=== PATIENT | male | born 1965 | race Caucasian/White ===

== ENCOUNTER 2020-05-01 08:21 | Inpatient (IN) | payer OTHER, SELFPAY ==
[2020-05-01] VITALS (11 sets, daily range): BP systolic 104–157; BP diastolic 81–99; PULSE 86–119; RESP 16–20; TEMP 36–37.2; O2SAT 94–97; BMI 25.0
--- NOTE | ~2020-05-01 | CT_ITS ---
EXAMINATION: CT ABDOMEN AND PELVIS WITH CONTRAST CLINICAL INFORMATION: Upper abdominal pain and history of pancreatitis COMPARISON: CT of the abdomen and pelvis 08/08/2019 TECHNIQUE: Multidetector volumetric images were obtained from the superior aspect of the liver through the pubic symphysis following administration 82 mL of Omnipaque 350 intravenous contrast. Sagittal and coronal reformatted images were obtained on the technologist's workstation. Oral contrast: No This CT examination was performed using dose optimization techniques as appropriate, variously including the following: *Automated exposure control *Adjustment of mA and/or kV according to patient size (this includes techniques or standardized protocols for targeted exams where dose is matched to indication/reason for exam; i.e. extremities or head) *Use of iterative reconstruction technique DLP: 493 mGy-cm FINDINGS: LUNG BASES: Dependent atelectasis at the bilateral lung bases LIVER, GALLBLADDER, AND BILIARY TREE: The liver is normal in size, shape, and attenuation. No focal hepatic lesion. Common bile duct measures up to 0.9 cm in diameter. No calcified stone is visualized. The gallbladder is surgically absent. PANCREAS: Again demonstrated is a dilated pancreatic duct, measuring up to 0.6 cm in diameter. There is a small amount of fluid along the pancreatic tail and edema in the mesentery. There is chronic atrophy of the pancreatic parenchyma. There are scattered calcifications, likely reflective of chronic pancreatitis. SPLEEN: Unremarkable. ADRENAL GLANDS: Unremarkable. KIDNEYS AND URETERS: The kidneys are normal in size, shape, and attenuation. No hydronephrosis, hydroureter, or calculi seen. No perinephric stranding. 1.8 cm simple cyst in the inferior pole of the right kidney. BLADDER: Unremarkable. GASTROINTESTINAL TRACT: The stomach and small bowel are not dilated. No evidence of obstruction. There are postsurgical changes of the rectosigmoid junction. There is diverticulosis of the descending and sigmoid colon without evidence of diverticulitis. Normal appendix. ABDOMINAL WALL: No significant hernia is appreciated. LYMPH NODES: Normal. VASCULAR: Normal caliber of the abdominal aorta. Scattered atheromatous calcifications. PELVIC VISCERA: The prostate and seminal vesicles are unremarkable. OSSEOUS STRUCTURES: No acute or suspicious osseous abnormality. Multilevel degenerative changes of the spine and postsurgical changes from discectomy at L5-S1. CT/CT abdomen pelvis w con IMPRESSION: Small amount of free fluid and mesenteric stranding around the tail of the pancreas, likely reflecting pancreatitis. No loculated fluid collection. Chronic atrophy of the pancreas with unchanged dilatation of the pancreatic duct measuring up to 0.6 cm in diameter. Scattered pancreatic calcifications, likely reflective of chronic pancreatitis. Diverticulosis of the colon without evidence of diverticulitis. Postsurgical changes of the rectosigmoid junction. Simple cyst of the right kidney measuring 1.8 cm.
--- NOTE | ~2020-05-01 | XR_ITS ---
EXAMINATION: XR CHEST CLINICAL INFORMATION: Cough and sore throat. COMPARISON: Chest 06/14/2019 TECHNIQUE: 2 views of the chest were obtained. FINDINGS: No significant abnormality is noted involving the heart, lungs, mediastinum, bony thorax or soft tissues. XR/XR chest 2V IMPRESSION: Unremarkable chest examination.
[2020-05-01] MEDS: 0.9 % Sodium Chloride 1,000 ML 999 ML IVCONT ×2 (10:32→13:16)
[2020-05-01] MEDS: Morphine Sulfate 2 MG/ML CARTRIDGE IVPUSH (10:32)
[2020-05-01] MEDS: ondansetron HCL 4 MG/2 ML VIAL IVPUSH (10:32)
[2020-05-01] MEDS: LORazepam 2 MG/ML VIAL IVPUSH ×2 (10:34→13:15)
--- NOTE | 2020-05-01 10:40 | ED_ITS ---
HPI - Abdominal Pain General Chief Complaint: Abdominal Pain Stated Complaint: abd pain Time Seen by Provider: 05/01/20 09:14 Source: patient Mode of arrival: ambulatory Limitations: no limitations History of Present Illness HPI narrative: 54-year-old male with a past medical history of ETOH dependent, recurrent alcoholic pancreatitis, chronic pancreatitis, pseudocyst, splenic and portal vein thrombosis, diverticulosis, diverticulitis hypertension, anxiety, depression and COPD presenting to the ED with complaints of upper abdominal pain with associated nausea and diarrhea that started yesterday worse today. Reports that he currently drinks about 15 nips of vodka daily. Patient reports his last drink was yesterday. Reports he has went into alcohol withdrawal in the past although has never had a seizure. Reports his last admission was approximately 6-9 months ago at [facility]. Reports that he is not interested in detox. Patient also reports a separate complaint of sore throat and a produ ctive cough for the past few days. MD elicited complaint: abdominal pain Pertinent past history: diverticulitis and other (Pancreatitis) Onset (ago): day(s) (Since yesterday worse today) Pain Consistency: constant Location: epigastric, LUQ and RUQ Severity: severe Quality: aching Radiation: none Migration to: no migration Exacerbating factors: eating Relieving factors: nothing Associated symptoms: nausea, diarrhea and other (Sore throat and productive cough) Related Data Allergies Allergy/AdvReac Type Severity Reaction Status Date / Time No Known Allergies Allergy Verified 05/01/20 09:01 [No Known Allergies*] Review of Systems Review of Systems Constitutional : + diaphoresis, No Weight loss, No Fever, No Chills, No Night Sweats, No Fatigue, No Malaise, no recent travel, no sick contacts ENT/Mouth: + Sore throat, No ear pain, No Difficulty swallowing Cardiovascular : No Chest Pain, No SOB, No Dyspnea on Exertion, No Orthopnea, NoEdema, No Palpitations Respiratory : + Cough, + Sputum, No Wheezing, No Dyspnea Gastrointestinal : + Nausea, + Diarrhea, + abdominal Pain, No Vomiting, No Hematochezia, No Melena Genitourinary : No irregular bleeding, No Dysuria, No Urinary Frequency, No Hematuria,No Urinary Incontinence, No Urgency, No Flank Pain Musculoskeletal : No joint pain, No Myalgias, No Joint Swelling Skin : No Skin Lesions, No rash Neuro : No Weakness, No Numbness, No Paresthesias, No Loss of Consciousness, NoDizziness, No Headache Psych : No Social Issues, Heme/Lymph: No Bruising, No Bleeding,No Lymphadenopathy Endocrine : No Polyuria, No Polydipsia, No Temperature Intolerance Yes all other systems are reviewed and are negative Physical Exam Vital Signs: Vital Signs: Last Vital Signs Temp 98.9 F 05/01/20 08:58 Pulse 119 H 05/01/20 13:56 Resp 16 05/01/20 13:56 BP 140/90 H 05/01/20 13:56 Pulse Ox 96 05/01/20 13:56 Body Mass Index 25.0 vital signs have been reviewed as normal and appeared to be correct. Blood pressure hypertensive 140/93. Heart rate tachycardic at 01:04. Respiration rate normal. Temperature normal. Oxygen saturation normal. Appearance: Alert. Oriented X3. Appears to be diaphoretic. No acute distress. Head: Normal external exam. Normocephalic. Eyes: PERRLA. EOMI. Conjunctiva and sclera normal. Eyelids normal. ENT: Pharynx erythematous. Uvula midline. Moist mucous membranes. No trismus noted. No drooling noted. No muffled voice noted. Neck: Normal inspection. Neck supple. FROM. No adenopathy. No meningeal signs. CVS: Normal heart rate and rhythm. Heart sound normal. No murmurs noted. Pulses normal throughout. Respiratory: No respiratory distress. Painless inspiration. Breath sounds nor mal. No wheezes/rales/rhonchi noted. Chest nontender. No accessory muscle usage noted or decreased air movement noted. Abdomen: Soft and mild tenderness to palpation to upper abdomen. Nondistended. No guarding. No rigidity. Bowel sounds normal in all 4 quadrants. No distention noted. No organomegaly noted. No visible injury noted. No rebound tenderness. Negative Rovsing sign. Negative obturator's sign. Negative psoas sign. Negative Douglas sign. Back: No CVA tenderness. Full range of motion noted. Skin: Skin warm and dry. Normal skin color. Normal skin turgor. No rashes/lesions/lacerations noted. Extremities: Extremities exhibit normal range of motion. Extremities nontender. Neuro: Oriented X 3. No motor deficit. No sensory deficit. Reflexes normal. Course Course Course Narrative: 9:15am - 54-year-old male with a past medical history of ETOH dependent, recurrent alcoholic pancreatitis, chronic pancreatitis, pseudocyst, splenic and portal vein thrombosis, diverticulosis, diverticulitis hypertension, anxiety, depression and COPD presenting to the ED with multiple complaints which include nausea, upper abdominal pain, diarrhea. Second complaint is sore throat with a productive cough for the past few days. Last drink was last night. Not interested in detox. - on exam patient is alert and oriented x3. Noted to be diaphoretic although not in any acute distress. No other signs of alcohol withdrawal. No tremors noted. Patient noted to be hypertensive and tachycardic otherwise all other vitals are within normal limits. Posterior pharynx erythematous. No exudate noted. Lungs clear to auscultation. CV RRR. Abdomen is soft and mild tenderness to upper abdomen. Not consistent with acute abdomen. No CVA tenderness noted. - labs, abdominal ultrasound, chest x-ray, SARS/RSV/flu swab, UA, rapid strep. Provide a L of IV fluid with 2 mg of Ativan, 2 mg of morphine and 4 mg of Zofran and re-evaluate. Reevaluation(s) Reevaluation #1: - white blood cell count 11,000 - potassium 3.1 - BUN 26 - random glucose 116 - total bilirubin 1.1 - AST/ALT/alkaline phosphate 75/68/152 - LDH 260 - all other labs are within normal limits - Odilia criteria 0 - I added a troponin due to patient developed an episode of SVT although denied any chest pain and he appeared comfortable than he was given another L of IV fluids and 2 additional mg of Ativan and his heart rate came down again - troponin 5.3 - EKG accelerated junctional rhythm with a ventricular rate of 125 with no acute ischemic changes and similar when compared to prior EKG on 08/05/2019. - CT scan of abdomen and pelvis with IV contrast reveals small amount of free fluid and mesenteric stranding around the tail of the pancreas reflecting pancreatitis no loculated fluid collection. Patient was also noted to have other chronic changes no additional acute processes noted. - chest x-ray was negative for pneumonia or any other acute processes. - COVID/flu/RSV negative. - therefore at this time will admit for pancreatitis and alcohol withdrawal - Dr. Kim as accepted admission at this time. Time: 14:37 MDM - Abdominal Pain Medical Records Attestation: I reviewed the patient's medical records. Lab Data Attestation: I reviewed the patient's lab results. Result diagrams: 05/01/20 10:25 05/01/20 10:25 Labs: Lab Results 05/01/20 05/01/20 05/01/20 Range/Units 10:25 10:25 10:25 WBC 11.9 H (4.8-10.8) X10*3/uL RBC 4.62 (4.60-5.80) X10*6/uL Hgb 15.1 (14.0-18.0) g/dl Hct 42.6 (42-52) % MCV 92.2 (80-98) fL MCH 32.7 (27.0-33.0) pg MCHC 35.4 (31.0-36.0) g/dl RDW 12.0 (11.0-16.0) % Plt Count 246 (160-400) X10*3/uL MPV 9.5 (9.4-12.4) fL Immature Gran % (Auto) 0.3 (0.0-0.4) % Neut % (Auto) 79.0 H (45-73) % Lymph % (Auto) 12.4 L (20-40) % [place] % (Auto) 6.8 (2-11) % Eos % (Auto) 1.1 (0-4) % Baso % (Auto) 0.4 (0-2) % Lymph # (Auto) 1.5 (1.2-4.9) X10*3/uL [place] # (Auto) 0.8 (0.1-1.2) X10*3/uL Eos # (Auto) 0.1 (0.0-0.4) X10*3/uL Baso # (Auto) 0.1 (0.0-0.2) X10*3/uL Abs Immat Gran (auto) 0.04 H (0.00-0.03) X10*3/uL Absolute Neuts (auto) 9.4 H (2.0-8.3) X10*3/uL Absolute Nucleated RBC 0.000 (0.0-0.012) X10*3/uL Nucleated RBC % (auto) 0.0 (0.0-0.2) /100WBC Hold Purple Top SEE NOTE PT (10.8-13.0) SEC INR (0.9-1.1) APTT (24.1-38.0) SEC Sodium 137 (135-145) mmol/L Potassium 3.1 L (3.3-5.1) mmol/L Chloride 100 (96-108) mmol/L Carbon Dioxide 22 (22-29) mmol/L Anion Gap 18 (12-20) BUN 26 H (9-16) mg/dL Creatinine 1.21 (0.5-1.4) mg/dL Estim Creat Clear Calc 78.8 Estimated GFR > 60 Random Glucose 116 H (60-115) mg/dL Calcium 8.6 (8.4-10.2) mg/dL Magnesium 1.7 (1.6-2.6) mg/dL Total Bilirubin 1.1 H (0.0-1.0) mg/dL Direct Bilirubin 0.4 (0.0-0.5) mg/dL AST 75 H (5-37) U/L ALT 68 H (0-40) U/L Alkaline Phosphatase 152 H (39-117) U/L Lactate Dehydrogenase 260 (118-273) U/L Troponin I High Sens (<3.5-35.0) ng/L Total Protein 7.1 (6.5-8.0) g/dL Albumin 4.0 (3.5-5.0) g/dL Amylase 69 (28-100) U/L Lipase (8-78) U/L Ethyl Alcohol mg/dL Coronavirus (PCR) (Negative) Influenza Type A (PCR) (Negative) Influenza Type B (PCR) (Negative) RSV RNA Qual (PCR) (Negative) 05/01/20 05/01/20 05/01/20 Range/Units 10:25 10:25 10:25 WBC (4.8-10.8) X10*3/uL RBC (4.60-5.80) X10*6/uL Hgb (14.0-18.0) g/dl Hct (42-52) % MCV (80-98) fL MCH (27.0-33.0) pg MCHC (31.0-36.0) g/dl RDW (11.0-16.0) % Plt Count (160-400) X10*3/uL MPV (9.4-12.4) fL Immature Gran % (Auto) (0.0-0.4) % Neut % (Auto) (45-73) % Lymph % (Auto) (20-40) % [place] % (Auto) (2-11) % Eos % (Auto) (0-4) % Baso % (Auto) (0-2) % Lymph # (Auto) (1.2-4.9) X10*3/uL [place] # (Auto) (0.1-1.2) X10*3/uL Eos # (Auto) (0.0-0.4) X10*3/uL Baso # (Auto) (0.0-0.2) X10*3/uL Abs Immat Gran (auto) (0.00-0.03) X10*3/uL Absolute Neuts (auto) (2.0-8.3) X10*3/uL Absolute Nucleated RBC (0.0-0.012) X10*3/uL Nucleated RBC % (auto) (0.0-0.2) /100WBC Hold Purple Top PT 13.2 H (10.8-13.0) SEC INR 1.1 (0.9-1.1) APTT 28.5 (24.1-38.0) SEC Sodium (135-145) mmol/L Potassium (3.3-5.1) mmol/L Chloride (96-108) mmol/L Carbon Dioxide (22-29) mmol/L Anion Gap (12-20) BUN (9-16) mg/dL Creatinine (0.5-1.4) mg/dL Estim Creat Clear Calc Estimated GFR Random Glucose (60-115) mg/dL Calcium (8.4-10.2) mg/dL Magnesium (1.6-2.6) mg/dL Total Bilirubin (0.0-1.0) mg/dL Direct Bilirubin (0.0-0.5) mg/dL AST (5-37) U/L ALT (0-40) U/L Alkaline Phosphatase (39-117) U/L Lactate Dehydrogenase (118-273) U/L Troponin I High Sens (<3.5-35.0) ng/L Total Protein (6.5-8.0) g/dL Albumin (3.5-5.0) g/dL Amylase (28-100) U/L Lipase 40 (8-78) U/L Ethyl Alcohol mg/dL Coronavirus (PCR) NEGATIVE (Negative) Influenza Type A (PCR) NEGATIVE (Negative) Influenza Type B (PCR) NEGATIVE (Negative) RSV RNA Qual (PCR) NEGATIVE (Negative) 05/01/20 05/01/20 Range/Units 10:45 10:45 WBC (4.8-10.8) X10*3/uL RBC (4.60-5.80) X10*6/uL Hgb (14.0-18.0) g/dl Hct (42-52) % MCV (80-98) fL MCH (27.0-33.0) pg MCHC (31.0-36.0) g/dl RDW (11.0-16.0) % Plt Count (160-400) X10*3/uL MPV (9.4-12.4) fL Immature Gran % (Auto) (0.0-0.4) % Neut % (Auto) (45-73) % Lymph % (Auto) (20-40) % [place] % (Auto) (2-11) % Eos % (Auto) (0-4) % Baso % (Auto) (0-2) % Lymph # (Auto) (1.2-4.9) X10*3/uL [place] # (Auto) (0.1-1.2) X10*3/uL Eos # (Auto) (0.0-0.4) X10*3/uL Baso # (Auto) (0.0-0.2) X10*3/uL Abs Immat Gran (auto) (0.00-0.03) X10*3/uL Absolute Neuts (auto) (2.0-8.3) X10*3/uL Absolute Nucleated RBC (0.0-0.012) X10*3/uL Nucleated RBC % (auto) (0.0-0.2) /100WBC Hold Purple Top PT (10.8-13.0) SEC INR (0.9-1.1) APTT (24.1-38.0) SEC Sodium (135-145) mmol/L Potassium (3.3-5.1) mmol/L Chloride (96-108) mmol/L Carbon Dioxide (22-29) mmol/L Anion Gap (12-20) BUN (9-16) mg/dL Creatinine (0.5-1.4) mg/dL Estim Creat Clear Calc Estimated GFR Random Glucose (60-115) mg/dL Calcium (8.4-10.2) mg/dL Magnesium (1.6-2.6) mg/dL Total Bilirubin (0.0-1.0) mg/dL Direct Bilirubin (0.0-0.5) mg/dL AST (5-37) U/L ALT (0-40) U/L Alkaline Phosphatase (39-117) U/L Lactate Dehydrogenase (118-273) U/L Troponin I High Sens 5.3 (<3.5-35.0) ng/L Total Protein (6.5-8.0) g/dL Albumin (3.5-5.0) g/dL Amylase (28-100) U/L Lipase (8-78) U/L Ethyl Alcohol < 10 mg/dL Coronavirus (PCR) (Negative) Influenza Type A (PCR) (Negative) Influenza Type B (PCR) (Negative) RSV RNA Qual (PCR) (Negative) Imaging Data CT scan of abdomen and pelvis with IV contrast: Attestation: I personally reviewed and interpreted this imaging study as follows: Radiologist's impression: FINDINGS: LUNG BASES: Dependent atelectasis at the bilateral lung bases LIVER, GALLBLADDER, AND BILIARY TREE: The liver is normal in size, shape, and attenuation. No focal hepatic lesion. Common bile duct measures up to 0.9 cm in diameter. No calcified stone is visualized. The gallbladder is surgically absent. PANCREAS: Again demonstrated is a dilated pancreatic duct, measuring up to 0.6 cm in diameter. There is a small amount of fluid along the pancreatic tail and edema in the mesentery. There is chronic atrophy of the pancreatic parenchyma. There are scattered calcifications, likely reflective of chronic pancreatitis. SPLEEN: Unremarkable. ADRENAL GLANDS: Unremarkable. KIDNEYS AND URETERS: The kidneys are normal in size, shape, and attenuation. No hydronephrosis, hydroureter, or calculi seen. No perinephric stranding. 1.8 cm simple cyst in the inferior pole of the right kidney. BLADDER: Unremarkable. GASTROINTESTINAL TRACT: The stomach and small bowel are not dilated. No evidence of obstruction. There are postsurgical changes of the rectosigmoid junction. There is diverticulosis of the descending and sigmoid colon without evidence of diverticulitis. Normal appendix. ABDOMINAL WALL: No significant hernia is appreciated. LYMPH NODES: Normal. VASCULAR: Normal caliber of the abdominal aorta. Scattered atheromatous calcifications. PELVIC VISCERA: The prostate and seminal vesicles are unremarkable. OSSEOUS STRUCTURES: No acute or suspicious osseous abnormality. Multilevel degenerative changes of the spine and postsurgical changes from discectomy at L5-S1. CT/CT abdomen pelvis w con IMPRESSION: Small amount of free fluid and mesenteric stranding around the tail of the pancreas, likely reflecting pancreatitis. No loculated fluid collection. Chronic atrophy of the pancreas with unchanged dilatation of the pancreatic duct measuring up to 0.6 cm in diameter. Scattered pancreatic calcifications, likely reflective of chronic pancreatitis. Diverticulosis of the colon without evidence of diverticulitis. Postsurgical changes of the rectosigmoid junction. Simple cyst of the right kidney measuring 1.8 cm. Chest x-ray: Attestation: I personally reviewed and interpreted this imaging study as follows: Radiologist's impression: FINDINGS: No significant abnormality is noted involving the heart, lungs, mediastinum, bony thorax or soft tissues. XR/XR chest 2V IMPRESSION: Unremarkable chest examination. ECG Data Attestation: I personally reviewed and interpreted this ECG as follows: ECG interpretation date: 05/01/20 ECG interpretation time: 13:12 Interpretation: Accelerated junctional rhythm ventricular rate of 125 and nonspecific changes no acute ischemic changes and similar when compared to prior EKG 08/05/2019 no acute ischemic changes. Critical Care Time Critical Care Time Critical Care Time: Yes Total Critical Care Time: 60 Attestation: I personally attest to this time spent taking care of the patient Discharge Plan Discharge Clinical Impression: Acute on chronic pancreatitis, Alcohol withdrawal Patient Disposition: Admitted As Inpatient [facility] Past Medical History Attestation statement: The following information was validated with the patient. Medical History (Updated 05/01/20 @ 14:42 by MYRIAM Montano) Diverticulitis HTN (hypertension) Pancreatitis Surgical History (Updated 05/01/20 @ 10:51 by MYRIAM Montano) History of colon resection Hx of cholecystectomy Previous back surgery Social History Social History Alcohol intake: current Alcohol intake frequency: 3 or more drinks per day Smoking Status: Current every day smoker Use of substances other than those prescribed or required for medical reasons: No Advance Directives: No Advance Directives Information Provided: No
[2020-05-01 10:54] LABS: MANUAL DIFF FLAG NO
[2020-05-01 11:05] LABS: INTERNATIONAL NORM RATIO 1.1 (0.9-1.1); Prothrombin Time 13.2 SEC (10.8-13.0)
[2020-05-01 11:07] LABS: Partial Thromboplastin Time 28.5 SEC (24.1-38.0)
[2020-05-01 11:08] LABS: Basophils Absolute Auto 0.1 X10*3/uL (0.0-0.2); Basophils Percent Auto 0.4 % (0-2); Eosinophils Absolute Auto 0.1 X10*3/uL (0.0-0.4); Eosinophils Percent Auto 1.1 % (0-4); Hematocrit 42.6 % (42-52); Hemoglobin 15.1 g/dl (14.0-18.0); Imm Gran Abs Auto 0.04 X10*3/uL (0.00-0.03); Imm Gran Pct Auto 0.3 % (0.0-0.4); Lymphocytes Absolute Auto 1.5 X10*3/uL (1.2-4.9); Lymphocytes Percent Auto 12.4 % (20-40); Mean Corpuscular HGB Conc 35.4 g/dl (31.0-36.0); Mean Corpuscular Hemoglobin 32.7 pg (27.0-33.0); Mean Corpuscular Volume 92.2 fL (80-98); Mean Platelet Volume 9.5 fL (9.4-12.4); Monocytes Absolute Auto 0.8 X10*3/uL (0.1-1.2); Monocytes Percent Auto 6.8 % (2-11); Neutrophils Absolute Auto 9.4 X10*3/uL (2.0-8.3); Platelet Count 246 X10*3/uL (160-400); Red Blood Count 4.62 X10*6/uL (4.60-5.80); White Blood Count 11.9 X10*3/uL (4.8-10.8)
[2020-05-01 11:18] LABS: Ethanol < 10 mg/dL
[2020-05-01 11:21] LABS: Lipase 40 U/L (8-78)
[2020-05-01 11:22] LABS: Alanine Aminotransferase 68 U/L (0-40); Alkaline Phosphatase 152 U/L (39-117); Amylase 69 U/L (28-100); Anion Gap 18 (12-20); Aspartate Amino Transferase 75 U/L (5-37); Bilirubin Direct 0.4 mg/dL (0.0-0.5); Bilirubin Total 1.1 mg/dL (0.0-1.0); Blood Urea Nitrogen 26 mg/dL (9-16); Calcium 8.6 mg/dL (8.4-10.2); Carbon Dioxide 22 mmol/L (22-29); Chloride 100 mmol/L (96-108); Creatinine Clr Calc Pharmacy 78.8; Estimated Glomerular Filt Rate > 60; Glucose Random 116 mg/dL (60-115); Lactate Dehydrogenase 260 U/L (118-273); Magnesium 1.7 mg/dL (1.6-2.6); Potassium 3.1 mmol/L (3.3-5.1); Sodium 137 mmol/L (135-145); Total Protein 7.1 g/dL (6.5-8.0)
[2020-05-01] MEDS: HYDROmorphone HCl 2 MG/ML VIAL 1 MG IVPUSH (11:53)
[2020-05-01 12:47] LABS: Influenza A PCR NEGATIVE (Negative); Influenza B PCR NEGATIVE (Negative); Resp Syncy Virus RNA Qual PCR NEGATIVE (Negative); SARS COV2 PCR INHOUSE NEGATIVE (Negative)
--- NOTE | 2020-05-01 13:08 | ECG_ITS ---
Test Reason : TACHYCARDIA Blood Pressure : / mmHG Vent. Rate : 125 BPM Atrial Rate : 036 BPM P-R Int : 000 ms QRS Dur : 094 ms QT Int : 424 ms P-R-T Axes : 000 -08 046 degrees QTc Int : 611 ms sinus tachycardia Inferior infarct (cited on or before 05-AUG-2019) Abnormal ECG When compared with ECG of 05-AUG-2019 05:56, Sinus tachycardia present T wave inversion no longer evident in Anterior leads Referred By: Ailyn Kang Electronically Signed By:Raleigh Mascorro
--- NOTE | 2020-05-01 13:47 | PC.NURSE ---
Pt became tachycardic with HR 150s, another RN with EKG and Ativan as charted, HR down 115
[2020-05-01 14:03] LABS: Troponin-I High Sensitivity 5.3 ng/L (<3.5-35.0)
[2020-05-01] MEDS: Doxycycline Hyclate 100 MG in 0.9 % Sodium Chloride 250 ML 166.67 MG IV (15:33)
[2020-05-01] MEDS: Magnesium Sulfate/H2O 2 GM/50 ML PIGGYBACK IV (15:33)
[2020-05-01] MEDS: PHENobarbitaL sodium 130 MG/ML VIAL 320 MG IM (15:34)
[2020-05-01] MEDS: Enoxaparin Sodium 40 MG/0.4 ML SYRINGE SUBCUT (15:46)
[2020-05-01 16:28] LABS: Troponin-I High Sensitivity 7.3 ng/L (<3.5-35.0)
[2020-05-01] MEDS: Nicotine 21 MG PATCH.TD24 TRANSDERMA (17:21)
[2020-05-01] MEDS: 0.9 % Sodium Chloride 1,000 ML 150 ML IVCONT (17:21)
[2020-05-01] MEDS: 0.9 % Sodium Chloride Flush 3 ML SYRINGE IVFLUSH (17:23)
[2020-05-01] MEDS: HYDROmorphone HCl 1 MG/ML SYRINGE IVPUSH ×2 (17:23→22:03)
--- NOTE | 2020-05-01 18:39 | HP_ITS ---
DATE OF SERVICE: 05/01/2020 CHIEF COMPLAINT: Abdominal pain. HISTORY OF PRESENT ILLNESS: This is a 54-year-old gentleman, well known to the Hospitalist Service due to recurrent hospitalization related to acute pancreatitis. The patient presented to [facility] with couple day history of abdominal pain, diffuse, associated with severe diarrhea, chills, and nausea. The patient also complaining of scratchy throat and cough productive of clear phlegm. The patient has been unable to eat or drink due to pain and nausea. He continued to actively drink alcohol, 15 drinks of vodka daily. His last drink was yesterday. The patient also provided history of dizziness on and off, likely related to alcohol use, also complains of intermittent palpitations. Currently denies any palpitations, but while walking to the bathroom, felt dizzy. PAST MEDICAL HISTORY: Significant for: 1. Recurrent alcoholic pancreatitis, now with chronic pancreatitis. 2. History of hypertension. 3. History of alcohol dependence. 4. Anxiety and depression. 5. History of COPD. 6. History of diverticulitis. 7. History of splenic and portal vein thrombosis. PAST SURGICAL HISTORY: 1. The patient is status post colon resection. 2. Status post cholecystectomy. 3. Status post back surgery. SOCIAL HISTORY: The patient lives alone at home. He smokes 1 to 1-1/2 pack per day for over 40 years. He daily drinks vodka. Denies any illicit drug use. 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 He ambulates without assistive device. FAMILY HISTORY: There is no family history of premature coronary artery disease, but there is a history of alcohol dependence in the family. REVIEW OF SYSTEMS: [employer]ANT [employer] SUPER[employer]ENT: The patient denies any headache, but complained of intermittent dizziness. CVS: He complains of palpitations. GASTROINTESTINAL: He complains of abdominal pain, localized to epigastric area at times radiation to back and generalized diffuse abdominal pain. : He denies any urinary symptoms of urgency and frequency. MUSCULOSKELETAL: He denies any back pain. RESPIRATORY: He complains of scratchy throat and cough productive of clear phlegm. Rest of all other systems are reviewed and are negative. HOME MEDICATIONS: The patient does not recall the medications he is using at home. On reviewing his old records, it seems that the patient takes hydroxyzine 25 mg every 8 hours as needed. He takes folic acid 1 mg daily, DuoNeb updraft q.i.d., albuterol MDI p.r.n., BuSpar 15 mg t.i.d., duloxetine 60 mg daily, and pancreatic enzymes, lipase/protease/amylase 2 capsules p.o. t.i.d. with meals. His medication needs to be verified. ALLERGIES: THE PATIENT HAS NO KNOWN DRUG ALLERGIES. LABORATORY DATA: Showed a WBC count of 12,000, hematocrit 42.6, and a platelet of 246. The patient's INR is 1.1 and PTT is 28.5. The patient's sodium 137, low potassium 3.1, BUN 26, and a creatinine of 1.2. Random blood sugar 116, magnesium 1.7, total bilirubin 1.1 with an AST 75, ALT 68, and alkaline phosphatase of 152. Troponin 5.3, albumin 4, amylase 69, and lipase of 40. Cardiovascular, an EKG showed sinus tachycardia and an elevated QTc of [address] abdomen showed small amount of free fluid and mesenteric stranding around the tail of the pancreas rightly reflecting pancreatitis. No loculated fluid collection. Chronic atrophy of the pancreas with unchanged dilatation of the pancreatic duct measuring 0.6 cm in diameter. There are also scattered pancreatic calcifications reflecting chronic pancreatitis. There is diverticulosis with no evidence of diverticulitis. ASSESSMENT AND PLAN: This is a 54-year-old gentleman, presented to [facility] with symptoms of abdominal pain associated with nausea, diarrhea, scratchy throat, cough, and dizziness with history of chronic recurrent alcoholic pancreatitis. The patient will be admitted to [facility] with acute recurrent alcoholic pancreatitis, hypokalemia, hypomagnesemia, and prolonged QT. 1. Acute recurrent alcoholic pancreatitis. The patient will be admitted to telemetry unit. He will be kept n.p.o., will be treated with IV fluids, pain medication. We will follow the patient's electrolytes, kidney function, calcium, and bicarb closely. 2. History of alcohol dependence with withdrawal. The patient will be placed on phenobarbital protocol. Continue folic acid replacement. 3. History of chronic obstructive pulmonary disease, currently with no acute exacerbation. Continue home inhalers. 4. History of hypertension. The patient is on chlorthalidone at home that will be held to avoid dehydration. Follow blood pressure closely and consider low-dose beta nic if BP remains elevated. 5. History of depression and anxiety. We will review the patient's medication, previously was on BuSpar and Atarax. 6. Hypomagnesemia due to poor nutrition. We will replace magnesium and follow levels. 7. Hypokalemia. We will replace potassium likely due to poor p.o. intake, diarrhea. 8. Prolonged QTc likely due to electrolyte abnormalities. We will replace magnesium and potassium aggressively and follow EKG. We will avoid medication that prolonged QT. 9. Deep vein thrombosis prophylaxis. The patient will be treated with Lovenox. MD KAYKAY Paris/NEIDA / [id number] MTDD
[2020-05-01] MEDS: PHENobarbitaL sodium 130 MG/ML VIAL 240 MG IM (20:56)
[2020-05-01] MEDS: busPIRone HCl 5 MG TABLET 15 MG PO (20:58)
--- NOTE | 2020-05-01 22:11 | PC.NURSE ---
Patient wants to keep nicotine patch on
[2020-05-02] VITALS (8 sets, daily range): BP systolic 135–154; BP diastolic 80–91; PULSE 87–101; RESP 16–20; TEMP 36.4–36.7; O2SAT 95–97
[2020-05-02] MEDS: PHENobarbitaL sodium 130 MG/ML VIAL 240 MG IM (00:27)
[2020-05-02] MEDS: HYDROmorphone HCl 1 MG/ML SYRINGE IVPUSH ×5 (03:13→19:37)
[2020-05-02] MEDS: Doxycycline Hyclate 100 MG in 0.9 % Sodium Chloride 250 ML 166.7 MG IV ×2 (03:13→14:35)
[2020-05-02 05:43] LABS: MANUAL DIFF FLAG NO
[2020-05-02 06:42] LABS: Alanine Aminotransferase 89 U/L (0-40); Albumin Level 3.3 g/dL (3.5-5.0); Alkaline Phosphatase 184 U/L (39-117); Anion Gap 12 (12-20); Aspartate Amino Transferase 168 U/L (5-37); Basophils Percent Auto 0.7 % (0-2); Bilirubin Direct 0.3 mg/dL (0.0-0.5); Bilirubin Total 0.7 mg/dL (0.0-1.0); Blood Urea Nitrogen 15 mg/dL (9-16); Calcium 7.5 mg/dL (8.4-10.2); Carbon Dioxide 23 mmol/L (22-29); Chloride 105 mmol/L (96-108); Creatinine Clr Calc Pharmacy 144.6; Eosinophils Absolute Auto 0.2 X10*3/uL (0.0-0.4); Eosinophils Percent Auto 3.5 % (0-4); Estimated Glomerular Filt Rate > 60; Glucose Random 102 mg/dL (60-115); Hemoglobin 12.4 g/dl (14.0-18.0); Imm Gran Abs Auto 0.01 X10*3/uL (0.00-0.03); Imm Gran Pct Auto 0.2 % (0.0-0.4); Lymphocytes Absolute Auto 1.2 X10*3/uL (1.2-4.9); Lymphocytes Percent Auto 21.6 % (20-40); Magnesium 2.3 mg/dL (1.6-2.6); Mean Corpuscular HGB Conc 34.4 g/dl (31.0-36.0); Mean Corpuscular Hemoglobin 32.9 pg (27.0-33.0); Mean Corpuscular Volume 95.5 fL (80-98); Mean Platelet Volume 9.9 fL (9.4-12.4); Monocytes Absolute Auto 0.3 X10*3/uL (0.1-1.2); Neutrophils Absolute Auto 3.9 X10*3/uL (2.0-8.3); Platelet Count 147 X10*3/uL (160-400); Potassium 2.9 mmol/L (3.3-5.1); Red Blood Count 3.77 X10*6/uL (4.60-5.80); Red Cell Distribution Width 12.1 % (11.0-16.0); Sodium 137 mmol/L (135-145); Total Protein 5.6 g/dL (6.5-8.0); White Blood Count 5.7 X10*3/uL (4.8-10.8)
[2020-05-02] MEDS: Folic Acid 1 MG TABLET PO (07:25)
[2020-05-02] MEDS: DULoxetine HCl 60 MG CAPSULE.DR PO (07:25)
[2020-05-02] MEDS: Thiamine HCL 100 MG TABLET PO (07:25)
[2020-05-02] MEDS: busPIRone HCl 5 MG TABLET 15 MG PO ×3 (07:25→21:52)
[2020-05-02] MEDS: amLODIPine Besylate 5 MG TABLET PO (07:25)
[2020-05-02] MEDS: Nicotine 21 MG PATCH.TD24 TRANSDERMA (07:26)
[2020-05-02] MEDS: Potassium Chloride ER 20 MEQ TAB.ER.PRT 40 MEQ PO (07:33)
[2020-05-02] MEDS: ondansetron HCL 4 MG/2 ML VIAL IVPUSH (07:34)
[2020-05-02] MEDS: Throat Lozenge, Medicated LOZENGE 1 LOZENGE MUCOUS MEM (07:44)
[2020-05-02] MEDS: Potassium Chloride/H20 10 MEQ/100 ML PIGGYBACK 100 MEQ IV (07:45)
--- NOTE | 2020-05-02 09:08 | HO.PM.IMPN ---
Subjective Subjective Date of Service: 05/02/20 <MYRIAM Eugene - Last Filed: 05/02/20 09:44> 05/02/20 <Kary iKm MD - Last Filed: 05/02/20 15:49> Interval History: f/u admission for abdominal pain/pancreatitis/etoh withdrawal Still having abdominal pain, nausea <MYRIAM Eugene - Last Filed: 05/02/20 09:44> Review of Systems Review of Systems: Yes all other systems are reviewed and are negative <MYRIAM Eugene - Last Filed: 05/02/20 09:44> Constitutional Constitutional: Denies chills and Denies fever(s) <MYRIAM Eugene - Last Filed: 05/02/20 09:44> Cardiovascular Cardiovascular: Denies chest pain <MYRIAM Eugene - Last Filed: 05/02/20 09:44> Respiratory Respiratory: Denies cough <MYRIAM Eugene - Last Filed: 05/02/20 09:44> Gastrointestinal Gastrointestinal: Reports abdominal pain and Reports nausea <MYRIAM Eugene - Last Filed: 05/02/20 09:44> Physical Exam Vital Signs: Vital Signs: Last Vital Signs Temp 98 F 05/02/20 07:36 Pulse 96 05/02/20 07:36 Resp 18 05/02/20 07:36 BP 139/90 H 05/02/20 07:36 Pulse Ox 97 05/02/20 07:36 Body Mass Index 25.0 <MYRIAM Eugene - Last Filed: 05/02/20 09:44> Const: General: no acute distress, alert and awake <MYRIAM Eugene - Last Filed: 05/02/20 09:44> Nutritional Appearance: well nourished <MYRIAM Eugene - Last Filed: 05/02/20 09:44> Orientation/consciousness: patient oriented x3 <MYRIAM Eugene - Last Filed: 05/02/20 09:44> HENMT: Head: Yes normocephalic and Yes atraumatic <MYRIAM Eugene - Last Filed: 05/02/20 09:44> Eyes: Sclerae: sclerae normal <MYRIAM Eugene Last Filed: 05/02/20 09:44> Chest: Chest palpation & inspection: normal inspection of the chest <MYRIAM Eugene Last Filed: 05/02/20 09:44> Resp: Effort & Inspection: normal respiratory effort and no respiratory distress <MYRIAM Eugene - Last Filed: 05/02/20 09:44> Cardio: Rate: regular rate <MYRIAM Eugene Last Filed: 05/02/20 09:44> Rhythm: regular rhythm <MYRIAM Eugene Last Filed: 05/02/20 09:44> GI: Other: soft, non-distended, generalized tenderness to palpation <MYRIAM Eugene - Last Filed: 05/02/20 09:44> Palpation (GI): Soft to palpation <MYRIAM Eugene - Last Filed: 05/02/20 09:44> Skin: General skin exam: no rashes or lesions noted <MYRIAM Eugene - Last Filed: 05/02/20 09:44> Neuro: General: patient oriented x3 <MYRIAM Eugene Last Filed: 05/02/20 09:44> Cranial nerves: Yes CN's II-XII intact bilaterally and Yes Bilaterally intact EOM present <MYRIAM Eugene Last Filed: 05/02/20 09:44> Extrem: General: Yes normal to inspection <MYRIAM Eugene Last Filed: 05/02/20 09:44> Objective Data Current Medications Generic Name Dose Route Start Last Admin Trade Name Freq PRN Reason Stop Dose Admin Acetaminophen 650 mg 05/01/20 15:23 Acetaminophen 325 Mg Tablet PO Q6H PRN Pain, Mild (Pain Scale 1-3) Albuterol Sulfate 2 puff 05/01/20 15:23 Albuterol Sulfate 90 Mcg 8 Gm Inhaler INHALE Q4H PRN wheezing Amlodipine Besylate 5 mg 05/02/20 09:00 05/02/20 07:25 Amlodipine Besylate 5 Mg Tablet PO 5 mg DAILY FELIX Administration Protocol Benzocaine 1 lozenge 05/01/20 15:08 05/02/20 07:44 Throat Lozenge, Medicated Lozenge MUCOUS MEM 1 lozenge Q2H PRN Administration Sore Throat Buspirone HCl 15 mg 05/01/20 21:00 05/02/20 07:25 Buspirone Hcl 5 Mg Tablet PO 15 mg TID FELIX Administration Duloxetine HCl 60 mg 05/02/20 09:00 05/02/20 07:25 Duloxetine Hcl 60 Mg Capsule.Dr PO 60 mg DAILY FELIX Administration Enoxaparin Sodium 40 mg 05/01/20 15:15 05/01/20 15:46 Enoxaparin Sodium 40 Mg/0.4 Ml Syringe SUBCUT 40 mg Q24H FELIX Administration Folic Acid 1 mg 05/02/20 09:00 05/02/20 07:25 Folic Acid 1 Mg Tablet PO 1 mg DAILY FELIX Administration Hydromorphone HCl 1 mg 05/01/20 15:12 05/02/20 07:26 Hydromorphone Hcl 1 Mg/Ml Syringe IVPUSH 1 mg Q4H PRN Administration Pain, Severe (Pain Scale 7-10) Hydroxyzine HCl 25 mg 05/01/20 15:23 Hydroxyzine Hcl 25 Mg Tablet PO Q8H PRN anxiety Doxycycline Hyclate 100 mg/ 250 mls @ 166.67 mls/hr 05/01/20 15:12 05/02/20 05:54 Sodium Chloride IV Infused Q12H FELIX Infusion Sodium Chloride 1,000 mls @ 150 mls/hr 05/01/20 15:23 05/02/20 05:54 Ns IVCONT Infused .Q6H40M FELIX Infusion Levalbuterol HCl 1.25 mg 05/01/20 15:23 Levalbuterol Hcl 1.25 Mg/0.5 Ml Vial.Neb INHALE Q4H PRN Shortness of Breath Medication 1 each 05/02/20 09:00 No Benzodiazepines MISCELLANE DAILY FELIX Nicotine 21 mg 05/01/20 15:15 05/02/20 07:26 Nicotine 21 Mg Patch.Td24 TRANSDERMA 21 mg DAILY FELIX Administration Ondansetron HCl 4 mg 05/02/20 05:01 05/02/20 07:34 Ondansetron Hcl 4 Mg/2 Ml Vial IVPUSH 4 mg Q8H PRN Administration Nausea and Vomiting Pharmacy Consult 1 each 05/01/20 13:59 Consult Rx Perform Med Rec MISCELLANE ONCE PRN Consult order Phenobarbital 60 mg 05/02/20 09:00 Phenobarbital 30 Mg Tablet PO 05/03/20 21:01 BID [facility] Phenobarbital 30 mg 05/04/20 09:00 Phenobarbital 30 Mg Tablet PO 05/05/20 21:01 BID [facility] Phenobarbital 15 mg 05/06/20 09:00 Phenobarbital 15 Mg Tablet PO 05/07/20 09:01 DAILY FELIX Sodium Chloride 3 ml 05/01/20 16:00 05/02/20 08:31 0.9 % Sodium Chloride Flush 3 Ml Syringe IVFLUSH Not Given QSHIFT [facility] Thiamine HCl 100 mg 05/02/20 09:00 05/02/20 07:25 Thiamine Hcl 100 Mg Tablet PO 100 mg DAILY FELIX Administration <MYRIAM Eugene - Last Filed: 05/02/20 09:44> Labs CBC & Chem 7: : 05/02/20 05:08 05/02/20 05:08 <MYRIAM Eugene - Last Filed: 05/02/20 09:44> Assessment and Plan (1) Acute on chronic pancreatitis: Status: Acute <MYRIAM Eugene - Last Filed: 05/02/20 09:44> (2) Alcohol withdrawal: Status: Acute <MYRIAM Eugene - Last Filed: 05/02/20 09:44> (3) HTN (hypertension): Status: Acute <MYRIAM Eugene - Last Filed: 05/02/20 09:44> Assessment and Plan: This is a 54-year-old male, presented to [facility] with symptoms of abdominal pain associated with nausea, diarrhea, scratchy throat, cough, and dizziness with history of chronic recurrent alcoholic pancreatitis. The patient will be admitted with acute recurrent alcoholic pancreatitis, hypokalemia, hypomagnesemia, and prolonged QT. Acute recurrent alcoholic pancreatitis. -full liquid diet -IV fluids, pain control -supportive care History of alcohol dependence with withdrawal. -continue phenobarbital protocol. -thiamine, folate supplementation Pt reports no plans to pursue sobriety. Can consider care team evaluation prior to discharge. Hypomagnesemia due to poor nutrition. Mag 2.3 today Hypokalemia. likely due to poor p.o. intake, diarrhea. Replace and follow closely Prolonged QTc likely due to electrolyte abnormalities. will replace magnesium and potassium and repeat EKG avoid medications that prolonged QT. Elevated LFTs in the setting of alcohol abuse -trend Thrombocytopenia likely related to alcohol abuse -follow CBC URI continue Doxycycline cepacol lozenges COPD No acute exacerbation Continue home inhalers HTN Hold chlorthalidone Continue Norvasc Tobacco dependence -NRT depression and anxiety. Continue BuSpar, atarax, duloxetine Amitriptyline on hold for prolonged QT DVT ppx Lovenox. Code status full code This case was discussed with Dr. Kim <MYRIAM Eugene - Last Filed: 05/02/20 09:44>
--- NOTE | 2020-05-02 09:09 | ECG_ITS ---
Test Reason : follow up qtc Blood Pressure : / mmHG Vent. Rate : 083 BPM Atrial Rate : 083 BPM P-R Int : 232 ms QRS Dur : 098 ms QT Int : 392 ms P-R-T Axes : 038 -14 -03 degrees QTc Int : 460 ms Sinus rhythm with 1st degree A-V block Inferior infarct , age undetermined T wave abnormality, consider anterior ischemia Abnormal ECG When compared to the previous EKG of Anterior T wave changes are present Referred By: Perri Luna Electronically Signed By:Raleigh Mascorro
[2020-05-02] MEDS: PHENobarbitaL 30 MG TABLET 60 MG PO ×2 (09:34→21:52)
[2020-05-02] MEDS: 0.9 % Sodium Chloride 1,000 ML 150 ML IVCONT ×2 (11:29→19:37)
[2020-05-02] MEDS: Acetaminophen 325 MG TABLET 650 MG PO (11:33)
[2020-05-02] MEDS: Enoxaparin Sodium 40 MG/0.4 ML SYRINGE SUBCUT (14:35)
--- NOTE | 2020-05-02 16:36 | MHC.CM.PN ---
PT REPORTS HE LIVES AT HOME WITH FAMILY AND IS INDEPENDENT WITH CARE AND MOBILITY. PT DENIES HAVING IN HOME SERVICES, HE HAS ONLY A NEBULIZER FOR DME. PT DOES NOT HAVE A HCP AND DECLINES TO COMPLETE ONE. PT PCP IS SAVANNAH ANDREWS. CURRENT DC PLAN IS HOME WITH NO SERVICES PT WILL ARRANGE TRANSPORT
--- NOTE | 2020-05-02 23:55 | PC.NURSE ---
P-Rn was notified by T roomthat patient is attempting to take his own pills I-nurse went into patient room immediately,patient spitted out the pill,admitted to have more pills in his room,agreed for us to store his meds,nursing service delivery supervisor was made aware E-we stored 14 white small pills,20 green pills and 3 nicotine patches,also 1 cigarette and a energy attorney,willmonitor patient closely,retail shift leader RN Silvia aware.
[2020-05-03] VITALS (8 sets, daily range): BP systolic 123–170; BP diastolic 70–98; PULSE 81–98; RESP 17–20; TEMP 36.2–37.2; O2SAT 93–99
[2020-05-03] MEDS: HYDROmorphone HCl 1 MG/ML SYRINGE IVPUSH ×5 (00:06→20:47)
[2020-05-03] MEDS: 0.9 % Sodium Chloride 1,000 ML 150 ML IVCONT (02:35)
[2020-05-03] MEDS: Doxycycline Hyclate 100 MG in 0.9 % Sodium Chloride 250 ML 166.67 MG IV ×2 (04:11→14:30)
[2020-05-03 07:01] LABS: Hematocrit 34.2 % (42-52); Mean Corpuscular HGB Conc 35.1 g/dl (31.0-36.0); Mean Corpuscular Hemoglobin 33.2 pg (27.0-33.0); Mean Corpuscular Volume 94.7 fL (80-98); Mean Platelet Volume 9.9 fL (9.4-12.4); Platelet Count 136 X10*3/uL (160-400); Red Blood Count 3.61 X10*6/uL (4.60-5.80); Red Cell Distribution Width 11.7 % (11.0-16.0)
[2020-05-03 07:36] LABS: Alanine Aminotransferase 71 U/L (0-40); Albumin Level 3.4 g/dL (3.5-5.0); Alkaline Phosphatase 216 U/L (39-117); Anion Gap 12 (12-20); Aspartate Amino Transferase 85 U/L (5-37); Bilirubin Direct 0.3 mg/dL (0.0-0.5); Bilirubin Total 0.8 mg/dL (0.0-1.0); Blood Urea Nitrogen 5 mg/dL (9-16); Calcium 7.8 mg/dL (8.4-10.2); Carbon Dioxide 24 mmol/L (22-29); Chloride 101 mmol/L (96-108); Creatinine Clr Calc Pharmacy 151.4; Estimated Glomerular Filt Rate > 60; Glucose Random 97 mg/dL (60-115); Magnesium 1.8 mg/dL (1.6-2.6); Potassium 3.2 mmol/L (3.3-5.1); Sodium 134 mmol/L (135-145); Total Protein 5.7 g/dL (6.5-8.0)
[2020-05-03] MEDS: Nicotine 21 MG PATCH.TD24 TRANSDERMA (08:20)
[2020-05-03] MEDS: Thiamine HCL 100 MG TABLET PO (08:20)
[2020-05-03] MEDS: amLODIPine Besylate 5 MG TABLET PO (08:20)
[2020-05-03] MEDS: DULoxetine HCl 60 MG CAPSULE.DR PO (08:20)
[2020-05-03] MEDS: PHENobarbitaL 30 MG TABLET 60 MG PO ×2 (08:21→22:01)
[2020-05-03] MEDS: Folic Acid 1 MG TABLET PO (08:21)
[2020-05-03] MEDS: busPIRone HCl 5 MG TABLET 15 MG PO ×3 (09:13→22:01)
[2020-05-03] MEDS: Potassium Chloride ER 20 MEQ TAB.ER.PRT 40 MEQ PO (09:13)
--- NOTE | 2020-05-03 13:27 | MHC.CM.PN ---
per multi dis rounds dc date is expected to be
--- NOTE | 2020-05-03 13:46 | HO.PM.IMPN ---
Subjective Subjective Date of Service: 05/03/20 Interval History: Patient feels better, less abdominal pain tolerating full liquid diet, no nausea no tremors, no acute issues overnight. [employer] no headache, no dizziness CVS no chest pain, no palpitation Respiratory mild intermittent shortness of breath, no cough. Physical Exam Vital Signs: Vital Signs: Last Vital Signs Temp 97.1 F 05/03/20 11:07 Pulse 92 05/03/20 11:07 Resp 18 05/03/20 11:07 BP 142/85 H 05/03/20 11:07 Pulse Ox 95 05/03/20 11:07 Body Mass Index 25.0 General no acute distress. Neck is supple no JVD. CVS regular rate rhythm, Respiratory lungs clear to auscultation, no respiratory distress, no wheeze, no rhonchi. Gastrointestinal abdomen firm, nontender, bowel sounds audible, no rigidity. Extremities no clubbing cyanosis or edema. Neuro nonfocal patient moving all 4 extremity speech clear. Skin no rash Objective Data Current Medications Generic Name Dose Route Start Last Admin Trade Name Freq PRN Reason Stop Dose Admin Acetaminophen 650 mg 05/01/20 15:23 05/02/20 11:33 Acetaminophen 325 Mg Tablet PO 650 mg Q6H PRN Administration Pain, Mild (Pain Scale 1-3) Albuterol Sulfate 2 puff 05/01/20 15:23 Albuterol Sulfate 90 Mcg 8 Gm Inhaler INHALE Q4H PRN wheezing Amlodipine Besylate 5 mg 05/02/20 09:00 05/03/20 08:20 Amlodipine Besylate 5 Mg Tablet PO 5 mg DAILY FELIX Administration Protocol Benzocaine 1 lozenge 05/01/20 15:08 05/02/20 07:44 Throat Lozenge, Medicated Lozenge MUCOUS MEM 1 lozenge Q2H PRN Administration Sore Throat Buspirone HCl 15 mg 05/01/20 21:00 05/03/20 09:13 Buspirone Hcl 5 Mg Tablet PO 15 mg TID FELIX Administration Duloxetine HCl 60 mg 05/02/20 09:00 05/03/20 08:20 Duloxetine Hcl 60 Mg Capsule. PO 60 mg DAILY FELIX Administration Enoxaparin Sodium 40 mg 05/01/20 15:15 05/02/20 14:35 Enoxaparin Sodium 40 Mg/0.4 Ml Syringe SUBCUT 40 mg Q24H FELIX Administration Folic Acid 1 mg 05/02/20 09:00 05/03/20 08:21 Folic Acid 1 Mg Tablet PO 1 mg DAILY FELIX Administration Hydromorphone HCl 1 mg 05/03/20 10:29 Hydromorphone Hcl 1 Mg/Ml Syringe IVPUSH Q6H PRN Pain, Severe (Pain Scale 7-10) Hydroxyzine HCl 25 mg 05/01/20 15:23 Hydroxyzine Hcl 25 Mg Tablet PO Q8H PRN anxiety Doxycycline Hyclate 100 mg/ 250 mls @ 166.67 mls/hr 05/01/20 15:12 05/03/20 05:54 Sodium Chloride IV Infused Q12H FELIX Infusion Potassium Chloride/Sodium Chloride 20 meq in 1,000 mls @ 100 mls/hr 05/03/20 10:30 05/03/20 11:05 IVCONT 100 mls/hr .Q10H FELIX Administration Levalbuterol HCl 1.25 mg 05/01/20 15:23 Levalbuterol Hcl 1.25 Mg/0.5 Ml Vial.Neb INHALE Q4H PRN Shortness of Breath Medication 1 each 05/02/20 09:00 No Benzodiazepines MISCELLANE DAILY FELIX Nicotine 21 mg 05/01/20 15:15 05/03/20 08:20 Nicotine 21 Mg Patch.Td24 TRANSDERMA 21 mg DAILY FELIX Administration Ondansetron HCl 4 mg 05/02/20 05:01 05/02/20 07:34 Ondansetron Hcl 4 Mg/2 Ml Vial IVPUSH 4 mg Q8H PRN Administration Nausea and Vomiting Pharmacy Consult 1 each 05/01/20 13:59 Consult Rx Perform Med Rec MISCELLANE ONCE PRN Consult order Phenobarbital 60 mg 05/02/20 09:00 05/03/20 08:21 Phenobarbital 30 Mg Tablet PO 05/03/20 21:01 60 mg BID FELIX Administration Phenobarbital 30 mg 05/04/20 09:00 Phenobarbital 30 Mg Tablet PO 05/05/20 21:01 BID FELIX Phenobarbital 15 mg 05/06/20 09:00 Phenobarbital 15 Mg Tablet PO 05/07/20 09:01 DAILY FELIX Sodium Chloride 3 ml 05/01/20 16:00 05/03/20 08:21 0.9 % Sodium Chloride Flush 3 Ml Syringe IVFLUSH Not Given QSHIFT [facility] Thiamine HCl 100 mg 05/02/20 09:00 05/03/20 08:20 Thiamine Hcl 100 Mg Tablet PO 100 mg DAILY FELIX Administration Labs CBC & Chem 7: 05/03/20 05:56 05/03/20 05:56 Assessment and Plan (1) Acute on chronic pancreatitis: Status: Acute (2) Alcohol withdrawal: Status: Acute (3) COPD (chronic obstructive pulmonary disease): Status: Acute (4) Anxiety: Status: Acute (5) Depression: Status: Acute (6) HTN (hypertension): Status: Acute (7) EtOH dependence: Status: Acute (8) Chronic pancreatitis: Status: Acute Assessment and Plan: 54-year-old male, presented to [facility] with symptoms of abdominal pain associated with nausea, diarrhea, scratchy throat, cough, and dizziness with history of chronic recurrent alcoholic pancreatitis. The patient will be admitted with acute recurrent alcoholic pancreatitis, hypokalemia, hypomagnesemia, and prolonged QT. Acute recurrent alcoholic pancreatitis. Patient feeling better with less abdominal pain tolerating full liquid diet therefore will advance diet to regular low-fat, continue IV fluid, reduce dose of IV Dilaudid Continue supportive care. History of alcohol dependence with withdrawal. continue phenobarbital protocol,and thiamine, folate supplementation Pt reports no plans to pursue sobriety. Will consult care team. Hypomagnesemia due to poor nutrition, status post replacement repeat Mag 2.3 Hypokalemia. Potassium remains low will continue to replace and follow Prolonged QTc likely due to electrolyte abnormalities. Potassium level improved after replacement of magnesium and potassium. Elevated LFTs in the setting of alcohol abuse improving Thrombocytopenia likely related to alcohol abuse, stable URI continue Doxycycline and cepacol lozenges COPD No acute exacerbation, Continue home inhalers HTN BP trending up, continue Norvasc will resume chlorthalidone Tobacco dependence -NRT depression and anxiety. Continue BuSpar, atarax, duloxetine, will resume amitriptyline since QT interval improved DVT ppx Lovenox. Code status full code
[2020-05-03] MEDS: Enoxaparin Sodium 40 MG/0.4 ML SYRINGE SUBCUT (14:30)
--- NOTE | 2020-05-03 15:11 | MHC.CARE ---
Received consult via fax at [phone] for ETOH. referred to the Recovery Team BRIGETTE Bustamante. Pt is due to be discharged tomorrow. BRIGETTE Bustamante will meet with pt prior to his departure for the consult.
[2020-05-04] MEDS: HYDROmorphone HCl 1 MG/ML SYRINGE IVPUSH ×2 (02:51→09:32)
[2020-05-04] MEDS: Doxycycline Hyclate 100 MG in 0.9 % Sodium Chloride 250 ML 166.67 MG IV (02:51)
[2020-05-04 03:44] VITALS: BP 118/68; PULSE 79; RESP 18; TEMP 37.1; O2SAT 96
[2020-05-04 07:32] VITALS: BP 137/85; PULSE 73; RESP 17; TEMP 36.5; O2SAT 97
[2020-05-04 07:56] LABS: Alanine Aminotransferase 43 U/L (0-40); Albumin Level 3.3 g/dL (3.5-5.0); Alkaline Phosphatase 177 U/L (39-117); Anion Gap 13 (12-20); Aspartate Amino Transferase 38 U/L (5-37); Bilirubin Direct 0.2 mg/dL (0.0-0.5); Bilirubin Total 0.6 mg/dL (0.0-1.0); Blood Urea Nitrogen 6 mg/dL (9-16); Calcium 8.1 mg/dL (8.4-10.2); Carbon Dioxide 25 mmol/L (22-29); Chloride 104 mmol/L (96-108); Creatinine Clr Calc Pharmacy 146.8; Estimated Glomerular Filt Rate > 60; Glucose Random 104 mg/dL (60-115); Potassium 3.5 mmol/L (3.3-5.1); Sodium 138 mmol/L (135-145); Total Protein 5.5 g/dL (6.5-8.0)
--- NOTE | 2020-05-04 08:54 | MHC.RECOVRN ---
Consult received from CARE Team. Pt currently not interested in recovery services or supports. However, t/w left resources with pt as well as t/w card if questions or concerns arise. Pts RN aware.
[2020-05-04] MEDS: PHENobarbitaL 30 MG TABLET PO (09:32)
[2020-05-04] MEDS: DULoxetine HCl 60 MG CAPSULE.DR PO (09:32)
[2020-05-04] MEDS: busPIRone HCl 5 MG TABLET 15 MG PO (09:32)
[2020-05-04 09:33] VITALS: BP 137/85; PULSE 73
[2020-05-04] MEDS: Thiamine HCL 100 MG TABLET PO (09:33)
[2020-05-04] MEDS: Folic Acid 1 MG TABLET PO (09:33)
[2020-05-04] MEDS: Nicotine 21 MG PATCH.TD24 TRANSDERMA (09:33)
[2020-05-04] MEDS: amLODIPine Besylate 5 MG TABLET PO (09:33)
[2020-05-04] MEDS: 0.9 % Sodium Chloride Flush 3 ML SYRINGE IVFLUSH (09:34)
--- NOTE | 2020-05-04 11:30 | MHC.CM.PN ---
Patient has been medically cleared for dc to home today, no services.
[2020-05-04 11:32] VITALS: BP 129/89; PULSE 93; RESP 17; TEMP 36.7; O2SAT 98
--- NOTE | 2020-05-04 11:50 | PM.DS ---
DS: Providers Provider Date of Service: 05/04/20 Date of admission: 05/01/20 14:58 Primary care physician: Anne Hermosillo MD Consults: 05/03/20 13:54 Consult to Care Team Routine Comment: Reason for consultation: etoh DS: Diagnosis Discharge Diagnosis (1) Acute on chronic pancreatitis: Status: Acute (2) Alcohol withdrawal: Status: Acute (3) COPD (chronic obstructive pulmonary disease): Status: Acute (4) Anxiety: Status: Acute (5) Depression: Status: Acute (6) HTN (hypertension): Status: Acute (7) EtOH dependence: Status: Acute (8) Chronic pancreatitis: Status: Acute DS: Medications Discharge Medications Home Medications: Home Medications Medication Instructions Recorded Confirmed albuterol sulfate 2 puff INHALATION Q4H PRN 05/01/20 05/01/20 amitriptyline 1 tab PO BEDTIME 05/01/20 05/01/20 amlodipine 1 tab PO DAILY 05/01/20 05/01/20 buspirone 1 tab PO TID 05/01/20 05/01/20 chlorthalidone 1 tab PO DAILY 05/01/20 05/01/20 duloxetine 1 cap PO DAILY 05/01/20 05/01/20 folic acid 1 tab PO DAILY 05/01/20 05/01/20 hydroxyzine HCl 1 tab PO Q8H PRN 05/01/20 05/01/20 naproxen 1 tab PO BID 05/01/20 05/01/20 tizanidine 1 tab PO Q8H PRN 05/01/20 05/01/20 Previous Rx's Medication Instructions Recorded oxycodone 5 mg PO Q4H PRN #18 tab 05/04/20 DS: Summary Hospital Course Hospital Course: History of presenting illness CHIEF COMPLAINT: Abdominal pain. HISTORY OF PRESENT ILLNESS: This is a 54-year-old gentleman, well known to the Hospitalist Service due to recurrent hospitalization related to acute pancreatitis. The patient presented to [facility] with couple day history of abdominal pain, diffuse,associated with severe diarrhea, chills, and nausea. The patient also complaining of scratchy throat and cough productive of clear phlegm. The patient has been unable to eat or drink due to pain and nausea. He continued to actively drink alcohol, 15 drinks of vodka daily. His last drink was yesterday. The patient also provided history of dizziness on and off, likely related to alcohol use, also complains of intermittent palpitations. Currently denies any palpitations, but while walking to the bathroom, felt dizzy. PAST MEDICAL HISTORY: Significant for: 1. Recurrent alcoholic pancreatitis, now with chronic pancreatitis. 2. History of hypertension. 3. History of alcohol dependence. 4. Anxiety and depression. 5. History of COPD. 6. History of diverticulitis. 7. History of splenic and portal vein thrombosis. PAST SURGICAL HISTORY: 1. The patient is status post colon resection. 2. Status post cholecystectomy. 3. Status post back surgery. 54-year-old male, presented to [facility] with symptoms of abdominal pain associated with nausea, diarrhea, scratchy throat, cough, and dizziness with history of chronic recurrent alcoholic pancreatitis. The patient will be admitted with acute recurrent alcoholic pancreatitis, hypokalemia, hypomagnesemia, and prolonged QT. Patient admitted with diagnosis of Acute recurrent alcoholic pancreatitis and treated with IV fluids, pain medication his diet has been gradually advance currently tolerated regular diet abdominal pain has improved patient likely has developed chronic pain due to chronic pancreatitis, strongly advised to abstain from alcohol and follow low-fat diet and to follow-up with primary care physician Patient is being discharged home on by mouth oxycodone #18. History of alcohol dependence with withdrawal. Patient treated with phenobarb protocol strongly advised to abstain from alcohol, LFTs trending down. Hypomagnesemia due to poor nutrition, replaced and normalized repeat Mag 2.3 Hypokalemia. Resolved Prolonged QTc likely due to electrolyte abnormalities, treated with magnesium and potassium QTC improved. URI treated with doxycycline and cepacol lozenges does not need antibiotics upon discharge. COPD No acute exacerbation, Continue home inhalers HTN continue Norvasc ,chlorthalidone discontinued, may resume if noted to have elevated blood pressure Tobacco dependence -smoking cessation advice continue nicotine patch depression and anxiety. Continue BuSpar, atarax, duloxetine, and amitriptyline Time Spent with Patient Time attestation: Total time spent providing and/or coordinating discharge services: Discharge coordination time: Greater than 30 minutes Physical Exam Vital Signs: Vital Signs: Last Vital Signs Temp 98.0 F 05/04/20 11:32 Pulse 93 05/04/20 11:32 Resp 17 05/04/20 11:32 BP 129/89 05/04/20 11:32 Pulse Ox 98 05/04/20 11:32 Body Mass Index 25.0 General no acute distress. Neck is supple no JVD. CVS regular rate rhythm, Respiratory lungs clear to auscultation, no respiratory distress, no wheeze, no rhonchi. Gastrointestinal abd. nontender, bowel sounds audible, no rigidity. Extremities no clubbing cyanosis or edema. Neuro nonfocal patient moving all 4 extremity speech clear. Skin no rash DS: Data Data Completed and Pending Labs on day of discharge: Laboratory Results - last 24 hr 05/04/20 05:48 Sodium 138 Potassium 3.5 Chloride 104 Carbon Dioxide 25 Anion Gap 13 BUN 6 L Creatinine 0.65 Estim Creat Clear Calc 146.8 Estimated GFR > 60 Random Glucose 104 Calcium 8.1 L Total Bilirubin 0.6 Direct Bilirubin 0.2 AST 38 H D ALT 43 H Alkaline Phosphatase 177 H Total Protein 5.5 L Albumin 3.3 L Discharge Plan Discharge Patient Disposition: Home, Self-Care Referrals: Anne Hermosillo MD [Primary Care Provider] - Discharge Medications: New oxycodone 5 mg Tablet 5 mg PO Q4H PRN (Reason: Pain, Severe (Pain Scale 7-10)) Qty: 18 RF: 0 nicotine 21 mg/24 hr Patch 24 Hour 21 mg transdermal DAILY Qty: 14 RF: 0 Continued tizanidine 2 mg tablet 1 tab PO Q8H PRN (Reason: muscle spasm) RF: 0 amlodipine 5 mg tablet 1 tab PO DAILY RF: 0 amitriptyline 10 mg tablet 1 tab PO BEDTIME RF: 0 folic acid 1 mg tablet 1 tab PO DAILY RF: 0 hydroxyzine HCl 25 mg tablet 1 tab PO Q8H PRN (Reason: anxiety) RF: 0 albuterol sulfate 90 mcg/actuation HFA aerosol inhaler 2 puff inhalation Q4H PRN (Reason: wheezing) RF: 0 buspirone 15 mg tablet 1 tab PO TID RF: 0 duloxetine 60 mg capsule,delayed release(DR/EC) 1 cap PO DAILY RF: 0 Discontinued chlorthalidone 25 mg tablet 1 tab PO DAILY RF: 0 naproxen 500 mg tablet 1 tab PO BID RF: 0 Discharge Orders: Discharge Order (Routine); Ordered 05/04/20 Ordered By: Kary Kim Diet: low fat, low cholesterol Activity on Discharge: As tolerated Stand Alone Forms: Patient Portal Discharge page, Work/School Release Care Plan Goals: Strongly recommend to abstain from alcohol Health Concerns: Alcohol abuse/acute recurrent pancreatitis, take low-fat diet abstain from alcohol Plan of Treatment: Outpatient follow-up with primary care physician
[2020-05-04] MEDS: oxyCODONE HCl Immed Release 5 MG TABLET PO (12:27)
== END 2020-05-04 13:29 | disposition home or self-care (01) | DRG 439 ==
LOC: HO.ED 14:42 → HO.EDOVER 16:07 → HO.IMC 17:10
PROVIDERS: Physician Assistant Medical; Admitting Provider Hospitalist; Emergency Provider Emergency Medicine; PCP Internal Medicine; Visit Provider Hospitalist
DX: K85.20 Alcohol induced acute pancreatitis without necrosis or infection (principal); F10.239 Alcohol dependence with withdrawal, unspecified; K86.0 Alcohol-induced chronic pancreatitis; F32.9 Major depressive disorder, single episode, unspecified; F41.9 Anxiety disorder, unspecified; E87.6 Hypokalemia; I10 Essential (primary) hypertension; J44.9 Chronic obstructive pulmonary disease, unspecified; J06.9 Acute upper respiratory infection, unspecified; E83.42 Hypomagnesemia; D69.6 Thrombocytopenia, unspecified; R94.31 Abnormal electrocardiogram [ECG] [EKG]; F17.210 Nicotine dependence, cigarettes, uncomplicated; Z20.822 Contact with and (suspected) exposure to COVID-19; Z71.6 Tobacco abuse counseling; Z79.899 Other long term (current) drug therapy
CPT/HCPCS: 0241U; 36415; 71046; 74177; 80048; 80076; 80320; 82150; 83615; 83690; 83735; 84484; 85025; 85027; 85610; 85730; 93005; 96374; 96375; 99285; 99291; J1170; J1650; J2060; J2270; J2405; J2560; J3475; Q9967

== ENCOUNTER 2020-07-14 12:21 | Emergency (ER) | payer OTHER, SELFPAY ==
--- NOTE | ~2020-07-14 | CT_ITS ---
EXAMINATION: CT ABDOMEN AND PELVIS WITH CONTRAST CLINICAL INFORMATION: Abdominal pain. Assess for pancreatitis. COMPARISON: CT abdomen and pelvis with contrast 05/01/2020, CT abdomen and pelvis noncontrast 08/08/2019. TECHNIQUE: Multidetector volumetric images were obtained from the superior aspect of the liver through the pubic symphysis following administration 85 mL of Omnipaque 350 intravenous contrast. Sagittal and coronal reformatted images were obtained on the technologist's workstation. Oral contrast: No This CT examination was performed using dose optimization techniques as appropriate, variously including the following: *Automated exposure control *Adjustment of mA and/or kV according to patient size (this includes techniques or standardized protocols for targeted exams where dose is matched to indication/reason for exam; i.e. extremities or head) *Use of iterative reconstruction technique DLP: 702 mGy-cm FINDINGS: LUNG BASES: Subsegmental atelectasis left anterior lateral base. No airspace consolidation or effusion. LIVER, GALLBLADDER, AND BILIARY TREE: Liver is normal in size and smooth in contour. There is diffuse hepatic steatosis similar to prior study. No intrahepatic ductal dilatation or focal parenchymal lesion. There has been prior cholecystectomy. Common duct is within upper limits of normal size for postcholecystectomy measuring 6-11 mm, similar to prior exam. No ductal calculus. No thickening common duct wall. PANCREAS: Pancreas is stable from prior exam. There is diffuse atrophy with chronic enlarged pancreatic duct measuring 6-7 mm in caliber, similar to prior exam. There are some scattered pancreatic parenchymal calcifications again seen consistent with chronic pancreatitis. Some trace chronic fluid is again noted residing between the pancreatic tail and lateral limb left adrenal likely sequela from prior remote pancreatitis. There are no acute peripancreatic inflammatory changes. Pancreatic parenchymal enhancement is uniform. SPLEEN: Unremarkable. ADRENAL GLANDS: Unremarkable. KIDNEYS AND URETERS: The kidneys are normal in size and enhance symmetrically. There is a cyst again noted posterior mid to lower pole right kidney just under 2 cm. There is no hydronephrosis, hydroureter, calculi, or perinephric stranding. BLADDER: Unremarkable. GASTROINTESTINAL TRACT: There is no bowel obstruction or focal inflammatory changes in the bowel or mesentery. No ascites or fluid collection. Appendix unremarkable. ABDOMINAL WALL: No significant hernia is appreciated. LYMPH NODES: No lymphadenopathy. VASCULAR: Unremarkable. PELVIC VISCERA: Unremarkable. OSSEOUS STRUCTURES: No acute bony abnormality. There are degenerative changes lumbosacral spine again noted. CT/CT abdomen pelvis w con IMPRESSION: 1. No acute inflammatory changes in abdomen or pelvis. 2. Prior cholecystectomy. No ductal dilatation. 3. Atrophic pancreas with chronic duct distention and pancreatic parenchymal calcifications. Stable trace fluid between pancreatic tail and left adrenal similar to prior exam. No acute inflammatory changes.
[2020-07-14 13:14] VITALS: BP 135/89; PULSE 125; RESP 18; TEMP 36.9; O2SAT 96; BMI 25.0
[2020-07-14 14:16] LABS: MANUAL DIFF FLAG NO
[2020-07-14 14:20] LABS: Basophils Percent Auto 0.5 % (0-2); Eosinophils Absolute Auto 0.1 X10*3/uL (0.0-0.4); Eosinophils Percent Auto 1.5 % (0-4); Hemoglobin 14.9 g/dl (14.0-18.0); Imm Gran Abs Auto 0.03 X10*3/uL (0.00-0.03); Imm Gran Pct Auto 0.4 % (0.0-0.4); Lymphocytes Absolute Auto 1.5 X10*3/uL (1.2-4.9); Mean Corpuscular HGB Conc 36.3 g/dl (31.0-36.0); Mean Corpuscular Hemoglobin 32.5 pg (27.0-33.0); Mean Corpuscular Volume 89.3 fL (80-98); Mean Platelet Volume 9.3 fL (9.4-12.4); Monocytes Absolute Auto 0.7 X10*3/uL (0.1-1.2); Monocytes Percent Auto 8.6 % (2-11); Neutrophils Absolute Auto 5.8 X10*3/uL (2.0-8.3); Platelet Count 196 X10*3/uL (160-400); Red Blood Count 4.59 X10*6/uL (4.60-5.80); Red Cell Distribution Width 12.5 % (11.0-16.0); White Blood Count 8.2 X10*3/uL (4.8-10.8)
--- NOTE | 2020-07-14 14:53 | ECG_ITS ---
Test Reason : SOB Blood Pressure : / mmHG Vent. Rate : 098 BPM Atrial Rate : 098 BPM P-R Int : 222 ms QRS Dur : 084 ms QT Int : 350 ms P-R-T Axes : 042 -02 033 degrees QTc Int : 446 ms Sinus rhythm with 1st degree A-V block Nonspecific T wave abnormality Abnormal ECG When compared with ECG of 02-MAY-2020 08:28, Nonspecific T wave abnormality has replaced inverted T waves in Anterior leads Referred By: Perla Prince Electronically Signed By:NICOLE BEE
[2020-07-14 14:56] LABS: Alanine Aminotransferase 41 U/L (0-40); Albumin Level 4.3 g/dL (3.5-5.0); Alkaline Phosphatase 125 U/L (39-117); Anion Gap 17 (12-20); Aspartate Amino Transferase 56 U/L (5-37); Bilirubin Total 0.9 mg/dL (0.0-1.0); Blood Urea Nitrogen 12 mg/dL (9-16); Calcium 9.5 mg/dL (8.4-10.2); Carbon Dioxide 23 mmol/L (22-29); Chloride 98 mmol/L (96-108); Estimated Glomerular Filt Rate > 60; Glucose Random 121 mg/dL (60-115); Lipase 17 U/L (8-78); Potassium 2.8 mmol/L (3.3-5.1); Sodium 135 mmol/L (135-145); Total Protein 7.5 g/dL (6.5-8.0)
[2020-07-14] MEDS: 0.9 % Sodium Chloride 1,000 ML 999 ML IV (15:15)
--- NOTE | 2020-07-14 15:21 | ED_ITS ---
HPI - Abdominal Pain General Chief Complaint: Abdominal Pain <Perla Prince NP - Last Filed: 07/14/20 17:09> Stated Complaint: pancreatitis <Perla Prince NP - Last Filed: 07/14/20 17:09> Time Seen by Provider: 07/14/20 14:48 <Perla Prince NP - Last Filed: 07/14/20 17:09> Source: patient <Perla Prince NP - Last Filed: 07/14/20 17:09> Mode of arrival: ambulatory <Perla Prince NP - Last Filed: 07/14/20 17:09> Limitations: no limitations <Perla Prince NP - Last Filed: 07/14/20 17:09> History of Present Illness HPI narrative: 54 yo male with a past medical history of pancreatitis, alcohol abuse, COPD, anxiety, depression, hypertension here with complaints of epigastric pain with vomiting and diarrhea for 2 days. History of pancreatitis and feels similar. Drinks 8-10 glasses of hard liquor daily. Last drink was this morning. No additional substance use. <Perla Prince NP - Last Filed: 07/14/20 17:09> Related Data Home Medications: Home Medications Medication Instructions Recorded Confirmed albuterol sulfate 2 puff INHALATION Q4H PRN 05/01/20 05/01/20 amitriptyline 1 tab PO BEDTIME 05/01/20 05/01/20 amlodipine 1 tab PO DAILY 05/01/20 05/01/20 buspirone 1 tab PO TID 05/01/20 05/01/20 duloxetine 1 cap PO DAILY 05/01/20 05/01/20 folic acid 1 tab PO DAILY 05/01/20 05/01/20 hydroxyzine HCl 1 tab PO Q8H PRN 05/01/20 05/01/20 tizanidine 1 tab PO Q8H PRN 05/01/20 05/01/20 Previous Rx's Medication Instructions Recorded nicotine 21 mg TRANSDERMAL DAILY #14 ea 05/04/20 oxycodone 5 mg PO Q4H PRN #18 tab 05/04/20 ondansetron HCl [Zofran] 4 mg PO Q8H PRN #12 tab 07/14/20 oxycodone-acetaminophen [Percocet] 1 tab PO TID PRN #9 tab 07/14/20 <Perla Prince NP - Last Filed: 07/14/20 17:09> Allergies/Adverse Reactions: Allergies Allergy/AdvReac Type Severity Reaction Status Date / Time No Known Allergies Allergy Verified 07/14/20 13:13 [No Known Allergies*] <DARREN Torres Last Filed: 07/14/20 17:09> Review of Systems Review of Systems Yes all other systems are reviewed and are negative <DARREN Torres Last Filed: 07/14/20 17:09> Constitutional: Reports no additional constitutional complaints, Denies body ache(s), Denies chills, Denies fever(s), Denies headache(s) and Denies weakness <DARREN Torres Last Filed: 07/14/20 17:09> Eyes: Reports no additional eye complaints and Denies change in vision <DARREN Torres Last Filed: 07/14/20 17:09> Reports system reviewed and no additional complaints, except as documented, Denies dizziness, Denies headache(s), Denies nasal congestion, D enies nasal discharge and Denies neck pain <DARREN Torres Last Filed: 07/14/20 17:09> Cardiovascular: Reports no additional cardiovascular complaints, Denies chest pain, Denies leg edema and Denies dyspnea <Perla Prince NP - Last Filed: 07/14/20 17:09> Respiratory: Reports no additional respiratory complaints, Denies cough and Denies dyspnea <Perla Prince NP - Last Filed: 07/14/20 17:09> Gastrointestinal: Reports no additional gastrointestinal complaints, Reports abdominal pain, Reports diarrhea, Reports nausea and Reports vomiting <DARREN Torres Last Filed: 07/14/20 17:09> Genitourinary: Denies urinary incontinence <DARREN Torres Last Filed: 07/14/20 17:09> Musculoskeletal: Reports no additional musculoskeletal complaints, Denies back pain, Denies arthralgias, Denies joint swelling, Denies neck pain, Denies numbness and Denies tingling <Perla Prince NP - Last Filed: 07/14/20 17:09> Skin/Breast: Reports system reviewed and no additional complaints, except as docu and Denies rash <Perla Prince NP - Last Filed: 07/14/20 17:09> Reports system reviewed and no additional complaints, except as documented, Denies Abnormal speech present, Denies dizziness, Denies headache(s), Denies numbness, Denies tingling and Denies weakness <Perla Prince NP - Last Filed: 07/14/20 17:09> Physical Exam Vital Signs: Vital Signs: Last Vital Signs Temp 98.8 F 07/14/20 16:34 Pulse 102 H 07/14/20 17:50 Resp 07/14/20 17:50 BP 135/88 07/14/20 17:50 Pulse Ox 96 07/14/20 17:50 Body Mass Index 25.0 <Perla Prince NP - Last Filed: 07/14/20 17:09> Vital Signs: Last Vital Signs Temp 98.8 F 07/14/20 16:34 Pulse 102 H 07/14/20 17:50 Resp 07/14/20 17:50 BP 135/88 07/14/20 17:50 Pulse Ox 96 07/14/20 17:50 Body Mass Index 25.0 <MYRIAM Major - Last Filed: 07/14/20 18:58> Vital Signs: Last Vital Signs Temp 98.8 F 07/14/20 16:34 Pulse 102 H 07/14/20 17:50 Resp 07/14/20 17:50 BP 135/88 07/14/20 17:50 Pulse Ox 96 07/14/20 17:50 Body Mass Index 25.0 <Tim Reyez MD - Last Filed: 08/18/20 16:52> Const: General: cooperative, healthy appearing, comfortable and no acute distress <Perla Prince NP - Last Filed: 07/14/20 17:09> Orientation/consciousness: patient oriented x3 <Perla Prince NP - Last Filed: 07/14/20 17:09> Limitations: no limitations <Perla Prince NP - Last Filed: 07/14/20 17:09> HENMT: Head: Yes normal to inspection <Perla Prince NP - Last Filed: 07/14/20 17:09> Ears: hearing grossly normal bilaterally <Perla Prince NP - Last Filed: 07/14/20 17:09> General nose exam: Normal external nose present <Perla Prince NP - Last Filed: 07/14/20 17:09> Face and sinus: Yes normal facial exam <Perla Prince NP - Last Filed: 07/14/20 17:09> Mouth: Normal oral and palatal mucosa present <Perla Prince NP - Last Filed: 07/14/20 17:09> Throat: Yes posterior oropharynx normal <Perla Prince NP - Last Filed: 07/14/20 17:09> Eyes: General: appearance normal, both eyes and all related structures <Perla Prince NP - Last Filed: 07/14/20 17:09> Pupils: Equal, round and reactive pupils present <Perla Prince NP - Last Filed: 07/14/20 17:09> Neck: Neck: Yes normal visual inspection <Perla Prince NP - Last Filed: 07/14/20 17:09> Chest: Chest palpation & inspection: normal inspection of the chest <Perla Prince NP - Last Filed: 07/14/20 17:09> Resp: Effort & Inspection: normal respiratory effort <Perla Prince NP - Last Filed: 07/14/20 17:09> Auscultation: clear to auscultation bilaterally <Perla Prince NP - Last Filed: 07/14/20 17:09> Cardio: Rate: regular rate <Perla Prince NP - Last Filed: 07/14/20 17:09> Rhythm: regular rhythm <Perla Prince NP - Last Filed: 07/14/20 17:09> Peripheral pulses: Peripheral pulses 2+ throughout <Perla Prince NP - Last Filed: 07/14/20 17:09> GI: Inspection: Yes normal to inspection <Perla Prince NP - Last Filed: 07/14/20 17:09> Palpation (GI): Firmness to palpation present (GI), Tenderness to palpation present (GI) (Moderate epigastric tenderness with guarding.) and no guarding <Perla Prince NP - Last Filed: 07/14/20 17:09> Auscultation: normal bowel sounds <Perla Prince NP - Last Filed: 07/14/20 17:09> Back/Spine/Pelvis: Thoracic/Lumbar Spine: thoracic and lumbar spine normal to inspection <Perla Prince NP - Last Filed: 07/14/20 17:09> Skin: General skin exam: no rashes or lesions noted <Perla Prince NP - Last Filed: 07/14/20 17:09> Neuro: General: patient oriented x3, no focal motor deficits and normal sensation to monofilament <Perla Prince NP - Last Filed: 07/14/20 17:09> Cranial nerves: Yes Equal, round and reactive pupils present <Perla Prince NP - Last Filed: 07/14/20 17:09> Cognition (Neuro): normal cognition <Perla Prince NP - Last Filed: 07/14/20 17:09> Speech: No Abnormal speech present <Perla Prince NP - Last Filed: 07/14/20 17:09> Gait exam (Neuro): Normal gait present <Perla Prince NP - Last Filed: 07/14/20 17:09> Motor exam (neuro): 5/5 motor strength present throughout <Perla Prince NP - Last Filed: 07/14/20 17:09> Extrem: General: Yes normal to inspection, Yes no pedal edema and Yes no calf tenderness <Perla Prince NP - Last Filed: 07/14/20 17:09> Course Course Course Narrative: 54-year-old male here with abdominal pain, vomiting, diarrhea x 2 days with multiple episodes of pancreatitis secondary to alcohol use. Will need labs, UA, CT a/P, EKG. 1645-CT shows chronic pancreatitis. Lipase is normal. Labs are unremarkable with exception of some mild hypokalemia. This is likely secondary to GI loss and alcohol use. Add on magnesium level. Potassium replacement ordered. Patient will need p.o. trial, improvement of electrolytes prior to discharge. If unable to tolerate p.o. or continued pain will need admission. 1700-Sign out to Jace MIGUEL pending above. <Perla Prince NP - Last Filed: 07/14/20 17:09> Patient no longer wants to wait in the ER. Patient does not want we freed the results of repeat potassium. Patient informed if potassium is still low taking cause cardiac and neuro complications. Patient was informed even possible . Patient was still like to be discharged against medical advice. Patient only agreeable to injection to be drawn but then he would like to sign AMA. Patient will be sent home with pain medication. <MYRIAM Major - Last Filed: 07/14/20 18:58> I have reviewed the chart <Tim Reyez MD - Last Filed: 08/18/20 16:52> MDM - Abdominal Pain Differential Diagnosis Differential diagnosis: Likely abdominal pain, diverticulitis, gastroenteritis, gastritis, pancreatitis and peptic ulcer disease <Perla Prince NP - Last Filed: 07/14/20 17:09> Medical Records Attestation: I reviewed the patient's medical records. <Perla Prince NP - Last Filed: 07/14/20 17:09> Lab Data Attestation: I reviewed the patient's lab results. <Perla Prince NP - Last Filed: 07/14/20 17:09> Result diagrams: : 07/14/20 14:09 07/14/20 19:15 <Perla Prince NP - Last Filed: 07/14/20 17:09> Labs: Lab Results 07/14/20 07/14/20 07/14/20 Range/Units 14:09 14:09 14:09 WBC 8.2 (4.8-10.8) X10*3/uL RBC 4.59 L D (4.60-5.80) X10*6/uL Hgb 14.9 D (14.0-18.0) g/dl Hct 41.0 L (42-52) % MCV 89.3 (80-98) fL MCH 32.5 (27.0-33.0) pg MCHC 36.3 H (31.0-36.0) g/dl RDW 12.5 (11.0-16.0) % Plt Count 196 D (160-400) X10*3/uL MPV 9.3 L (9.4-12.4) fL Immature Gran % (Auto) 0.4 (0.0-0.4) % Neut % (Auto) 71.0 (45-73) % Lymph % (Auto) 18.0 L (20-40) % [place] % (Auto) 8.6 (2-11) % Eos % (Auto) 1.5 (0-4) % Baso % (Auto) 0.5 (0-2) % Lymph # (Auto) 1.5 (1.2-4.9) X10*3/uL [place] # (Auto) 0.7 (0.1-1.2) X10*3/uL Eos # (Auto) 0.1 (0.0-0.4) X10*3/uL Baso # (Auto) 0.0 (0.0-0.2) X10*3/uL Abs Immat Gran (auto) 0.03 (0.00-0.03) X10*3/uL Absolute Neuts (auto) 5.8 (2.0-8.3) X10*3/uL Absolute Nucleated RBC 0.000 (0.0-0.012) X10*3/uL Nucleated RBC % (auto) 0.0 (0.0-0.2) /100WBC Hold Blue Top SEE NOTE Sodium 135 (135-145) mmol/L Potassium 2.8 L (3.3-5.1) mmol/L Chloride 98 (96-108) mmol/L Carbon Dioxide 23 (22-29) mmol/L Anion Gap 17 (12-20) BUN 12 D (9-16) mg/dL Creatinine 1.06 (0.5-1.4) mg/dL Estim Creat Clear Calc 90.0 Estimated GFR > 60 Random Glucose 121 H (60-115) mg/dL Calcium 9.5 D (8.4-10.2) mg/dL Magnesium 2.1 (1.6-2.6) mg/dL Total Bilirubin 0.9 (0.0-1.0) mg/dL Direct Bilirubin 0.4 (0.0-0.5) mg/dL AST 56 H (5-37) U/L ALT 41 H (0-40) U/L Alkaline Phosphatase 125 H D (39-117) U/L Total Protein 7.5 D (6.5-8.0) g/dL Albumin 4.3 D (3.5-5.0) g/dL Lipase 17 (8-78) U/L Urine Color Urine Appearance Urine pH (5.0-8.0) Ur Specific [place] (1.005-1.025) Urine Protein (NEG-TRACE) MG/DL Urine Glucose (UA) (NEG) MG/DL Urine Ketones (NEG) MG/DL Urine Blood (NEG) Urine Nitrite (NEG) Ur Leukocyte Esterase (NEG) Urine RBC (0) /HPF Urine WBC (0-4) /HPF Ur Squamous Epith Cells /LPF Urine Bacteria /LPF Hyaline Casts /LPF Urine Mucus /LPF Ethyl Alcohol mg/dL 07/14/20 07/14/20 07/14/20 Range/Units 15:13 15:13 19:15 WBC (4.8-10.8) X10*3/uL RBC (4.60-5.80) X10*6/uL Hgb (14.0-18.0) g/dl Hct (42-52) % MCV (80-98) fL MCH (27.0-33.0) pg MCHC (31.0-36.0) g/dl RDW (11.0-16.0) % Plt Count (160-400) X10*3/uL MPV (9.4-12.4) fL Immature Gran % (Auto) (0.0-0.4) % Neut % (Auto) (45-73) % Lymph % (Auto) (20-40) % [place] % (Auto) (2-11) % Eos % (Auto) (0-4) % Baso % (Auto) (0-2) % Lymph # (Auto) (1.2-4.9) X10*3/uL [place] # (Auto) (0.1-1.2) X10*3/uL Eos # (Auto) (0.0-0.4) X10*3/uL Baso # (Auto) (0.0-0.2) X10*3/uL Abs Immat Gran (auto) (0.00-0.03) X10*3/uL Absolute Neuts (auto) (2.0-8.3) X10*3/uL Absolute Nucleated RBC (0.0-0.012) X10*3/uL Nucleated RBC % (auto) (0.0-0.2) /100WBC Hold Blue Top Sodium (135-145) mmol/L Potassium 2.9 L (3.3-5.1) mmol/L Chloride (96-108) mmol/L Carbon Dioxide (22-29) mmol/L Anion Gap (12-20) BUN (9-16) mg/dL Creatinine (0.5-1.4) mg/dL Estim Creat Clear Calc Estimated GFR Random Glucose (60-115) mg/dL Calcium (8.4-10.2) mg/dL Magnesium (1.6-2.6) mg/dL Total Bilirubin (0.0-1.0) mg/dL Direct Bilirubin (0.0-0.5) mg/dL AST (5-37) U/L ALT (0-40) U/L Alkaline Phosphatase (39-117) U/L Total Protein (6.5-8.0) g/dL Albumin (3.5-5.0) g/dL Lipase (8-78) U/L Urine Color DARK YELLOW Urine Appearance CLEAR Urine pH 6.0 (5.0-8.0) Ur Specific [place] 1.020 (1.005-1.025) Urine Protein 1+ H (NEG-TRACE) MG/DL Urine Glucose (UA) NEG (NEG) MG/DL Urine Ketones 5 (NEG) MG/DL Urine Blood TRACE (NEG) Urine Nitrite NEG (NEG) Ur Leukocyte Esterase NEG (NEG) Urine RBC 1-4 (0) /HPF Urine WBC 1-4 (0-4) /HPF Ur Squamous Epith Cells TRACE /LPF Urine Bacteria TRACE /LPF Hyaline Casts 5-9 /LPF Urine Mucus 1+ /LPF Ethyl Alcohol < 10 mg/dL <Perla Prince NP - Last Filed: 07/14/20 17:09> Lab Results 07/14/20 07/14/20 07/14/20 Range/Units 14:09 14:09 14:09 WBC 8.2 (4.8-10.8) X10*3/uL RBC 4.59 L D (4.60-5.80) X10*6/uL Hgb 14.9 D (14.0-18.0) g/dl Hct 41.0 L (42-52) % MCV 89.3 (80-98) fL MCH 32.5 (27.0-33.0) pg MCHC 36.3 H (31.0-36.0) g/dl RDW 12.5 (11.0-16.0) % Plt Count 196 D (160-400) X10*3/uL MPV 9.3 L (9.4-12.4) fL Immature Gran % (Auto) 0.4 (0.0-0.4) % Neut % (Auto) 71.0 (45-73) % Lymph % (Auto) 18.0 L (20-40) % [place] % (Auto) 8.6 (2-11) % Eos % (Auto) 1.5 (0-4) % Baso % (Auto) 0.5 (0-2) % Lymph # (Auto) 1.5 (1.2-4.9) X10*3/uL [place] # (Auto) 0.7 (0.1-1.2) X10*3/uL Eos # (Auto) 0.1 (0.0-0.4) X10*3/uL Baso # (Auto) 0.0 (0.0-0.2) X10*3/uL Abs Immat Gran (auto) 0.03 (0.00-0.03) X10*3/uL Absolute Neuts (auto) 5.8 (2.0-8.3) X10*3/uL Absolute Nucleated RBC 0.000 (0.0-0.012) X10*3/uL Nucleated RBC % (auto) 0.0 (0.0-0.2) /100WBC Hold Blue Top SEE NOTE Sodium 135 (135-145) mmol/L Potassium 2.8 L (3.3-5.1) mmol/L Chloride 98 (96-108) mmol/L Carbon Dioxide 23 (22-29) mmol/L Anion Gap 17 (12-20) BUN 12 D (9-16) mg/dL Creatinine 1.06 (0.5-1.4) mg/dL Estim Creat Clear Calc 90.0 Estimated GFR > 60 Random Glucose 121 H (60-115) mg/dL Calcium 9.5 D (8.4-10.2) mg/dL Magnesium 2.1 (1.6-2.6) mg/dL Total Bilirubin 0.9 (0.0-1.0) mg/dL Direct Bilirubin 0.4 (0.0-0.5) mg/dL AST 56 H (5-37) U/L ALT 41 H (0-40) U/L Alkaline Phosphatase 125 H D (39-117) U/L Total Protein 7.5 D (6.5-8.0) g/dL Albumin 4.3 D (3.5-5.0) g/dL Lipase 17 (8-78) U/L Urine Color Urine Appearance Urine pH (5.0-8.0) Ur Specific [place] (1.005-1.025) Urine Protein (NEG-TRACE) MG/DL Urine Glucose (UA) (NEG) MG/DL Urine Ketones (NEG) MG/DL Urine Blood (NEG) Urine Nitrite (NEG) Ur Leukocyte Esterase (NEG) Urine RBC (0) /HPF Urine WBC (0-4) /HPF Ur Squamous Epith Cells /LPF Urine Bacteria /LPF Hyaline Casts /LPF Urine Mucus /LPF Ethyl Alcohol mg/dL 07/14/20 07/14/20 07/14/20 Range/Units 15:13 15:13 19:15 WBC (4.8-10.8) X10*3/uL RBC (4.60-5.80) X10*6/uL Hgb (14.0-18.0) g/dl Hct (42-52) % MCV (80-98) fL MCH (27.0-33.0) pg MCHC (31.0-36.0) g/dl RDW (11.0-16.0) % Plt Count (160-400) X10*3/uL MPV (9.4-12.4) fL Immature Gran % (Auto) (0.0-0.4) % Neut % (Auto) (45-73) % Lymph % (Auto) (20-40) % [place] % (Auto) (2-11) % Eos % (Auto) (0-4) % Baso % (Auto) (0-2) % Lymph # (Auto) (1.2-4.9) X10*3/uL [place] # (Auto) (0.1-1.2) X10*3/uL Eos # (Auto) (0.0-0.4) X10*3/uL Baso # (Auto) (0.0-0.2) X10*3/uL Abs Immat Gran (auto) (0.00-0.03) X10*3/uL Absolute Neuts (auto) (2.0-8.3) X10*3/uL Absolute Nucleated RBC (0.0-0.012) X10*3/uL Nucleated RBC % (auto) (0.0-0.2) /100WBC Hold Blue Top Sodium (135-145) mmol/L Potassium 2.9 L (3.3-5.1) mmol/L Chloride (96-108) mmol/L Carbon Dioxide (22-29) mmol/L Anion Gap (12-20) BUN (9-16) mg/dL Creatinine (0.5-1.4) mg/dL Estim Creat Clear Calc Estimated GFR Random Glucose (60-115) mg/dL Calcium (8.4-10.2) mg/dL Magnesium (1.6-2.6) mg/dL Total Bilirubin (0.0-1.0) mg/dL Direct Bilirubin (0.0-0.5) mg/dL AST (5-37) U/L ALT (0-40) U/L Alkaline Phosphatase (39-117) U/L Total Protein (6.5-8.0) g/dL Albumin (3.5-5.0) g/dL Lipase (8-78) U/L Urine Color DARK YELLOW Urine Appearance CLEAR Urine pH 6.0 (5.0-8.0) Ur Specific [place] 1.020 (1.005-1.025) Urine Protein 1+ H (NEG-TRACE) MG/DL Urine Glucose (UA) NEG (NEG) MG/DL Urine Ketones 5 (NEG) MG/DL Urine Blood TRACE (NEG) Urine Nitrite NEG (NEG) Ur Leukocyte Esterase NEG (NEG) Urine RBC 1-4 (0) /HPF Urine WBC 1-4 (0-4) /HPF Ur Squamous Epith Cells TRACE /LPF Urine Bacteria TRACE /LPF Hyaline Casts 5-9 /LPF Urine Mucus 1+ /LPF Ethyl Alcohol < 10 mg/dL <MYRIAM Major - Last Filed: 07/14/20 18:58> Lab Results 07/14/20 07/14/20 07/14/20 Range/Units 14:09 14:09 14:09 WBC 8.2 (4.8-10.8) X10*3/uL RBC 4.59 L D (4.60-5.80) X10*6/uL Hgb 14.9 D (14.0-18.0) g/dl Hct 41.0 L (42-52) % MCV 89.3 (80-98) fL MCH 32.5 (27.0-33.0) pg MCHC 36.3 H (31.0-36.0) g/dl RDW 12.5 (11.0-16.0) % Plt Count 196 D (160-400) X10*3/uL MPV 9.3 L (9.4-12.4) fL Immature Gran % (Auto) 0.4 (0.0-0.4) % Neut % (Auto) 71.0 (45-73) % Lymph % (Auto) 18.0 L (20-40) % [place] % (Auto) 8.6 (2-11) % Eos % (Auto) 1.5 (0-4) % Baso % (Auto) 0.5 (0-2) % Lymph # (Auto) 1.5 (1.2-4.9) X10*3/uL [place] # (Auto) 0.7 (0.1-1.2) X10*3/uL Eos # (Auto) 0.1 (0.0-0.4) X10*3/uL Baso # (Auto) 0.0 (0.0-0.2) X10*3/uL Abs Immat Gran (auto) 0.03 (0.00-0.03) X10*3/uL Absolute Neuts (auto) 5.8 (2.0-8.3) X10*3/uL Absolute Nucleated RBC 0.000 (0.0-0.012) X10*3/uL Nucleated RBC % (auto) 0.0 (0.0-0.2) /100WBC Hold Blue Top SEE NOTE Sodium 135 (135-145) mmol/L Potassium 2.8 L (3.3-5.1) mmol/L Chloride 98 (96-108) mmol/L Carbon Dioxide 23 (22-29) mmol/L Anion Gap 17 (12-20) BUN 12 D (9-16) mg/dL Creatinine 1.06 (0.5-1.4) mg/dL Estim Creat Clear Calc 90.0 Estimated GFR > 60 Random Glucose 121 H (60-115) mg/dL Calcium 9.5 D (8.4-10.2) mg/dL Magnesium 2.1 (1.6-2.6) mg/dL Total Bilirubin 0.9 (0.0-1.0) mg/dL Direct Bilirubin 0.4 (0.0-0.5) mg/dL AST 56 H (5-37) U/L ALT 41 H (0-40) U/L Alkaline Phosphatase 125 H D (39-117) U/L Total Protein 7.5 D (6.5-8.0) g/dL Albumin 4.3 D (3.5-5.0) g/dL Lipase 17 (8-78) U/L Urine Color Urine Appearance Urine pH (5.0-8.0) Ur Specific [place] (1.005-1.025) Urine Protein (NEG-TRACE) MG/DL Urine Glucose (UA) (NEG) MG/DL Urine Ketones (NEG) MG/DL Urine Blood (NEG) Urine Nitrite (NEG) Ur Leukocyte Esterase (NEG) Urine RBC (0) /HPF Urine WBC (0-4) /HPF Ur Squamous Epith Cells /LPF Urine Bacteria /LPF Hyaline Casts /LPF Urine Mucus /LPF Ethyl Alcohol mg/dL 07/14/20 07/14/20 07/14/20 Range/Units 15:13 15:13 19:15 WBC (4.8-10.8) X10*3/uL RBC (4.60-5.80) X10*6/uL Hgb (14.0-18.0) g/dl Hct (42-52) % MCV (80-98) fL MCH (27.0-33.0) pg MCHC (31.0-36.0) g/dl RDW (11.0-16.0) % Plt Count (160-400) X10*3/uL MPV (9.4-12.4) fL Immature Gran % (Auto) (0.0-0.4) % Neut % (Auto) (45-73) % Lymph % (Auto) (20-40) % [place] % (Auto) (2-11) % Eos % (Auto) (0-4) % Baso % (Auto) (0-2) % Lymph # (Auto) (1.2-4.9) X10*3/uL [place] # (Auto) (0.1-1.2) X10*3/uL Eos # (Auto) (0.0-0.4) X10*3/uL Baso # (Auto) (0.0-0.2) X10*3/uL Abs Immat Gran (auto) (0.00-0.03) X10*3/uL Absolute Neuts (auto) (2.0-8.3) X10*3/uL Absolute Nucleated RBC (0.0-0.012) X10*3/uL Nucleated RBC % (auto) (0.0-0.2) /100WBC Hold Blue Top Sodium (135-145) mmol/L Potassium 2.9 L (3.3-5.1) mmol/L Chloride (96-108) mmol/L Carbon Dioxide (22-29) mmol/L Anion Gap (12-20) BUN (9-16) mg/dL Creatinine (0.5-1.4) mg/dL Estim Creat Clear Calc Estimated GFR Random Glucose (60-115) mg/dL Calcium (8.4-10.2) mg/dL Magnesium (1.6-2.6) mg/dL Total Bilirubin (0.0-1.0) mg/dL Direct Bilirubin (0.0-0.5) mg/dL AST (5-37) U/L ALT (0-40) U/L Alkaline Phosphatase (39-117) U/L Total Protein (6.5-8.0) g/dL Albumin (3.5-5.0) g/dL Lipase (8-78) U/L Urine Color DARK YELLOW Urine Appearance CLEAR Urine pH 6.0 (5.0-8.0) Ur Specific [place] 1.020 (1.005-1.025) Urine Protein 1+ H (NEG-TRACE) MG/DL Urine Glucose (UA) NEG (NEG) MG/DL Urine Ketones 5 (NEG) MG/DL Urine Blood TRACE (NEG) Urine Nitrite NEG (NEG) Ur Leukocyte Esterase NEG (NEG) Urine RBC 1-4 (0) /HPF Urine WBC 1-4 (0-4) /HPF Ur Squamous Epith Cells TRACE /LPF Urine Bacteria TRACE /LPF Hyaline Casts 5-9 /LPF Urine Mucus 1+ /LPF Ethyl Alcohol < 10 mg/dL <Tim Reyez MD - Last Filed: 08/18/20 16:52> Imaging Data CT scan - abdomen: Attestation: I personally reviewed and interpreted this imaging study as follows: <Perla Prince NP - Last Filed: 07/14/20 17:09> Radiologist's impression: EXAMINATION: CT ABDOMEN AND PELVIS WITH CONTRAST CLINICAL INFORMATION: Abdominal pain. Assess for pancreatitis. COMPARISON: CT abdomen and pelvis with contrast 05/01/2020, CT abdomen and pelvis noncontrast 08/08/2019. TECHNIQUE: Multidetector volumetric images were obtained from the superior aspect of the liver through the pubic symphysis following administration 85 mL of Omnipaque 350 intravenous contrast. Sagittal and coronal reformatted images were obtained on the technologist's workstation. Oral contrast: No This CT examination was performed using dose optimization techniques as appropriate, variously including the following: *Automated exposure control *Adjustment of mA and/or kV according to patient size (this includes techniques or standardized protocols for targeted exams where dose is matched to indication/reason for exam; i.e. extremities or head) *Use of iterative reconstruction technique DLP: 702 mGy-cm FINDINGS: LUNG BASES: Subsegmental atelectasis left anterior lateral base. No airspace consolidation or effusion. LIVER, GALLBLADDER, AND BILIARY TREE: Liver is normal in size and smooth in contour. There is diffuse hepatic steatosis similar to prior study. No intrahepatic ductal dilatation or focal parenchymal lesion. There has been prior cholecystectomy. Common duct is within upper limits of normal size for postcholecystectomy measuring 6-11 mm, similar to prior exam. No ductal calculus. No thickening common duct wall. PANCREAS: Pancreas is stable from prior exam. There is diffuse atrophy with chronic enlarged pancreatic duct measuring 6-7 mm in caliber, similar to prior exam. There are some scattered pancreatic parenchymal calcifications again seen consistent with chronic pancreatitis. Some trace chronic fluid is again noted residing between the pancreatic tail and lateral limb left adrenal likely sequela from prior remote pancreatitis. There are no acute peripancreatic inflammatory changes. Pancreatic parenchymal enhancement is uniform. SPLEEN: Unremarkable. ADRENAL GLANDS: Unremarkable. KIDNEYS AND URETERS: The kidneys are normal in size and enhance symmetrically. There is a cyst again noted posterior mid to lower pole right kidney just under 2 cm. There is no hydronephrosis, hydroureter, calculi, or perinephric stranding. BLADDER: Unremarkable. GASTROINTESTINAL TRACT: There is no bowel obstruction or focal inflammatory changes in the bowel or mesentery. No ascites or fluid collection. Appendix unremarkable. ABDOMINAL WALL: No significant hernia is appreciated. LYMPH NODES: No lymphadenopathy. VASCULAR: Unremarkable. PELVIC VISCERA: Unremarkable. OSSEOUS STRUCTURES: No acute bony abnormality. There are degenerative changes lumbosacral spine again noted. CT/CT abdomen pelvis w con IMPRESSION: 1. No acute inflammatory changes in abdomen or pelvis. 2. Prior cholecystectomy. No ductal dilatation. 3. Atrophic pancreas with chronic duct distention and pancreatic parenchymal calcifications. Stable trace fluid between pancreatic tail and left adrenal similar to prior exam. No acute inflammatory changes. <Perla Prince NP - Last Filed: 07/14/20 17:09> ECG Data Attestation: I personally reviewed and interpreted this ECG as follows: <Perla Prince NP - Last Filed: 07/14/20 17:09> ECG interpretation date: 07/14/20 <Perla Prince NP - Last Filed: 07/14/20 17:09> ECG interpretation time: 16:32 <DARREN Torres Last Filed: 07/14/20 17:09> Interpretation: Sinus rhythm with a first-degree AV block, normal OH, normal QRS, normal QT <Perla Prince NP - Last Filed: 07/14/20 17:09> Discharge Plan Discharge Clinical Impression: Pancreatitis <Perla Prince NP - Last Filed: 07/14/20 17:09> Patient Disposition: Left Against Medical Advice <Perla Prince NP - Last Filed: 07/14/20 17:09> Instructions: Pancreatitis (ED), Hypokalemia (ED) <Perla Prince NP - Last Filed: 07/14/20 17:09> Additional Instructions: Return to the ED immediately for worsening abdominal pain, inability to tolerate solid food/liquid, nausea, vomiting, fever, chills, weakness, diz ziness, chest pain, shortness of breath, dysuria, hematuria, flank pain, or any other concerning symptoms. Please follow-up with PCP <Perla Prince NP - Last Filed: 07/14/20 17:09> Prescriptions: New oxycodone-acetaminophen [Percocet] 5-325 mg tablet 1 tab PO TID PRN (Reason: pain) Qty: 9 RF: 0 ondansetron HCl [Zofran] 4 mg tablet 4 mg PO Q8H PRN (Reason: nausea) Qty: 12 RF: 0 No Action tizanidine 2 mg tablet 1 tab PO Q8H PRN (Reason: muscle spasm) RF: 0 amlodipine 5 mg tablet 1 tab PO DAILY RF: 0 amitriptyline 10 mg tablet 1 tab PO BEDTIME RF: 0 folic acid 1 mg tablet 1 tab PO DAILY RF: 0 hydroxyzine HCl 25 mg tablet 1 tab PO Q8H PRN (Reason: anxiety) RF: 0 albuterol sulfate 90 mcg/actuation HFA aerosol inhaler 2 puff inhalation Q4H PRN (Reason: wheezing) RF: 0 buspirone 15 mg tablet 1 tab PO TID RF: 0 duloxetine 60 mg capsule,delayed release(DR/EC) 1 cap PO DAILY RF: 0 nicotine 21 mg/24 hr Patch 24 Hour 21 mg transdermal DAILY Qty: 14 RF: 0 oxycodone 5 mg Tablet 5 mg PO Q4H PRN (Reason: Pain, Severe (Pain Scale 7-10)) Qty: 18 RF: 0 <Perla Prince NP - Last Filed: 07/14/20 17:09> Stand Alone Forms: Against Medical Advice <Perla Prince NP - Last Filed: 07/14/20 17:09> Interventions: ED Discharge Assessment Last Done: 07/14/20 19:22 <Perla Prince NP - Last Filed: 07/14/20 17:09> Discharge Date/Time: 07/14/20 19:24 <Perla Prince NP - Last Filed: 07/14/20 17:09> Print Language: Lao <Perla Prince NP - Last Filed: 07/14/20 17:09> [facility] Past Medical History Attestation statement: The following information was validated with the patient. <Perla Prince NP - Last Filed: 07/14/20 17:09> Source: old records reviewed and nursing notes reviewed <Perla Prince NP - Last Filed: 07/14/20 17:09> Medical History: Medical History Anxiety Chronic pancreatitis COPD (chronic obstructive pulmonary disease) Depression Diverticulitis HTN (hypertension) Pancreatitis <Perla Prince NP - Last Filed: 07/14/20 17:09> Surgical History: Surgical History History of colon resection Hx of cholecystectomy Previous back surgery <Perla Prince NP - Last Filed: 07/14/20 17:09> Social History Social History: Social History Household Members: Spouse and Children Housing: House Do you presently have visiting nurse or other home services: No Alcohol intake: current Alcohol intake frequency: 3 or more drinks per day Patient Tobacco Use Status: Current everyday Tobacco user Cigarette Packs Per Day: 1 Cigarettes Per Day: 20.0 Second Hand Smoke Exposure: No Use of substances other than those prescribed or required for medical reasons: No Advance Directives: Yes Advance Directives Information Provided: Yes Advance Directives on File: No service: No Current occupational status: employed <Perla Prince NP - Last Filed: 07/14/20 17:09>
[2020-07-14 15:23] LABS: Bilirubin Direct 0.4 mg/dL (0.0-0.5)
[2020-07-14 15:24] LABS: Glucose Urine UA NEG (NEG); Leukocyte Esterase Urine NEG (NEG); Nitrite Urine NEG (NEG); Urine Blood TRACE (NEG); Urine Ketones 5 MG/DL (NEG); Urine Protein 1+ MG/DL (NEG-TRACE)
[2020-07-14 15:26] LABS: Appearance Urine CLEAR; Color Urine DARK YELLOW
[2020-07-14 15:27] VITALS: RESP 17
[2020-07-14] MEDS: HYDROmorphone HCl 1 MG/ML SYRINGE 0.5 MG IVPUSH (15:27)
[2020-07-14] MEDS: LORazepam 2 MG/ML VIAL 1 MG IVPUSH (15:29)
[2020-07-14 15:34] VITALS: BP 133/84; PULSE 107; RESP 17; O2SAT 97
[2020-07-14 15:39] LABS: Bacteria Urine TRACE /LPF; Mucus Urine 1+ /LPF; Squamous Epithelial Cell Urine TRACE /LPF
[2020-07-14 15:47] LABS: Ethanol < 10 mg/dL
[2020-07-14] MEDS: iohexoL 350 MG/ML 100 ML INFUS..BTL IV (15:52)
[2020-07-14] MEDS: Potassium Chloride/H20 10 MEQ/100 ML PIGGYBACK 100 MEQ IV ×2 (15:58→17:11)
[2020-07-14] MEDS: Potassium Chloride ER 20 MEQ TAB.ER.PRT 60 MEQ PO (16:00)
[2020-07-14 16:34] VITALS: BP 131/92; PULSE 101; RESP 19; TEMP 37.1; O2SAT 96
[2020-07-14 16:35] VITALS: BP 129/86; PULSE 100; RESP 16
[2020-07-14 17:11] LABS: Magnesium 2.1 mg/dL (1.6-2.6)
[2020-07-14 17:50] VITALS: BP 135/88; PULSE 102; RESP 14; O2SAT 96
--- NOTE | 2020-07-14 18:37 | PC.NURSE ---
Patient refuses for blood draw to repeat potassium level. Pt state he has got to leave and wants to talk to the ER doctor. ER provider notified of patient refusal.
[2020-07-14 19:54] LABS: Potassium 2.9 mmol/L (3.3-5.1)
== END 2020-07-14 19:24 | disposition left against medical advice (07) ==
PROVIDERS: Nurse Practitioner Family; Physician Assistant; Emergency Provider Emergency Medicine
DX: K85.90 Acute pancreatitis without necrosis or infection, unspecified (principal); R10.9 Unspecified abdominal pain; F17.210 Nicotine dependence, cigarettes, uncomplicated; Z71.6 Tobacco abuse counseling; Z79.899 Other long term (current) drug therapy
CPT/HCPCS: 36415; 74177; 80053; 80076; 80320; 81001; 82248; 83690; 83735; 84132; 85025; 93005; 96361; 96365; 96375; 99285; J1170; J2060; Q9967

== ENCOUNTER 2020-10-07 08:06 | Inpatient (IN) | payer OTHER, SELFPAY ==
[2020-10-07] VITALS (10 sets, daily range): BP systolic 151–188; BP diastolic 93–107; PULSE 96–120; RESP 16–20; TEMP 36.3–36.8; O2SAT 90–98; BMI 23.7
--- NOTE | ~2020-10-07 | CT_ITS ---
EXAMINATION: CT ABDOMEN AND PELVIS WITH CONTRAST CLINICAL INFORMATION: Abdominal pain; history of pancreatitis. COMPARISON: CT abdomen and pelvis dated 07/14/2020. TECHNIQUE: Multidetector volumetric images were obtained from the superior aspect of the liver through the pubic symphysis following administration 85 mL of Omnipaque 350 intravenous contrast. Sagittal and coronal reformatted images were obtained on the technologist's workstation. Oral contrast: No This CT examination was performed using dose optimization techniques as appropriate, variously including the following: *Automated exposure control *Adjustment of mA and/or kV according to patient size (this includes techniques or standardized protocols for targeted exams where dose is matched to indication/reason for exam; i.e. extremities or head) *Use of iterative reconstruction technique DLP: 562 mGy-cm FINDINGS: LUNG BASES: There is mild bilateral dependent hypoaeration. There are coronary artery atherosclerotic calcifications. LIVER, GALLBLADDER, AND BILIARY TREE: The liver is normal in size, shape, and generally diminished in attenuation. No focal hepatic lesion or biliary ductal dilatation is present. The gallbladder is surgically absent. PANCREAS: The pancreas is again atrophic. There is stable chronic pancreatic ductal dilatation to 6 mm (2:24). Pancreatic parenchymal calcifications are again noted, a sequela of old, healed pancreatitis. No focal enhancement defect is seen. There is no peripancreatic fat stranding. There is a stable very small chronic fluid collection redemonstrated, interposed between the pancreatic tail and the left renal upper pole. SPLEEN: Unremarkable. ADRENAL GLANDS: Unremarkable. KIDNEYS AND URETERS: The kidneys are normal in size, shape, and attenuation. No hydronephrosis, hydroureter, or calculi seen. A low-attenuation right renal cyst is redemonstrated. No perinephric stranding. BLADDER: Unremarkable. GASTROINTESTINAL TRACT: There is mild wall thickening questioned of the duodenum, particularly the superior and descending segments (i.e. 2:33 and 6:49). There is a patent sigmoid anastomotic staple line. There is mild colonic diverticulosis, without acute diverticulitis. No bowel obstruction, free intraperitoneal air or abscess is seen. The vermiform appendix appears normal. ABDOMINAL WALL: No significant hernia is appreciated. LYMPH NODES: Normal. VASCULAR: There is moderate aortoiliac atherosclerotic calcification. No abdominal aortic aneurysm is seen. PELVIC VISCERA: The prostate and seminal vesicles are unremarkable. OSSEOUS STRUCTURES: There is multi-level thoracolumbar degenerative disc, Schmorl's node formation disease and spondylosis. Degenerative disc disease is particularly severe at L4-5 and L5-S1. There is a stable mild L2 anterior wedge compression fracture. No acute or aggressive osseous abnormality is seen. CT/CT abdomen pelvis w con IMPRESSION: 1. There are sequelae of chronic pancreatitis, including atrophy, parenchymal calcifications and ductal dilatation. A very small chronic fluid collection is redemonstrated adjacent to the pancreatic tail. No acute finding is seen to suggest active pancreatitis. 2. There is duodenal wall thickening, suggesting possible duodenitis. If clinically indicated, this can be further evaluated with an upper GI series. 3. There is hepatic steatosis. 4. The gallbladder is surgically absent. 5. There has been a prior sigmoid resection, with patent rectosigmoid anastomotic staple. There is mild residual diverticulosis, without acute diverticulitis seen. The vermiform appendix appears normal. 6. There are multi-level degenerative changes of the thoracolumbar spine, particularly severe at L4-5 and L5-S1. A mild chronic L2 anterior wedge compression fracture is seen.
--- NOTE | ~2020-10-07 | XR_ITS ---
EXAMINATION: XR CHEST 2 VIEWS CLINICAL INFORMATION: Cough and shortness of breath. COMPARISON: Chest radiograph dated 05/01/2020. TECHNIQUE: Frontal and lateral views of the chest were obtained. FINDINGS: The heart, great vessels, pulmonary vasculature and mediastinum are normal. The lungs show no focal infiltrate, effusion or pneumothorax. There is new moderate mid left lung platelike atelectasis. There is mild biapical pleural thickening. There is no acute osseous abnormality. XR/XR chest 2V IMPRESSION: Moderate mid left lung platelike atelectasis is seen. As a precaution, short-term follow-up chest radiographs recommended to ensure stability/clearance and exclude the possibility of underlying obstructive process. No focal infiltrate or congestive heart failure is seen.
[2020-10-07 11:43] LABS: MANUAL DIFF FLAG NO
[2020-10-07 11:54] LABS: Basophils Absolute Auto 0.1 X10*3/uL (0.0-0.2); Basophils Percent Auto 0.9 % (0-2); Eosinophils Absolute Auto 0.1 X10*3/uL (0.0-0.4); Eosinophils Percent Auto 0.9 % (0-4); Hematocrit 40.7 % (42-52); Hemoglobin 14.3 g/dl (14.0-18.0); Imm Gran Abs Auto 0.04 X10*3/uL (0.00-0.03); Imm Gran Pct Auto 0.5 % (0.0-0.4); Lymphocytes Absolute Auto 1.8 X10*3/uL (1.2-4.9); Lymphocytes Percent Auto 21.9 % (20-40); Mean Corpuscular HGB Conc 35.1 g/dl (31.0-36.0); Mean Corpuscular Hemoglobin 32.2 pg (27.0-33.0); Mean Corpuscular Volume 91.7 fL (80-98); Monocytes Absolute Auto 0.5 X10*3/uL (0.1-1.2); Monocytes Percent Auto 6.6 % (2-11); Neutrophils Absolute Auto 5.6 X10*3/uL (2.0-8.3); Neutrophils Percent Auto 69.2 % (45-73); Platelet Count 212 X10*3/uL (160-400); Red Blood Count 4.44 X10*6/uL (4.60-5.80); Red Cell Distribution Width 13.2 % (11.0-16.0)
[2020-10-07 11:59] LABS: INTERNATIONAL NORM RATIO 0.9 (0.9-1.1); Prothrombin Time 10.7 SEC (9.9-13.0)
[2020-10-07 12:05] LABS: COVID-19 Test Negative (Negative)
[2020-10-07 12:17] LABS: Ethanol 59 mg/dL
--- NOTE | 2020-10-07 12:18 | ECG_ITS ---
Test Reason : NAUSEA Blood Pressure : / mmHG Vent. Rate : 099 BPM Atrial Rate : 099 BPM P-R Int : 206 ms QRS Dur : 094 ms QT Int : 378 ms P-R-T Axes : 031 -11 024 degrees QTc Int : 485 ms Normal sinus rhythm Cannot rule out Anterior infarct , age undetermined Abnormal ECG When compared with ECG of 14-JUL-2020 16:32, No significant change was found Referred By: Lupe Staton Electronically Signed By:HERMES MONTENEGRO
[2020-10-07 12:19] LABS: Alanine Aminotransferase 45 U/L (0-40); Albumin Level 4.1 g/dL (3.5-5.0); Alkaline Phosphatase 119 U/L (39-117); Anion Gap 17 (12-20); Aspartate Amino Transferase 55 U/L (5-37); Bilirubin Total 0.4 mg/dL (0.0-1.0); Blood Urea Nitrogen 13 mg/dL (9-16); Calcium 8.7 mg/dL (8.4-10.2); Carbon Dioxide 22 mmol/L (22-29); Chloride 107 mmol/L (96-108); Creatinine Clr Calc Pharmacy 134.4; Estimated Glomerular Filt Rate > 60; Glucose Random 119 mg/dL (60-115); Potassium 3.5 mmol/L (3.3-5.1); Sodium 142 mmol/L (135-145); Total Protein 7.1 g/dL (6.5-8.0)
[2020-10-07 12:20] LABS: Lipase 20 U/L (8-78)
--- NOTE | 2020-10-07 12:24 | ED.GENADULT ---
HPI - General Adult General Chief complaint: Nausea/Vomiting/Diarrhea Stated complaint: Pancreatisis Time Seen by Provider: 10/07/20 12:00 Source: patient Mode of arrival: ambulatory Limitations: no limitations History of Present Illness HPI narrative: 54-year-old male presents with 2 days of epigastric 10/10 pain, has left upper quadrant pain, nausea, vomiting, and anorexia. Patient has a history of pancreatitis, states he has been admitted over 30 times for pancreatitis. No fevers. No endorses cough for the last 2 days with increased sputum and body aches. Patient is vaccinated for COVID. Onset (ago): day(s) Location: abdomen Radiation: back Severity: severe Severity scale (1-10): 10 Quality: burning and stabbing Pain Consistency: constant Relieving factors: none Exacerbating factors: eating Associated symptoms: cough, loss of appetite, nausea/vomiting and shortness of breath Treatments prior to arrival: none Related Data Home Medications Medication Instructions Recorded Confirmed albuterol sulfate 90 mcg/actuation 2 puff INHALATION Q4H PRN 05/01/20 05/01/20 aerosol inhaler amitriptyline 10 mg tablet 1 tab PO BEDTIME 05/01/20 05/01/20 amlodipine 5 mg tablet 1 tab PO DAILY 05/01/20 05/01/20 buspirone 15 mg tablet 1 tab PO TID 05/01/20 05/01/20 duloxetine 60 mg capsule,delayed 1 cap PO DAILY 05/01/20 05/01/20 release folic acid 1 mg tablet 1 tab PO DAILY 05/01/20 05/01/20 hydroxyzine HCl 25 mg tablet 1 tab PO Q8H PRN 05/01/20 05/01/20 tizanidine 2 mg tablet 1 tab PO Q8H PRN 05/01/20 05/01/20 Previous Rx's Medication Instructions Recorded nicotine 21 mg/24 hr daily 21 mg TRANSDERMAL DAILY #14 ea 05/04/20 transdermal patch oxycodone 5 mg tablet 5 mg PO Q4H PRN #18 tab 05/04/20 ondansetron HCl 4 mg tablet 4 mg PO Q8H PRN #12 tab 07/14/20 (Zofran) oxycodone-acetaminophen 5 mg-325 1 tab PO TID PRN #9 tab 07/14/20 mg tablet (Percocet) Allergies Allergy/AdvReac Type Severity Reaction Status Date / Time No Known Allergies Allergy Verified 10/07/20 11:20 [No Known Allergies*] Review of Systems Constitutional: Constitutional: Reports anorexia, Reports body ache(s), Denies chills, Reports fatigue, Denies fever(s), Reports lethargy and Reports malaise Eyes: Eyes: Denies blurry vision and Denies diplopia ENT: Denies dysphagia, Denies vertigo, Denies dizziness, Denies otalgia and Denies sore throat Cardiovascular: Cardiovascular: Denies chest pain, Denies chest pain at rest, Denies chest pain with activity, Reports Epigastric Pain, Denies syncope, Denies leg edema, Denies lightheadedness, Denies Loss of Consciousness and Reports dyspnea Respiratory: Respiratory: Reports chest congestion, Reports cough, Denies hemoptysis, Denies pain on inspiration, Reports dyspnea and Reports wheezing Gastrointestinal: Gastrointestinal: Reports abdominal pain, Denies hematochezia, Denies change in stool character, Denies coffee ground emesis, Denies dysphagia, Denies diarrhea, Reports nausea, Reports vomiting and Denies hematemesis Genitourinary: Genitourinary: Reports no additional male genitourinary complaints Musculoskeletal: Musculoskeletal: Reports back pain and Reports myalgias Integumentary/Breasts: Skin/Breast: Denies erythema and Denies rash Neurologic: Denies vertigo, Denies dizziness, Denies syncope and Denies focal weakness Psychiatric: Psychiatric: Reports no additional psychiatric complaints Endocrine: Endocrine: Reports fatigue Allergic/Immunologic: Allergic/Immunologic: Reports wheezing PMFSH Past Medical History Medical History Anxiety Chronic pancreatitis COPD (chronic obstructive pulmonary disease) Depression Diverticulitis HTN (hypertension) Pancreatitis Surgical History History of colon resection Hx of cholecystectomy Previous back surgery Social History Social History Household Members: Spouse and Children Housing: House Do you presently have visiting nurse or other home services: No Alcohol intake: current Alcohol intake frequency: 3 or more drinks per day Patient Tobacco Use Status: Current everyday Tobacco user Cigarette Packs Per Day: 1 Cigarettes Per Day: 20.0 Second Hand Smoke Exposure: No Advance Directives: Yes Advance Directives Information Provided: Yes Advance Directives on File: No service: No Current occupational status: employed Physical Exam Vital Signs: Vital Signs: Last Vital Signs Temp 98.3 F 10/07/20 14:12 Pulse 103 H 10/07/20 14:12 Resp 16 10/07/20 14:12 BP 161/96 H 10/07/20 14:12 Pulse Ox 90 L 10/07/20 14:12 Body Mass Index 23.7 Const: General: cooperative, well developed, alert, awake and acute distress (pain) mild Nutritional Appearance: well nourished Orientation/consciousness: patient oriented x3 Limitations: no limitations HENMT: Head: Yes normal to inspection, Yes normocephalic and Yes atraumatic Ears: hearing grossly normal bilaterally and external ears normal General nose exam: Normal external nose present Face and sinus: Yes normal facial exam Mouth: Normal oral and palatal mucosa present Throat: Yes posterior oropharynx normal Eyes: Conjunctivae: conjunctivae normal Pupils: Equal, round and reactive pupils present EOM: EOMs intact bilaterally Neck: Neck: Yes full ROM, Yes no lymphadenopathy and Yes supple Resp: Effort & Inspection: normal respiratory effort and able to speak in complete sentences Auscultation: no crackles, no rales, rhonchi throughout, wheezes throughout and diminished lung sounds diffuse Cardio: Rate: tachycardic Rhythm: regular rhythm Heart sounds: S1 normal heart sound present and S2 normal heart sound present GI: Inspection: Yes normal to inspection Palpation (GI): Soft to palpation, Tenderness to palpation present (GI) in the epigastrum, in the LLQ, in the RLQ, in the LUQ and in the RUQ, Guarding due to palpation present (GI) in the LLQ, in the RLQ, in the LUQ and in the RUQ and not rigid Percussion: Yes normal to percussion Auscultation: normal bowel sounds : General: Yes no CVA tenderness Back/Spine/Pelvis: Back: no CVA tenderness Skin: General skin exam: no rashes or lesions noted Neuro: General: patient oriented x3, tone normal and moves all extremities Cranial nerves: Yes Equal, round and reactive pupils present Extrem: General: Yes normal to inspection and Yes full ROM Psych: Appearance: grossly normal Affect: Anxious affect present Attitude: cooperative Thought process: Normal thought process present Course Course Course Narrative: 54-year-old male with a past medical history of chronic pancreatitis who drinks 1 qt of hard liquor a day presents for 2 days of nausea, vomiting, and 10/10 epigastric pain. Also endorses cough. On exam, patient is tachycardic in the 110s, tremulous, lungs have diminished air movement and her wheezing and rhonchorous throughout. Patient is tender and guarding in all quadrants of his abdomen. Abdomen is soft. Place patient on [facility] protocol, will get CBC, CMP, lipase, EKG, alcohol, magnesium, chest x-ray, CT abdomen pelvis. Gave Solu-Medrol and albuterol inhaler. Patient's CBC is within normal limits, coags normal, patient has elevated transaminases, AST 55, ALT 45, alk-phos 119. Patient's lipase is only 20. COVID negative. Ct shows 1. There are sequelae of chronic pancreatitis, including atrophy, parenchymal calcifications and ductal dilatation. A very small chronic fluid collection is redemonstrated adjacent to the pancreatic tail. No acute finding is seen to suggest active pancreatitis. ? 2. There is duodenal wall thickening, suggesting possible duodenitis. If clinically indicated, this can be further evaluated with an upper GI series. ? 3. There is hepatic steatosis. ? 4. The gallbladder is surgically absent. ? 5. There has been a prior sigmoid resection, with patent rectosigmoid anastomotic staple. There is mild residual diverticulosis, without acute diverticulitis seen. The vermiform appendix appears normal. ? 6. There are multi-level degenerative changes of the thoracolumbar spine, particularly severe at L4-5 and L5-S1. A mild chronic L2 anterior wedge compression fracture is seen. Despite lipase being normal today, patient was admitted for normal lipase and pancreatitis in April. Patient chest x-ray shows mid left lung atelectasis, no infiltrate. Patient given fluids, pain meds, awaiting admission. Medical Decision Making Lab Data Result diagrams: 10/07/20 11:38 10/07/20 11:38 Labs: Lab Results 10/07/20 10/07/20 10/07/20 Range/Units 11:37 11:38 11:38 WBC 8.0 (4.8-10.8) X10*3/uL RBC 4.44 L (4.60-5.80) X10*6/uL Hgb 14.3 (14.0-18.0) g/dl Hct 40.7 L (42-52) % MCV 91.7 (80-98) fL MCH 32.2 (27.0-33.0) pg MCHC 35.1 (31.0-36.0) g/dl RDW 13.2 (11.0-16.0) % Plt Count 212 (160-400) X10*3/uL MPV 9.0 L (9.4-12.4) fL Immature Gran % (Auto) 0.5 H (0.0-0.4) % Neut % (Auto) 69.2 (45-73) % Lymph % (Auto) 21.9 (20-40) % [place] % (Auto) 6.6 (2-11) % Eos % (Auto) 0.9 (0-4) % Baso % (Auto) 0.9 (0-2) % Lymph # (Auto) 1.8 (1.2-4.9) X10*3/uL [place] # (Auto) 0.5 (0.1-1.2) X10*3/uL Eos # (Auto) 0.1 (0.0-0.4) X10*3/uL Baso # (Auto) 0.1 (0.0-0.2) X10*3/uL Abs Immat Gran (auto) 0.04 H (0.00-0.03) X10*3/uL Absolute Neuts (auto) 5.6 (2.0-8.3) X10*3/uL Absolute Nucleated RBC 0.000 (0.0-0.012) X10*3/uL Nucleated RBC % (auto) 0.0 (0.0-0.2) /100WBC PT 10.7 (9.9-13.0) SEC INR 0.9 (0.9-1.1) Sodium (135-145) mmol/L Potassium (3.3-5.1) mmol/L Chloride (96-108) mmol/L Carbon Dioxide (22-29) mmol/L Anion Gap (12-20) BUN (9-16) mg/dL Creatinine (0.5-1.4) mg/dL Estim Creat Clear Calc Estimated GFR Random Glucose (60-115) mg/dL Calcium (8.4-10.2) mg/dL Magnesium (1.6-2.6) mg/dL Total Bilirubin (0.0-1.0) mg/dL AST (5-37) U/L ALT (0-40) U/L Alkaline Phosphatase (39-117) U/L Total Protein (6.5-8.0) g/dL Albumin (3.5-5.0) g/dL Lipase (8-78) U/L Ethyl Alcohol mg/dL COVID-19 ([facility]) Negative (Negative) COVID-19 Clin Com See Note 10/07/20 10/07/20 10/07/20 Range/Units 11:38 11:38 11:38 WBC (4.8-10.8) X10*3/uL RBC (4.60-5.80) X10*6/uL Hgb (14.0-18.0) g/dl Hct (42-52) % MCV (80-98) fL MCH (27.0-33.0) pg MCHC (31.0-36.0) g/dl RDW (11.0-16.0) % Plt Count (160-400) X10*3/uL MPV (9.4-12.4) fL Immature Gran % (Auto) (0.0-0.4) % Neut % (Auto) (45-73) % Lymph % (Auto) (20-40) % [place] % (Auto) (2-11) % Eos % (Auto) (0-4) % Baso % (Auto) (0-2) % Lymph # (Auto) (1.2-4.9) X10*3/uL [place] # (Auto) (0.1-1.2) X10*3/uL Eos # (Auto) (0.0-0.4) X10*3/uL Baso # (Auto) (0.0-0.2) X10*3/uL Abs Immat Gran (auto) (0.00-0.03) X10*3/uL Absolute Neuts (auto) (2.0-8.3) X10*3/uL Absolute Nucleated RBC (0.0-0.012) X10*3/uL Nucleated RBC % (auto) (0.0-0.2) /100WBC PT (9.9-13.0) SEC INR (0.9-1.1) Sodium 142 (135-145) mmol/L Potassium 3.5 D (3.3-5.1) mmol/L Chloride 107 (96-108) mmol/L Carbon Dioxide 22 (22-29) mmol/L Anion Gap 17 (12-20) BUN 13 (9-16) mg/dL Creatinine 0.71 (0.5-1.4) mg/dL Estim Creat Clear Calc 134.4 Estimated GFR > 60 Random Glucose 119 H (60-115) mg/dL Calcium 8.7 D (8.4-10.2) mg/dL Magnesium 2.0 (1.6-2.6) mg/dL Total Bilirubin 0.4 (0.0-1.0) mg/dL AST 55 H (5-37) U/L ALT 45 H (0-40) U/L Alkaline Phosphatase 119 H (39-117) U/L Total Protein 7.1 (6.5-8.0) g/dL Albumin 4.1 (3.5-5.0) g/dL Lipase 20 (8-78) U/L Ethyl Alcohol 59 mg/dL COVID-19 ([facility]) (Negative) COVID-19 Clin Com ECG Data Interpretation: Normal sinus with a rate of 99, IN interval 206, QRS 94, normal axis. No ST elevations or depressions, no T-wave changes. Discharge Plan Discharge Clinical Impression: Pancreatitis, chronic Qualifiers: Pancreatitis type: alcohol induced Qualified Code(s): K86.0 - Alcohol-induced chronic pancreatitis Patient Disposition: Admitted As Inpatient
[2020-10-07] MEDS: Morphine Sulfate 4 MG/ML CARTRIDGE IVPUSH ×3 (12:44→15:13)
[2020-10-07] MEDS: LORazepam 2 MG/ML VIAL 1 MG IVPUSH (12:44)
[2020-10-07] MEDS: methylPREDNISolone Sod Succ 125 MG/2 ML VIAL IVPUSH (12:45)
[2020-10-07] MEDS: 0.9 % Sodium Chloride 1,000 ML 999 ML IV ×2 (12:48→15:13)
[2020-10-07] MEDS: Albuterol Sulfate 90 MCG 8 GM INHALER 2 PUFF INHALE (13:07)
[2020-10-07] MEDS: iohexoL 350 MG/ML 100 ML INFUS..BTL IV (13:22)
[2020-10-07] MEDS: LORazepam 2 MG/ML VIAL IVPUSH (14:05)
--- NOTE | 2020-10-07 15:20 | P.HPHOSP_ITS ---
History of Present Illness Date of Service: 10/07/20 Chief Complaint: Epigastric pain This is a 54-year-old male with past medical history of chronic pancreatitis, alcohol abuse, hypertension, depression, who presents to the hospital with complaints of epigastric pain radiating to the back, started 2 days ago, co nstant, 09/28, associated with nausea and vomiting, poor oral intake as on able to keep anything down, diarrhea for past 2-3 days. Nonbloody. Patient denies any chest pain, no shortness of breath, no cough, no urinary symptoms and no lower extremity edema, no headache change in vision, no numbness tingling or weakness in extremities. Patient reports that he is also feeling like he is withdrawing from alcohol, last use was yesterday, he had a heavy daily drinker. Blood pressure of 188/101, heart rate of 103, respiratory rate of 16, temperature of 98.3?, satting 98% on room air Labs are significant for WBC count of 8.0, hemoglobin of 14.3, AST of 55, ALT of 45, alk-phos of 119 which are all chronically elevated, lipase normal, COVID-19 negative, CT of the abdomen shows sequelae of chronic pancreatitis, parenchymal calcification and ductal dilatation, chronic fluid collection no acute findings, duodenal wall thickening suggestive of duodenitis Patient will be admitted for further management Review of Systems Review of Systems: Yes all other systems are reviewed and are negative [facility] Medical History Anxiety Chronic pancreatitis COPD (chronic obstructive pulmonary disease) Depression Diverticulitis HTN (hypertension) Pancreatitis Surgical History History of colon resection Hx of cholecystectomy Previous back surgery Social History Household Members: Spouse and Children Housing: House Do you presently have visiting nurse or other home services: No Alcohol intake: current Alcohol intake frequency: 3 or more drinks per day Patient Tobacco Use Status: Current everyday Tobacco user Cigarette Packs Per Day: 1 Cigarettes Per Day: 20.0 Second Hand Smoke Exposure: No Advance Directives: Yes Advance Directives Information Provided: Yes Advance Directives on File: No service: No Current occupational status: employed Meds Allergies Allergy/AdvReac Type Severity Reaction Status Date / Time No Known Allergies Allergy Verified 10/07/20 11:20 [No Known Allergies*] Active Medications: Current Medications Generic Name Dose Route Start Last Admin Trade Name Serena PRN Reason Stop Dose Admin Sodium Chloride 1,000 mls @ 999 mls/hr 10/07/20 14:45 10/07/20 15:13 Ns IV 10/07/20 15:45 999 mls/hr .Q1H1M FELIX Administration Pantoprazole Sodium 40 mg 10/07/20 16:30 Pantoprazole Sodium 40 Mg/10 Ml Vial IVPUSH BID@[id number],1630 [facility] Pharmacy Consult 1 each 10/07/20 14:52 Consult Rx Perform Med Rec MISCELLANE ONCE PRN Consult order Home Medications Medication Instructions Recorded Confirmed Last Taken Type albuterol sulfate 90 mcg/actuation 2 puff INHALATION Q4H PRN 05/01/20 10/07/20 Unknown History aerosol inhaler amitriptyline 10 mg tablet 1 tab PO BEDTIME 05/01/20 05/01/20 Unknown History amlodipine 5 mg tablet 5 mg PO DAILY 05/01/20 10/07/20 Unknown History buspirone 15 mg tablet 1 tab PO TID 05/01/20 05/01/20 Unknown History duloxetine 60 mg capsule,delayed 60 mg PO DAILY 05/01/20 10/07/20 Unknown History release folic acid 1 mg tablet 1 mg PO DAILY 05/01/20 10/07/20 Unknown History hydroxyzine HCl 25 mg tablet 25 mg PO Q8H PRN 05/01/20 10/07/20 Unknown History chlorthalidone 25 mg tablet 25 mg PO DAILY 10/07/20 10/07/20 Unknown History skoblv-ttmoabhk-txbpwmf 3 - 4 cap PO TIDWM 10/07/20 10/07/20 Unknown History 40,000-126,000-168,000 unit capsule, delay rel (Zenpep) Physical Exam Vital Signs and Narrative: Vital Signs: Last Vital Signs Temp 98.3 F 10/07/20 14:12 Pulse 109 H 10/07/20 15:12 Resp 16 10/07/20 15:12 BP 157/94 H 10/07/20 15:12 Pulse Ox 98 10/07/20 15:12 Body Mass Index 23.7 Const: Other: Patient appears anxious, slightly jittery General: cooperative and no acute distress Orientation/consciousness: patient oriented x3 Eyes: General: appearance normal, both eyes and all related structures Pupils: Equal, round and reactive pupils present Resp: Effort & Inspection: normal respiratory effort and able to speak in complete sentences Cardio: Rate: regular rate Rhythm: regular rhythm GI: Palpation (GI): Soft to palpation Auscultation: normal bowel sounds Skin: General skin exam: no rashes or lesions noted Neuro: General: patient oriented x3 Cranial nerves: Yes Equal, round and reactive pupils present Cognition (Neuro): normal cognition Extrem: General: Yes normal to inspection and Yes no pedal edema Results Labs CBC and Chem 7: 10/07/20 11:38 10/07/20 11:38 Labs: Laboratory Results - last 24 hr 10/07/20 10/07/20 10/07/20 11:37 11:38 11:38 MCV 91.7 MCH 32.2 MCHC 35.1 RDW 13.2 Plt Count 212 MPV 9.0 L Immature Gran % (Auto) 0.5 H Neut % (Auto) 69.2 Lymph % (Auto) 21.9 [place] % (Auto) 6.6 Eos % (Auto) 0.9 Baso % (Auto) 0.9 Lymph # (Auto) 1.8 [place] # (Auto) 0.5 Eos # (Auto) 0.1 Baso # (Auto) 0.1 Abs Immat Gran (auto) 0.04 H Absolute Neuts (auto) 5.6 Absolute Nucleated RBC 0.000 Nucleated RBC % (auto) 0.0 PT 10.7 INR 0.9 Anion Gap Estim Creat Clear Calc Estimated GFR Random Glucose Calcium Magnesium Total Bilirubin AST ALT Alkaline Phosphatase Total Protein Albumin Lipase Ethyl Alcohol COVID-19 (JUAN LUIS) Negative COVID-19 Clin Com See Note 10/07/20 10/07/20 10/07/20 11:38 11:38 11:38 MCV MCH MCHC RDW Plt Count MPV Immature Gran % (Auto) Neut % (Auto) Lymph % (Auto) [place] % (Auto) Eos % (Auto) Baso % (Auto) Lymph # (Auto) [place] # (Auto) Eos # (Auto) Baso # (Auto) Abs Immat Gran (auto) Absolute Neuts (auto) Absolute Nucleated RBC Nucleated RBC % (auto) PT INR Anion Gap 17 Estim Creat Clear Calc 134.4 Estimated GFR > 60 Random Glucose 119 H Calcium 8.7 D Magnesium 2.0 Total Bilirubin 0.4 AST 55 H ALT 45 H Alkaline Phosphatase 119 H Total Protein 7.1 Albumin 4.1 Lipase 20 Ethyl Alcohol 59 COVID-19 (JUAN LUIS) COVID-19 Clin Com Imaging Radiologist's Impressions: Impressions Abdomen/Pelvis CT 10/07/20 12:15 IMPRESSION: 1. There are sequelae of chronic pancreatitis, including atrophy, parenchymal calcifications and ductal dilatation. A very small chronic fluid collection is redemonstrated adjacent to the pancreatic tail. No acute finding is seen to suggest active pancreatitis. 2. There is duodenal wall thickening, suggesting possible duodenitis. If clinically indicated, this can be further evaluated with an upper GI series. 3. There is hepatic steatosis. 4. The gallbladder is surgically absent. 5. There has been a prior sigmoid resection, with patent rectosigmoid anastomotic staple. There is mild residual diverticulosis, without acute diverticulitis seen. The vermiform appendix appears normal. 6. There are multi-level degenerative changes of the thoracolumbar spine, particularly severe at L4-5 and L5-S1. A mild chronic L2 anterior wedge compression fracture is seen. Chest X-Ray 10/07/20 12:16 IMPRESSION: Moderate mid left lung platelike atelectasis is seen. As a precaution, short-term follow-up chest radiographs recommended to ensure stability/clearance and exclude the possibility of underlying obstructive process. No focal infiltrate or congestive heart failure is seen. Assessment and Plan (1) Abdominal pain: Status: Acute (2) Pancreatitis, chronic: Qualifiers: Pancreatitis type: alcohol induced Qualified Code(s): K86.0 - Alcohol- induced chronic pancreatitis Status: Acute (3) Duodenitis: Status: Acute This is a 54-year-old male with past medical history of chronic pancreatitis presents with epigastric abdominal pain # abdominal pain - most likely secondary to duodenitis versus chronic pancreatitis - will start him on pain medications, pantoprazole IV b.i.d. - IV fluids - keep NPO - supportive measure # chronic pancreatitis - continue dvaiaf-fpfqwqdc-[id number] complex # duodenitis - most likely causative of his abdominal pain - will start him on IV pantoprazole 40 b.i.d. - monitor symptom resolution # alcohol abuse with potential for withdrawal - will start him on phenobarb protocol - folic acid - thiamine supplement # hypertension - elevated - possibly secondary to withdrawal - continue amlodipine DVT prophylaxis: Heparin subQ Quality Stroke Does the patient have a stroke diagnosis?: No VTE Prior VTE?: No VTE Risk Level:: Medical - moderate - high VTE Device Contraindication: Treatment Not Indicated VTE Drug Contraindication: N/A - Med Ordered
--- NOTE | 2020-10-07 15:25 | PHA.MEDREC ---
med rec complete. A few medications patient has run out of and has not been taking regularly, such as duloxetine, hydroxyzine, buspirone, and amitriptyline Pharmacy Consult ? Medication Reconciliation Pharmacy has completed the medication reconciliation.
[2020-10-07] MEDS: Pantoprazole Sodium 40 MG/10 ML VIAL IVPUSH (16:46)
[2020-10-07] MEDS: amLODIPine Besylate 5 MG TABLET PO (16:46)
[2020-10-07] MEDS: PHENobarbitaL sodium 130 MG/ML VIAL 320 MG IM (17:36)
[2020-10-07] MEDS: ondansetron HCL 4 MG/2 ML VIAL IVPUSH (17:36)
[2020-10-07] MEDS: Folic Acid 1 MG TABLET PO (17:36)
[2020-10-07] MEDS: Thiamine HCL 100 MG TABLET PO (17:36)
[2020-10-07] MEDS: Lactated Ringers 1,000 ML 200 ML IVCONT ×2 (17:37→21:22)
[2020-10-07] MEDS: Heparin Sodium,Porcine 5,000 UNIT/ML VIAL 5000 UNIT SUBCUT (17:37)
[2020-10-07] MEDS: 0.9 % Sodium Chloride Flush 3 ML SYRINGE IVFLUSH ×2 (17:37→23:26)
[2020-10-07] MEDS: Nicotine 21 MG PATCH.TD24 TRANSDERMA (19:46)
[2020-10-07] MEDS: HYDROmorphone HCl 0.5 MG/0.5 ML SYRINGE IVPUSH (19:46)
[2020-10-07] MEDS: PHENobarbitaL sodium 130 MG/ML VIAL 240 MG IM ×2 (19:47→23:26)
[2020-10-08] VITALS (7 sets, daily range): BP systolic 135–168; BP diastolic 83–92; PULSE 82–95; RESP 16–20; TEMP 36.3–36.7; O2SAT 91–96
[2020-10-08] MEDS: HYDROmorphone HCl 0.5 MG/0.5 ML SYRINGE IVPUSH ×6 (00:25→23:53)
[2020-10-08] MEDS: Lactated Ringers 1,000 ML 200 ML IVCONT ×3 (03:36→12:01)
[2020-10-08] MEDS: Heparin Sodium,Porcine 5,000 UNIT/ML VIAL 5000 UNIT SUBCUT ×2 (05:47→18:01)
[2020-10-08] MEDS: Pantoprazole Sodium 40 MG/10 ML VIAL IVPUSH ×2 (05:47→15:33)
[2020-10-08 06:27] LABS: MANUAL DIFF FLAG NO
[2020-10-08 06:42] LABS: Basophils Percent Auto 0.2 % (0-2); Hematocrit 35.9 % (42-52); Hemoglobin 12.5 g/dl (14.0-18.0); Imm Gran Abs Auto 0.02 X10*3/uL (0.00-0.03); Imm Gran Pct Auto 0.4 % (0.0-0.4); Lymphocytes Absolute Auto 0.6 X10*3/uL (1.2-4.9); Lymphocytes Percent Auto 12.3 % (20-40); Mean Corpuscular HGB Conc 34.8 g/dl (31.0-36.0); Mean Corpuscular Hemoglobin 32.3 pg (27.0-33.0); Mean Corpuscular Volume 92.8 fL (80-98); Mean Platelet Volume 9.5 fL (9.4-12.4); Monocytes Absolute Auto 0.5 X10*3/uL (0.1-1.2); Monocytes Percent Auto 9.4 % (2-11); Neutrophils Absolute Auto 3.8 X10*3/uL (2.0-8.3); Neutrophils Percent Auto 77.7 % (45-73); Platelet Count 163 X10*3/uL (160-400); Red Blood Count 3.87 X10*6/uL (4.60-5.80); Red Cell Distribution Width 12.8 % (11.0-16.0); White Blood Count 4.9 X10*3/uL (4.8-10.8)
[2020-10-08 07:08] LABS: Anion Gap 12 (12-20); Blood Urea Nitrogen 9 mg/dL (9-16); Calcium 8.2 mg/dL (8.4-10.2); Carbon Dioxide 23 mmol/L (22-29); Chloride 107 mmol/L (96-108); Creatinine Clr Calc Pharmacy 156.4; Estimated Glomerular Filt Rate > 60; Glucose Random 136 mg/dL (60-115); Potassium 3.6 mmol/L (3.3-5.1); Sodium 138 mmol/L (135-145)
[2020-10-08] MEDS: Folic Acid 1 MG TABLET PO (07:34)
[2020-10-08] MEDS: PHENobarbitaL 30 MG TABLET 60 MG PO ×2 (07:34→20:01)
[2020-10-08] MEDS: amLODIPine Besylate 5 MG TABLET PO (07:34)
[2020-10-08] MEDS: DULoxetine HCl 60 MG CAPSULE.DR PO (07:35)
[2020-10-08] MEDS: Thiamine HCL 100 MG TABLET PO (07:35)
[2020-10-08] MEDS: Nicotine 21 MG PATCH.TD24 TRANSDERMA (07:36)
--- NOTE | 2020-10-08 10:54 | PC.NURSE ---
Skin assessment completed today. No skin issues noted today. Patient is ambulatory.
--- NOTE | 2020-10-08 11:01 | P.PNIM_ITS ---
Subjective Subjective Date of Service: 10/08/20 Interval History: pt seen and examined at bedside. He reports that his symptoms are slightly better, he has a cough, no sputum production, no sob, no fever chills, he has no chest pain. He feels hungry and would like to start with a liquid diet. He denies any nausea or vomiting today no diarrhea. Review of Systems Review of Systems: Yes all other systems are reviewed and are negative Physical Exam Vital Signs: Vital Signs: Last Vital Signs Temp 97.7 F 10/08/20 10:59 Pulse 90 10/08/20 10:59 Resp 20 10/08/20 10:59 BP 145/89 H 10/08/20 10:59 Pulse Ox 91 L 10/08/20 10:59 Body Mass Index 23.7 Const: General: cooperative and no acute distress Orientation/conscio usness: patient oriented x3 Resp: Effort & Inspection: normal respiratory effort and able to speak in complete sentences Auscultation: clear to auscultation bilaterally Cardio: Rate: regular rate Rhythm: regular rhythm GI: Palpation (GI): Soft to palpation Auscultation: normal bowel sounds Skin: General skin exam: no rashes or lesions noted Neuro: General: patient oriented x3 Objective Data Current Medications Generic Name Dose Route Start Last Admin Trade Name Freq PRN Reason Stop Dose Admin Acetaminophen 650 mg 10/07/20 16:47 Acetaminophen Supp 650 Mg Supp.Rect HI Q6H PRN Pain, Mild (Pain Scale 1-3) Albuterol Sulfate 2 puff 10/07/20 16:47 Albuterol Sulfate 90 Mcg 8 Gm Inhaler INHALE Q4H PRN wheezing Amlodipine Besylate 5 mg 10/07/20 15:22 10/08/20 07:34 Amlodipine Besylate 5 Mg Tablet PO 5 mg DAILY FELIX Administration Protocol Duloxetine HCl 60 mg 10/08/20 09:00 10/08/20 07:35 Duloxetine Hcl 60 Mg Capsule.Dr PO 60 mg DAILY FELIX Administration Folic Acid 1 mg 10/07/20 16:47 10/08/20 07:34 Folic Acid 1 Mg Tablet PO 1 mg DAILY FELIX Administration Guaifenesin/Dextromethorphan 5 ml 10/08/20 10:58 Guaifenesin Dm 100/10/5 Ml 5 Ml Syrup PO Q4H PRN Cough Heparin Sodium (Porcine) 5,000 unit 10/07/20 18:00 10/08/20 05:47 Heparin Sodium,Porcine 5,000 Unit/Ml Vial SUBCUT 5,000 unit Q12H FELIX Administration Hydromorphone HCl 0.5 mg 10/07/20 17:39 10/08/20 10:25 Hydromorphone Hcl 0.5 Mg/0.5 Ml Syringe IVPUSH 0.5 mg Q4H PRN Administration Pain, Severe (Pain Scale 7-10) Protocol Lactated Ringer's 1,000 mls @ 200 mls/hr 10/07/20 16:47 10/08/20 08:07 Lr IVCONT Infused .Q5H FELIX Infusion Medication 1 each 10/08/20 09:00 No Benzodiazepines MISCELLANE DAILY FELIX Nicotine 21 mg 10/07/20 18:10 10/08/20 07:36 Nicotine 21 Mg Patch.Td24 TRANSDERMA 21 mg DAILY FELIX Administration Ondansetron HCl 4 mg 10/07/20 16:47 10/07/20 17:36 Ondansetron Hcl 4 Mg/2 Ml Vial IVPUSH 4 mg Q8H PRN Administration Nausea and Vomiting Pantoprazole Sodium 40 mg 10/07/20 16:30 10/08/20 05:47 Pantoprazole Sodium 40 Mg/10 Ml Vial IVPUSH 40 mg BID@[id number],1630 FELIX Administration Pharmacy Consult 1 each 10/07/20 14:52 Consult Rx Perform Med Rec MISCELLANE ONCE PRN Consult order Pharmacy Consult 1 each 10/07/20 15:43 Consult Rx Perform Med Rec MISCELLANE ONCE PRN Consult order Phenobarbital 60 mg 10/08/20 09:00 10/08/20 07:34 Phenobarbital 30 Mg Tablet PO 10/09/20 21:01 60 mg BID FELIX Administration Phenobarbital 30 mg 10/10/20 09:00 Phenobarbital 30 Mg Tablet PO 10/11/20 21:01 BID FELIX Phenobarbital 30 mg 10/12/20 09:00 Phenobarbital 30 Mg Tablet PO 10/13/20 09:01 DAILY FELIX Sodium Chloride 3 ml 10/07/20 16:47 10/08/20 08:08 0.9 % Sodium Chloride Flush 3 Ml Syringe IVFLUSH Not Given [facility] Thiamine HCl 100 mg 10/07/20 16:47 10/08/20 07:35 Thiamine Hcl 100 Mg Tablet PO 100 mg DAILY FELIX Administration Labs CBC & Chem 7: 10/08/20 06:05 10/08/20 06:05 Labs: Laboratory Results - last 24 hr 10/07/20 10/07/20 10/07/20 11:37 11:38 11:38 MCV 91.7 MCH 32.2 MCHC 35.1 RDW 13.2 Plt Count 212 MPV 9.0 L Immature Gran % (Auto) 0.5 H Neut % (Auto) 69.2 Lymph % (Auto) 21.9 [place] % (Auto) 6.6 Eos % (Auto) 0.9 Baso % (Auto) 0.9 Lymph # (Auto) 1.8 [place] # (Auto) 0.5 Eos # (Auto) 0.1 Baso # (Auto) 0.1 Abs Immat Gran (auto) 0.04 H Absolute Neuts (auto) 5.6 Absolute Nucleated RBC 0.000 Nucleated RBC % (auto) 0.0 PT 10.7 INR 0.9 Anion Gap Estim Creat Clear Calc Estimated GFR Random Glucose Calcium Magnesium Total Bilirubin AST ALT Alkaline Phosphatase Total Protein Albumin Lipase Ethyl Alcohol COVID-19 ([facility]UAN [facility]IS) Negative COVID-19 Clin Com See Note 10/07/20 10/07/20 10/07/20 11:38 11:38 11:38 MCV MCH MCHC RDW Plt Count MPV Immature Gran % (Auto) Neut % (Auto) Lymph % (Auto) [place] % (Auto) Eos % (Auto) Baso % (Auto) Lymph # (Auto) [place] # (Auto) Eos # (Auto) Baso # (Auto) Abs Immat Gran (auto) Absolute Neuts (auto) Absolute Nucleated RBC Nucleated RBC % (auto) PT INR Anion Gap 17 Estim Creat Clear Calc 134.4 Estimated GFR > 60 Random Glucose 119 H Calcium 8.7 D Magnesium 2.0 Total Bilirubin 0.4 AST 55 H ALT 45 H Alkaline Phosphatase 119 H Total Protein 7.1 Albumin 4.1 Lipase 20 Ethyl Alcohol 59 COVID-19 (JUAN [facility]IS) COVID-19 Clin Com 10/08/20 10/08/20 06:05 06:05 MCV 92.8 MCH 32.3 MCHC 34.8 RDW 12.8 Plt Count 163 MPV 9.5 Immature Gran % (Auto) 0.4 Neut % (Auto) 77.7 H Lymph % (Auto) 12.3 L [place] % (Auto) 9.4 Eos % (Auto) 0.0 Baso % (Auto) 0.2 Lymph # (Auto) 0.6 L [place] # (Auto) 0.5 Eos # (Auto) 0.0 Baso # (Auto) 0.0 Abs Immat Gran (auto) 0.02 Absolute Neuts (auto) 3.8 Absolute Nucleated RBC 0.000 Nucleated RBC % (auto) 0.0 PT INR Anion Gap 12 Estim Creat Clear Calc 156.4 Estimated GFR > 60 Random Glucose 136 H Calcium 8.2 L Magnesium Total Bilirubin AST ALT Alkaline Phosphatase Total Protein Albumin Lipase Ethyl Alcohol COVID-19 ([facility]UAN LUIS) COVID-19 Clin Com Assessment and Plan (1) Abdominal pain: Status: Acute (2) Duodenitis: Status: Acute (3) Pancreatitis, chronic: Status: Acute (4) Cough: Status: Acute (5) Alcohol abuse with withdrawal: Status: Acute Assessment and Plan: This is a 54-year-old male with past medical history of chronic pancreatitis presents with epigastric abdominal pain # abdominal pain - most likely secondary to duodenitis versus chronic pancreatitis - continue pain medications, pantoprazole IV b.i.d. - will reduce iv fluid rate - advance diet to full liquid - supportive measure # chronic pancreatitis - continue dfyioi-ntrqygii-qdazejj complex # duodenitis - Continue IV pantoprazole 40 b.i.d. - can be switched to PO on discharge # alcohol abuse with withdrawal - continue phenobarb protocol - folic acid - thiamine supplement # cough - COVID negative, chest x-ray negative, not hypoxic - will treat with p.r.n. cough medication # hypertension - elevated - possibly secondary to withdrawal - continue amlodipine DVT prophylaxis: Heparin subQ Quality Stroke Does the patient have a stroke diagnosis?: No VTE Prior VTE?: No VTE Risk Level:: Medical - moderate - high VTE Device Contraindication: Treatment Not Indicated VTE Drug Contraindication: N/A - Med Ordered
--- NOTE | 2020-10-08 12:53 | MHC.CLN ---
NUTRITION/CONSULT [PATIENT REPORTED THAT HADN'T EATEN 2 DAYS PRIOR TO ADMISSION AND LOST 8-10#. USUAL WEIGHT 190-195#, WITH CURRENT VLRNDO=145#. QUESTION TIMEFRAME OF WEIGHT LOSS. REPORTS THAT USUALLY EATS WELL. DIET ADVANCED FROM NPO TO FULL LIQUIDS. NO ADDITIONAL NUTRITION INTERVENTIONS.
[2020-10-08] MEDS: guaiFENesin DM 100/10/5 ML 5 ML SYRUP PO ×2 (13:01→18:01)
--- NOTE | 2020-10-08 15:03 | MHC.CM.PN ---
PT REPORTS HE LIVES WITH HIS BROTHER AND IS INDEPENDENT WITH CARE AND MOBILITY. PT DENIES USE OF DME OR HOME SERVICES. PT REPORTS HIS PCP RETIRED, HE HAS NOT YET SEEN HIS NEWLY ASSIGNED PROVIDER. PT DOES NOT HAVE A HCP AND DOES NOT WANT TO COMPLETE ONE TODAY,. CURRENT DC PLAN IS HOME WITH NO SERVICES PT TO ARRANGE TRANSPORTATION
[2020-10-08] MEDS: 0.9 % Sodium Chloride Flush 3 ML SYRINGE IVFLUSH (18:01)
[2020-10-08] MEDS: Lactated Ringers 1,000 ML 100 ML IVCONT (21:45)
[2020-10-09] MEDS: guaiFENesin DM 100/10/5 ML 5 ML SYRUP PO (00:01)
[2020-10-09 04:00] VITALS: BP 131/83; PULSE 77; RESP 16; TEMP 36.2; O2SAT 95
[2020-10-09] MEDS: HYDROmorphone HCl 0.5 MG/0.5 ML SYRINGE IVPUSH (04:23)
[2020-10-09] MEDS: Heparin Sodium,Porcine 5,000 UNIT/ML VIAL 5000 UNIT SUBCUT (05:39)
[2020-10-09] MEDS: Pantoprazole Sodium 40 MG/10 ML VIAL IVPUSH (05:42)
[2020-10-09] MEDS: Lactated Ringers 1,000 ML 100 ML IVCONT (05:42)
[2020-10-09 07:58] VITALS: BP 140/95; PULSE 76; RESP 16; TEMP 36.7; O2SAT 95
[2020-10-09] MEDS: Nicotine 21 MG PATCH.TD24 TRANSDERMA (09:18)
[2020-10-09] MEDS: DULoxetine HCl 60 MG CAPSULE.DR PO (09:18)
[2020-10-09] MEDS: amLODIPine Besylate 5 MG TABLET PO (09:18)
[2020-10-09] MEDS: Folic Acid 1 MG TABLET PO (09:18)
[2020-10-09] MEDS: Thiamine HCL 100 MG TABLET PO (09:18)
[2020-10-09] MEDS: PHENobarbitaL 30 MG TABLET 60 MG PO (09:18)
[2020-10-09 11:52] VITALS: BP 169/95; PULSE 84; RESP 18; TEMP 37.2; O2SAT 95
--- NOTE | 2020-10-09 12:31 | MHC.CM.PN ---
PLAN IS FOR PATIENT TO BE DISCHARGED HOME WITH NO NEED FOR SERVICES.
[2020-10-09] MEDS: oxyCODONE HCl Immed Release 5 MG TABLET PO ×2 (12:55→14:39)
--- NOTE | 2020-10-09 14:35 | HO.PM.IMPN ---
Subjective Subjective Date of Service: 10/09/20 Interval History: Abdominal pain was better this morning but after eating lunch complain of worsening abdominal pain, no nausea no vomiting no diarrhea no other acute issues overnight Review of Systems [employer] no headache, no dizziness CVS no chest pain, no palpitation Respiratory no cough, no shortness of breath Skin no rash Physical Exam Vital Signs: Vital Signs: Last Vital Signs Temp 98.9 F 10/09/20 11:52 Pulse 84 10/09/20 11:52 Resp 18 10/09/20 11:52 BP 169/95 H 10/09/20 11:52 Pulse Ox 95 10/09/20 11:52 Body Mass Index 23.7 General patient resting comfortably in no acute distress. Neck is supple no JVD. CVS regular rate rhythm, Respiratory lungs clear to auscultation, no respiratory distress, no wheeze, no rhonchi. Gastrointestinal abdomen soft, mild epigastric discomfort, bowel sounds audible, no guarding , no rigidity. Extremities no edema. Neuro nonfocal Skin no rash Objective Data Current Medications Generic Name Dose Route Start Last Admin Trade Name Freq PRN Reason Stop Dose Admin Acetaminophen 650 mg 10/07/20 16:47 Acetaminophen Supp 650 Mg Supp.Rect [place] Q6H PRN Pain, Mild (Pain Scale 1-3) Albuterol Sulfate 2 puff 10/07/20 16:47 Albuterol Sulfate 90 Mcg 8 Gm Inhaler INHALE Q4H PRN wheezing Amlodipine Besylate 5 mg 10/07/20 15:22 10/09/20 09:18 Amlodipine Besylate 5 Mg Tablet PO 5 mg DAILY FELIX Administration Protocol Duloxetine HCl 60 mg 10/08/20 09:00 10/09/20 09:18 Duloxetine Hcl 60 Mg Capsule.Dr PO 60 mg DAILY FELIX Administration Folic Acid 1 mg 10/07/20 16:47 10/09/20 09:18 Folic Acid 1 Mg Tablet PO 1 mg DAILY FELIX Administration Guaifenesin/Dextromethorphan 5 ml 10/08/20 10:58 10/09/20 00:01 Guaifenesin Dm 100/10/5 Ml 5 Ml Syrup PO 5 ml Q4H PRN Administration Cough Heparin Sodium (Porcine) 5,000 unit 10/07/20 18:00 10/09/20 05:39 Heparin Sodium,Porcine 5,000 Unit/Ml Vial SUBCUT 5,000 unit Q12H FELIX Administration Medication 1 each 10/08/20 09:00 No Benzodiazepines MISCELLANE DAILY FELIX Nicotine 21 mg 10/07/20 18:10 10/09/20 09:18 Nicotine 21 Mg Patch.Td24 TRANSDERMA 21 mg DAILY FELIX Administration Omeprazole 20 mg 10/10/20 06:30 Omeprazole 20 Mg Capsule. PO DAILY@0630 [facility] Ondansetron HCl 4 mg 10/07/20 16:47 10/07/20 17:36 Ondansetron Hcl 4 Mg/2 Ml Vial IVPUSH 4 mg Q8H PRN Administration Nausea and Vomiting Oxycodone HCl 10 mg 10/09/20 14:34 Oxycodone Hcl Immed Release 5 Mg Tablet PO Q6H PRN Pain, Severe (Pain Scale 7-10) Pharmacy Consult 1 each 10/07/20 14:52 Consult Rx Perform Med Rec MISCELLANE ONCE PRN Consult order Pharmacy Consult 1 each 10/07/20 15:43 Consult Rx Perform Med Rec MISCELLANE ONCE PRN Consult order Phenobarbital 60 mg 10/08/20 09:00 10/09/20 09:18 Phenobarbital 30 Mg Tablet PO 10/09/20 21:01 60 mg BID FELIX Administration Phenobarbital 30 mg 10/10/20 09:00 Phenobarbital 30 Mg Tablet PO 10/11/20 21:01 BID FELIX Phenobarbital 30 mg 10/12/20 09:00 Phenobarbital 30 Mg Tablet PO 10/13/20 09:01 DAILY FELIX Sodium Chloride 3 ml 10/07/20 16:47 10/09/20 09:19 0.9 % Sodium Chloride Flush 3 Ml Syringe IVFLUSH Not Given QSHIFT [facility] Thiamine HCl 100 mg 10/07/20 16:47 10/09/20 09:18 Thiamine Hcl 100 Mg Tablet PO 100 mg DAILY FELIX Administration Labs CBC & Chem 7: 10/08/20 06:05 10/08/20 06:05 Assessment and Plan (1) Alcohol abuse with withdrawal: Status: Acute (2) Abdominal pain: Status: Acute (3) Duodenitis: Status: Acute (4) Pancreatitis, chronic: Status: Acute Assessment and Plan: 54-year-old male with past medical history of chronic pancreatitis presents with epigastric abdominal pain # abdominal pain - most likely secondary to duodenitis versus chronic pancreatitis - DC IV morphine and switched to by mouth oxycodone, DC pantoprazole IV b.i.d. and placed on oral PPI, will advance diet to low-fat, DC IV fluid Encourage ambulation and possible discharge in next 24 hours # chronic pancreatitis - continue [id number] complex with meals # duodenitis - will treat with PPI, recommend to abstain from alcohol outpatient GI follow # alcohol abuse with withdrawal - continue phenobarb protocol, patient declined care team evaluation, since met with them several times in the past - folic acid - thiamine supplement # cough - COVID negative, chest x-ray negative, not hypoxic, continue as needed cough medication # hypertension - BP improving, continue amlodipine and resume chlorthalidone home dose DVT prophylaxis:? Heparin subQ Quality Stroke Does the patient have a stroke diagnosis?: No VTE Prior VTE?: No VTE Risk Level:: Medical - moderate - high VTE Device Contraindication: Treatment Not Indicated VTE Drug Contraindication: N/A - Med Ordered
[2020-10-09] MEDS: Potassium Chloride ER 20 MEQ TAB.ER.PRT PO (15:01)
[2020-10-09 15:10] VITALS: BP 153/94; PULSE 97; RESP 14; TEMP 37.1; O2SAT 93
--- NOTE | 2020-10-09 15:19 | P.DS_ITS ---
DS: Providers Provider Date of Service: 10/09/20 Date of admission: 10/07/20 15:19 Primary care physician: Unknown Physician DS: Diagnosis Discharge Diagnosis (1) Alcohol abuse with withdrawal: Status: Acute (2) Abdominal pain: Status: Acute (3) Duodenitis: Status: Acute (4) Pancreatitis, chronic: Status: Acute DS: Medications Discharge Medications Home Medications: Home Medications Medication Instructions Recorded Confirmed albuterol sulfate 90 mcg/actuation 2 puff INHALATION Q4H PRN 05/01/20 10/07/20 aerosol inhaler amitriptyline 10 mg tablet 10 mg PO BEDTIME 05/01/20 10/07/20 amlodipine 5 mg tablet 5 mg PO DAILY 05/01/20 10/07/20 buspirone 15 mg tablet 15 mg PO TID 05/01/20 10/07/20 duloxetine 60 mg capsule,delayed 60 mg PO DAILY 05/01/20 10/07/20 release folic acid 1 mg tablet 1 mg PO DAILY 05/01/20 10/07/20 hydroxyzine HCl 25 mg tablet 25 mg PO Q8H PRN 05/01/20 10/07/20 chlorthalidone 25 mg tablet 25 mg PO DAILY 10/07/20 10/07/20 [id number] 3 - 4 cap PO TIDWM 10/07/20 10/07/20 40,000-126,000-168,000 unit capsule, delay rel (Zenpep) Previous Rx's Medication Instructions Recorded nicotine 21 mg/24 hr daily 21 mg TRANSDERMAL DAILY #28 ea 10/09/20 transdermal patch oxycodone 5 mg tablet 5 mg PO Q6H PRN #20 tab 10/09/20 DS: Summary Hospital Course Hospital Course: History of presenting illness Date of Service: 10/07/20 Chief Complaint: Epigastric pain This is a 54-year-old male with past medical history of chronic pancreatitis, alcohol abuse, hypertension, depression, who presents to the hospital with com plaints of epigastric pain radiating to the back, started 2 days ago, constant, 8/10, associated with nausea and vomiting, poor oral intake as on able to keep anything down, diarrhea for past 2-3 days.? Nonbloody. Patient denies any chest pain, no shortness of breath, no cough, no urinary symptoms and no lower extremity edema, no headache change in vision, no numbness tingling or weakness in extremities.? Patient reports that he is also feeling like he is withdrawing from alcohol, last use was yesterday, he had a heavy daily drinker. Blood pressure of 188/101, heart rate of 103, respiratory rate of 16, temperature of 98.3?, satting 98% on room air Labs are significant for WBC count of 8.0, hemoglobin of 14.3, AST of 55, ALT of 45, alk-phos of 119 which are all chronically elevated, lipase normal, COVID-19 negative, CT of the abdomen shows sequelae of chronic pancreatitis, parenchymal calcification and ductal dilatation, chronic fluid collection no acute findings, duodenal wall thickening suggestive of duodenitis Patient will be admitted for further management Hospital course 54-year-old male with past medical history of chronic pancreatitis presents with epigastric abdominal pain, most likely secondary to duodenitis and chronic pancreatitis Patient treated with analgesics, IV pantoprazole his diet was gradually advanced currently he is tolerating by mouth intake is still has abdominal pain that seems to be chronic, but since patient has no nausea, vomiting, fever, chills he is being discharged home with strong recommendation to abstain from alcohol, patient declined care team evaluation since he has met with them several times in the past and not willing to quit alcohol, has been recommended to take pancreatic enzymes supplement with meals and is being discharged with small supply of oxycodone 5 mg q.6 hours as needed , he has also been placed on Prilosec. In regard to alcohol abuse with withdrawal he was treated with phenobarb protocol and recommended to abstain from alcohol he has been continued on folic acid replacement. Patient complained of cough , COVID negative, chest x-ray negative, not hypoxic, recommend to continue as needed cough medication In regard to hypertension he has been recommended to resume home medication Time Spent with Patient Time attestation: Total time spent providing and/or coordinating discharge services: Discharge coordination time: Greater than 30 minutes Quality: Stroke Does the patient have a stroke diagnosis?: No Physical Exam Vital Signs: Vital Signs: Last Vital Signs Temp 98.8 F 10/09/20 15:10 Pulse 97 10/09/20 15:10 Resp 14 10/09/20 15:10 BP 153/94 H 10/09/20 15:10 Pulse Ox 93 10/09/20 15:10 Body Mass Index 23.7 General no acute distress.? Neck is supple no JVD. CV S? regular rate rh ythm, Respiratory lungs clear to aus cultation, no resp iratory distress, no wheeze, no rhon chi. Gastrointesti nal abdomen soft, mild epigastric di scomfort, bowel so unds audible, no g uarding , no rigid ity. Extremities n o edema. Neuro non focal Skin no rash DS: Data Data Completed and Pending Completed studies during hospitalization [Text1]: Procedures Detoxification Services for Substance Abuse Treatment (05/01/20) Discharge Plan Discharge Patient Disposition: Home, Self-Care Discharge Diagnosis: Abdominal pain due to chronic recurrent pancreatitis Alcohol abuse and withdrawal Hypertension Referrals: Physician,Unknown [Primary Care Provider] - 1 Week Discharge Medications: New nicotine 21 mg/24 hr Patch 24 Hour 21 mg transdermal DAILY Qty: 28 RF: 0 oxycodone 5 mg tablet 5 mg PO Q6H PRN (Reason: pain (scale score 7-10)) Qty: 20 RF: 0 Continued amlodipine 5 mg tablet 5 mg PO DAILY RF: 0 amitriptyline 10 mg tablet 10 mg PO BEDTIME RF: 0 folic acid 1 mg tablet 1 mg PO DAILY RF: 0 hydroxyzine HCl 25 mg tablet 25 mg PO Q8H PRN (Reason: anxiety) RF: 0 albuterol sulfate 90 mcg/actuation HFA aerosol inhaler 2 puff inhalation Q4H PRN (Reason: wheezing) RF: 0 buspirone 15 mg tablet 15 mg PO TID RF: 0 duloxetine 60 mg capsule,delayed release(DR/EC) 60 mg PO DAILY RF: 0 Zenpep 40,000-126,000- 168,000 unit Capsule,Delayed Release(Dr/Ec) 3 - 4 cap PO TIDWM RF: 0 chlorthalidone 25 mg Tablet 25 mg PO DAILY RF: 0 Discharge Orders: Discharge Order (Routine); Ordered 10/09/20 Ordered By: Kary Kim Diet: low fat, low cholesterol Activity on Discharge: As tolerated Stand Alone Forms: Patient Portal Discharge page, Work/School Release Care Plan Goals: Chronic recurrent pancreatitis due to alcohol dependence strongly recommend to abstain from alcohol follow low-fat diet take pancreatic enzymes with meals, Health Concerns: continue all home medication as before Plan of Treatment: Outpatient follow-up with primary care physician Assessment: As above
== END 2020-10-09 16:39 | disposition home or self-care (01) | DRG 392 ==
LOC: HO.ED 14:31 → HO.EDOVER 15:26 → HO.S3 16:19
PROVIDERS: Admitting Provider Internal Medicine; Emergency Provider Internal Medicine; PCP Internal Medicine; Visit Provider Hospitalist
DX: K29.80 Duodenitis without bleeding (principal); K86.0 Alcohol-induced chronic pancreatitis; F10.139 Alcohol abuse with withdrawal, unspecified; I10 Essential (primary) hypertension; F41.9 Anxiety disorder, unspecified; F17.210 Nicotine dependence, cigarettes, uncomplicated; Z71.6 Tobacco abuse counseling; Z20.822 Contact with and (suspected) exposure to COVID-19; Z79.899 Other long term (current) drug therapy
CPT/HCPCS: 36415; 71046; 74177; 80048; 80053; 82077; 83690; 83735; 85025; 85610; 87635; 93005; 94640; 96361; 96374; 96375; 96376; 99285; J1170; J2060; J2270; J2405; J2560; J2930; Q9967

== ENCOUNTER 2020-11-17 13:35 | Inpatient (IN) | payer OTHER, SELFPAY ==
[2020-11-17] VITALS (8 sets, daily range): BP systolic 150–172; BP diastolic 101–107; PULSE 111–135; RESP 18–26; TEMP 36.5–37.3; O2SAT 93–96; BMI 25.7
--- NOTE | ~2020-11-17 | CT_ITS ---
EXAMINATION: CT ABDOMEN AND PELVIS WITH CONTRAST CLINICAL INFORMATION: Epigastric pain with history of diverticulitis and alcohol abuse COMPARISON: None TECHNIQUE: Multidetector volumetric images were obtained from the superior aspect of the liver through the pubic symphysis following administration 85 mL of Omnipaque 350 intravenous contrast. Sagittal and coronal reformatted images were obtained on the technologist's workstation. Oral contrast: No This CT examination was performed using dose optimization techniques as appropriate, variously including the following: *Automated exposure control *Adjustment of mA and/or kV according to patient size (this includes techniques or standardized protocols for targeted exams where dose is matched to indication/reason for exam; i.e. extremities or head) *Use of iterative reconstruction technique DLP: 616 mGy-cm FINDINGS: LUNG BASES: See report from CT scan same day. Left lower lobe infiltrate/atelectasis. LIVER, GALLBLADDER, AND BILIARY TREE: The liver is normal in size and shape but demonstrates decreased attenuation suggesting hepatic steatosis.. No focal hepatic lesion or biliary ductal dilatation is present. Status post cholecystectomy. PANCREAS: The pancreas is again noted to be atrophic with ductal dilatation up to 7 mm in size. Calcifications are seen in the distal duct the largest measuring 4 mm. Another calcification is seen distally which appears to be just adjacent to the duct there is a tiny amount of fluid seen at the pancreatic tail which appears minimally increased compared to the prior study, previously measuring 1.6 x 0.9 cm and currently measuring 2.9 x 1.3 cm. There is associated thickening of the anterior pararenal fascia as well as the adjacent adrenal gland. SPLEEN: Unremarkable. ADRENAL GLANDS: Mild thickening of the left adrenal gland as described above KIDNEYS AND URETERS: The kidneys are normal in size, shape, and attenuation. No hydronephrosis, hydroureter, or calculi seen. Again seen is a benign Bosniak class I right renal cyst. No solid mass is seen. No perinephric stranding. BLADDER: Unremarkable. GASTROINTESTINAL TRACT: A rectal anastomosis is present without obstruction. A few scattered colonic diverticula are seen. No evidence of diverticulitis. The small and large bowel are otherwise unremarkable. The appendix is unremarkable. ABDOMINAL WALL: No significant hernia is appreciated. LYMPH NODES: Normal. VASCULAR: Minimal calcific plaque in the aorta and iliofemoral vessels. No aneurysm. Her PELVIC VISCERA: Prostate and seminal vesicles appear normal. OSSEOUS STRUCTURES: Marked degenerative changes present in the spine at L4-L5 and L5-S1, unchanged. CT/CT abdomen pelvis w con IMPRESSION: 1. Atrophic pancreas with dilated duct with intraductal calculi as described above. Small fluid collection at the tail the pancreas appears minimally increased. 2. Low attenuation liver consistent with hepatic steatosis unchanged. 3. Other incidental findings including cholecystectomy, benign right renal cyst, rectal anastomosis and degenerative changes in the spine.
--- NOTE | ~2020-11-17 | CT_ITS ---
EXAMINATION: CT ANGIOGRAM OF THE CHEST WITH AND WITHOUT CONTRAST (CT PULMONARY ANGIOGRAM FOR PE) CLINICAL INFORMATION: Reason for Exam sob, r/o PE COMPARISON: Previous chest CTA from earlier the same day and chest x-ray from the same day TECHNIQUE: Prior to contrast administration, noncontrast localization images were obtained. Subsequently, multidetector volumetric imaging was performed from the thoracic inlet to below the diaphragms following the administration of 100 mL Omnipaque 350 intravenous contrast. No contrast reaction reported Sagittal, coronal, and MIP oblique sagittal reformatted images were obtained on the CT workstation, uploaded to PACS, and reviewed. This CT examination was performed using dose optimization techniques as appropriate, variously including the following: *Automated exposure control *Adjustment of mA and/or kV according to patient size (this includes techniques or standardized protocols for targeted exams where dose is matched to indication/reason for exam; i.e. extremities or head) *Use of iterative reconstruction technique Total exam dose-length product 447 mGy-cm FINDINGS: QUALITY OF STUDY/CONTRAST BOLUS: Satisfactory. PULMONARY ARTERIES: No central or segmental pulmonary emboli. THORACIC AORTA: No aneurysm or dissection. LUNG: There is elevation of the left hemidiaphragm and subsegmental atelectasis at the left lung base. PLEURA: No pleural effusion or pneumothorax. MEDIASTINUM: Normal heart size. Coronary artery calcification. The No pericardial effusion. No hilar or mediastinal lymphadenopathy. No evidence of septal bowing or right heart strain. CHEST WALL/AXILLA: No axillary or internal mammary lymphadenopathy. OSSEOUS STRUCTURES: No acute or suspicious osseous abnormality. There are degenerative changes of the spine. UPPER ABDOMEN: The main pancreatic duct is dilated measuring up to 7 mm. There is fullness of the left adrenal gland. There is an area of increased enhancement in the upper pole of the left kidney. A hypervascular renal lesion or vascular malformation should be considered. There is a mild stenosis at the origin of the celiac axis. No reflux of contrast into the hepatic veins to suggest elevated right heart pressures. CT/CT angio chest PE protocol IMPRESSION: No evidence of pulmonary embolism. Elevated left hemidiaphragm and left basilar atelectasis. VTE: negative
--- NOTE | ~2020-11-17 | CT_ITS ---
EXAMINATION: CT ANGIOGRAM OF THE CHEST WITH AND WITHOUT CONTRAST (CT PULMONARY ANGIOGRAM FOR PE) CLINICAL INFORMATION: Reason for Exam worsening SOB, elevated dimer COMPARISON: CT abdomen 10/07/2020 TECHNIQUE: Prior to contrast administration, noncontrast localization images were obtained. Subsequently, multidetector volumetric imaging was performed from the thoracic inlet to below the diaphragms following the administration of 85 mL Omnipaque 350 intravenous contrast. No contrast reaction reported Sagittal, coronal, and MIP oblique sagittal reformatted images were obtained on the CT workstation, uploaded to PACS, and reviewed. This CT examination was performed using dose optimization techniques as appropriate, variously including the following: *Automated exposure control *Adjustment of mA and/or kV according to patient size (this includes techniques or standardized protocols for targeted exams where dose is matched to indication/reason for exam; i.e. extremities or head) *Use of iterative reconstruction technique Total exam dose-length product 371 mGy-cm FINDINGS: QUALITY OF STUDY/CONTRAST BOLUS: Markedly suboptimal bolus. Both the aorta and the pulmonary veins are better opacified than the pulmonary arteries. In addition, respiratory artifact is present. PULMONARY ARTERIES: No large central pulmonary emboli are seen. No other pulmonary arterial abnormality can be adequately diagnosed on this suboptimal study.. THORACIC AORTA: No aneurysm or dissection. Three-vessel branching pattern of the aortic arch is present. LUNG: New consolidation/atelectasis is present at the left lung base compared to the prior CT abdomen from 10/07/2020. Atelectasis is present in the left upper lobe. PLEURA: No pleural effusion or pneumothorax. MEDIASTINUM: Normal heart size. Coronary artery calcifications are present. No pericardial effusion. No hilar or mediastinal lymphadenopathy. No evidence of septal bowing or right heart strain. CHEST WALL/AXILLA: No axillary or internal mammary lymphadenopathy. OSSEOUS STRUCTURES: No acute or suspicious osseous abnormality. UPPER ABDOMEN: See report of CT scan abdomen same day No reflux of contrast into the hepatic veins to suggest elevated right heart pressures. CT/CT angio chest PE protocol IMPRESSION: Suboptimal study for pulmonary emboli. No large central emboli are seen. If pulmonary emboli or serious consideration, the exam should be repeated. New left lower lobe infiltrate/atelectasis. This critical result was discussed with Dr. Escobar at 6:50 PM on the day of the exam and it was ascertained that the content and urgency of the report was understood at the time of direct communication. VTE: indeterminate
--- NOTE | ~2020-11-17 | XR_ITS ---
EXAMINATION: XR CHEST CLINICAL INFORMATION: Worsening shortness of breath COMPARISON: Chest radiographs 10/07/2020, 05/01/2020 TECHNIQUE: Portable upright AP x2 views of the chest are obtained. FINDINGS: There is subsegmental disc atelectasis left mid and lower zone with mild elevation left diaphragm to level of 10th posterior rib. The right diaphragm is at the level of the 12th rib. There is no lobar or segmental airspace consolidation or visible effusion. The vascularity is normal. There is no pneumothorax or pleural reaction. The visualized cardiac and hilar and mediastinal contours and bony structures are stable. XR/XR chest 1V IMPRESSION: Mild volume loss on left with subsegmental atelectasis and elevation left diaphragm. No lobar segmental airspace consolidation, pneumothorax, or effusion.
--- NOTE | 2020-11-17 13:49 | ECG_ITS ---
Test Reason : CHEST PAIN Blood Pressure : / mmHG Vent. Rate : 134 BPM Atrial Rate : 117 BPM P-R Int : 000 ms QRS Dur : 082 ms QT Int : 384 ms P-R-T Axes : 000 -04 041 degrees QTc Int : 573 ms Supraventricular tachycardia with Premature supraventricular complexes Inferior infarct , age undetermined Abnormal ECG When compared with ECG of 07-OCT-2020 13:18, Premature supraventricular complexes are now Present Nonspecific T wave abnormality no longer evident in Anterior leads Heart rate has increased Referred By: Generic ED Physician Electronically Signed By:HERMES MONTENEGRO
--- NOTE | 2020-11-17 15:55 | ED.URI ---
HPI - URI/Sore Throat General Chief Complaint: Upper Respiratory Symptoms Stated Complaint: pneumonia, diff breathing, coughing blood Time Seen by Provider: 11/17/20 15:51 Source: patient Mode of arrival: ambulatory Limitations: no limitations History of Present Illness HPI Narrative: Patient comes emergency room complaining of 3 days of pneumonia. Patient states he had a CT scan done by his primary care physician, ordered due to shortness of breath. Diagnosed with possible early pneumonia. Patient was prescribed a Z-Evelio. Patient states that he is not improving and actually his shortness of breath is getting worse, especially with exertion. Patient states that since this morning he also started having epigastric pain. Patient states he has had multiple episodes of pancreatitis Related Data Home Medications Medication Instructions Recorded Confirmed albuterol sulfate 90 mcg/actuation 2 puff INHALATION Q4H PRN 05/01/20 10/07/20 aerosol inhaler amitriptyline 10 mg tablet 10 mg PO BEDTIME 05/01/20 10/07/20 buspirone 15 mg tablet 15 mg PO TID 05/01/20 10/07/20 duloxetine 60 mg capsule,delayed 60 mg PO DAILY 05/01/20 10/07/20 release folic acid 1 mg tablet 1 mg PO DAILY 05/01/20 10/07/20 hydroxyzine HCl 25 mg tablet 25 mg PO Q8H PRN 05/01/20 10/07/20 chlorthalidone 25 mg tablet 25 mg PO DAILY 10/07/20 10/07/20 acbgfg-garzaeak-ajafast 3 - 4 cap PO TIDWM 10/07/20 10/07/20 40,000-126,000-168,000 unit capsule, delay rel (Zenpep) amlodipine 10 mg tablet 1 tab PO DAILY 11/17/20 azithromycin 250 mg tablet 250 mg PO DAILY 11/17/20 omeprazole 20 mg capsule,delayed 1 cap PO DAILY 11/17/20 release ondansetron 4 mg disintegrating 1 tab PO Q8H PRN 11/17/20 tablet Previous Rx's Medication Instructions Recorded nicotine 21 mg/24 hr daily 21 mg TRANSDERMAL DAILY #28 ea 10/09/20 transdermal patch Allergies Allergy/AdvReac Type Severity Reaction Status Date / Time No Known Allergies Allergy Verified 11/17/20 19:09 [No Known Allergies*] Review of Systems Review of Systems: Constitutional : No Weight loss, No Fever, No Chills, No Night Sweats, No Fatigue, No Malaise ENT/Mouth : No Hearing loss, No Ear Pain, No Nasal Congestion, No Sinus Pain, No Hoarseness, No sore throat, No Rhinorrhea, No Swallowing Difficulty Eyes: No Eye Pain, No Swelling, No Redness, No Foreign Body, No Discharge, No Vision Changes Cardiovascular : No Chest Pain, No SOB, No Dyspnea on Exertion, No Orthopnea, No Edema, No Palpitations Respiratory : Complaining of cough, sputum production, no wheezing, shortness of breath with exertion Gastrointestinal : No Nausea, No Vomiting, No Diarrhea, No Constipation, complaining of constant nonradiating epigastric pain, No Hematochezia, No Melena Genitourinary : no irregular bleeding, No Dysuria, No Urinary Frequency, No Hematuria, No Urinary Incontinence, No Urgency, No Flank Pain, No Urinary Flow Changes, No Hesitancy Musculoskeletal : No joint pain, No Myalgias, No Joint Swelling Skin : No Skin Lesions, No rash Neuro : No Weakness, No Numbness, No Paresthesias, No Loss of Consciousness, No Dizziness, No Headache Psych : No Anxiety/Panic, No Depression, No SI/HI/AH/VH, No Social Issues, Heme/Lymph: No Bruising, No Bleeding,No Lymphadenopathy Endocrine : No Polyuria, No Polydipsia, No Temperature Intolerance [facility] Past Medical History Medical History Anxiety Chronic pancreatitis COPD (chronic obstructive pulmonary disease) Depression Diverticulitis HTN (hypertension) Pancreatitis Surgical History History of colon resection Hx of cholecystectomy Previous back surgery Social History Social History Household Members: Family Household Members Other:: Brother Housing: House Do you presently have visiting nurse or other home services: No Alcohol intake: current Alcohol intake frequency: 3 or more drinks per day Alcohol type: hard liquor Patient Tobacco Use Status: Current everyday Tobacco user Tobacco use type: Cigarette Cigarette Packs Per Day: 1 Cigarettes Per Day: 20.0 Second Hand Smoke Exposure: No Use of substances other than those prescribed or required for medical reasons: No Advance Directives: No Advance Directives Information Provided: No service: No Current occupational status: employed Physical Exam Vital Signs: Vital Signs: Last Vital Signs Temp 99.1 F 11/17/20 19:08 Pulse 115 H 11/17/20 19:08 Resp 20 11/17/20 19:08 BP 150/106 H 11/17/20 19:08 Pulse Ox 94 11/17/20 19:08 Body Mass Index 25.7 Const: Other: Appearance: Alert. Oriented X3. No acute distress. Eyes: Pupils equal, round and reactive to light. ENT: Pharynx normal. Neck: Normal inspection. Neck supple. No lymph nodes noted. No crepitus CVS: Normal heart rate and rhythm. Pulses normal. Normal S1 and S2 Respiratory: No respiratory distress. Breath sounds normal. No Wheezing. No rales Abdomen: Soft , mild tenderness to palpation in the epigastric area. No rigidity. No distention. Skin: Skin warm and dry. Normal skin color. Normal skin turgor. Extremities: No lower extremity edema. No lower extremity edema. No Lacerations. No Rash Neuro: Oriented X 3. No motor deficit. No sensory deficit. Moving all extermities. No slurred speech. Course Course Course Narrative: It was noted that patient is constantly tachycardic. Patient states that he has chronic tachycardia, his heart rate is at baseline in the 120s to 130s Lactic acid 1.2, at this time sepsis is not suspected. First CTA is suboptimal to rule out PE, CTA is being repeated. CT scan of abdomen shows chronic cyst, lipase within normal limits. Patient states that his last drink was yesterday. Patient states that he feels that he is withdrawing now, CIWA score 10. Patient given 2 mg of Ativan, patient being admitted, discussed with Dr. Rucker MDM - URI/Sore Throat Lab Data Result diagrams: 11/17/20 17:09 11/17/20 17:09 Labs: Lab Results 11/17/20 11/17/20 11/17/20 Range/Units 17:09 17:09 17:09 WBC 10.9 H (4.8-10.8) X10*3/uL RBC 4.69 D (4.60-5.80) X10*6/uL Hgb 15.0 (14.0-18.0) g/dl Hct 42.9 (42-52) % MCV 91.5 (80-98) fL MCH 32.0 (27.0-33.0) pg MCHC 35.0 (31.0-36.0) g/dl RDW 12.9 (11.0-16.0) % Plt Count 228 D (160-400) X10*3/uL MPV 9.1 L (9.4-12.4) fL Immature Gran % (Auto) 0.3 (0.0-0.4) % Neut % (Auto) 78.2 H (45-73) % Lymph % (Auto) 13.8 L (20-40) % Mclean % (Auto) 6.8 (2-11) % Eos % (Auto) 0.3 (0-4) % Baso % (Auto) 0.6 (0-2) % Lymph # (Auto) 1.5 (1.2-4.9) X10*3/uL Mclean # (Auto) 0.7 (0.1-1.2) X10*3/uL Eos # (Auto) 0.0 (0.0-0.4) X10*3/uL Baso # (Auto) 0.1 (0.0-0.2) X10*3/uL Abs Immat Gran (auto) 0.03 (0.00-0.03) X10*3/uL Absolute Neuts (auto) 8.6 H (2.0-8.3) X10*3/uL Absolute Nucleated RBC 0.000 (0.0-0.012) X10*3/uL Nucleated RBC % (auto) 0.0 (0.0-0.2) /100WBC PT 11.8 (9.9-13.0) SEC INR 1.0 (0.9-1.1) D-Dimer 388 NG/ML Sodium 140 (135-145) mmol/L Potassium 3.8 (3.3-5.1) mmol/L Chloride 106 (96-108) mmol/L Carbon Dioxide 17 L (22-29) mmol/L Anion Gap 21 H (12-20) BUN 10 (9-16) mg/dL Creatinine 0.73 (0.5-1.4) mg/dL Estim Creat Clear Calc 129.2 Estimated GFR > 60 Random Glucose 127 H (60-115) mg/dL Lactic Acid (0.5-2.0) mmol/L Calcium 9.4 D (8.4-10.2) mg/dL Total Bilirubin 1.1 H (0.0-1.0) mg/dL Direct Bilirubin 0.5 (0.0-0.5) mg/dL AST 76 H (5-37) U/L ALT 50 H (0-40) U/L Alkaline Phosphatase 110 (39-117) U/L Troponin I High Sens (<3.5-35.0) ng/L Total Protein 7.2 (6.5-8.0) g/dL Albumin 4.2 (3.5-5.0) g/dL Lipase 15 (8-78) U/L Urine Opiates Screen (Not Detect) Urine Fentanyl Screen (Not Detect) Ur Barbiturates Screen (Not Detect) Ur Phencyclidine Scrn (Not Detect) Ur Amphetamines Screen (Not Detect) U Benzodiazepines Scrn (Not Detect) Urine Cocaine Screen (Not Detect) U Marijuana (THC) Screen (Not Detect) Ethyl Alcohol mg/dL COVID-19 ([facility]IS) (Negative) COVID-19 Clin Com 11/17/20 11/17/20 11/17/20 Range/Units 17:09 17:09 17:09 WBC (4.8-10.8) X10*3/uL RBC (4.60-5.80) X10*6/uL Hgb (14.0-18.0) g/dl Hct (42-52) % MCV (80-98) fL MCH (27.0-33.0) pg MCHC (31.0-36.0) g/dl RDW (11.0-16.0) % Plt Count (160-400) X10*3/uL MPV (9.4-12.4) fL Immature Gran % (Auto) (0.0-0.4) % Neut % (Auto) (45-73) % Lymph % (Auto) (20-40) % Mclean % (Auto) (2-11) % Eos % (Auto) (0-4) % Baso % (Auto) (0-2) % Lymph # (Auto) (1.2-4.9) X10*3/uL Mclean # (Auto) (0.1-1.2) X10*3/uL Eos # (Auto) (0.0-0.4) X10*3/uL Baso # (Auto) (0.0-0.2) X10*3/uL Abs Immat Gran (auto) (0.00-0.03) X10*3/uL Absolute Neuts (auto) (2.0-8.3) X10*3/uL Absolute Nucleated RBC (0.0-0.012) X10*3/uL Nucleated RBC % (auto) (0.0-0.2) /100WBC PT (9.9-13.0) SEC INR (0.9-1.1) D-Dimer NG/ML Sodium (135-145) mmol/L Potassium (3.3-5.1) mmol/L Chloride (96-108) mmol/L Carbon Dioxide (22-29) mmol/L Anion Gap (12-20) BUN (9-16) mg/dL Creatinine (0.5-1.4) mg/dL Estim Creat Clear Calc Estimated GFR Random Glucose (60-115) mg/dL Lactic Acid 1.2 (0.5-2.0) mmol/L Calcium (8.4-10.2) mg/dL Total Bilirubin (0.0-1.0) mg/dL Direct Bilirubin (0.0-0.5) mg/dL AST (5-37) U/L ALT (0-40) U/L Alkaline Phosphatase (39-117) U/L Troponin I High Sens 4.7 (<3.5-35.0) ng/L Total Protein (6.5-8.0) g/dL Albumin (3.5-5.0) g/dL Lipase (8-78) U/L Urine Opiates Screen (Not Detect) Urine Fentanyl Screen (Not Detect) Ur Barbiturates Screen (Not Detect) Ur Phencyclidine Scrn (Not Detect) Ur Amphetamines Screen (Not Detect) U Benzodiazepines Scrn (Not Detect) Urine Cocaine Screen (Not Detect) U Marijuana (THC) Screen (Not Detect) Ethyl Alcohol mg/dL COVID-19 ([facility] LUIS) Negative (Negative) COVID-19 Clin Com See Note 11/17/20 11/17/20 Range/Units 17:09 18:32 WBC (4.8-10.8) X10*3/uL RBC (4.60-5.80) X10*6/uL Hgb (14.0-18.0) g/dl Hct (42-52) % MCV (80-98) fL MCH (27.0-33.0) pg MCHC (31.0-36.0) g/dl RDW (11.0-16.0) % Plt Count (160-400) X10*3/uL MPV (9.4-12.4) fL Immature Gran % (Auto) (0.0-0.4) % Neut % (Auto) (45-73) % Lymph % (Auto) (20-40) % Mclean % (Auto) (2-11) % Eos % (Auto) (0-4) % Baso % (Auto) (0-2) % Lymph # (Auto) (1.2-4.9) X10*3/uL Mclean # (Auto) (0.1-1.2) X10*3/uL Eos # (Auto) (0.0-0.4) X10*3/uL Baso # (Auto) (0.0-0.2) X10*3/uL Abs Immat Gran (auto) (0.00-0.03) X10*3/uL Absolute Neuts (auto) (2.0-8.3) X10*3/uL Absolute Nucleated RBC (0.0-0.012) X10*3/uL Nucleated RBC % (auto) (0.0-0.2) /100WBC PT (9.9-13.0) SEC INR (0.9-1.1) D-Dimer NG/ML Sodium (135-145) mmol/L Potassium (3.3-5.1) mmol/L Chloride (96-108) mmol/L Carbon Dioxide (22-29) mmol/L Anion Gap (12-20) BUN (9-16) mg/dL Creatinine (0.5-1.4) mg/dL Estim Creat Clear Calc Estimated GFR Random Glucose (60-115) mg/dL Lactic Acid (0.5-2.0) mmol/L Calcium (8.4-10.2) mg/dL Total Bilirubin (0.0-1.0) mg/dL Direct Bilirubin (0.0-0.5) mg/dL AST (5-37) U/L ALT (0-40) U/L Alkaline Phosphatase (39-117) U/L Troponin I High Sens (<3.5-35.0) ng/L Total Protein (6.5-8.0) g/dL Albumin (3.5-5.0) g/dL Lipase (8-78) U/L Urine Opiates Screen POSITIVE H (Not Detect) Urine Fentanyl Screen Not Detected (Not Detect) Ur Barbiturates Screen Not Detected (Not Detect) Ur Phencyclidine Scrn Not Detected (Not Detect) Ur Amphetamines Screen Not Detected (Not Detect) U Benzodiazepines Scrn Not Detected (Not Detect) Urine Cocaine Screen Not Detected (Not Detect) U Marijuana (THC) Screen Not Detected (Not Detect) Ethyl Alcohol < 10 mg/dL COVID-19 ([facility]IS) (Negative) COVID-19 Clin Com Imaging Data CTA for PE: Radiologist's impression: FINDINGS: QUALITY OF STUDY/CONTRAST BOLUS: Markedly suboptimal bolus. Both the aorta and the pulmonary veins are better opacified than the pulmonary arteries. In addition, respiratory artifact is present. PULMONARY ARTERIES: No large central pulmonary emboli are seen. No other pulmonary arterial abnormality can be adequately diagnosed on this suboptimal study..? THORACIC AORTA: No aneurysm or dissection. Three-vessel branching pattern of the aortic arch is present. LUNG: New consolidation/atelectasis is present at the left lung base compared to the prior CT abdomen from 10/07/2020. Atelectasis is present in the left upper lobe. PLEURA: No pleural effusion or pneumothorax. MEDIASTINUM: Normal heart size. Coronary artery calcifications are present. No pericardial effusion.? No hilar or mediastinal lymphadenopathy.? No evidence of septal bowing or right heart strain. CHEST WALL/AXILLA: No axillary or internal mammary lymphadenopathy. OSSEOUS STRUCTURES: No acute or suspicious osseous abnormality.? UPPER ABDOMEN: See report of CT scan abdomen same day? No reflux of contrast into the hepatic veins to suggest elevated right heart pressures. CT/CT angio chest PE protocol IMPRESSION: Suboptimal study for pulmonary emboli. No large central emboli are seen. If pulmonary emboli or serious consideration, the exam should be repeated. ? New left lower lobe infiltrate/atelectasis. CT scan - abdomen: Radiologist's impression: FINDINGS: LUNG BASES: See report from CT scan same day. Left lower lobe infiltrate/atelectasis.? LIVER, GALLBLADDER, AND BILIARY TREE: The liver is normal in size and shape but demonstrates decreased attenuation suggesting hepatic steatosis.. No focal hepatic lesion or biliary ductal dilatation is present. Status post cholecystectomy.? PANCREAS: The pancreas is again noted to be atrophic with ductal dilatation up to 7 mm in size. Calcifications are seen in the distal duct the largest measuring 4 mm. Another calcification is seen distally which appears to be just adjacent to the duct there is a tiny amount of fluid seen at the pancreatic tail which appears minimally increased compared to the prior study, previously measuring 1.6 x 0.9 cm and currently measuring 2.9 x 1.3 cm. There is associated thickening of the anterior pararenal fascia as well as the adjacent adrenal gland. SPLEEN: Unremarkable.? ADRENAL GLANDS: Mild thickening of the left adrenal gland as described above? KIDNEYS AND URETERS: The kidneys are normal in size, shape, and attenuation. No hydronephrosis, hydroureter, or calculi seen. Again seen is a benign Bosniak class I right renal cyst. No solid mass is seen. No perinephric stranding. ? BLADDER: Unremarkable.? GASTROINTESTINAL TRACT: A rectal anastomosis is present without obstruction. A few scattered colonic diverticula are seen. No evidence of diverticulitis. The small and large bowel are otherwise unremarkable. The appendix is unremarkable.? ABDOMINAL WALL: No significant hernia is appreciated.? LYMPH NODES: Normal. VASCULAR: Minimal calcific plaque in the aorta and iliofemoral vessels. No aneurysm. Her PELVIC VISCERA: Prostate and seminal vesicles appear normal.? OSSEOUS STRUCTURES: Marked degenerative changes present in the spine at L4-L5 and L5-S1, unchanged.? CT/CT abdomen pelvis w con IMPRESSION: 1.? Atrophic pancreas with dilated duct with intraductal calculi as described above. Small fluid collection at the tail the pancreas appears minimally increased. 2.? Low attenuation liver consistent with hepatic steatosis unchanged. 3.? Other incidental findings including cholecystectomy, benign right renal cyst, rectal anastomosis and degenerative changes in the spine.? Discharge Plan Discharge Clinical Impression: Alcohol withdrawal, Pneumonia Patient Disposition: Admitted As Inpatient
--- NOTE | 2020-11-17 16:08 | PC.NURSE ---
patient ambulated to bathroom for BM, upon returning patients O2 sat was checked and it remained at 95%
[2020-11-17] MEDS: Morphine Sulfate 4 MG/ML CARTRIDGE IVPUSH (17:19)
[2020-11-17 17:20] LABS: MANUAL DIFF FLAG NO
[2020-11-17] MEDS: 0.9 % Sodium Chloride 1,000 ML 999 ML IVCONT (17:20)
--- NOTE | 2020-11-17 17:21 | PC.NURSE ---
iv inserted, labs drawn, covid swab performed, monitoring and evaluation advisor 120s, pt continues to be hypertensive, pt medicated per order, will continue to mointor.
[2020-11-17 17:26] LABS: Prothrombin Time 11.8 SEC (9.9-13.0)
[2020-11-17 17:29] LABS: D Dimer 388 NG/ML
[2020-11-17 17:32] LABS: Basophils Absolute Auto 0.1 X10*3/uL (0.0-0.2); Basophils Percent Auto 0.6 % (0-2); Eosinophils Percent Auto 0.3 % (0-4); Hematocrit 42.9 % (42-52); Imm Gran Abs Auto 0.03 X10*3/uL (0.00-0.03); Imm Gran Pct Auto 0.3 % (0.0-0.4); Lymphocytes Absolute Auto 1.5 X10*3/uL (1.2-4.9); Lymphocytes Percent Auto 13.8 % (20-40); Mean Corpuscular Volume 91.5 fL (80-98); Mean Platelet Volume 9.1 fL (9.4-12.4); Monocytes Absolute Auto 0.7 X10*3/uL (0.1-1.2); Monocytes Percent Auto 6.8 % (2-11); Neutrophils Absolute Auto 8.6 X10*3/uL (2.0-8.3); Neutrophils Percent Auto 78.2 % (45-73); Platelet Count 228 X10*3/uL (160-400); Red Blood Count 4.69 X10*6/uL (4.60-5.80); Red Cell Distribution Width 12.9 % (11.0-16.0); White Blood Count 10.9 X10*3/uL (4.8-10.8)
[2020-11-17 17:38] LABS: Lactic Acid 1.2 mmol/L (0.5-2.0)
[2020-11-17 17:41] LABS: COVID-19 Test Negative (Negative)
[2020-11-17 17:43] LABS: Ethanol < 10 mg/dL
[2020-11-17 17:48] LABS: Troponin-I High Sensitivity 4.7 ng/L (<3.5-35.0)
[2020-11-17 17:50] LABS: Alanine Aminotransferase 50 U/L (0-40); Albumin Level 4.2 g/dL (3.5-5.0); Alkaline Phosphatase 110 U/L (39-117); Anion Gap 21 (12-20); Aspartate Amino Transferase 76 U/L (5-37); Bilirubin Direct 0.5 mg/dL (0.0-0.5); Bilirubin Total 1.1 mg/dL (0.0-1.0); Blood Urea Nitrogen 10 mg/dL (9-16); Calcium 9.4 mg/dL (8.4-10.2); Carbon Dioxide 17 mmol/L (22-29); Chloride 106 mmol/L (96-108); Creatinine Clr Calc Pharmacy 129.2; Estimated Glomerular Filt Rate > 60; Glucose Random 127 mg/dL (60-115); Lipase 15 U/L (8-78); Potassium 3.8 mmol/L (3.3-5.1); Sodium 140 mmol/L (135-145); Total Protein 7.2 g/dL (6.5-8.0)
[2020-11-17] MEDS: iohexoL 350 MG/ML 100 ML INFUS..BTL IV ×2 (18:21→19:43)
[2020-11-17 18:54] LABS: Amphetamine Screen Urine Not Detected (Not Detect); Barbiturates, Urine Not Detected (Not Detect); Benzodiazepines Screen Urine Not Detected (Not Detect); Cannabinoid Screen Urine Not Detected (Not Detect); Cocaine Screen Urine Not Detected (Not Detect); Fentanyl, urine Not Detected (Not Detect); Opiate Screen Urine POSITIVE (Not Detect); Phencyclidine Screen Urine Not Detected (Not Detect)
--- NOTE | 2020-11-17 19:21 | PC.NURSE ---
This RN to bedside for first encounter with pt. Pt aao4 resting on stretcher in NAD, breathing with ease on RA. Pt c/o epigastric abd pain 11/28 stating it's pancreatitis. Pt reports he knows it is because I've had it so many times. Pt admits to 10 vodka drinks/day, last drink yesterday as he reports he felt too sick today to drink. Pt reports having been medicated to stave off ETOH withdrawals during previous admissions but denies having been admitted/intubated for ETOH withdrawals. Pt requiring PIV access in AC per CT staff for CT imaging. R AC PIV access obtained by this RN. Pt noted to be HTN and tremulous, CIWA is 10 as charted. Pain, VS, and CIWA reported to Dr Escobar. This RN unable to locate seizure pads. Pt's stretcher padded with pillows for seizure precautions. Stretcher in low locked position, rails raised, call cherry within reach. Pt with red star posted outside of room, red fall alert bracelet in place. Pt with red fall prevention socks on.
[2020-11-17 20:05] LABS: Magnesium 1.7 mg/dL (1.6-2.6)
[2020-11-17] MEDS: LORazepam 1 MG TABLET 2 MG PO (20:27)
[2020-11-17] MEDS: Piperacillin Sodium/Tazobactam 3.375 GM in 0.9 % Sodium Chloride 50 ML IV (20:27)
--- NOTE | 2020-11-17 20:27 | PHA.MEDREC ---
Pharmacy Consult ? Medication Reconciliation Pharmacy has completed the medication reconciliation. Patient reports taking buspirone but it has not been filled since March of 2020 for a 90 day supply. He also does not know the last day he took his medications. He is not compliant with his mediations. Gilma Walsh, PharmD
--- NOTE | 2020-11-17 20:28 | PC.NURSE ---
patient a&o, vitals obtained- pt continues to be hypertensive, pt medicated per order, will continue to monitor.
--- NOTE | 2020-11-17 21:42 | MHC.CM.PN ---
CM met with admitted patient with bed assignment pending. Pt is A&Ox3. Pt is employed. Pt lives with his brother, Carmelo Yañez ([phone]), uses no DME or services. No HCP on file. Education provided, pt refused. Pt aware that recovery support services will meet with patient during hospitalization. D/C plan is home without services. Transportation by patient's brother. CM to follow for d/c needs.
--- NOTE | 2020-11-17 23:20 | PM.IMHP ---
History of Present Illness Date of Service: 11/17/20 Chief Complaint: Cough and sputum production The Patient reported that over the past few days he has been having cough and shortness of breath. Cough is associated with sputum production. Was evaluated as outpatient and was noted to have pneumonia, given azithromycin which he took for couple days with no significant improvement in his symptoms; hence decided to come to the hospital for further evaluation. Denies any chest pain palpitations lightheadedness or dizziness. Complains of abdominal discomfort-mentions that he is concerned if he had pancreatitis. Mentioned that he drinks alcohol every day about a pt-last drink was 1 day ago. Patient denies any GI or symptoms. Review of all other systems is negative except mentioned above ER course: Per ER team patient had a CT scan done which showed no evidence of pulmonary embolism; noted to have pneumonia. Given antibiotics. Admitted to the hospital for further management. [facility] Medical History Anxiety Chronic pancreatitis COPD (chronic obstructive pulmonary disease) Depression Diverticulitis HTN (hypertension) Pancreatitis Pertinent family history: Reviewed and noncontributory to the current presentation Surgical History History of colon resection Hx of cholecystectomy Previous back surgery Social History Household Members: Family Household Members Other:: Brother Housing: House Do you presently have visiting nurse or other home services: No Alcohol intake: current Alcohol intake frequency: 3 or more drinks per day Alcohol type: hard liquor Patient Tobacco Use Status: Current everyday Tobacco user Tobacco use type: Cigarette Cigarette Packs Per Day: 1 Cigarettes Per Day: 20.0 Second Hand Smoke Exposure: No Use of substances other than those prescribed or required for medical reasons: No Advance Directives: No Advance Directives Information Provided: No service: No Current occupational status: employed Meds Allergies Allergy/AdvReac Type Severity Reaction Status Date / Time No Known Allergies Allergy Verified 11/17/20 19:09 [No Known Allergies*] Active Medications: Current Medications Acetaminophen (Acetaminophen 325 Mg Tablet) 650 mg PO Q6H PRN PRN Reason: Pain, Mild (Pain Scale 1-3) Albuterol Sulfate (Albuterol Sulfate 90 Mcg 8 Gm Inhaler) 2 puff INHALE Q4H PRN PRN Reason: wheezing Amitriptyline HCl (Amitriptyline Hcl 10 Mg Tablet) 10 mg PO BEDTIME [facility] Amlodipine Besylate (Amlodipine Besylate 10 Mg Tablet) 10 mg PO DAILY [facility]; Protocol Buspirone HCl (Buspirone Hcl 5 Mg Tablet) 15 mg PO TID [facility] Duloxetine HCl (Duloxetine Hcl 60 Mg Capsule.Dr) 60 mg PO DAILY [facility] Enoxaparin Sodium (Enoxaparin Sodium 40 Mg/0.4 Ml Syringe) 40 mg SUBCUT Q24H [facility] Famotidine (Famotidine/Pf 20 Mg/2 Ml Vial) 20 mg IVPUSH BID [facility] Folic Acid (Folic Acid 1 Mg Tablet) 1 mg PO DAILY [facility] Stop: 11/21/20 08:59 Folic Acid (Folic Acid 1 Mg Tablet) 1 mg PO DAILY [facility] Hydromorphone HCl (Hydromorphone Hcl 0.5 Mg/0.5 Ml Syringe) 0.5 mg IVPUSH Q4H PRN; Protocol PRN Reason: Pain, Severe (Pain Scale 7-10) Hydroxyzine HCl (Hydroxyzine Hcl 25 Mg Tablet) 25 mg PO Q8H PRN PRN Reason: anxiety Vancomycin HCl 1,000 mg/ (Sodium Chloride) 270 mls @ 270 mls/hr IV Q12H [facility] Piperacillin Sod/Tazobactam (Sod 3.375 gm/ Sodium Chloride) 50 mls @ 100 mls/hr IV Q6H [facility] Melatonin (Melatonin 3 Mg Tablet) 6 mg PO BEDTIME PRN PRN Reason: Insomnia Multivitamins/Vitamin C (Multivitamin Tablet) 1 tab PO DAILY [facility] Stop: 11/21/20 08:59 Nicotine (Nicotine 21 Mg Patch.Td24) 21 mg TRANSDERMA DAILY PRN PRN Reason: Nicotine Cravings Non-Formulary Medication (Wtxwod-Hbieqgme-Gskthgc [Zenpep]) 3 - 4 cap PO TIDWM [facility] Omeprazole (Omeprazole 20 Mg Capsule.Dr) 20 mg PO DAILY [facility] Pharmacy Consult (Consult Rx Perform Med Rec) 1 each MISCELLANE ONCE PRN PRN Reason: Consult order Pharmacy Consult (Consult Rx Vancomycin Dosing) 1 each MISCELLANE DAILY PRN PRN Reason: Consult order Senna (Sennosides 8.6 Mg Tablet) 17.2 mg PO BEDTIME PRN PRN Reason: Constipation Sodium Chloride (0.9 % Sodium Chloride Flush 3 Ml Syringe) 3 ml IVFLUSH QSHIFT FELIX Thiamine HCl (Thiamine Hcl 100 Mg Tablet) 100 mg PO DAILY [facility] Stop: 11/21/20 08:59 Home Medications Medication Instructions Recorded Confirmed Last Taken Type albuterol sulfate 90 mcg/actuation 2 puff INHALATION Q4H PRN 05/01/20 11/17/20 Unknown History aerosol inhaler amitriptyline 10 mg tablet 10 mg PO BEDTIME 05/01/20 11/17/20 Unknown History buspirone 15 mg tablet 15 mg PO TID 05/01/20 11/17/20 Unknown History duloxetine 60 mg capsule,delayed 60 mg PO DAILY 05/01/20 11/17/20 Unknown History release folic acid 1 mg tablet 1 mg PO DAILY 05/01/20 11/17/20 Unknown History hydroxyzine HCl 25 mg tablet 25 mg PO Q8H PRN 05/01/20 11/17/20 Unknown History chlorthalidone 25 mg tablet 25 mg PO DAILY 10/07/20 11/17/20 Unknown History lsdacz-yztgbvmx-syizjvy 3 - 4 cap PO TIDWM 10/07/20 11/17/20 Unknown History 40,000-126,000-168,000 unit capsule, delay rel (Zenpep) amlodipine 10 mg tablet 1 tab PO DAILY 11/17/20 11/17/20 Unknown History nicotine 21 mg/24 hr daily 21 mg TRANSDERMAL DAILY PRN 11/17/20 11/17/20 Unknown History transdermal patch omeprazole 20 mg capsule,delayed 1 cap PO DAILY 11/17/20 11/17/20 Unknown History release ondansetron 4 mg disintegrating 1 tab PO Q8H PRN 11/17/20 11/17/20 Unknown History tablet Physical Exam Vital Signs and Narrative: Vital Signs: Last Vital Signs Temp 98.4 F 11/17/20 20:00 Pulse 111 H 11/17/20 21:06 Resp 23 H 11/17/20 21:06 BP 156/105 H 11/17/20 21:06 Pulse Ox 94 11/17/20 21:06 Body Mass Index 25.7 Gen: Appears be in no acute distress HEENT: NCAT, Moist mucosa. Pulmonary: Course breath sounds, fair air entry CVS: Normal S1-S2 Abdomen: BS+, Soft, Nontender Extremities: Warm well perfused Neuro: Alert and awake. Results Labs CBC and Chem 7: 11/17/20 17:09 11/17/20 17:09 Labs: Laboratory Results - last 24 hr 11/17/20 11/17/20 11/17/20 17:09 17:09 17:09 MCV 91.5 MCH 32.0 MCHC 35.0 RDW 12.9 Plt Count 228 D MPV 9.1 L Immature Gran % (Auto) 0.3 Neut % (Auto) 78.2 H Lymph % (Auto) 13.8 L Prentiss % (Auto) 6.8 Eos % (Auto) 0.3 Baso % (Auto) 0.6 Lymph # (Auto) 1.5 Prentiss # (Auto) 0.7 Eos # (Auto) 0.0 Baso # (Auto) 0.1 Abs Immat Gran (auto) 0.03 Absolute Neuts (auto) 8.6 H Absolute Nucleated RBC 0.000 Nucleated RBC % (auto) 0.0 PT 11.8 INR 1.0 D-Dimer 388 Anion Gap 21 H Estim Creat Clear Calc 129.2 Estimated GFR > 60 Random Glucose 127 H Lactic Acid Calcium 9.4 D Magnesium 1.7 Total Bilirubin 1.1 H Direct Bilirubin 0.5 AST 76 H ALT 50 H Alkaline Phosphatase 110 Troponin I High Sens Total Protein 7.2 Albumin 4.2 Lipase 15 Urine Opiates Screen Urine Fentanyl Screen Ur Barbiturates Screen Ur Phencyclidine Scrn Ur Amphetamines Screen U Benzodiazepines Scrn Urine Cocaine Screen U Marijuana (THC) Screen Ethyl Alcohol COVID-19 ([facility]) COVID-19 Clin Com 11/17/20 11/17/20 11/17/20 17:09 17:09 17:09 MCV MCH MCHC RDW Plt Count MPV Immature Gran % (Auto) Neut % (Auto) Lymph % (Auto) Prentiss % (Auto) Eos % (Auto) Baso % (Auto) Lymph # (Auto) Prentiss # (Auto) Eos # (Auto) Baso # (Auto) Abs Immat Gran (auto) Absolute Neuts (auto) Absolute Nucleated RBC Nucleated RBC % (auto) PT INR D-Dimer Anion Gap Estim Creat Clear Calc Estimated GFR Random Glucose Lactic Acid 1.2 Calcium Magnesium Total Bilirubin Direct Bilirubin AST ALT Alkaline Phosphatase Troponin I High Sens 4.7 Total Protein Albumin Lipase Urine Opiates Screen Urine Fentanyl Screen Ur Barbiturates Screen Ur Phencyclidine Scrn Ur Amphetamines Screen U Benzodiazepines Scrn Urine Cocaine Screen U Marijuana (THC) Screen Ethyl Alcohol COVID-19 ([facility]) Negative COVID-19 Clin Com See Note 11/17/20 11/17/20 17:09 18:32 MCV MCH MCHC RDW Plt Count MPV Immature Gran % (Auto) Neut % (Auto) Lymph % (Auto) Prentiss % (Auto) Eos % (Auto) Baso % (Auto) Lymph # (Auto) Prentiss # (Auto) Eos # (Auto) Baso # (Auto) Abs Immat Gran (auto) Absolute Neuts (auto) Absolute Nucleated RBC Nucleated RBC % (auto) PT INR D-Dimer Anion Gap Estim Creat Clear Calc Estimated GFR Random Glucose Lactic Acid Calcium Magnesium Total Bilirubin Direct Bilirubin AST ALT Alkaline Phosphatase Troponin I High Sens Total Protein Albumin Lipase Urine Opiates Screen POSITIVE H Urine Fentanyl Screen Not Detected Ur Barbiturates Screen Not Detected Ur Phencyclidine Scrn Not Detected Ur Amphetamines Screen Not Detected U Benzodiazepines Scrn Not Detected Urine Cocaine Screen Not Detected U Marijuana (THC) Screen Not Detected Ethyl Alcohol < 10 COVID-19 ([facility]) COVID-19 Clin Com Imaging Radiologist's Impressions: Impressions Chest X-Ray 11/17/20 16:06 IMPRESSION: Mild volume loss on left with subsegmental atelectasis and elevation left diaphragm. No lobar segmental airspace consolidation, pneumothorax, or effusion. Abdomen/Pelvis CT 11/17/20 16:09 IMPRESSION: 1. Atrophic pancreas with dilated duct with intraductal calculi as described above. Small fluid collection at the tail the pancreas appears minimally increased. 2. Low attenuation liver consistent with hepatic steatosis unchanged. 3. Other incidental findings including cholecystectomy, benign right renal cyst, rectal anastomosis and degenerative changes in the spine. Chest CTA 11/17/20 17:45 IMPRESSION: Suboptimal study for pulmonary emboli. No large central emboli are seen. If pulmonary emboli or serious consideration, the exam should be repeated. New left lower lobe infiltrate/atelectasis. This critical result was discussed with Dr. Escobar at 6:50 PM on the day of the exam and it was ascertained that the content and urgency of the report was understood at the time of direct communication. VTE: indeterminate Chest CTA 11/17/20 18:54 IMPRESSION: No evidence of pulmonary embolism. Elevated left hemidiaphragm and left basilar atelectasis. VTE: negative Assessment and Plan (1) Alcohol withdrawal: Status: Acute (2) Pneumonia: Status: Acute (3) Abdominal pain: Status: Acute 55-year-old male with a past medical history of hypertension, COPD, alcohol abuse, chronic pancreatitis, atrophy pancreas, anxiety, depression presented to the hospital with a chief complaint of cough and shortness of breath. Pneumonia: Continue vancomycin and Zosyn. Follow up cultures. CT chest shows New left lower lobe infiltrate/atelectasis. COPD: Stable. DuoNebs p.r.n. no PE on CT. Alcohol abuse history: Monitor on CO protocol. Thiamine folate and multivitamins. Abdominal pain: Likely chronic pancreatitis/duodenitis. Pepcid b.i.d.. Supportive care. Continue home Zenpep Ct abd showed: IMPRESSION: 1.? Atrophic pancreas with dilated duct with intraductal calculi as described above. Small fluid collection at the tail the pancreas appears minimally increased.2.? Low attenuation liver consistent with hepatic steatosis unchanged. 3.? Other incidental findings including cholecystectomy, benign right renal cyst, rectal anastomosis and degenerative changes in the spine.? Prolonged QTC: Monitor on telemetry. Keep magnesium above 2 and potassium above 4. Avoid QT prolonging agents. Tobacco dependence: Nicotine patch History of anxiety/depression: Continue home medications duloxetine/cataracts. DVT ppx: lovenox Full code Quality Stroke Does the patient have a stroke diagnosis?: No VTE Prior VTE?: No VTE Risk Level:: Medical - moderate - high VTE Device Contraindication: Treatment Not Indicated VTE Drug Contraindication: N/A - Med Ordered
[2020-11-18] VITALS (13 sets, daily range): BP systolic 119–151; BP diastolic 72–105; PULSE 87–106; RESP 15–18; TEMP 36.1–37; O2SAT 92–97
[2020-11-18] MEDS: vancomycin HCL 1,500 MG in 0.9 % Sodium Chloride 500 ML 333.33 MG IV (00:09)
[2020-11-18] MEDS: Enoxaparin Sodium 40 MG/0.4 ML SYRINGE SUBCUT ×2 (00:09→23:53)
--- NOTE | 2020-11-18 00:15 | PC.NURSE ---
Pt found sleeping in bed, wakes easily to verbal stimuli, reporting mild abdominal pain and a ONEIL. VSS, CIWA noted to be a 2, pt only scoring for a ONEIL at this time. VSS at present time. Pt medicated per MAR with Vanco and Lovenox. Pt resting in bed, rails up, call cherry within reach, provided with a warm blanket per request. Continue to monitor.
[2020-11-18] MEDS: Piperacillin Sodium/Tazobactam 3.375 GM in 0.9 % Sodium Chloride 50 ML IV ×2 (02:38→09:03)
--- NOTE | 2020-11-18 02:39 | PC.NURSE ---
Zosyn infusing per MAR. VSS. Pt remains asleep in bed in NAD. Awaiting bed assignment.
[2020-11-18] MEDS: Omeprazole 20 MG CAPSULE.DR PO (06:18)
--- NOTE | 2020-11-18 06:18 | PC.NURSE ---
Pt asleep on stretcher in between care in NAD, breathing with ease on RA, VSS. Pt awoken, reports ONEIL as documented. This RN to medicate with PRN tylenol.
[2020-11-18] MEDS: Acetaminophen 325 MG TABLET 650 MG PO (06:22)
[2020-11-18 06:32] LABS: MANUAL DIFF FLAG NO
[2020-11-18 06:36] LABS: Basophils Absolute Auto 0.1 X10*3/uL (0.0-0.2); Basophils Percent Auto 0.9 % (0-2); Eosinophils Absolute Auto 0.1 X10*3/uL (0.0-0.4); Eosinophils Percent Auto 1.8 % (0-4); Hematocrit 39.9 % (42-52); Hemoglobin 13.7 g/dl (14.0-18.0); Imm Gran Abs Auto 0.02 X10*3/uL (0.00-0.03); Imm Gran Pct Auto 0.3 % (0.0-0.4); Lymphocytes Absolute Auto 1.5 X10*3/uL (1.2-4.9); Lymphocytes Percent Auto 23.1 % (20-40); Mean Corpuscular HGB Conc 34.3 g/dl (31.0-36.0); Mean Corpuscular Hemoglobin 31.6 pg (27.0-33.0); Mean Corpuscular Volume 92.1 fL (80-98); Mean Platelet Volume 9.4 fL (9.4-12.4); Monocytes Absolute Auto 0.7 X10*3/uL (0.1-1.2); Monocytes Percent Auto 9.9 % (2-11); Neutrophils Absolute Auto 4.2 X10*3/uL (2.0-8.3); Platelet Count 178 X10*3/uL (160-400); Red Blood Count 4.33 X10*6/uL (4.60-5.80); White Blood Count 6.5 X10*3/uL (4.8-10.8)
[2020-11-18 06:55] LABS: Anion Gap 16 (12-20); Blood Urea Nitrogen 7 mg/dL (9-16); Calcium 8.9 mg/dL (8.4-10.2); Carbon Dioxide 20 mmol/L (22-29); Chloride 106 mmol/L (96-108); Creatinine Clr Calc Pharmacy 127.4; Estimated Glomerular Filt Rate > 60; Glucose Random 150 mg/dL (60-115); Magnesium 1.8 mg/dL (1.6-2.6); Sodium 139 mmol/L (135-145)
[2020-11-18] MEDS: Albuterol Sulfate 90 MCG 8 GM INHALER 2 PUFF INHALE (08:11)
--- NOTE | 2020-11-18 08:19 | PC.NURSE ---
reporting nausea, persistent abd pain feels like pancreatitis . nausea worsened after eating breakfast. unlabored resp in bed, skin pwd, st on monitor. LS coarse bases and moderate air movement. pt struggles to take nice full breath.
--- NOTE | 2020-11-18 08:44 | PC.NURSE ---
Rn to Rn with Nelson in s3
[2020-11-18] MEDS: Magnesium Oxide 400 MG TABLET PO ×2 (09:00→16:28)
[2020-11-18] MEDS: Thiamine HCL 100 MG TABLET PO (09:01)
[2020-11-18] MEDS: Potassium Chloride ER 20 MEQ TAB.ER.PRT PO (09:01)
[2020-11-18] MEDS: amLODIPine Besylate 10 MG TABLET PO (09:01)
[2020-11-18] MEDS: Folic Acid 1 MG TABLET PO (09:01)
[2020-11-18] MEDS: 0.9 % Sodium Chloride Flush 3 ML SYRINGE IVFLUSH ×2 (09:02→23:53)
[2020-11-18] MEDS: DULoxetine HCl 60 MG CAPSULE.DR PO (09:02)
[2020-11-18] MEDS: Multivitamin TABLET 1 TAB PO (09:02)
[2020-11-18] MEDS: Famotidine/PF 20 MG/2 ML VIAL IVPUSH ×2 (09:02→21:19)
[2020-11-18] MEDS: ondansetron HCL 4 MG/2 ML VIAL IVPUSH (09:11)
[2020-11-18] MEDS: busPIRone HCl 5 MG TABLET 15 MG PO ×3 (10:26→21:19)
[2020-11-18] MEDS: KCl 40 mEq in 0.9 % Sodium Chl 40 MEQ/1,000 ML IV.SOLN 100 MEQ IVCONT (10:27)
[2020-11-18] MEDS: Nicotine 21 MG PATCH.TD24 TRANSDERMA (10:34)
--- NOTE | 2020-11-18 11:20 | PHA.PROG ---
Admission Date/Time: November 17, 2020 23:15 Indication: Pneumonia Weight in k.543 kg Adjusted body weight in K.3 kg [place] body weight in K.9 kg Serum Creatinine - Last 168 Hours 11/17/20 11/18/20 17:09 06:12 Creatinine 0.73 0.74 Estimated CrCl and GFR - Last 168 Hours 11/17/20 11/18/20 17:09 06:12 Estim Creat Clear Calc 129.2 127.4 Estimated GFR > 60 > 60 Vancomycin Loading Dose: 1500 mg Current Vancomycin Dosing Regimen:1250 mg q12h Vancomycin Monitoring using AUC goal of 400 - 600 range with trough as surrogate marker: 484 Date and Time for next Vancomycin Level to be drawn:11/19 @1100 Pharmacist Comments on Vancomycin Plan: predicted auc = 484 and trough if 14.5 Vancomycin dosing will take advantage of [employer] as a clinical decision support tool that uses Bayesian modeling to calculate individual patient's pharmacokinetic parameters and forecast the patient's drug concentration time course with the target goal AUC 24 range of 400 - 600 mg/L/hr.
--- NOTE | 2020-11-18 11:57 | HO.PM.IMPN ---
Subjective Subjective Date of Service: 11/18/20 Interval History: Being followed for pneumonia, complaining of cough productive of clear phlegm, abdominal pain localized to epigastric area, feels shaky and tremulous, decreased by mouth intake due to abdominal pain. Review of Systems General no headache, no dizziness no fever chills. CVS no chest pain, no palpitation. Respiratory cough, no shortness of breaths Gastrointestinal no nausea, epigastric/mid abdominal pain Physical Exam Vital Signs: Vital Signs: Last Vital Signs Temp 97.9 F 11/18/20 09:31 Pulse 92 11/18/20 09:31 Resp 18 11/18/20 09:31 BP 140/93 H 11/18/20 09:31 Pulse Ox 92 11/18/20 09:31 Body Mass Index 25.7 General alert oriented x3, no acute distress. Neck supple no JVD. CVS regular rate rhythm, Respiratory lungs clear to auscultation, no respiratory distress, no wheeze, no rhonchi. Gastrointestinal abdomen soft, epigastric tenderness, bowel sounds audible, no guarding , no rigidity. Extremities no edema. Neuro nonfocal ,speech clear, no tremors. Skin no rash Objective Data Active Medications Acetaminophen (Acetaminophen 325 Mg Tablet) 650 mg PO Q6H PRN PRN Reason: Pain, Mild (Pain Scale 1-3) Last Admin: 11/18/20 06:22 Dose: 650 mg Documented by: LULA Albuterol Sulfate (Albuterol Sulfate 90 Mcg 8 Gm Inhaler) 2 puff INHALE Q4H PRN PRN Reason: wheezing Last Admin: 11/18/20 08:11 Dose: 2 puff Documented by: VINNY Amitriptyline HCl (Amitriptyline Hcl 10 Mg Tablet) 10 mg PO BEDTIME [facility] Amlodipine Besylate (Amlodipine Besylate 10 Mg Tablet) 10 mg PO DAILY [facility]; Protocol Last Admin: 11/18/20 09:01 Dose: 10 mg Documented by: ANDREA Buspirone HCl (Buspirone Hcl 5 Mg Tablet) 15 mg PO TID [facility] Last Admin: 11/18/20 10:26 Dose: 15 mg Documented by: CHERYL Duloxetine HCl (Duloxetine Hcl 60 Mg Capsule.) 60 mg PO DAILY [facility] Last Admin: 11/18/20 09:02 Dose: 60 mg Documented by: ANDREA Enoxaparin Sodium (Enoxaparin Sodium 40 Mg/0.4 Ml Syringe) 40 mg SUBCUT Q24H [facility] Last Admin: 11/18/20 00:09 Dose: 40 mg Documented by: JAMIL Famotidine (Famotidine/Pf 20 Mg/2 Ml Vial) 20 mg IVPUSH BID [facility] Last Admin: 11/18/20 09:02 Dose: 20 mg Documented by: ANDREA Folic Acid (Folic Acid 1 Mg Tablet) 1 mg PO DAILY [facility] Last Admin: 11/18/20 09:01 Dose: 1 mg Documented by: ANDREA Hydromorphone HCl (Hydromorphone Hcl 0.5 Mg/0.5 Ml Syringe) 0.5 mg IVPUSH Q4H PRN; Protocol PRN Reason: Pain, Severe (Pain Scale 7-10) Hydroxyzine HCl (Hydroxyzine Hcl 25 Mg Tablet) 25 mg PO Q8H PRN PRN Reason: anxiety Piperacillin Sod/Tazobactam (Sod 3.375 gm/ Sodium Chloride) 50 mls @ 100 mls/hr IV Q6H [facility] Last Infusion: 11/18/20 10:03 Dose: 0 mls/hr Documented by: CHERYL Potassium Chloride/Sodium Chloride () 40 meq in 1,000 mls @ 100 mls/hr IVCONT .Q10H [facility] Stop: 11/18/20 17:29 Last Admin: 11/18/20 10:27 Dose: 100 mls/hr Documented by: CHERYL Lorazepam (Lorazepam 1 Mg Tablet) 1 mg PO Q4H PRN PRN Reason: Breakthrough alcohol withdrawa Stop: 11/21/20 23:19 Magnesium Oxide (Magnesium Oxide 400 Mg Tablet) 400 mg PO BIDPC [facility] Last Admin: 11/18/20 09:00 Dose: 400 mg Documented by: ANDREA Melatonin (Melatonin 3 Mg Tablet) 6 mg PO BEDTIME PRN PRN Reason: Insomnia Multivitamins/Vitamin C (Multivitamin Tablet) 1 tab PO DAILY [facility] Stop: 11/21/20 08:59 Last Admin: 11/18/20 09:02 Dose: 1 tab Documented by: ANDREA Nicotine (Nicotine 21 Mg Patch.Td24) 21 mg TRANSDERMA DAILY PRN PRN Reason: Nicotine Cravings Last Admin: 11/18/20 10:34 Dose: 21 mg Documented by: CHERYL Non-Formulary Medication (Gvdyng-Lxhulhtl-Pwdopae [Zenpep]) 3 - 4 cap PO TIDWM [facility] Omeprazole (Omeprazole 20 Mg Capsule.) 20 mg PO DAILY@0630 [facility] Last Admin: 11/18/20 06:18 Dose: 20 mg Documented by: LULA Ondansetron HCl (Ondansetron Hcl 4 Mg/2 Ml Vial) 4 mg IVPUSH Q8H PRN PRN Reason: Nausea Last Admin: 11/18/20 09:11 Dose: 4 mg Documented by: ANDREA Pharmacy Consult (Consult Rx Perform Med Rec) 1 each MISCELLANE ONCE PRN PRN Reason: Consult order Pharmacy Consult (Consult Rx Vancomycin Dosing) 1 each MISCELLANE DAILY PRN PRN Reason: Consult order Pharmacy Consult (Consult Rx Etoh Phenob Dosing) 1 each MISCELLANE ONCE ONE; Protocol Stop: 11/18/20 11:52 Senna (Sennosides 8.6 Mg Tablet) 17.2 mg PO BEDTIME PRN PRN Reason: Constipation Sodium Chloride (0.9 % Sodium Chloride Flush 3 Ml Syringe) 3 ml IVFLUSH QSHIFT [facility] Last Admin: 11/18/20 09:02 Dose: 3 ml Documented by: ANDREA Thiamine HCl (Thiamine Hcl 100 Mg Tablet) 100 mg PO DAILY [facility] Stop: 11/21/20 08:59 Last Admin: 11/18/20 09:01 Dose: 100 mg Documented by: ANDREA Labs CBC & Chem 7: 11/18/20 06:12 11/18/20 06:12 Labs: Laboratory Results - last 24 hr 11/17/20 11/17/20 11/17/20 17:09 17:09 17:09 MCV 91.5 MCH 32.0 MCHC 35.0 RDW 12.9 Plt Count 228 D MPV 9.1 L Immature Gran % (Auto) 0.3 Neut % (Auto) 78.2 H Lymph % (Auto) 13.8 L [place] % (Auto) 6.8 Eos % (Auto) 0.3 Baso % (Auto) 0.6 Lymph # (Auto) 1.5 [place] # (Auto) 0.7 Eos # (Auto) 0.0 Baso # (Auto) 0.1 Abs Immat Gran (auto) 0.03 Absolute Neuts (auto) 8.6 H Absolute Nucleated RBC 0.000 Nucleated RBC % (auto) 0.0 PT 11.8 INR 1.0 D-Dimer 388 Anion Gap 21 H Estim Creat Clear Calc 129.2 Estimated GFR > 60 Random Glucose 127 H Lactic Acid Calcium 9.4 D Magnesium 1.7 Total Bilirubin 1.1 H Direct Bilirubin 0.5 AST 76 H ALT 50 H Alkaline Phosphatase 110 Troponin I High Sens Total Protein 7.2 Albumin 4.2 Lipase 15 Urine Opiates Screen Urine Fentanyl Screen Ur Barbiturates Screen Ur Phencyclidine Scrn Ur Amphetamines Screen U Benzodiazepines Scrn Urine Cocaine Screen U Marijuana (THC) Screen Ethyl Alcohol COVID-19 ([facility]) COVID-19 [facility] Com 11/17/20 11/17/20 11/17/20 17:09 17:09 17:09 MCV MCH MCHC RDW Plt Count MPV Immature Gran % (Auto) Neut % (Auto) Lymph % (Auto) [place] % (Auto) Eos % (Auto) Baso % (Auto) Lymph # (Auto) [place] # (Auto) Eos # (Auto) Baso # (Auto) Abs Immat Gran (auto) Absolute Neuts (auto) Absolute Nucleated RBC Nucleated RBC % (auto) PT INR D-Dimer Anion Gap Estim Creat Clear Calc Estimated GFR Random Glucose Lactic Acid 1.2 Calcium Magnesium Total Bilirubin Direct Bilirubin AST ALT Alkaline Phosphatase Troponin I High Sens 4.7 Total Protein Albumin Lipase Urine Opiates Screen Urine Fentanyl Screen Ur Barbiturates Screen Ur Phencyclidine Scrn Ur Amphetamines Screen U Benzodiazepines Scrn Urine Cocaine Screen U Marijuana (THC) Screen Ethyl Alcohol COVID-19 ([facility]) Negative COVID-19 Clin Com See Note 11/17/20 11/17/20 11/18/20 17:09 18:32 06:12 MCV 92.1 MCH 31.6 MCHC 34.3 RDW 13.0 Plt Count 178 MPV 9.4 Immature Gran % (Auto) 0.3 Neut % (Auto) 64.0 Lymph % (Auto) 23.1 [place] % (Auto) 9.9 Eos % (Auto) 1.8 Baso % (Auto) 0.9 Lymph # (Auto) 1.5 [place] # (Auto) 0.7 Eos # (Auto) 0.1 Baso # (Auto) 0.1 Abs Immat Gran (auto) 0.02 Absolute Neuts (auto) 4.2 Absolute Nucleated RBC 0.000 Nucleated RBC % (auto) 0.0 PT INR D-Dimer Anion Gap Estim Creat Clear Calc Estimated GFR Random Glucose Lactic Acid Calcium Magnesium Total Bilirubin Direct Bilirubin AST ALT Alkaline Phosphatase Troponin I High Sens Total Protein Albumin Lipase Urine Opiates Screen POSITIVE H Urine Fentanyl Screen Not Detected Ur Barbiturates Screen Not Detected Ur Phencyclidine Scrn Not Detected Ur Amphetamines Screen Not Detected U Benzodiazepines Scrn Not Detected Urine Cocaine Screen Not Detected U Marijuana (THC) Screen Not Detected Ethyl Alcohol < 10 COVID-19 ([facility]) COVID-19 Clin Com 11/18/20 06:12 MCV MCH MCHC RDW Plt Count MPV Immature Gran % (Auto) Neut % (Auto) Lymph % (Auto) [place] % (Auto) Eos % (Auto) Baso % (Auto) Lymph # (Auto) [place] # (Auto) Eos # (Auto) Baso # (Auto) Abs Immat Gran (auto) Absolute Neuts (auto) Absolute Nucleated RBC Nucleated RBC % (auto) PT INR D-Dimer Anion Gap 16 Estim Creat Clear Calc 127.4 Estimated GFR > 60 Random Glucose 150 H Lactic Acid Calcium 8.9 Magnesium 1.8 Total Bilirubin Direct Bilirubin AST ALT Alkaline Phosphatase Troponin I High Sens Total Protein Albumin Lipase Urine Opiates Screen Urine Fentanyl Screen Ur Barbiturates Screen Ur Phencyclidine Scrn Ur Amphetamines Screen U Benzodiazepines Scrn Urine Cocaine Screen U Marijuana (THC) Screen Ethyl Alcohol COVID-19 ([facility]) COVID-19 Clin Com Assessment and Plan (1) Alcohol withdrawal: Status: Acute (2) Pancreatitis, chronic: Status: Acute (3) EtOH dependence: Status: Acute Assessment and Plan: 55-year-old male with a past medical history of hypertension, COPD, alcohol abuse, chronic pancreatitis, atrophy pancreas, anxiety, depression presented to the hospital with a chief complaint of cough and shortness of breath. Shortness of breath/cough Patient treated by PCP side patient for pneumonia but due to persistent shortness of breath came to the ER underwent multiples imaging studies CTA chest with contrast showed atelectasis, patient afebrile , normal oxygenation will DC IV vancomycin and Zosyn likely shortness of bread due to atelectasis, follow blood cultures Add cough medication /IS CTA showed no evidence of PE COPD:? No acute exacerbation, Continue DuoNebs p.r.n. Alcohol abuse and withdrawal patient complaining of shakiness and tremors previously was drinking 1 to 1-1/2 pntt of hard liquor, now drinking 6 nips daily, will place on phenobarb protocol continue thiamine, folate and multivitamin, magnesium 1.[address] on Mag oxide follow magnesium level closely Hypokalemia potassium 3, will replace and follow BMP Chronic pancreatitis /duodenitis with ch abdominal pain, mild worsening of pain, continue Pancrease enzyme tablets before meals, will DC IV Pepcid continue Prilosec and Maalox as needed CT abdomen showed atrophic pancreatitis with dilated duct with intraductal calculi, small fluid collection at the tail of the pancreas, seems chronic with mild increase, also noted to have hepatitic steatosis unchanged, Patient on on IV Dilaudid, will wean IV Dilaudid and placed on by mouth oxycodone Tobacco use disorder continue nicotine patch/counseling done Prolonged QTC:? Will repeat EKG, replace potassium and Keep magnesium above 2 ,Avoid QT prolonging agents. History of anxiety/depression:? Continue home medications duloxetine/buspar DVT ppx: lovenox Full code Quality Stroke Does the patient have a stroke diagnosis?: No VTE Prior VTE?: No VTE Risk Level:: Medical - moderate - high VTE Device Contraindication: Treatment Not Indicated VTE Drug Contraindication: N/A - Med Ordered
[2020-11-18] MEDS: PHENobarbitaL sodium 130 MG/ML VIAL 255 MG IM (12:19)
[2020-11-18] MEDS: guaiFENesin DM 100/10/5 ML 5 ML SYRUP 10 ML PO ×3 (14:07→23:53)
[2020-11-18] MEDS: PHENobarbitaL sodium 130 MG/ML VIAL 192 MG IM ×2 (16:27→18:33)
[2020-11-18] MEDS: Lipase/Prot/Amylase 24/76/120K 1 CAP CAPSULE.DR 3 CAP PO (21:22)
[2020-11-18] MEDS: Amitriptyline HCl 10 MG TABLET PO (21:23)
[2020-11-19] VITALS (8 sets, daily range): BP systolic 104–154; BP diastolic 66–94; PULSE 68–112; RESP 14–18; TEMP 36.1–37.1; O2SAT 93–96
--- NOTE | 2020-11-19 | ECG_ITS ---
Test Reason : qtc check Blood Pressure : / mmHG Vent. Rate : 111 BPM Atrial Rate : 000 BPM P-R Int : 000 ms QRS Dur : 084 ms QT Int : 468 ms P-R-T Axes : 000 -12 011 degrees QTc Int : 636 ms Sinus tachycardia with 1st degree A-V block Low voltage QRS Inferior infarct (cited on or before 07-OCT-2020) Cannot rule out Anterior infarct , age undetermined Prolonged QT Abnormal ECG When compared with ECG of 17-NOV-2020 13:57, QT has lengthened Referred By: Scout Krishna Electronically Signed By:HERMES MONTENEGRO
[2020-11-19] MEDS: guaiFENesin DM 100/10/5 ML 5 ML SYRUP 10 ML PO ×3 (05:18→17:41)
[2020-11-19] MEDS: Omeprazole 20 MG CAPSULE.DR PO (05:18)
[2020-11-19 07:00] LABS: Anion Gap 12 (12-20); Blood Urea Nitrogen 6 mg/dL (9-16); Calcium 8.6 mg/dL (8.4-10.2); Carbon Dioxide 21 mmol/L (22-29); Chloride 106 mmol/L (96-108); Creatinine Clr Calc Pharmacy 140.7; Estimated Glomerular Filt Rate > 60; Glucose Random 136 mg/dL (60-115); Magnesium 1.7 mg/dL (1.6-2.6); Potassium 3.2 mmol/L (3.3-5.1); Sodium 136 mmol/L (135-145)
[2020-11-19] MEDS: Famotidine/PF 20 MG/2 ML VIAL IVPUSH ×2 (08:39→20:27)
[2020-11-19] MEDS: PHENobarbitaL 30 MG TABLET 60 MG PO ×2 (08:40→20:27)
[2020-11-19] MEDS: Lipase/Prot/Amylase 24/76/120K 1 CAP CAPSULE.DR 3 CAP PO ×3 (08:40→17:41)
[2020-11-19] MEDS: Magnesium Oxide 400 MG TABLET PO ×2 (08:40→17:41)
[2020-11-19] MEDS: Folic Acid 1 MG TABLET PO (08:40)
[2020-11-19] MEDS: Multivitamin TABLET 1 TAB PO (08:40)
[2020-11-19] MEDS: DULoxetine HCl 60 MG CAPSULE.DR PO (08:40)
[2020-11-19] MEDS: busPIRone HCl 5 MG TABLET 15 MG PO ×3 (08:40→20:26)
[2020-11-19] MEDS: 0.9 % Sodium Chloride Flush 3 ML SYRINGE IVFLUSH ×2 (08:41→15:13)
[2020-11-19] MEDS: amLODIPine Besylate 10 MG TABLET PO (08:41)
[2020-11-19] MEDS: Thiamine HCL 100 MG TABLET PO (08:41)
[2020-11-19] MEDS: Nicotine 21 MG PATCH.TD24 TRANSDERMA (08:48)
[2020-11-19] MEDS: Potassium Chloride ER 20 MEQ TAB.ER.PRT 40 MEQ PO (09:12)
[2020-11-19 11:48] LABS: Creatinine Clr Calc Pharmacy 145.1; Estimated Glomerular Filt Rate > 60
--- NOTE | 2020-11-19 14:26 | P.PNIM_ITS ---
Subjective Subjective Date of Service: 11/19/20 Interval History: still somewhat tremulous and tachycardic but feels better overall Review of Systems Review of Systems: Yes all other systems are reviewed and are negative Physical Exam Vital Signs: Vital Signs: Last Vital Signs Temp 97.6 F 11/19/20 11:31 Pulse 98 11/19/20 11:31 Resp 18 11/19/20 11:31 BP 154/89 H 11/19/20 11:31 Pulse Ox 93 11/19/20 11:31 Body Mass Index 25.7 Gen: in no acute distress HEENT: sclera anicteric, moist mucus membranes Neck: supple Lungs: clear to auscultation bilaterally Heart: regular rate and rhythm, no murmurs Abd: soft, non-tender, non-distended Ext: no edema Skin: warm/well-perfused Neuro: alert and oriented x3, no focal findings Psych: appropriate affect Objective Data Active Medications Acetaminophen (Acetaminophen 325 Mg Tablet) 650 mg PO Q6H PRN PRN Reason: Pain, Mild (Pain Scale 1-3) Last Admin: 11/18/20 06:22 Dose: 650 mg Documented by: LULA Albuterol Sulfate (Albuterol Sulfate 90 Mcg 8 Gm Inhaler) 2 puff INHALE Q4H PRN PRN Reason: wheezing Last Admin: 11/18/20 08:11 Dose: 2 puff Documented by: VINNY Amitriptyline HCl (Amitriptyline Hcl 10 Mg Tablet) 10 mg PO BEDTIME [facility] Last Admin: 11/18/20 21:23 Dose: 10 mg Documented by: DARRYL Amlodipine Besylate (Amlodipine Besylate 10 Mg Tablet) 10 mg PO DAILY [facility]; Protocol Last Admin: 11/19/20 08:41 Dose: 10 mg Documented by: WALTER Lipase/Protease/Amylase (Lipase/Prot/Amylase 24/76/120k 1 Cap Capsule.) 3 cap PO TIDWM [facility] Last Admin: 11/19/20 12:11 Dose: 3 cap Documented by: WALTER Buspirone HCl (Buspirone Hcl 5 Mg Tablet) 15 mg PO TID [facility] Last Admin: 11/19/20 08:40 Dose: 15 mg Documented by: WALTER Duloxetine HCl (Duloxetine Hcl 60 Mg Capsule.) 60 mg PO DAILY [facility] Last Admin: 11/19/20 08:40 Dose: 60 mg Documented by: WALTER Enoxaparin Sodium (Enoxaparin Sodium 40 Mg/0.4 Ml Syringe) 40 mg SUBCUT Q24H [facility] Last Admin: 11/18/20 23:53 Dose: 40 mg Documented by: DARRYL Famotidine (Famotidine/Pf 20 Mg/2 Ml Vial) 20 mg IVPUSH BID [facility] Last Admin: 11/19/20 08:39 Dose: 20 mg Documented by: WALTER Folic Acid (Folic Acid 1 Mg Tablet) 1 mg PO DAILY [facility] Last Admin: 11/19/20 08:40 Dose: 1 mg Documented by: WALTER Guaifenesin/Dextromethorphan (Guaifenesin Dm 100/10/5 Ml 5 Ml Syrup) 10 ml PO Q6H [facility] Last Admin: 11/19/20 12:11 Dose: 10 ml Documented by: WALTER Hydromorphone HCl (Hydromorphone Hcl 0.5 Mg/0.5 Ml Syringe) 0.5 mg IVPUSH Q4H PRN; Protocol PRN Reason: Pain, Severe (Pain Scale 7-10) Hydroxyzine HCl (Hydroxyzine Hcl 25 Mg Tablet) 25 mg PO Q8H PRN PRN Reason: anxiety Magnesium Oxide (Magnesium Oxide 400 Mg Tablet) 400 mg PO BIDPC [facility] Last Admin: 11/19/20 08:40 Dose: 400 mg Documented by: WALTER Medication (No Benzodiazepines) 1 each MISCELLANE DAILY [facility] Melatonin (Melatonin 3 Mg Tablet) 6 mg PO BEDTIME PRN PRN Reason: Insomnia Multivitamins/Vitamin C (Multivitamin Tablet) 1 tab PO DAILY [facility] Stop: 11/21/20 08:59 Last Admin: 11/19/20 08:40 Dose: 1 tab Documented by: WALTER Nicotine (Nicotine 21 Mg Patch.Td24) 21 mg TRANSDERMA DAILY PRN PRN Reason: Nicotine Cravings Last Admin: 11/19/20 08:48 Dose: 21 mg Documented by: WALTER Omeprazole (Omeprazole 20 Mg Capsule.) 20 mg PO DAILY@0630 [facility] Last Admin: 11/19/20 05:18 Dose: 20 mg Documented by: DARRYL Ondansetron HCl (Ondansetron Hcl 4 Mg/2 Ml Vial) 4 mg IVPUSH Q8H PRN PRN Reason: Nausea Last Admin: 11/18/20 09:11 Dose: 4 mg Documented by: ANDREA Pharmacy Consult (Consult Rx Perform Med Rec) 1 each MISCELLANE ONCE PRN PRN Reason: Consult order Pharmacy Consult (Consult Rx Vancomycin Dosing) 1 each MISCELLANE DAILY PRN PRN Reason: Consult order Phenobarbital (Phenobarbital 30 Mg Tablet) 60 mg PO BID [facility]; Protocol Stop: 11/20/20 21:01 Last Admin: 11/19/20 08:40 Dose: 60 mg Documented by: WALTER Phenobarbital (Phenobarbital 30 Mg Tablet) 30 mg PO BID [facility]; Protocol Stop: 11/22/20 21:01 Phenobarbital (Phenobarbital 30 Mg Tablet) 30 mg PO DAILY [facility]; Protocol Stop: 11/24/20 09:01 Senna (Sennosides 8.6 Mg Tablet) 17.2 mg PO BEDTIME PRN PRN Reason: Constipation Sodium Chloride (0.9 % Sodium Chloride Flush 3 Ml Syringe) 3 ml IVFLUSH QSHIFT [facility] Last Admin: 11/19/20 08:41 Dose: 3 ml Documented by: WALTER Thiamine HCl (Thiamine Hcl 100 Mg Tablet) 100 mg PO DAILY [facility] Stop: 11/21/20 08:59 Last Admin: 11/19/20 08:41 Dose: 100 mg Documented by: WALTER Labs CBC & Chem 7: 11/18/20 06:12 11/19/20 11:10 Labs: Laboratory Results - last 24 hr 11/19/20 11/19/20 05:59 11:10 Anion Gap 12 Estim Creat Clear Calc 140.7 145.1 Estimated GFR > 60 > 60 Random Glucose 136 H Calcium 8.6 Magnesium 1.7 Microbiology Microbiology Results: Microbiology 11/17/20 17:09 Blood Culture - Preliminary Blood - Venous No growth after 24 hours. 11/17/20 17:09 Blood Culture - Preliminary Blood - Venous No growth after 24 hours. Assessment and Plan (1) Alcohol withdrawal: Status: Acute (2) Pancreatitis, chronic: Status: Acute (3) EtOH dependence: Status: Acute Assessment and Plan: hospital d#3 55yo M with HTN, COPD, alcohol abuse, chronic pancreatitis with atrophy, 55-year-old male with a past medical history of hypertension, COPD, alcohol abuse, chronic pancreatitis with atrophy, anxiety, depression presented with cough + dyspnea admitted for EtOH withdrawal # EtOH withdrawal - phenobarbital taper, vitamins # hypoK - replete PO # hypoMg - repleted # prolonged QT - QTc 636 ms. d/c amitriptyline. consult cardiology. repeat EKG in am # dyspnea/cough, resolved - not pneumonia; atelectasis on CTA. d/c'ed vanco + pip/fransisco. # COPD exacerbation - prn nebs, no wheezing on examination # chronic pancreatitis/atrophy - continue PPI, pancreatic enzymes # tobacco abuse - NRT # anxiety/depression - continue duloxetine + buspirone, d/c amitritpyline as above # VTE ppx - LMWH Quality Stroke Does the patient have a stroke diagnosis?: No VTE Prior VTE?: No VTE Risk Level:: Medical - moderate - high VTE Device Contraindication: Treatment Not Indicated VTE Drug Contraindication: N/A - Med Ordered
[2020-11-19] MEDS: oxyCODONE HCl Immed Release 5 MG TABLET PO (15:12)
[2020-11-20] MEDS: Enoxaparin Sodium 40 MG/0.4 ML SYRINGE SUBCUT (00:39)
[2020-11-20] MEDS: 0.9 % Sodium Chloride Flush 3 ML SYRINGE IVFLUSH ×2 (00:39→09:01)
[2020-11-20] MEDS: guaiFENesin DM 100/10/5 ML 5 ML SYRUP 10 ML PO ×3 (00:39→11:30)
[2020-11-20 04:00] VITALS: BP 109/72; PULSE 78; RESP 14; TEMP 36.6; O2SAT 96
[2020-11-20] MEDS: Omeprazole 20 MG CAPSULE.DR PO (05:27)
[2020-11-20 06:42] LABS: Anion Gap 12 (12-20); Blood Urea Nitrogen 8 mg/dL (9-16); Calcium 8.8 mg/dL (8.4-10.2); Carbon Dioxide 24 mmol/L (22-29); Chloride 105 mmol/L (96-108); Estimated Glomerular Filt Rate > 60; Glucose Random 125 mg/dL (60-115); Magnesium 1.9 mg/dL (1.6-2.6); Potassium 3.5 mmol/L (3.3-5.1); Sodium 137 mmol/L (135-145)
[2020-11-20 08:00] VITALS: BP 135/91; PULSE 84; RESP 18; TEMP 36.7; O2SAT 97
--- NOTE | 2020-11-20 08:00 | ECG_ITS ---
Test Reason : MED CHANGE Blood Pressure : / mmHG Vent. Rate : 089 BPM Atrial Rate : 089 BPM P-R Int : 216 ms QRS Dur : 092 ms QT Int : 372 ms P-R-T Axes : 035 -07 019 degrees QTc Int : 452 ms Sinus rhythm with 1st degree A-V block Inferior infarct , age undetermined Abnormal ECG When compared with ECG of 19-NOV-2020 12:39, QT has shortened Heart rate has decreased Referred By: Scout Krishna Electronically Signed By:HERMES MONTENEGRO
[2020-11-20 09:00] VITALS: BP 135/91; PULSE 84
[2020-11-20] MEDS: Multivitamin TABLET 1 TAB PO (09:00)
[2020-11-20] MEDS: DULoxetine HCl 60 MG CAPSULE.DR PO (09:00)
[2020-11-20] MEDS: amLODIPine Besylate 10 MG TABLET PO (09:00)
[2020-11-20] MEDS: Folic Acid 1 MG TABLET PO (09:01)
[2020-11-20] MEDS: Lipase/Prot/Amylase 24/76/120K 1 CAP CAPSULE.DR 3 CAP PO ×2 (09:01→11:31)
[2020-11-20] MEDS: busPIRone HCl 5 MG TABLET 15 MG PO (09:01)
[2020-11-20] MEDS: Famotidine/PF 20 MG/2 ML VIAL IVPUSH (09:01)
[2020-11-20] MEDS: Thiamine HCL 100 MG TABLET PO (09:01)
[2020-11-20] MEDS: PHENobarbitaL 30 MG TABLET 60 MG PO (09:01)
[2020-11-20] MEDS: Magnesium Oxide 400 MG TABLET PO (09:01)
[2020-11-20] MEDS: Nicotine 21 MG PATCH.TD24 TRANSDERMA (09:09)
--- NOTE | 2020-11-20 09:52 | MHC.RECOVSUP ---
Recovery Support note: Patient is a 55 year old [place]ymra[place] speaking male who presented to [facility] due to shortness of breath. This bond underwriter met with patient to discuss his alcohol use and recovery support options. Patient reports he has been drinking daily and that he is interested in stopping. Patient reports he has drank daily for most of his life and that he has had short periods of sobriety. Patient reports that he has found AA helpful in the past. Discussed AA with patient and patient accepted information on AA meetings in the area. Discussed IOP with patient and patient reports he is not interested in this. Patient reports he had been on Vivitrol in the past and did not find it helpful. Patient reports he ended up drinking while on it. Patient reports confidence that he will be able to abstain from alcohol. Discussed health consequences of alcohol use and patient acknowledged. Patient accepted contact information for this bond underwriter in the event that he has questions or would like further support options after discharge. Discussed case with Vicki Lanire NP.
--- NOTE | 2020-11-20 10:45 | P.DS_ITS ---
DS: Providers Provider Date of Service: 11/20/20 Date of admission: 11/17/20 23:15 Primary care physician: Cassandra Rodriguez MD Consults: 11/19/20 11:29 Addiction Medicine Routine Consulting Provider: Vicki Lanier Reason for consultation: etoh DS: Diagnosis Discharge Diagnosis (1) Alcohol withdrawal: Status: Acute (2) EtOH dependence: Status: Acute (3) Prolonged QT interval: Status: Acute (4) Atelectasis: Status: Acute (5) Hypomagnesemia: Status: Acute (6) Hypokalemia: Status: Acute DS: Summary Hospital Course Hospital Course: from admission history and physical by hospitalist Aamn Rucker, 11/17/20: Patient reported that over the past few days he has been having cough and shortness of breath.? Cough is associated with sputum production.? Was evaluated as outpatient and was noted to have pneumonia, given azithromycin which he took for couple days with no significant improvement in his symptoms; hence decided to come to the hospital for further evaluation. Denies any chest pain palpitations lightheadedness or dizziness. Complains of abdominal discomfort-mentions that he is concerned if he had pancreatitis. Mentioned that he drinks alcohol every day about a pt-last drink was 1 day ago. Patient denies any GI or symptoms. Review of all other systems is negative except mentioned above ER course: Per ER team patient had a CT scan done which showed no evidence of pulmonary embolism; noted to have pneumonia.? Given antibiotics.? Admitted to the hospital for further management. This 55yo M with HTN, COPD, alcohol abuse, chronic pancreatitis with atrophy, anxiety, and depression presented with cough + dyspnea but ultimately was deemed not to have pneumonia; CTA demonstrated atelectasis. He was treated with phenobarbital taper and B vitamins for alcohol withdrawal. QT was noted to be prolonged on EKG; amitriptyline and hydroxyzine were discontinued and low potassium and low magnesium were repleted. He had no evidence of COPD exacerbation. His symptoms improved and he was discharged home with counseling to maintain sobriety. He should follow up with his primary care doctor within 1 week. Time Spent with Patient Time attestation: Total time spent providing and/or coordinating discharge services: Discharge coordination time: Greater than 30 minutes Quality: Stroke Does the patient have a stroke diagnosis?: No Physical Exam Vital Signs: Vital Signs: Last Vital Signs Temp 98.0 F 11/20/20 08:00 Pulse 84 11/20/20 09:00 Resp 18 11/20/20 08:00 BP 135/91 H 11/20/20 09:00 Pulse Ox 97 11/20/20 08:00 Body Mass Index 25.7 Gen: in no acute distress HEENT: sclera anicteric, moist mucus membranes Neck: supple Lungs: clear to auscultation bilaterally Heart: regular rate and rhythm, no murmurs Abd: soft, non-tender, non-distended Ext: no edema Skin: warm/well-perfused Neuro: alert and oriented x3, no focal findings Psych: appropriate affect DS: Data Data Completed and Pending Completed studies during hospitalization [Text1]: Laboratory Results WBC 6.5 X10*3/uL (4.8-10.8) 11/18/20 06:12 RBC 4.33 X10*6/uL (4.60-5.80) L 11/18/20 06:12 Hgb 13.7 g/dl (14.0-18.0) L 11/18/20 06:12 Hct 39.9 % (42-52) L 11/18/20 06:12 MCV 92.1 fL (80-98) 11/18/20 06:12 MCH 31.6 pg (27.0-33.0) 11/18/20 06:12 MCHC 34.3 g/dl (31.0-36.0) 11/18/20 06:12 RDW 13.0 % (11.0-16.0) 11/18/20 06:12 Plt Count 178 X10*3/uL (160-400) 11/18/20 06:12 MPV 9.4 fL (9.4-12.4) 11/18/20 06:12 Immature Gran % (Auto) 0.3 % (0.0-0.4) 11/18/20 06:12 Neut % (Auto) 64.0 % (45-73) 11/18/20 06:12 Lymph % (Auto) 23.1 % (20-40) 11/18/20 06:12 Thurston % (Auto) 9.9 % (2-11) 11/18/20 06:12 Eos % (Auto) 1.8 % (0-4) 11/18/20 06:12 Baso % (Auto) 0.9 % (0-2) 11/18/20 06:12 Lymph # (Auto) 1.5 X10*3/uL (1.2-4.9) 11/18/20 06:12 Thurston # (Auto) 0.7 X10*3/uL (0.1-1.2) 11/18/20 06:12 Eos # (Auto) 0.1 X10*3/uL (0.0-0.4) 11/18/20 06:12 Baso # (Auto) 0.1 X10*3/uL (0.0-0.2) 11/18/20 06:12 Abs Immat Gran (auto) 0.02 X10*3/uL (0.00-0.03) 11/18/20 06:12 Absolute Neuts (auto) 4.2 X10*3/uL (2.0-8.3) 11/18/20 06:12 Absolute Nucleated RBC 0.000 X10*3/uL (0.0-0.012) 11/18/20 06:12 Nucleated RBC % (auto) 0.0 /100WBC (0.0-0.2) 11/18/20 06:12 PT 11.8 SEC (9.9-13.0) 11/17/20 17:09 INR 1.0 (0.9-1.1) 11/17/20 17:09 D-Dimer 388 NG/ML 11/17/20 17:09 Sodium 137 mmol/L (135-145) 11/20/20 05:43 Potassium 3.5 mmol/L (3.3-5.1) 11/20/20 05:43 Chloride 105 mmol/L (96-108) 11/20/20 05:43 Carbon Dioxide 24 mmol/L (22-29) 11/20/20 05:43 Anion Gap 12 (12-20) 11/20/20 05:43 BUN 8 mg/dL (9-16) L 11/20/20 05:43 Creatinine 0.72 mg/dL (0.5-1.4) 11/20/20 05:43 Estim Creat Clear Calc 131.0 11/20/20 05:43 Estimated GFR > 60 11/20/20 05:43 Random Glucose 125 mg/dL (60-115) H 11/20/20 05:43 Lactic Acid 1.2 mmol/L (0.5-2.0) 11/17/20 17:09 Calcium 8.8 mg/dL (8.4-10.2) 11/20/20 05:43 Magnesium 1.9 mg/dL (1.6-2.6) 11/20/20 05:43 Total Bilirubin 1.1 mg/dL (0.0-1.0) H 11/17/20 17:09 Direct Bilirubin 0.5 mg/dL (0.0-0.5) 11/17/20 17:09 AST 76 U/L (5-37) H 11/17/20 17:09 ALT 50 U/L (0-40) H 11/17/20 17:09 Alkaline Phosphatase 110 U/L (39-117) 11/17/20 17:09 Troponin I High Sens 4.7 ng/L (<3.5-35.0) 11/17/20 17:09 Total Protein 7.2 g/dL (6.5-8.0) 11/17/20 17:09 Albumin 4.2 g/dL (3.5-5.0) 11/17/20 17:09 Lipase 15 U/L (8-78) 11/17/20 17:09 Urine Opiates Screen POSITIVE (Not Detect) H 11/17/20 18:32 Urine Fentanyl Screen Not Detected (Not Detect) 11/17/20 18:32 Ur Barbiturates Screen Not Detected (Not Detect) 11/17/20 18:32 Ur Phencyclidine Scrn Not Detected (Not Detect) 11/17/20 18:32 Ur Amphetamines Screen Not Detected (Not Detect) 11/17/20 18:32 U Benzodiazepines Scrn Not Detected (Not Detect) 11/17/20 18:32 Urine Cocaine Screen Not Detected (Not Detect) 11/17/20 18:32 U Marijuana (THC) Screen Not Detected (Not Detect) 11/17/20 18:32 Ethyl Alcohol < 10 mg/dL 11/17/20 17:09 COVID-19 (JUAN LUIS) Negative (Negative) 11/17/20 17:09 COVID-19 Clin Com See Note 11/17/20 17:09 Impressions Chest X-Ray 11/17/20 16:06 IMPRESSION: Mild volume loss on left with subsegmental atelectasis and elevation left diaphragm. No lobar segmental airspace consolidation, pneumothorax, or effusion. Abdomen/Pelvis CT 11/17/20 16:09 IMPRESSION: 1. Atrophic pancreas with dilated duct with intraductal calculi as described above. Small fluid collection at the tail the pancreas appears minimally increased. 2. Low attenuation liver consistent with hepatic steatosis unchanged. 3. Other incidental findings including cholecystectomy, benign right renal cyst, rectal anastomosis and degenerative changes in the spine. Chest CTA 11/17/20 18:54 IMPRESSION: No evidence of pulmonary embolism. Elevated left hemidiaphragm and left basilar atelectasis. VTE: negative Discharge Plan Discharge Patient Disposition: Home, Self-Care Discharge Diagnosis: alcohol withdrawal, prolonged QT interval, low magnesium Referrals: Cassandra Rodriguez MD [Primary Care Provider] - 1 Week Discharge Medications: New magnesium oxide 400 mg (241.3 mg magnesium) Tablet 400 mg PO BIDPC Qty: 60 RF: 0 multivitamin [Daily-Jerald] Tablet 1 tab PO DAILY Qty: 30 RF: 0 thiamine mononitrate (vit B1) 100 mg Tablet 100 mg PO DAILY Qty: 30 RF: 0 dextromethorphan polistirex 30 mg/5 mL suspension,extended rel 12 hr 10 ml PO Q12H PRN (Reason: cough) Qty: 89 RF: 0 Continued folic acid 1 mg tablet 1 mg PO DAILY RF: 0 albuterol sulfate 90 mcg/actuation HFA aerosol inhaler 2 puff inhalation Q4H PRN (Reason: wheezing) RF: 0 buspirone 15 mg tablet 15 mg PO TID RF: 0 duloxetine 60 mg capsule,delayed release(DR/EC) 60 mg PO DAILY RF: 0 Zenpep 40,000-126,000- 168,000 unit Capsule,Delayed Release(Dr/Ec) 3 - 4 cap PO TIDWM RF: 0 chlorthalidone 25 mg Tablet 25 mg PO DAILY RF: 0 amlodipine 10 mg tablet 1 tab PO DAILY RF: 0 omeprazole 20 mg capsule,delayed release(DR/EC) 1 cap PO DAILY RF: 0 ondansetron 4 mg tablet,disintegrating 1 tab PO Q8H PRN (Reason: nausea) RF: 0 nicotine 21 mg/24 hr patch 24 hour 21 mg transdermal DAILY PRN (Reason: Nicotine Cravings) RF: 0 Discontinued amitriptyline 10 mg tablet 10 mg PO BEDTIME RF: 0 hydroxyzine HCl 25 mg tablet 25 mg PO Q8H PRN (Reason: anxiety) RF: 0 Discharge Orders: Discharge Order (Routine); Ordered 11/20/20 Ordered By: Scout Krishna Activity on Discharge: As tolerated Stand Alone Forms: Patient Portal Discharge page Care Plan Goals: sobriety Health Concerns: alcohol withdrawal, prolonged QT interval, low magnesium Plan of Treatment: avoid alcohol discontinue amitriptyline and hydroxyzine, as these will prolong the QT interval take magnesium oxide 400 mg twice daily take thiamine 100 mg daily and multivitamin 1 tab daily Assessment: as above Patient Instructions: Alcohol Withdrawal (GEN)
--- NOTE | 2020-11-20 11:01 | MHC.CM.PN ---
PT TO DC HOME TODAY WITH NO SERVICES
[2020-11-20] MEDS: oxyCODONE HCl Immed Release 5 MG TABLET PO (11:31)
== END 2020-11-20 13:19 | disposition home or self-care (01) | DRG 190 ==
LOC: HO.ED 19:51 → HO.EDOVER 23:43 → HO.S3 11-18 08:36
PROVIDERS: Hospitalist; Admitting Provider Hospitalist; Emergency Provider Emergency Medicine; PCP Neurological Surgery; Visit Provider Family Medicine
DX: J44.0 Chronic obstructive pulmonary disease with (acute) lower respiratory infection (principal); J18.9 Pneumonia, unspecified organism; F10.239 Alcohol dependence with withdrawal, unspecified; K86.1 Other chronic pancreatitis; J44.1 Chronic obstructive pulmonary disease with (acute) exacerbation; E87.6 Hypokalemia; R94.31 Abnormal electrocardiogram [ECG] [EKG]; E83.42 Hypomagnesemia; F41.9 Anxiety disorder, unspecified; F32.9 Major depressive disorder, single episode, unspecified; Z20.822 Contact with and (suspected) exposure to COVID-19; F17.210 Nicotine dependence, cigarettes, uncomplicated; Z71.6 Tobacco abuse counseling; Z79.899 Other long term (current) drug therapy
CPT/HCPCS: 36415; 71045; 71275; 74177; 80048; 80076; 80307; 82077; 82565; 83605; 83690; 83735; 84484; 85025; 85379; 85610; 87040; 87635; 93005; 94640; 96361; 96365; 96375; 97161; 99285; J1650; J2270; J2405; J2543; J2560; J3370; Q9967

== ENCOUNTER 2021-03-23 03:10 | Emergency (ER) | payer OTHER, SELFPAY ==
--- NOTE | ~2021-03-23 | CT_ITS ---
EXAMINATION: CT HEAD WITHOUT CONTRAST CLINICAL INFORMATION: New onset blurred vision, difficulty swallowing COMPARISON: None TECHNIQUE: Contiguous axial imaging was performed from the skull base to vertex without intravenous administration of contrast. This CT examination was performed using dose optimization techniques as appropriate, variously including the following: *Automated exposure control *Adjustment of mA and/or kV according to patient size (this includes techniques or standardized protocols for targeted exams where dose is matched to indication/reason for exam; i.e. extremities or head) *Use of iterative reconstruction technique DLP: 1416 mGy-cm FINDINGS: There is no evidence of acute intracranial hemorrhage or territorial infarction. No abnormal mass effect or midline shift is seen. Bernabe to white matter differentiation is well preserved. No extra-axial fluid collections are identified. The ventricles are normal in size. There is no abnormal attenuation within the brain parenchyma. The osseous structures and soft tissues are normal. The mastoid air cells and visualized portions of the paranasal sinuses are well aerated. CT/CT head/brain wo con IMPRESSION: No acute intracranial pathology.
--- NOTE | ~2021-03-23 | CT_ITS ---
EXAMINATION: CT ABDOMEN AND PELVIS WITH CONTRAST CLINICAL INFORMATION: Epigastric pain COMPARISON: 11/17/2020 TECHNIQUE: Multidetector volumetric images were obtained from the superior aspect of the liver through the pubic symphysis following administration 85 mL of Omnipaque 350 intravenous contrast. Sagittal and coronal reformatted images were obtained on the technologist's workstation. Oral contrast: No This CT examination was performed using dose optimization techniques as appropriate, variously including the following: *Automated exposure control *Adjustment of mA and/or kV according to patient size (this includes techniques or standardized protocols for targeted exams where dose is matched to indication/reason for exam; i.e. extremities or head) *Use of iterative reconstruction technique DLP: 1416 mGy-cm FINDINGS: LUNG BASES: There is a region of opacity in the left lower lobe which is significantly increased from prior chest CT of 11/17/2020. LIVER, GALLBLADDER, AND BILIARY TREE: The liver demonstrates relative hypoattenuation suggesting steatosis. No focal hepatic lesion or biliary ductal dilatation is present. Patient is status post cholecystectomy. PANCREAS: Atrophic with ductal dilatation and a couple calcifications redemonstrated. SPLEEN: Unremarkable. ADRENAL GLANDS: Unremarkable. KIDNEYS AND URETERS: Redemonstrated probable cyst in the posterior right kidney; no follow-up recommended. No hydronephrosis or obstructing calculus bilaterally. BLADDER: Unremarkable. GASTROINTESTINAL TRACT: No evidence of bowel obstruction. There is colonic diverticulosis without diverticulitis. No significant bowel wall thickening is seen. The appendix is unremarkable. Suture line is present in the rectosigmoid region. No free fluid or free air is seen. ABDOMINAL WALL: No significant hernia is appreciated. LYMPH NODES: Normal. VASCULAR: Scattered atherosclerotic calcifications are present. PELVIC VISCERA: Unremarkable. OSSEOUS STRUCTURES: Degenerative changes are noted in the spine. CT/CT abdomen pelvis w con IMPRESSION: 1. Region of pulmonary parenchymal opacity in the left lower lobe, which could reflect a combination of atelectasis and consolidation. 2. No additional acute findings identified in the abdomen/pelvis. Fleischner guidelines were followed.
[2021-03-23 03:15] VITALS: BP 174/108; PULSE 113; RESP 18; TEMP 37; O2SAT 98; BMI 26.4
[2021-03-23 03:29] LABS: Basophils Absolute Auto 0.1 X10*3/uL (0.0-0.2); Basophils Percent Auto 0.8 % (0-2); Eosinophils Absolute Auto 0.2 X10*3/uL (0.0-0.4); Hematocrit 43.1 % (42.0-52.0); Hemoglobin 14.6 g/dl (14.0-18.0); Imm Gran Abs Auto 0.02 X10*3/uL (0.00-0.03); Imm Gran Pct Auto 0.2 % (0.0-0.4); Lymphocytes Absolute Auto 2.8 X10*3/uL (1.2-4.9); Lymphocytes Percent Auto 33.3 % (20-40); MANUAL DIFF FLAG NO; Mean Corpuscular HGB Conc 33.9 g/dl (31.0-36.0); Mean Corpuscular Volume 94.5 fL (80.0-98.0); Mean Platelet Volume 8.8 fL (9.4-12.4); Monocytes Absolute Auto 0.7 X10*3/uL (0.1-1.2); Monocytes Percent Auto 8.7 % (2-11); Neutrophils Absolute Auto 4.7 x10*3/uL (2.0-8.3); Platelet Count 251 X10*3/uL (160-400); Red Blood Count 4.56 X10*6/uL (4.60-5.80); Red Cell Distribution Width 12.7 % (11.0-16.0); White Blood Count 8.5 X10*3/uL (4.8-10.8)
[2021-03-23 03:53] LABS: Alanine Aminotransferase 53 U/L (0-40); Albumin Level 4.4 g/dL (3.5-5.0); Alkaline Phosphatase 127 U/L (39-117); Anion Gap 18 (12-20); Aspartate Amino Transferase 94 U/L (5-37); Bilirubin Total 0.2 mg/dL (0.0-1.0); Blood Urea Nitrogen 14 mg/dL (9-16); Calcium 9.5 mg/dL (8.4-10.2); Carbon Dioxide 21 mmol/L (22-29); Chloride 108 mmol/L (96-108); Estimated Glomerular Filt Rate > 60; Glucose Random 122 mg/dL (60-115); Lipase 28 U/L (8-78); Potassium 3.8 mmol/L (3.3-5.1); Sodium 143 mmol/L (135-145); Total Protein 7.8 g/dL (6.5-8.0)
--- NOTE | 2021-03-23 04:14 | ED_ITS ---
HPI - General Adult General Chief complaint: Abdominal Pain Stated complaint: Abd pain Time Seen by Provider: 03/23/21 04:06 Source: patient Mode of arrival: ambulatory Limitations: no limitations History of Present Illness HPI narrative: Patient comes emergency room complaining of 2 days of epigastric pain. Patient states that he is a heavy drinker, has not had any alcohol in almost 24 hours. Patient states that he has history of pancreatitis as well. Patient denies vomiting or diarrhea. Patient states that over the last 3-4 days he has had pain swallowing which is new for him and also visual changes, blurry vision. Patient denies headache, no loss of balance, no chest pain or shortness of breath Related Data Home Medications Medication Instructions Recorded Confirmed albuterol sulfate 90 2 puff INHALATION Q4H PRN 05/01/20 11/17/20 mcg/actuation aerosol inhaler buspirone 15 mg tablet 15 mg PO TID 05/01/20 11/17/20 duloxetine 60 mg 60 mg PO DAILY 05/01/20 11/17/20 capsule,delayed release folic acid 1 mg tablet 1 mg PO DAILY 05/01/20 11/17/20 chlorthalidone 25 mg tablet 25 mg PO DAILY 10/07/20 11/17/20 [id number] 3 - 4 cap PO TIDWM 10/07/20 11/17/20 40,000-126,000-168,000 unit capsule, delay rel (Zenpep) amlodipine 10 mg tablet 1 tab PO DAILY 11/17/20 11/17/20 nicotine 21 mg/24 hr daily 21 mg TRANSDERMAL DAILY PRN 11/17/20 11/17/20 transdermal patch omeprazole 20 mg 1 cap PO DAILY 11/17/20 11/17/20 capsule,delayed release ondansetron 4 mg 1 tab PO Q8H PRN 11/17/20 11/17/20 disintegrating tablet Previous Rx's Medication Instructions Recorded dextromethorphan polistirex 30 10 ml PO Q12H PRN #89 ml 11/20/20 mg/5 mL oral susp ext.release 12hr magnesium oxide 400 mg (241.3 mg 400 mg PO BIDPC #60 tab 11/20/20 magnesium) tablet multivitamin (Daily-Jerald) 1 tab PO DAILY #30 tab 11/20/20 thiamine mononitrate (vit B1) 100 100 mg PO DAILY #30 tab 11/20/20 mg tablet Allergies Allergy/AdvReac Type Severity Reaction Status Date / Time No Known Allergies Allergy Verified 11/17/20 19:09 [No Known Allergies*] Review of Systems Verdana 4l Review of Systems: Verdana 4d Verdana 4d Constitutional : No Weight loss, No Fever, No Chills, No Night Sweats, No Fatigue, No Malaise ENT/Mouth : No Hearing loss, No Ear Pain, No Nasal Congestion, No Sinus Pain, No Hoarseness, No sore throat, No Rhinorrhea, No Swallowing DifficultyDifficulty Eyes: No Eye Pain, No Swelling, No Redness, No Foreign Body, No Discharge, complaining of mild blurry vision Cardiovascular : No Chest Pain, No SOB, No Dyspnea on Exertion, No Orthopnea, No Edema, No Palpitations Respiratory : No Cough, No Sputum, No Wheezing, No Smoke Exposure, No Dyspnea Gastrointestinal : No Nausea, No Vomiting, No Diarrhea, No Constipation, complaining of epigastric pain, No Hematochezia, No Melena, complaining of pain with swallowing Genitourinary : no irregular bleeding, No Dysuria, No Urinary Frequency, No Hematuria, No Urinary Incontinence, No Urgency, No Flank Pain, No Urinary Flow Changes, No Hesitancy Musculoskeletal : No joint pain, No Myalgias, No Joint Swelling Skin : No Skin Lesions, No rash Neuro : No Weakness, No Numbness, No Paresthesias, No Loss of Consciousness, No Dizziness, No Headach Psych : No Anxiety/Panic, No Depression, No SI/HI/AH/VH, No Social Issues, Heme/Lymph: No Bruising, No Bleeding,No Lymphadenopathy Endocrine : No Polyuria, No Polydipsia, No Temperature Intolerance [facility] Past Medical History Medical History Alcohol withdrawal Anxiety Atelectasis Chronic pancreatitis COPD (chronic obstructive pulmonary disease) Depression Diverticulitis EtOH dependence HTN (hypertension) Hypomagnesemia Pancreatitis Pancreatitis, chronic Prolonged QT interval Surgical History History of colon resection Hx of cholecystectomy Previous back surgery Social History Social History Household Members: Family Household Members Other:: Brother Housing: House Do you presently have visiting nurse or other home services: No Alcohol intake: current Alcohol intake frequency: 3 or more drinks per day Alcohol type: hard liquor Patient Tobacco Use Status: Current everyday Tobacco user Tobacco use type: Cigarette Cigarette Packs Per Day: 1.5 Cigarettes Per Day: 30.0 Second Hand Smoke Exposure: No Use of substances other than those prescribed or required for medical reasons: No Advance Directives: No service: No Current occupational status: employed Physical Exam Verdana 4l Vital Signs: Verdana 4d Verdana 4d Vital Signs: Verdana 4d Verdana 4Bd Last Vital Signs Verdana 4d Bingo Worker New 4d Bingo Worker New 4d Temp 98.6 F 03/23/21 03:15 Bingo Worker New 4d Pulse 113 H 03/23/21 03:15 Bingo Worker New 4d Resp 18 03/23/21 03:15 BP 174/108 H 03/23/21 03:15 Pulse Ox 98 03/23/21 03:15 BMI result Body Mass Index 26.4 Const: Other: Appearance: Alert. Oriented X3. No acute distress. Eyes: Pupils equal, round and reactive to light. ENT: Pharynx normal. Neck: Normal inspection. Neck supple. No lymph nodes noted. No crepitus CVS: Normal heart rate and rhythm. Pulses normal. Normal S1 and S2 Respiratory: No respiratory distress. Breath sounds normal. No Wheezing. No rales Abdomen: Soft , patient did not seem tender on epigastric palpation, no distention, no guarding, no rebound Skin: Skin warm and dry. Normal skin color. Normal skin turgor. Extremities: No lower extremity edema. No lower extremity edema. No Lace rations. No Rash Neuro: Oriented X 3. No motor deficit. No sensory deficit. Moving all extermities. No slurred speech. Cranial nerves 2-12 grossly intact Course Course Course Narrative: When the CT scan technicians went to get the patient, patient complained of too much abdominal pain to go to the CT scan. Patient told his nurse that if he would get an dose of Dilaudid this time, he would go ?somewhere else to get it. I discussed with the patient that he would get 1 dose of morphine and then he will go to CT scan. Patient agree with plan. When patient's nurse went to give the additional dose of morphine, patient was sound asleep. Patient was able to walk with normal gait to the CT scan. Patient did not mention anything about having abdominal pain CT pending, sign out given to Dr. Becerra Medical Decision Making Lab Data Result diagrams: 03/23/21 03:23 03/23/21 03:23 Labs: Lab Results 03/23/21 03/23/21 Range/Units 03:23 03:23 WBC 8.5 (4.8-10.8) X10*3/uL RBC 4.56 L (4.60-5.80) X10*6/uL Hgb 14.6 (14.0-18.0) g/dl Hct 43.1 (42.0-52.0) % MCV 94.5 (80.0-98.0) fL MCH 32.0 (27.0-33.0) pg MCHC 33.9 (31.0-36.0) g/dl RDW 12.7 (11.0-16.0) % Plt Count 251 (160-400) X10*3/uL MPV 8.8 L (9.4-12.4) fL Immature Gran % (Auto) 0.2 (0.0-0.4) % Neut % (Auto) 55.0 (45-73) % Lymph % (Auto) 33.3 (20-40) % [place] % (Auto) 8.7 (2-11) % Eos % (Auto) 2.0 (0-4) % Baso % (Auto) 0.8 (0-2) % Lymph # (Auto) 2.8 (1.2-4.9) X10*3/uL [place] # (Auto) 0.7 (0.1-1.2) X10*3/uL Eos # (Auto) 0.2 (0.0-0.4) X10*3/uL Baso # (Auto) 0.1 (0.0-0.2) X10*3/uL Abs Immat Gran (auto) 0.02 (0.00-0.03) X10*3/uL Absolute Neuts (auto) 4.7 (2.0-8.3) x10*3/uL Absolute Nucleated RBC 0.000 (0.0-0.012) X10*3/uL Nucleated RBC % (auto) 0.0 (0.0-0.2) /100WBC Sodium 143 (135-145) mmol/L Potassium 3.8 (3.3-5.1) mmol/L Chloride 108 (96-108) mmol/L Carbon Dioxide 21 L (22-29) mmol/L Anion Gap 18 (12-20) BUN 14 (9-16) mg/dL Creatinine 0.82 (0.5-1.4) mg/dL Estim Creat Clear Calc 115.0 Estimated GFR > 60 Random Glucose 122 H (60-115) mg/dL Calcium 9.5 D (8.4-10.2) mg/dL Total Bilirubin 0.2 (0.0-1.0) mg/dL AST 94 H (5-37) U/L ALT 53 H (0-40) U/L Alkaline Phosphatase 127 H (39-117) U/L Total Protein 7.8 (6.5-8.0) g/dL Albumin 4.4 (3.5-5.0) g/dL Lipase 28 (8-78) U/L Imaging Data Head CT: Radiologist's impression: FINDINGS: There is no evidence of acute intracranial hemorrhage or territorial infarction. No abnormal mass effect or midline shift is seen. Bernabe to white matter differentiation is well preserved. No extra-axial fluid collections are identified. The ventricles are normal in size. There is no abnormal attenuation within the brain parenchyma. The osseous structures and soft tissues are normal. The mastoid air cells and visualized portions of the paranasal sinuses are well aerated. ? CT/CT head/brain wo con IMPRESSION: No acute intracranial pathology. Discharge Plan Discharge Clinical Impression: Abdominal pain Patient Disposition: Still a Patient Prescriptions: No Action folic acid 1 mg tablet 1 mg PO DAILY 0RF albuterol sulfate 90 mcg/actuation HFA aerosol inhaler 2 puff inhalation Q4H PRN (Reason: wheezing) 0RF buspirone 15 mg tablet 15 mg PO TID 0RF duloxetine 60 mg capsule,delayed release(DR/EC) 60 mg PO DAILY 0RF Zenpep 40,000-126,000- 168,000 unit Capsule,Delayed Release(Dr/Ec) 3 - 4 cap PO TIDWM 0RF chlorthalidone 25 mg Tablet 25 mg PO DAILY 0RF amlodipine 10 mg tablet 1 tab PO DAILY 0RF omeprazole 20 mg capsule,delayed release(DR/EC) 1 cap PO DAILY 0RF ondansetron 4 mg tablet,disintegrating 1 tab PO Q8H PRN (Reason: nausea) 0RF nicotine 21 mg/24 hr patch 24 hour 21 mg transdermal DAILY PRN (Reason: Nicotine Cravings) 0RF magnesium oxide 400 mg (241.3 mg magnesium) Tablet 400 mg PO BIDPC Qty: 60 0RF multivitamin [Daily-Jerald] Tablet 1 tab PO DAILY Qty: 30 0RF thiamine mononitrate (vit B1) 100 mg Tablet 100 mg PO DAILY Qty: 30 0RF dextromethorphan polistirex 30 mg/5 mL suspension,extended rel 12 hr 10 ml PO Q12H PRN (Reason: cough) Qty: 89 0RF
[2021-03-23] MEDS: LORazepam 1 MG TABLET PO (04:28)
[2021-03-23] MEDS: Morphine Sulfate 4 MG/ML CARTRIDGE IVPUSH (04:28)
[2021-03-23] MEDS: 0.9 % Sodium Chloride 1,000 ML 999 ML IVCONT (04:28)
--- NOTE | 2021-03-23 04:47 | ECG_ITS ---
Test Reason : EPI PAIN Blood Pressure : / mmHG Vent. Rate : 101 BPM Atrial Rate : 101 BPM P-R Int : 230 ms QRS Dur : 092 ms QT Int : 342 ms P-R-T Axes : 051 -07 014 degrees QTc Int : 443 ms Sinus tachycardia with 1st degree A-V block Inferior infarct (cited on or before 17-NOV-2020) Abnormal ECG When compared with ECG of 20-NOV-2020 09:28, No significant change was found Referred By: Filomena Escobar Electronically Signed By:NICOLE BEE
[2021-03-23] MEDS: Morphine Sulfate 2 MG/ML CARTRIDGE 1 MG IVPUSH (05:12)
[2021-03-23] MEDS: iohexoL 350 MG/ML 100 ML INFUS..BTL 85 ML IV (05:38)
== END 2021-03-23 06:54 | disposition home or self-care (01) ==
PROVIDERS: Emergency Provider Emergency Medicine Emergency Medical Services
DX: R10.13 Epigastric pain (principal); R51.9 Headache, unspecified; I10 Essential (primary) hypertension; F17.210 Nicotine dependence, cigarettes, uncomplicated; Z71.6 Tobacco abuse counseling; Z79.899 Other long term (current) drug therapy
CPT/HCPCS: 36415; 70450; 74177; 80053; 83690; 85025; 93005; 96361; 96374; 96376; 99284; 99285; J2270; Q9967

== ENCOUNTER 2021-07-23 08:08 | Emergency (ER) | payer OTHER, SELFPAY ==
--- NOTE | ~2021-07-23 | XR_ITS ---
EXAMINATION: XR CHEST CLINICAL INFORMATION: Shortest of breath COMPARISON: November 17, 2020 TECHNIQUE: 2 views of the chest were obtained. FINDINGS: There is persistent elevation of the left hemidiaphragm. There are some patchy regions of disease noted within the superior segment of the left lower lobe which may relate to atelectasis or scarring. This was seen to some degree on previous study. Mid and lower right hemithorax which may be related to atelectasis or small focus of pneumonitis. The cardiopericardial silhouette is enlarged. No evidence of pulmonary edema. No pneumothorax or pleural effusion. XR/XR chest 2V IMPRESSION: Persistent elevation of the left hemidiaphragm with regions of discoid atelectasis. Question some faint densities overlying the mid and lower right lung which may be related to atelectasis or pneumonitis.
[2021-07-23 08:14] VITALS: BP 139/90; PULSE 106; RESP 16; TEMP 36.6; O2SAT 98; BMI 27.0
--- NOTE | 2021-07-23 08:37 | ED.ABDPAIN ---
HPI - Abdominal Pain General Chief Complaint: Abdominal Pain Stated Complaint: pancreatitis Time Seen by Provider: 07/23/21 08:21 Source: patient Mode of arrival: ambulatory History of Present Illness HPI narrative: 55-year-old male known alcohol use disorder with recurrent episodes of pancreatitis reports upper/epigastric abdominal pain that he reports is characteristic of his pancreatitis and states his last drink was at 21:00 and that he drinks 20 drinks every day. Patient is somewhat interested in detox at this time, states that he recently had an upper endoscopy which showed that his ?esophagus was narrowing?. He states he feels little shaky and characterizes his pain is 8/10. Related Data Home Medications Medication Instructions Recorded Confirmed albuterol sulfate 90 mcg/actuation 2 puff INHALATION Q4H PRN 05/01/20 11/17/20 aerosol inhaler buspirone 15 mg tablet 15 mg PO TID 05/01/20 11/17/20 duloxetine 60 mg capsule,delayed 60 mg PO DAILY 05/01/20 11/17/20 release folic acid 1 mg tablet 1 mg PO DAILY 05/01/20 11/17/20 chlorthalidone 25 mg tablet 25 mg PO DAILY 10/07/20 11/17/20 [id number]-[id number] 3 - 4 cap PO TIDWM 10/07/20 11/17/20 40,000-126,000-168,000 unit capsule, delay rel (Zenpep) amlodipine 10 mg tablet 1 tab PO DAILY 11/17/20 11/17/20 nicotine 21 mg/24 hr daily 21 mg TRANSDERMAL DAILY PRN 11/17/20 11/17/20 transdermal patch omeprazole 20 mg capsule,delayed 1 cap PO DAILY 11/17/20 11/17/20 release ondansetron 4 mg disintegrating 1 tab PO Q8H PRN 11/17/20 11/17/20 tablet albuterol sulfate mg INHALATION 07/20/21 metoprolol succinate 50 mg 50 mg PO DAILY 07/20/21 tablet,extended release 24 hr pantoprazole 40 mg tablet,delayed 40 mg PO DAILY 07/20/21 release Previous Rx's Medication Instructions Recorded dextromethorphan polistirex 30 10 ml PO Q12H PRN #89 ml 11/20/20 mg/5 mL oral susp ext.release 12hr magnesium oxide 400 mg (241.3 mg 400 mg PO BIDPC #60 tab 11/20/20 magnesium) tablet multivitamin (Daily-Jerald) 1 tab PO DAILY #30 tab 11/20/20 thiamine mononitrate (vit B1) 100 100 mg PO DAILY #30 tab 11/20/20 mg tablet fluticasone 250 mcg-salmeterol 50 1 inh INHALATION Q12H 30 Days #60 07/20/21 mcg/dose blistr powdr for ea inhalation (Wixela Inhub) gabapentin 300 mg capsule 300 mg PO BEDTIME 30 Days #30 cap 07/20/21 tiotropium bromide 1.25 2 puff INHALATION DAILY 30 Days #4 07/20/21 mcg/actuation mist for inhalation g (Spiriva Respimat) prednisone 50 mg tablet 50 mg PO DAILY 4 Days #4 tab 07/23/21 Allergies Allergy/AdvReac Type Severity Reaction Status Date / Time No Known Allergies Allergy Verified 07/20/21 09:58 [No Known Allergies*] Review of Systems Review of Systems Pertinent positives and negatives as stated in HPI 10 point review of systems is otherwise negative. [facility] Past Medical History Source: nursing notes reviewed Medical History Alcohol withdrawal Anxiety Atelectasis Chronic pancreatitis COPD (chronic obstructive pulmonary disease) Depression Diverticulitis EtOH dependence HTN (hypertension) Hypomagnesemia Pancreatitis Pancreatitis, chronic Prolonged QT interval Recurrent pneumonia Tachycardia Surgical History History of colon resection Hx of cholecystectomy Previous back surgery Social History Social History Household Members: Family Household Members Other:: Brother Housing: House Do you presently have visiting nurse or other home services: No Alcohol intake: current Alcohol intake frequency: 3 or more drinks per day Alcohol type: hard liquor Patient Tobacco Use Status: Current everyday Tobacco user Tobacco use type: Cigarette Cigarette Packs Per Day: 1.5 Cigarettes Per Day: 30.0 Smoked in Last 30 Days: Yes Second Hand Smoke Exposure: No Use of substances other than those prescribed or required for medical reasons: No Advance Directives: No Advance Directives Information Provided: No service: No Current occupational status: employed Current occupational exposures/hazards: No Cognitive needs: No Hearing needs: No Vision needs: No Physical Exam ED Vital Signs: Vital Signs - 24 hr 06/04/22 08:14 07/23/21 10:53 07/23/21 11:35 Temperature 98 F 97.9 F Pulse Rate 106 H 88 91 Respiratory Rate 16 18 18 Blood Pressure 139/90 H 134/89 Pulse Oximetry 98 93 07/23/21 14:27 07/23/21 14:45 Temperature 98.2 F Pulse Rate 87 90 Respiratory Rate 18 18 Blood Pressure 145/90 H Pulse Oximetry 93 BMI result Body Mass Index 27.0 VITAL SIGNS: Reviewed. GENERAL: Well developed, well nourished, in no acute distress. HEAD: Normocephalic/atraumatic EYES: PERRLA, EOMI EARS: Ext canals without abnormality OROPHARYNX: no oral lesions noted, posterior pharynx clear NECK: Supple, no adenopathy LUNGS: Good inspiratory effort, bibasilar rales noted, tachypnea is present. SpO2<98> CARDIOVASCULAR: Regular rate and rhythm without noted murmurs, no JVD or lower extremity edema. ABDOMEN: Soft, epigastric pain, non-distended with bowel sounds. MUSCULOSKELETAL: No tenderness, deformities, or effusions noted on gross inspection. EXTREMITIES: No cyanosis, clubbing or edema. SKIN: Inspection of the skin reveals no rashes, petechiae NEUROLOGIC: Alert and oriented x 4. Strength and sensation to light touch were grossly intact x 4, bilateral tremulousness Course Course Course Narrative: 55-year-old male with history and clinical presentation consistent with combination mild alcohol withdrawal as well as suspected pancreatitis. Review of all investigations and after observation re-evaluation patient is doing well and does not demonstrate any significant signs of withdrawal in at this time is not interested in detox. He does have underlying COPD and will receive 2 rounds DuoNeb treatment with initial p.o. steroids. Patient states that he was recently told by his process improvement analyst that his COPD has ?gotten much worse?. 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 MDM - Abdominal Pain Lab Data Result diagrams: 07/23/21 08:35 07/23/21 08:35 Labs: Lab Results 07/23/21 07/23/21 07/23/21 Range/Units 08:35 08:35 08:35 WBC 8.4 (4.8-10.8) X10*3/uL RBC 4.15 L (4.60-5.80) X10*6/uL Hgb 12.6 L (14.0-18.0) g/dl Hct 36.6 L (42.0-52.0) % MCV 88.2 (80.0-98.0) fL MCH 30.4 (27.0-33.0) pg MCHC 34.4 (31.0-36.0) g/dl RDW 13.4 (11.0-16.0) % Plt Count 232 (160-400) X10*3/uL MPV 8.8 L (9.4-12.4) fL Immature Gran % (Auto) 0.7 H (0.0-0.4) % Neut % (Auto) 66.4 (45-73) % Lymph % (Auto) 18.8 L (20-40) % [place] % (Auto) 9.7 (2-11) % Eos % (Auto) 3.8 (0-4) % Baso % (Auto) 0.6 (0-2) % Lymph # (Auto) 1.6 (1.2-4.9) X10*3/uL [place] # (Auto) 0.8 (0.1-1.2) X10*3/uL Eos # (Auto) 0.3 (0.0-0.4) X10*3/uL Baso # (Auto) 0.1 (0.0-0.2) X10*3/uL Abs Immat Gran (auto) 0.06 H (0.00-0.03) X10*3/uL Absolute Neuts (auto) 5.6 (2.0-8.3) x10*3/uL Absolute Nucleated RBC 0.000 (0.0-0.012) X10*3/uL Nucleated RBC % (auto) 0.0 (0.0-0.2) /100WBC PT 12.1 (9.9-13.0) SEC INR 1.1 (0.9-1.1) VBG pH (7.32-7.43) VBG pCO2 mmHg VBG pO2 mmHg VBG HCO3 (22-26) mmol/L VBG O2 Saturation % VBG Base Excess mmol/L Sodium 140 (135-145) mmol/L Potassium 3.3 (3.3-5.1) mmol/L Chloride 104 (96-108) mmol/L Carbon Dioxide 22 (22-29) mmol/L Anion Gap 17 (12-20) BUN 6 L D (9-16) mg/dL Creatinine 0.80 (0.5-1.4) mg/dL Estim Creat Clear Calc 117.9 Estimated GFR > 60 Random Glucose 232 H D (60-115) mg/dL Calcium 8.7 D (8.4-10.2) mg/dL Magnesium 1.5 L (1.6-2.6) mg/dL Total Bilirubin 0.4 (0.0-1.0) mg/dL AST 51 H (5-37) U/L ALT 35 (0-40) U/L Alkaline Phosphatase 166 H D (39-117) U/L B-Natriuretic Peptide (<100) pg/mL Total Protein 6.5 (6.5-8.0) g/dL Albumin 3.5 D (3.5-5.0) g/dL Lipase 66 (8-78) U/L Ethyl Alcohol mg/dL COVID-19 ([facility]) (Negative) COVID-19 Clin Com 07/23/21 07/23/21 07/23/21 Range/Units 08:35 08:35 08:38 WBC (4.8-10.8) X10*3/uL RBC (4.60-5.80) X10*6/uL Hgb (14.0-18.0) g/dl Hct (42.0-52.0) % MCV (80.0-98.0) fL MCH (27.0-33.0) pg MCHC (31.0-36.0) g/dl RDW (11.0-16.0) % Plt Count (160-400) X10*3/uL MPV (9.4-12.4) fL Immature Gran % (Auto) (0.0-0.4) % Neut % (Auto) (45-73) % Lymph % (Auto) (20-40) % [place] % (Auto) (2-11) % Eos % (Auto) (0-4) % Baso % (Auto) (0-2) % Lymph # (Auto) (1.2-4.9) X10*3/uL [place] # (Auto) (0.1-1.2) X10*3/uL Eos # (Auto) (0.0-0.4) X10*3/uL Baso # (Auto) (0.0-0.2) X10*3/uL Abs Immat Gran (auto) (0.00-0.03) X10*3/uL Absolute Neuts (auto) (2.0-8.3) x10*3/uL Absolute Nucleated RBC (0.0-0.012) X10*3/uL Nucleated RBC % (auto) (0.0-0.2) /100WBC PT (9.9-13.0) SEC INR (0.9-1.1) VBG pH 7.44 H (7.32-7.43) VBG pCO2 30 mmHg VBG pO2 113 mmHg VBG HCO3 21 L (22-26) mmol/L VBG O2 Saturation 99.0 % VBG Base Excess -1.8 mmol/L Sodium (135-145) mmol/L Potassium (3.3-5.1) mmol/L Chloride (96-108) mmol/L Carbon Dioxide (22-29) mmol/L Anion Gap (12-20) BUN (9-16) mg/dL Creatinine (0.5-1.4) mg/dL Estim Creat Clear Calc Estimated GFR Random Glucose (60-115) mg/dL Calcium (8.4-10.2) mg/dL Magnesium (1.6-2.6) mg/dL Total Bilirubin (0.0-1.0) mg/dL AST (5-37) U/L ALT (0-40) U/L Alkaline Phosphatase (39-117) U/L B-Natriuretic Peptide 23 (<100) pg/mL Total Protein (6.5-8.0) g/dL Albumin (3.5-5.0) g/dL Lipase (8-78) U/L Ethyl Alcohol < 10 mg/dL COVID-19 ([facility]) (Negative) COVID-19 Clin Com 07/23/21 Range/Units 08:55 WBC (4.8-10.8) X10*3/uL RBC (4.60-5.80) X10*6/uL Hgb (14.0-18.0) g/dl Hct (42.0-52.0) % MCV (80.0-98.0) fL MCH (27.0-33.0) pg MCHC (31.0-36.0) g/dl RDW (11.0-16.0) % Plt Count (160-400) X10*3/uL MPV (9.4-12.4) fL Immature Gran % (Auto) (0.0-0.4) % Neut % (Auto) (45-73) % Lymph % (Auto) (20-40) % [place] % (Auto) (2-11) % Eos % (Auto) (0-4) % Baso % (Auto) (0-2) % Lymph # (Auto) (1.2-4.9) X10*3/uL [place] # (Auto) (0.1-1.2) X10*3/uL Eos # (Auto) (0.0-0.4) X10*3/uL Baso # (Auto) (0.0-0.2) X10*3/uL Abs Immat Gran (auto) (0.00-0.03) X10*3/uL Absolute Neuts (auto) (2.0-8.3) x10*3/uL Absolute Nucleated RBC (0.0-0.012) X10*3/uL Nucleated RBC % (auto) (0.0-0.2) /100WBC PT (9.9-13.0) SEC INR (0.9-1.1) VBG pH (7.32-7.43) VBG pCO2 mmHg VBG pO2 mmHg VBG HCO3 (22-26) mmol/L VBG O2 Saturation % VBG Base Excess mmol/L Sodium (135-145) mmol/L Potassium (3.3-5.1) mmol/L Chloride (96-108) mmol/L Carbon Dioxide (22-29) mmol/L Anion Gap (12-20) BUN (9-16) mg/dL Creatinine (0.5-1.4) mg/dL Estim Creat Clear Calc Estimated GFR Random Glucose (60-115) mg/dL Calcium (8.4-10.2) mg/dL Magnesium (1.6-2.6) mg/dL Total Bilirubin (0.0-1.0) mg/dL AST (5-37) U/L ALT (0-40) U/L Alkaline Phosphatase (39-117) U/L B-Natriuretic Peptide (<100) pg/mL Total Protein (6.5-8.0) g/dL Albumin (3.5-5.0) g/dL Lipase (8-78) U/L Ethyl Alcohol mg/dL COVID-19 ([facility]) Negative (Negative) COVID-19 Clin Com See Note ECG Data Attestation: I personally reviewed and interpreted this ECG as follows: Prior ECG tracings: available for review Interpretation: Sinus rhythm with first-degree AV block (this is consistent with baseline), HR-88, no STEMI, MS prolonged, QRS and QTC are otherwise within normal limits. Discharge Plan Discharge Clinical Impression: Alcohol use disorder, moderate, dependence, COPD (chronic obstructive pulmonary disease), Alcoholic gastritis Patient Disposition: Home, Self-Care Instructions: COPD (Chronic Obstructive Pulmonary Disease) (ED), Alcohol Dependence (ED), Alcohol Withdrawal (ED) Additional Instructions: 1. Resume all home medications as prescribed. 2. Complete entire course of steroids as prescribed. 3. Please follow-up with your PCP/process improvement analyst for your COPD and further evaluation. 4. I strongly encourage you to follow-up for alcohol detox. Return to the ER for worsening symptoms. Prescriptions: New prednisone 50 mg tablet 50 mg PO DAILY 4 Days Qty: 4 0RF No Action folic acid 1 mg tablet 1 mg PO DAILY 0RF albuterol sulfate 90 mcg/actuation HFA aerosol inhaler 2 puff inhalation Q4H PRN (Reason: wheezing) 0RF buspirone 15 mg tablet 15 mg PO TID 0RF duloxetine 60 mg capsule,delayed release(DR/EC) 60 mg PO DAILY 0RF Zenpep 40,000-126,000- 168,000 unit Capsule,Delayed Release(Dr/Ec) 3 - 4 cap PO TIDWM 0RF chlorthalidone 25 mg Tablet 25 mg PO DAILY 0RF amlodipine 10 mg tablet 1 tab PO DAILY 0RF omeprazole 20 mg capsule,delayed release(DR/EC) 1 cap PO DAILY 0RF ondansetron 4 mg tablet,disintegrating 1 tab PO Q8H PRN (Reason: nausea) 0RF nicotine 21 mg/24 hr patch 24 hour 21 mg transdermal DAILY PRN (Reason: Nicotine Cravings) 0RF magnesium oxide 400 mg (241.3 mg magnesium) Tablet 400 mg PO BIDPC Qty: 60 0RF multivitamin [Daily-Jerald] Tablet 1 tab PO DAILY Qty: 30 0RF thiamine mononitrate (vit B1) 100 mg Tablet 100 mg PO DAILY Qty: 30 0RF dextromethorphan polistirex 30 mg/5 mL suspension,extended rel 12 hr 10 ml PO Q12H PRN (Reason: cough) Qty: 89 0RF pantoprazole 40 mg tablet,delayed release (DR/EC) 40 mg PO DAILY 0RF albuterol sulfate 2.5 mg /3 mL (0.083 %) solution for nebulization inhalation 0RF metoprolol succinate 50 mg tablet extended release 24 hr 50 mg PO DAILY 0RF gabapentin 300 mg capsule 300 mg PO BEDTIME 30 Days Qty: 30 1RF Spiriva Respimat 1.25 mcg/actuation mist 2 puff inhalation DAILY 30 Days Qty: 4 1RF fluticasone propion-salmeterol [Wixela Inhub] 250-50 mcg/dose blister with device 1 inh inhalation Q12H 30 Days Qty: 60 2RF
[2021-07-23] MEDS: HYDROmorphone HCl 0.5 MG/0.5 ML SYRINGE IVPUSH (08:42)
[2021-07-23] MEDS: chlordiazePOXIDE HCl 25 MG CAPSULE 50 MG PO (08:42)
[2021-07-23] MEDS: 0.9 % Sodium Chloride 2,000 ML 999 ML IV (08:42)
[2021-07-23 08:43] LABS: Basophils Absolute Auto 0.1 X10*3/uL (0.0-0.2); Basophils Percent Auto 0.6 % (0-2); Eosinophils Absolute Auto 0.3 X10*3/uL (0.0-0.4); Eosinophils Percent Auto 3.8 % (0-4); Hematocrit 36.6 % (42.0-52.0); Hemoglobin 12.6 g/dl (14.0-18.0); Imm Gran Abs Auto 0.06 X10*3/uL (0.00-0.03); Imm Gran Pct Auto 0.7 % (0.0-0.4); Lymphocytes Absolute Auto 1.6 X10*3/uL (1.2-4.9); Lymphocytes Percent Auto 18.8 % (20-40); MANUAL DIFF FLAG NO; Mean Corpuscular HGB Conc 34.4 g/dl (31.0-36.0); Mean Corpuscular Hemoglobin 30.4 pg (27.0-33.0); Mean Corpuscular Volume 88.2 fL (80.0-98.0); Mean Platelet Volume 8.8 fL (9.4-12.4); Monocytes Absolute Auto 0.8 X10*3/uL (0.1-1.2); Monocytes Percent Auto 9.7 % (2-11); Neutrophils Absolute Auto 5.6 x10*3/uL (2.0-8.3); Neutrophils Percent Auto 66.4 % (45-73); Platelet Count 232 X10*3/uL (160-400); Red Blood Count 4.15 X10*6/uL (4.60-5.80); Red Cell Distribution Width 13.4 % (11.0-16.0); White Blood Count 8.4 X10*3/uL (4.8-10.8)
[2021-07-23 08:49] LABS: INTERNATIONAL NORM RATIO 1.1 (0.9-1.1); Prothrombin Time 12.1 SEC (9.9-13.0)
[2021-07-23 08:50] LABS: Venous Blood Gas Refer to POC result
[2021-07-23 08:50] LABS: VBG Base Excess -1.8 mmol/L; VBG HCO3 21 mmol/L (22-26); VBG pCO2 30 mmHg; VBG pH 7.44 (7.32-7.43); VBG pO2 113 mmHg
[2021-07-23 09:00] LABS: Ethanol < 10 mg/dL
[2021-07-23 09:02] LABS: Alanine Aminotransferase 35 U/L (0-40); Albumin Level 3.5 g/dL (3.5-5.0); Alkaline Phosphatase 166 U/L (39-117); Anion Gap 17 (12-20); Aspartate Amino Transferase 51 U/L (5-37); Bilirubin Total 0.4 mg/dL (0.0-1.0); Blood Urea Nitrogen 6 mg/dL (9-16); Calcium 8.7 mg/dL (8.4-10.2); Carbon Dioxide 22 mmol/L (22-29); Chloride 104 mmol/L (96-108); Creatinine Clr Calc Pharmacy 117.9; Estimated Glomerular Filt Rate > 60; Glucose Random 232 mg/dL (60-115); Lipase 66 U/L (8-78); Magnesium 1.5 mg/dL (1.6-2.6); Potassium 3.3 mmol/L (3.3-5.1); Sodium 140 mmol/L (135-145); Total Protein 6.5 g/dL (6.5-8.0)
[2021-07-23 09:14] LABS: COVID-19 Test Negative (Negative)
--- NOTE | 2021-07-23 10:42 | ECG_ITS ---
Test Reason : SOB Blood Pressure : / mmHG Vent. Rate : 088 BPM Atrial Rate : 088 BPM P-R Int : 234 ms QRS Dur : 102 ms QT Int : 408 ms P-R-T Axes : 034 -15 008 degrees QTc Int : 493 ms Sinus rhythm with 1st degree A-V block Inferior infarct (cited on or before 17-NOV-2020) Cannot rule out Anterior infarct , age undetermined Abnormal ECG When compared with ECG of 23-MAR-2021 05:39, Nonspecific T wave abnormality now evident in Anterior leads QT has lengthened Referred By: Kellie Yarbrough Electronically Signed By:CHA FINN MD
[2021-07-23 10:53] VITALS: PULSE 88; RESP 18; O2SAT 93
[2021-07-23] MEDS: Albuterol/Iprat 2.5/0.5MG 3 ML AMPUL.NEB INHALE ×2 (10:53→14:45)
[2021-07-23 11:11] LABS: B Type Natriuretic Peptide 23 pg/mL (<100)
[2021-07-23] MEDS: Magnesium Sulfate/D5W 1 GM/100 ML PIGGYBACK IV (11:16)
[2021-07-23 11:35] VITALS: BP 134/89; PULSE 91; RESP 18; TEMP 36.6; O2SAT 93
[2021-07-23] MEDS: oxyCODONE HCl Immed Release 5 MG TABLET PO ×2 (12:26→14:31)
[2021-07-23] MEDS: predniSONE 10 MG TABLET 50 MG PO (14:25)
[2021-07-23 14:27] VITALS: BP 145/90; PULSE 87; RESP 18; TEMP 36.8; O2SAT 93
[2021-07-23] MEDS: Magnesium Hydrox/Alum Hydrox 30 ML ORAL.SUSP PO (14:31)
[2021-07-23] MEDS: Lidocaine HCl Viscous 2 % 15 ML SOLUTION 10 ML MUCOUS MEM (14:31)
[2021-07-23 14:45] VITALS: PULSE 90; RESP 18; O2SAT 92
== END 2021-07-23 15:23 | disposition home or self-care (01) ==
PROVIDERS: Emergency Provider Student in an Organized Health Care Education/Training Program
DX: K29.20 Alcoholic gastritis without bleeding (principal); R06.02 Shortness of breath; J44.9 Chronic obstructive pulmonary disease, unspecified; F10.20 Alcohol dependence, uncomplicated; Y90.0 Blood alcohol level of less than 20 mg/100 ml; Z20.822 Contact with and (suspected) exposure to COVID-19; Z79.899 Other long term (current) drug therapy; F17.210 Nicotine dependence, cigarettes, uncomplicated; Z71.6 Tobacco abuse counseling
CPT/HCPCS: 36415; 71046; 80053; 82077; 82803; 83690; 83735; 83880; 85025; 85610; 87635; 93005; 94640; 96374; 96375; 99285; J1170; J3475

== ENCOUNTER 2021-07-28 10:52 | Inpatient (IN) | payer OTHER, SELFPAY ==
[2021-07-28] VITALS (7 sets, daily range): BP systolic 113–164; BP diastolic 75–90; PULSE 84–105; RESP 16–20; TEMP 36.1–36.8; O2SAT 88–993; BMI 26.4
--- NOTE | ~2021-07-28 | CT_ITS ---
EXAMINATION: CT ABDOMEN AND PELVIS WITHOUT CONTRAST CLINICAL INFORMATION: Pancreatitis. Worsening pain. COMPARISON: Previous CT of the abdomen and pelvis most recent 07/28/2021 TECHNIQUE: Multidetector volumetric imaging was performed from the superior aspect of the liver through the pubic symphysis. Sagittal and coronal reformatted images were obtained on the technologist's workstation. This CT examination was performed using dose optimization techniques as appropriate, variously including the following: *Automated exposure control *Adjustment of mA and/or kV according to patient size (this includes techniques or standardized protocols for targeted exams where dose is matched to indication/reason for exam; i.e. extremities or head) *Use of iterative reconstruction technique DLP: 809 mGy-cm FINDINGS: LUNG BASES: The heart is enlarged. There are small bilateral pleural effusions and lower lobe atelectasis, left greater than right. There is elevation of the left hemidiaphragm. There is thickening of the right diaphragmatic crura that is unchanged. LIVER, GALLBLADDER, AND BILIARY TREE: The liver is enlarged and low in attenuation suggestive of fatty infiltration. No focal liver lesion. The gallbladder is been removed. There is no biliary duct dilatation. PANCREAS: The pancreas appears atrophic. There is dilatation of the main pancreatic duct measuring up to 5 to 6 mm which is unchanged.. There are several pancreatic calcifications which are suspicious for stones in the main pancreatic duct for example 2 adjacent areas measuring 2 x 4 mm in the head of the pancreas. There is some infiltration of the peripancreatic fat and thickening of the left anterior pararenal fascia and some increased fat stranding of the root of the small bowel mesentery questionable for changes of pancreatitis. These findings are unchanged. SPLEEN: Unremarkable. ADRENAL GLANDS: Unremarkable. KIDNEYS AND URETERS: There are small nonobstructing bilateral renal stones. The kidneys are otherwise normal. BLADDER: Unremarkable. GASTROINTESTINAL TRACT: There is mild diverticulosis of the colon. There are postsurgical changes to the sigmoid colon with anastomotic staple line. The small and large bowel are otherwise unremarkable. The appendix is unremarkable. ABDOMINAL WALL: No significant hernia is appreciated. LYMPH NODES: Normal. VASCULAR: There is evidence of atherosclerotic disease. No aneurysm. PELVIC VISCERA: Unremarkable. OSSEOUS STRUCTURES: There are degenerative changes of the spine and hip joints. There are postsurgical changes at the L5-S1 disc space. CT/CT abdomen pelvis wo con IMPRESSION: Atrophic-appearing pancreas, mild dilatation of the main pancreatic duct in pancreatic calcifications, some of which are questionable for stones in the main pancreatic duct. Mild infiltration of the peripancreatic fat surrounding the head of the pancreas, thickening of the left anterior pararenal fascia and some stranding of the root of the small bowel mesentery questionable for changes of acute pancreatitis. This does not appear appreciably changed from recent exam. Enlarged fatty liver. Small bilateral pleural effusions and lower lobe atelectasis. Asymmetric thickening of the right diaphragmatic crura. These findings are slightly increased compared to previous exam. Fatty liver. Small nonobstructing bilateral renal stones. Diverticulosis. Fleischner guidelines were followed.
--- NOTE | ~2021-07-28 | CT_ITS ---
EXAMINATION: CT ABDOMEN AND PELVIS WITHOUT CONTRAST CLINICAL INFORMATION: Upper abdominal pain questioning pancreatitis COMPARISON: Multiple prior CT scans of the abdomen and pelvis the most recent of which was 03/23/2021 TECHNIQUE: Multidetector volumetric imaging was performed from the superior aspect of the liver through the pubic symphysis. Sagittal and coronal reformatted images were obtained on the technologist's workstation. This CT examination was performed using dose optimization techniques as appropriate, variously including the following: *Automated exposure control *Adjustment of mA and/or kV according to patient size (this includes techniques or standardized protocols for targeted exams where dose is matched to indication/reason for exam; i.e. extremities or head) *Use of iterative reconstruction technique DLP: 665 mGy-cm FINDINGS: LUNG BASES: Again seen is moderate elevation of the left hemidiaphragm with associated basilar atelectasis bilaterally, left greater than right. LIVER, GALLBLADDER, AND BILIARY TREE: The liver is enlarged at 21 cm in greatest cephalocaudad dimension with decreased attenuation consistent with hepatic steatosis. No focal hepatic lesion or biliary ductal dilatation is present. Status post cholecystectomy. There is no ascites PANCREAS: Very new subtle inflammatory changes are present around the body and head of pancreas consistent with pancreatitis. The duct is mildly dilated at about 5 mm and again seen is a 2 mm adjacent to, but not within the duct a larger 6 mm calcification is present in the pancreatic head. SPLEEN: Unremarkable. ADRENAL GLANDS: Unremarkable. Some minimal thickening of the left gland is present. KIDNEYS AND URETERS: The kidneys are normal in size, shape, and attenuation. Bilateral punctate nonobstructing calculi are present in both upper poles. No hydronephrosis, hydroureter, or ureteral calculi seen. No suspicious renal masses are detected. No perinephric stranding. BLADDER: Unremarkable. GASTROINTESTINAL TRACT: The small and large bowel are unremarkable. The appendix is unremarkable. ABDOMINAL WALL: No significant hernia is appreciated. LYMPH NODES: Normal. VASCULAR: Calcific atherosclerotic changes present in the aorta and iliac vessels without aneurysm. PELVIC VISCERA: Unremarkable. OSSEOUS STRUCTURES: Marked degenerative changes in the spine from L4 through S1 with lesser changes elsewhere. No bony destructive lesions. CT/CT abdomen pelvis wo con IMPRESSION: Subtle new inflammatory changes around the pancreatic body and neck consistent with subtle pancreatitis. No pseudocyst. Again seen is an elevated left hemidiaphragm and an enlarged fatty liver. Fleischner guidelines were followed.
--- NOTE | ~2021-07-28 | MR_ITS ---
EXAMINATION: MR ABDOMEN WITHOUT AND WITH CONTRAST CLINICAL INFORMATION: Rule out pancreatic duct stone COMPARISON: Previous CT of the abdomen and pelvis most recent 07/31/2021 TECHNIQUE: MR abdomen was performed without and with use of 10 mL intravenous Gadavist gadolinium contrast. Postcontrast images are performed in multiphase dynamic sequences. Imaging was performed in 3 planes. FINDINGS: LUNG BASES: There are multiloculated cystic changes along the right diaphragmatic crura. This may be related to pseudocyst from old pancreatitis. There are small bilateral pleural effusions. LIVER, GALLBLADDER, AND BILIARY TREE: The liver is normal in size and shape. There is signal loss in the liver on out of phase sequences suggestive of fatty infiltration. No focal liver lesion or biliary duct dilatation. The gallbladder has been removed. There is no intra or extrahepatic biliary duct dilatation. The common bile duct measures 8 mm. No common bile duct stone is seen. PANCREAS: The pancreas appears atrophic. The main pancreatic duct is slightly dilated measuring maximum 5 mm to 6 mm. There is narrowing of the main pancreatic duct in the head of the pancreas questionable for a stricture. No definite stone/filling defect is seen. The pancreas is normal in signal and enhances normally. No evidence of acute pancreatitis is seen. The splenic vein appears narrowed and may be occluded. There are left upper quadrant varices. There is slight thickening of the left anterior pararenal fascia. This may be sequelae of pancreatitis. SPLEEN: Normal. ADRENAL GLANDS: Normal. KIDNEYS AND URETERS: The kidneys are normal in size, shape, and enhance symmetrically. There is a right renal cyst. No hydronephrosis. No perinephric stranding. GASTROINTESTINAL TRACT: Mild diverticulosis of the colon. No bowel obstruction. No ascites or fluid collection. ABDOMINAL WALL: No significant hernia is appreciated. LYMPH NODES: No enlarged lymph nodes. VASCULAR: The splenic vein appears narrowed and may be occluded. There are left upper quadrant varices. The main and right and left portal veins and SMV are patent. No aneurysm is seen. OSSEOUS STRUCTURES: Degenerative changes of the spine and scoliosis. MR/MR abdomen wo/w con IMPRESSION: Dilated main pancreatic duct the body and tail the pancreas measuring up to 6 mm. The main pancreatic duct is narrowed in the head of the pancreas questionable for stricture. No definite stone in the main pancreatic duct is seen. Multiloculated fluid collections along the right diaphragmatic and slight thickening of the left anterior pararenal fascia, likely sequela of previous pancreatitis. No evidence of acute pancreatitis seen. Fatty liver. Postcholecystectomy. No common bile duct stone seen. Right renal cyst. Mild diverticulosis of the colon.
--- NOTE | ~2021-07-28 | XR_ITS ---
EXAMINATION: XR CHEST CLINICAL INFORMATION: Cough, sputum production. COMPARISON: 07/23/2021 chest radiographs. TECHNIQUE: 2 views of the chest were obtained. FINDINGS: There is mild elevation of the left hemidiaphragm. Mild linear markings in the left lower lung have decreased. There are no pleural effusions. The heart and mediastinal structures are unremarkable. XR/XR chest 2V IMPRESSION: Improving left lower lung atelectasis. No acute cardiopulmonary process.
[2021-07-28 11:13] LABS: MANUAL DIFF FLAG NO
[2021-07-28 11:18] LABS: Basophils Absolute Auto 0.1 X10*3/uL (0.0-0.2); Basophils Percent Auto 0.5 % (0-2); Eosinophils Absolute Auto 0.1 X10*3/uL (0.0-0.4); Eosinophils Percent Auto 1.3 % (0-4); Hematocrit 39.2 % (42.0-52.0); Hemoglobin 13.7 g/dl (14.0-18.0); Imm Gran Abs Auto 0.08 X10*3/uL (0.00-0.03); Imm Gran Pct Auto 0.8 % (0.0-0.4); Lymphocytes Absolute Auto 1.5 X10*3/uL (1.2-4.9); Lymphocytes Percent Auto 16.3 % (20-40); Mean Corpuscular HGB Conc 34.9 g/dl (31.0-36.0); Mean Corpuscular Hemoglobin 30.5 pg (27.0-33.0); Mean Corpuscular Volume 87.3 fL (80.0-98.0); Monocytes Absolute Auto 0.9 X10*3/uL (0.1-1.2); Monocytes Percent Auto 9.6 % (2-11); Neutrophils Absolute Auto 6.8 x10*3/uL (2.0-8.3); Neutrophils Percent Auto 71.5 % (45-73); Platelet Count 250 X10*3/uL (160-400); Red Blood Count 4.49 X10*6/uL (4.60-5.80); Red Cell Distribution Width 12.7 % (11.0-16.0); White Blood Count 9.5 X10*3/uL (4.8-10.8)
[2021-07-28 11:32] LABS: Ethanol < 10 mg/dL
[2021-07-28 11:37] LABS: Alanine Aminotransferase 50 U/L (0-40); Albumin Level 3.7 g/dL (3.5-5.0); Alkaline Phosphatase 171 U/L (39-117); Anion Gap 18 (12-20); Aspartate Amino Transferase 62 U/L (5-37); Bilirubin Direct 0.3 mg/dL (0.0-0.5); Bilirubin Total 0.6 mg/dL (0.0-1.0); Blood Urea Nitrogen 16 mg/dL (9-16); Calcium 8.5 mg/dL (8.4-10.2); Carbon Dioxide 25 mmol/L (22-29); Chloride 88 mmol/L (96-108); Estimated Glomerular Filt Rate 51; Glucose Random 511 mg/dL (60-115); Lipase 210 U/L (8-78); Potassium 3.5 mmol/L (3.3-5.1); Sodium 127 mmol/L (135-145); Total Protein 6.7 g/dL (6.5-8.0)
--- NOTE | 2021-07-28 12:39 | ED.ABDPAIN ---
HPI - Abdominal Pain General Chief Complaint: Abdominal Pain Stated Complaint: pancreatitis Time Seen by Provider: 07/28/21 12:30 Source: patient Mode of arrival: ambulatory Limitations: no limitations History of Present Illness HPI narrative: 55-year-old male with a past medical history of anxiety, chronic pancreatitis, COPD, depression, diverticulitis, HTN, who is alcohol dependent reports he drinks approximately 12-24 shots of vodka daily or more and smokes approximately 1 pack of cigarettes daily denies any drug usage presenting with complaints of upper abdominal pain since Sunday worse today. Reports that he last drank this morning to help with the shakes. Reports he is interested in detox although not at this time he wants to take care of his pancreatitis 1st. He also admits to having a productive cough with yellow/green color sputum and wheezing. Denies any fevers, chills, dizziness, headaches, sore throat, loss of taste or smell, nasal congestion/rhinorrhea, dyspnea on exertion, orthopnea, shortness of breath, palpitations, paresthesias, nausea/vomiting, diarrhea, constipation, black or bloody stools, rashes, recent falls or trauma, lower extremity edema or calf tenderness, recent travel or sick contacts or any other symptoms complaints or concerns at this time. Denies any SI/HI/auditory visualizations thoughts of self-injury. Reports he is not diabetic. - he reports he was seen here on 07/23/2021 for similar complaint although he reports that his pancreatitis was not bad enough to admit. MD elicited complaint: abdominal pain Pertinent past history: other (chronic Pancreatitis, HTN, alcohol dependent) Onset (ago): day(s) (5) Pain Consistency: constant Location: epigastric, periumbilical, LUQ and RUQ Severity: severe Pain scale (0-10): 10 Quality: aching and sharp Radiation: bilateral flank and back Exacerbating factors: nothing Relieving factors: nothing Context: other (Alcohol dependent last drink this morning) Associated symptoms: other (Cough/sputum production) Related Data Home Medications Medication Instructions Recorded Confirmed albuterol sulfate 90 mcg/actuation 2 puff inhalation Q4H PRN wheezing 05/01/20 11/17/20 aerosol inhaler duloxetine 60 mg capsule,delayed 60 mg PO DAILY 05/01/20 11/17/20 release folic acid 1 mg tablet 1 mg PO DAILY 05/01/20 11/17/20 srpbbe-[id number]-[id number] 3 - 4 cap PO TIDWM 10/07/20 11/17/20 40,000-126,000-168,000 unit capsule, delay rel (Zenpep) amlodipine 10 mg tablet 1 tab PO DAILY 11/17/20 11/17/20 ondansetron 4 mg disintegrating 1 tab PO Q8H PRN nausea 11/17/20 11/17/20 tablet metoprolol succinate 50 mg 50 mg PO DAILY 07/20/21 tablet,extended release 24 hr albuterol sulfate 1 vial inhalation Q4H PRN wheezing 07/28/21 amitriptyline 10 mg tablet 1 tab PO BEDTIME 07/28/21 fluticasone 250 mcg-salmeterol 50 1 puff inhalation Q12H 07/28/21 mcg/dose blistr powdr for inhalation (Wixela Inhub) fluticasone fur. 100 mcg-umeclid 1 puff inhalation DAILY 07/28/21 62.5 mcg-vilant 25 mcg inhalat.powder (Trelegy Ellipta) hydroxyzine HCl 25 mg tablet 1 tab PO Q8H PRN anxiety 07/28/21 omeprazole 20 mg capsule,delayed 1 cap PO DAILY 07/28/21 release pantoprazole 40 mg tablet,delayed 1 tab PO DAILY 07/28/21 release potassium chloride 10 mEq 1 tab PO DAILY 07/28/21 tablet,extended release tizanidine 2 mg tablet 1 tab PO BID 07/28/21 varenicline 0.5 mg (11)-1 mg (42) 1 tab PO 07/28/21 tablets in a dose pack Previous Rx's Medication Instructions Recorded magnesium oxide 400 mg (241.3 mg 400 mg PO BIDPC #60 tabs 11/20/20 magnesium) tablet multivitamin (Daily-Jerald) 1 tab PO DAILY #30 tabs 11/20/20 thiamine mononitrate (vit B1) 100 100 mg PO DAILY #30 tabs 11/20/20 mg tablet gabapentin 300 mg capsule 300 mg PO BEDTIME 30 days #30 caps 07/20/21 tiotropium bromide 1.25 2 puff inhalation DAILY 30 days #4 07/20/21 mcg/actuation mist for inhalation grams (Spiriva Respimat) omeprazole 40 mg capsule,delayed 40 mg PO DAILY 30 days #30 caps 07/23/21 release Allergies Allergy/AdvReac Type Severity Reaction Status Date / Time No Known Allergies Allergy Verified 07/20/21 09:58 [No Known Allergies*] Review of Systems Review of Systems Constitutional : No Weight loss, No Fever, No Chills, No Night Sweats, No Fatigue, No Malaise ENT/Mouth : No Hearing loss, No Ear Pain, No Nasal Congestion, No Sinus Pain, No Hoarseness, No sore throat, No Rhinorrhea, No Swallowing Difficulty Eyes: No Eye Pain, No Swelling, No Redness, No Foreign Body, No Discharge, No Vision Changes Cardiovascular : No Chest Pain, No SOB, No Dyspnea on Exertion, No Orthopnea, No Edema, No Palpitations Respiratory : + Cough, + Sputum, + Wheezing, No Smoke Exposure, No Dyspnea Gastrointestinal : No Nausea, No Vomiting, No Diarrhea, No Constipation, + abdominal Pain, No Hematochezia, No Melena Genitourinary : no irregular bleeding, No Dysuria, No Urinary Frequency, No Hematuria, No Urinary Incontinence, No Urgency, + Flank Pain, No Urinary Flow Changes, No Hesitancy Musculoskeletal : No joint pain, No Myalgias, No Joint Swelling Skin : No Skin Lesions, No rash Neuro : No Weakness, No Numbness, No Paresthesias, No Loss of Consciousness, No Dizziness, No Headache Psych : No Anxiety/Panic, No Depression, No SI/HI/AH/VH, No Social Issues, Heme/Lymph: No Bruising, No Bleeding,No Lymphadenopathy Endocrine : No Polyuria, No Polydipsia, No Temperature Intolerance Yes all other systems are reviewed and are negative [facility] Past Medical History Attestation statement: The following information was validated with the patient. Source: old records reviewed and nursing notes reviewed Medical History Alcohol withdrawal Anxiety Atelectasis Chronic pancreatitis COPD (chronic obstructive pulmonary disease) Depression Diverticulitis EtOH dependence HTN (hypertension) Hypomagnesemia Pancreatitis Pancreatitis, chronic Prolonged QT interval Recurrent pneumonia Tachycardia Surgical History History of colon resection Hx of cholecystectomy Previous back surgery Family History Family History (Updated 07/28/21 @ 16:22 by Landon Morales MD) Mother Alcohol dependence Social History Social History Household Members: Family Household Members Other:: Brother Housing: House Do you presently have visiting nurse or other home services: No Alcohol intake: current Alcohol intake frequency: 3 or more drinks per day Alcohol type: hard liquor Patient Tobacco Use Status: Current everyday Tobacco user Tobacco use type: Cigarette Cigarette Packs Per Day: 1.5 Cigarettes Per Day: 30.0 Second Hand Smoke Exposure: No Advance Directives: No Advance Directives Information Provided: No service: No Current occupational status: employed Current occupational exposures/hazards: No Cognitive needs: No Hearing needs: No Vision needs: No Physical Exam ED Vital Signs: Vital Signs - 24 hr 07/28/21 11:00 07/28/21 13:58 07/28/21 14:10 Temperature 98 F Pulse Rate 101 H 94 92 Respiratory Rate 19 18 20 Blood Pressure 129/86 164/90 H Pulse Oximetry 98 98 Oxygen Delivery Method Room Air Room Air BMI result Body Mass Index 26.4 vital signs have been reviewed as normal and appeared to be correct. Blood pressure normal. Heart rate 101. Respiration rate normal. Temperature normal. Oxygen saturation normal. Appearance: Alert. Oriented X3. No acute distress. Head: Normal external exam. Normocephalic. Atraumatic. Eyes: PERRLA. EOMI. Conjunctiva and sclera normal. Eyelids normal. ENT: EAC normal. TM's Normal. Pharynx normal. Uvula midline. Moist mucous membranes. No lesions/ulcerations or masses noted on the tongue. Normal voice. No trismus noted. No drooling noted. No muffled voice noted. Neck: Normal inspection. Neck supple. FROM. No adenopathy. Thyroid Normal. No tracheal deviation noted. No crepitus is noted. No meningeal signs. No neck mass noted. No signs of trauma noted. CVS: Normal heart rate and rhythm. Heart sound normal. Pulses normal throughout. No murmurs/rales/gallops. Respiratory: In mild acute respiratory distress with decreased breath sounds and inspiratory and expiratory wheezing throughout with rhonchi noted. No rales noted. No crepitus is noted. No signs of trauma noted. No accessory muscle usage noted. No stridor is noted. Abdomen: Soft and mild tenderness palpation to the upper abdomen. Bowel sounds normal in all 4 quadrants. No distention noted. No organomegaly noted. No visible injury noted. Back: No CVA tenderness. Full range of motion noted. Nontender. No signs of trauma. Patient neuro intact bilaterally and distally on all 4 extremities. Patient's reflexes intact bilaterally and distally on all 4 extremities. No rashes/lesion/induration/fluctuance or signs of infection noted. Skin: Skin warm and dry. Normal skin color. Normal skin turgor. No rashes/lesions/lacerations noted. Extremities: No lower extremity edema. No calf tenderness is noted. Extremities exhibit normal range of motion and nontender. Neuro: Oriented X 3. No motor deficit. No sensory deficit. Reflexes normal. Normal steady gait. No focal neuro deficits noted. CN's II-XII intact bilaterally? Vascular: + radial pulses/+ 2 distal pedal pulses/+2 dorsalis pedis b/l. Normal cap refill. No cyanosis noted to upper extremity nails and lower extremity toes nails. Course Course Course Narrative: 12:45pm - 55-year-old male c PMHX of anxiety, chronic pancreatitis, COPD, depression, diverticulitis, HTN, who is alcohol dependent reports he drinks approximately 12-24 shots of vodka daily or more and smokes approximately 1 pack of cigarettes daily denies any drug usage presenting with complaints of upper abdominal pain since Sunday worse today. Reports that he last drank this morning to help with the shakes. Reports he is interested in detox although not at this time he wants to take care of his pancreatitis 1st. He also admits to having a productive cough with yellow/green color sputum and wheezing. Labs were obtained while the patient was in the waiting room patient has a mild baseline anemia similar compared to prior. Sodium 127. Chloride 88. Creatinine 1.47. Random glucose 511. AST/ALT/alkaline phosphate 62/50/171. Lipase 210. Patient ETOH level less than 10/negative. Otherwise all other labs are within normal limits. Plan: Will add an EKG, chest x-ray, CT scan of abdomen pelvis without IV contrast, add labs which include acetone level, amylase, LDH, BNP, A1c level, COVID swab, influenza swab, VBG, blood cultures, lactic acid. Provide 2 L's of IV fluids, 4 mg of Zofran, 4 mg of morphine, an hour long breathing treatment, 125 mg of IV Solu-Medrol and re-evaluate. Reevaluation(s) Reevaluation #1: - acetone level negative. - LDH 280. - Amylase 204. - BNP 14 - A1c level 9.0. - Lactic acid 2.0 - patient negative for COVID. - awaiting CXR/CT scan abdomen pelvis without IV contrast. Plan will be to admit for pancreatitis. [place]'s criteria score 0-1 at this time. Time: 13:23 Reevaluation #2: - chest x-ray revealed improving left lower lung atelectasis no cardio pulmonary processes noted. - CT scan abdomen pelvis without IV contrast revealed new subtle pancreatitis no pseudocyst. And chronic left hemo diaphragm that is elevated and enlarged fatty liver otherwise no other acute processes. - therefore at this time will admit for pancreatitis with hyponatremia and RUSLAN. Patient understands agrees with this plan. Time: 15:53 MDM - Abdominal Pain Medical Records Attestation: I reviewed the patient's medical records. Lab Data Attestation: I reviewed the patient's lab results. Result diagrams: 07/28/21 11:09 07/28/21 11:09 Labs: Lab Results 07/28/21 07/28/21 07/28/21 Range/Units 11:09 11:09 11:09 WBC 9.5 (4.8-10.8) X10*3/uL RBC 4.49 L (4.60-5.80) X10*6/uL Hgb 13.7 L (14.0-18.0) g/dl Hct 39.2 L (42.0-52.0) % MCV 87.3 (80.0-98.0) fL MCH 30.5 (27.0-33.0) pg MCHC 34.9 (31.0-36.0) g/dl RDW 12.7 (11.0-16.0) % Plt Count 250 (160-400) X10*3/uL MPV 9.0 L (9.4-12.4) fL Immature Gran % (Auto) 0.8 H (0.0-0.4) % Neut % (Auto) 71.5 (45-73) % Lymph % (Auto) 16.3 L (20-40) % Jenkins % (Auto) 9.6 (2-11) % Eos % (Auto) 1.3 (0-4) % Baso % (Auto) 0.5 (0-2) % Lymph # (Auto) 1.5 (1.2-4.9) X10*3/uL Jenkins # (Auto) 0.9 (0.1-1.2) X10*3/uL Eos # (Auto) 0.1 (0.0-0.4) X10*3/uL Baso # (Auto) 0.1 (0.0-0.2) X10*3/uL Abs Immat Gran (auto) 0.08 H (0.00-0.03) X10*3/uL Absolute Neuts (auto) 6.8 (2.0-8.3) x10*3/uL Absolute Nucleated RBC 0.000 (0.0-0.012) X10*3/uL Nucleated RBC % (auto) 0.0 (0.0-0.2) /100WBC VBG pH (7.32-7.43) VBG pCO2 mmHg VBG pO2 mmHg VBG HCO3 (22-26) mmol/L VBG O2 Saturation % VBG Base Excess mmol/L Sodium 127 L (135-145) mmol/L Potassium 3.5 (3.3-5.1) mmol/L Chloride 88 L (96-108) mmol/L Carbon Dioxide 25 (22-29) mmol/L Anion Gap 18 (12-20) BUN 16 D (9-16) mg/dL Creatinine 1.45 H (0.5-1.4) mg/dL Estim Creat Clear Calc 65.0 Estimated GFR 51 Random Glucose 511 H* (60-115) mg/dL Estimat Average Glucose mg/dL Hemoglobin A1c % % Lactic Acid (0.5-2.0) mmol/L Calcium 8.5 (8.4-10.2) mg/dL Total Bilirubin 0.6 (0.0-1.0) mg/dL Direct Bilirubin 0.3 (0.0-0.5) mg/dL AST 62 H (5-37) U/L ALT 50 H (0-40) U/L Alkaline Phosphatase 171 H (39-117) U/L Lactate Dehydrogenase 280 H (118-273) U/L B-Natriuretic Peptide (<100) pg/mL Total Protein 6.7 (6.5-8.0) g/dL Albumin 3.7 (3.5-5.0) g/dL Amylase 204 H D (28-100) U/L Lipase 210 H (8-78) U/L Ethyl Alcohol < 10 mg/dL Acetone, Qual (Negative) COVID-19 (JUAN LUIS) (Negative) COVID-19 Clin Com Influenza Type A (HARSH) (Negative) Influenza Type B (HARSH) (Negative) Influenza A & B Note 07/28/21 07/28/21 07/28/21 Range/Units 11:09 11:09 12:58 WBC (4.8-10.8) X10*3/uL RBC (4.60-5.80) X10*6/uL Hgb (14.0-18.0) g/dl Hct (42.0-52.0) % MCV (80.0-98.0) fL MCH (27.0-33.0) pg MCHC (31.0-36.0) g/dl RDW (11.0-16.0) % Plt Count (160-400) X10*3/uL MPV (9.4-12.4) fL Immature Gran % (Auto) (0.0-0.4) % Neut % (Auto) (45-73) % Lymph % (Auto) (20-40) % Jenkins % (Auto) (2-11) % Eos % (Auto) (0-4) % Baso % (Auto) (0-2) % Lymph # (Auto) (1.2-4.9) X10*3/uL Jenkins # (Auto) (0.1-1.2) X10*3/uL Eos # (Auto) (0.0-0.4) X10*3/uL Baso # (Auto) (0.0-0.2) X10*3/uL Abs Immat Gran (auto) (0.00-0.03) X10*3/uL Absolute Neuts (auto) (2.0-8.3) x10*3/uL Absolute Nucleated RBC (0.0-0.012) X10*3/uL Nucleated RBC % (auto) (0.0-0.2) /100WBC VBG pH (7.32-7.43) VBG pCO2 mmHg VBG pO2 mmHg VBG HCO3 (22-26) mmol/L VBG O2 Saturation % VBG Base Excess mmol/L Sodium (135-145) mmol/L Potassium (3.3-5.1) mmol/L Chloride (96-108) mmol/L Carbon Dioxide (22-29) mmol/L Anion Gap (12-20) BUN (9-16) mg/dL Creatinine (0.5-1.4) mg/dL Estim Creat Clear Calc Estimated GFR Random Glucose (60-115) mg/dL Estimat Average Glucose 212 mg/dL Hemoglobin A1c % 9.0 % Lactic Acid (0.5-2.0) mmol/L Calcium (8.4-10.2) mg/dL Total Bilirubin (0.0-1.0) mg/dL Direct Bilirubin (0.0-0.5) mg/dL AST (5-37) U/L ALT (0-40) U/L Alkaline Phosphatase (39-117) U/L Lactate Dehydrogenase (118-273) U/L B-Natriuretic Peptide 14 (<100) pg/mL Total Protein (6.5-8.0) g/dL Albumin (3.5-5.0) g/dL Amylase (28-100) U/L Lipase (8-78) U/L Ethyl Alcohol mg/dL Acetone, Qual Negative (Negative) COVID-19 (JUAN LUIS) (Negative) COVID-19 Clin Com Influenza Type A (HARSH) (Negative) Influenza Type B (HARSH) (Negative) Influenza A & B Note 07/28/21 07/28/21 07/28/21 Range/Units 12:58 12:58 13:12 WBC (4.8-10.8) X10*3/uL RBC (4.60-5.80) X10*6/uL Hgb (14.0-18.0) g/dl Hct (42.0-52.0) % MCV (80.0-98.0) fL MCH (27.0-33.0) pg MCHC (31.0-36.0) g/dl RDW (11.0-16.0) % Plt Count (160-400) X10*3/uL MPV (9.4-12.4) fL Immature Gran % (Auto) (0.0-0.4) % Neut % (Auto) (45-73) % Lymph % (Auto) (20-40) % Jenkins % (Auto) (2-11) % Eos % (Auto) (0-4) % Baso % (Auto) (0-2) % Lymph # (Auto) (1.2-4.9) X10*3/uL Jenkins # (Auto) (0.1-1.2) X10*3/uL Eos # (Auto) (0.0-0.4) X10*3/uL Baso # (Auto) (0.0-0.2) X10*3/uL Abs Immat Gran (auto) (0.00-0.03) X10*3/uL Absolute Neuts (auto) (2.0-8.3) x10*3/uL Absolute Nucleated RBC (0.0-0.012) X10*3/uL Nucleated RBC % (auto) (0.0-0.2) /100WBC VBG pH (7.32-7.43) VBG pCO2 mmHg VBG pO2 mmHg VBG HCO3 (22-26) mmol/L VBG O2 Saturation % VBG Base Excess mmol/L Sodium (135-145) mmol/L Potassium (3.3-5.1) mmol/L Chloride (96-108) mmol/L Carbon Dioxide (22-29) mmol/L Anion Gap (12-20) BUN (9-16) mg/dL Creatinine (0.5-1.4) mg/dL Estim Creat Clear Calc Estimated GFR Random Glucose (60-115) mg/dL Estimat Average Glucose mg/dL Hemoglobin A1c % % Lactic Acid 2.0 (0.5-2.0) mmol/L Calcium (8.4-10.2) mg/dL Total Bilirubin (0.0-1.0) mg/dL Direct Bilirubin (0.0-0.5) mg/dL AST (5-37) U/L ALT (0-40) U/L Alkaline Phosphatase (39-117) U/L Lactate Dehydrogenase (118-273) U/L B-Natriuretic Peptide (<100) pg/mL Total Protein (6.5-8.0) g/dL Albumin (3.5-5.0) g/dL Amylase (28-100) U/L Lipase (8-78) U/L Ethyl Alcohol mg/dL Acetone, Qual (Negative) COVID-19 (JUAN LUIS) Negative (Negative) COVID-19 Clin Com See Note Influenza Type A (HARSH) Negative (Negative) Influenza Type B (HARSH) Negative (Negative) Influenza A & B Note See Note 07/28/21 Range/Units 14:00 WBC (4.8-10.8) X10*3/uL RBC (4.60-5.80) X10*6/uL Hgb (14.0-18.0) g/dl Hct (42.0-52.0) % MCV (80.0-98.0) fL MCH (27.0-33.0) pg MCHC (31.0-36.0) g/dl RDW (11.0-16.0) % Plt Count (160-400) X10*3/uL MPV (9.4-12.4) fL Immature Gran % (Auto) (0.0-0.4) % Neut % (Auto) (45-73) % Lymph % (Auto) (20-40) % Jenkins % (Auto) (2-11) % Eos % (Auto) (0-4) % Baso % (Auto) (0-2) % Lymph # (Auto) (1.2-4.9) X10*3/uL Jenkins # (Auto) (0.1-1.2) X10*3/uL Eos # (Auto) (0.0-0.4) X10*3/uL Baso # (Auto) (0.0-0.2) X10*3/uL Abs Immat Gran (auto) (0.00-0.03) X10*3/uL Absolute Neuts (auto) (2.0-8.3) x10*3/uL Absolute Nucleated RBC (0.0-0.012) X10*3/uL Nucleated RBC % (auto) (0.0-0.2) /100WBC VBG pH 7.46 H (7.32-7.43) VBG pCO2 44 mmHg VBG pO2 51 mmHg VBG HCO3 31 H (22-26) mmol/L VBG O2 Saturation 78.0 % VBG Base Excess 6.9 mmol/L Sodium (135-145) mmol/L Potassium (3.3-5.1) mmol/L Chloride (96-108) mmol/L Carbon Dioxide (22-29) mmol/L Anion Gap (12-20) BUN (9-16) mg/dL Creatinine (0.5-1.4) mg/dL Estim Creat Clear Calc Estimated GFR Random Glucose (60-115) mg/dL Estimat Average Glucose mg/dL Hemoglobin A1c % % Lactic Acid (0.5-2.0) mmol/L Calcium (8.4-10.2) mg/dL Total Bilirubin (0.0-1.0) mg/dL Direct Bilirubin (0.0-0.5) mg/dL AST (5-37) U/L ALT (0-40) U/L Alkaline Phosphatase (39-117) U/L Lactate Dehydrogenase (118-273) U/L B-Natriuretic Peptide (<100) pg/mL Total Protein (6.5-8.0) g/dL Albumin (3.5-5.0) g/dL Amylase (28-100) U/L Lipase (8-78) U/L Ethyl Alcohol mg/dL Acetone, Qual (Negative) COVID-19 (JUAN LUIS) (Negative) COVID-19 Clin Com Influenza Type A (HARSH) (Negative) Influenza Type B (HARSH) (Negative) Influenza A & B Note Imaging Data Chest x-ray: Attestation: I personally reviewed and interpreted this imaging study as follows: Radiologist's impression: FINDINGS: There is mild elevation of the left hemidiaphragm. Mild linear markings in the left lower lung have decreased. There are no pleural effusions. The heart and mediastinal structures are unremarkable. XR/XR chest 2V IMPRESSION: Improving left lower lung atelectasis. No acute cardiopulmonary process. CT scan abdomen pelvis without IV contrast: Attestation: I personally reviewed and interpreted this imaging study as follows: Radiologist's impression: FINDINGS: LUNG BASES:? Again seen is moderate elevation of the left hemidiaphragm with associated basilar atelectasis bilaterally, left greater than right.? LIVER, GALLBLADDER, AND BILIARY TREE: The liver is enlarged at 21 cm in greatest cephalocaudad dimension with decreased attenuation consistent with hepatic steatosis.? No focal hepatic lesion or biliary ductal dilatation is present. Status post cholecystectomy. There is no ascites PANCREAS: Very new subtle inflammatory changes are present around the body and head of pancreas consistent with pancreatitis. The duct is mildly dilated at about 5 mm and again seen is a 2 mm adjacent to, but not within the duct a larger 6 mm calcification is present in the pancreatic head.? SPLEEN: Unremarkable.? ADRENAL GLANDS: Unremarkable. Some minimal thickening of the left gland is present. KIDNEYS AND URETERS: The kidneys are normal in size, shape, and attenuation. Bilateral punctate nonobstructing calculi are present in both upper poles. No hydronephrosis, hydroureter, or ureteral calculi seen. No suspicious renal masses are detected. No perinephric stranding. ? BLADDER: Unremarkable.? GASTROINTESTINAL TRACT: The small and large bowel are unremarkable. The appendix is unremarkable.? ABDOMINAL WALL: No significant hernia is appreciated.? LYMPH NODES: Normal. VASCULAR: Calcific atherosclerotic changes present in the aorta and iliac vessels without aneurysm. PELVIC VISCERA: Unremarkable.? OSSEOUS STRUCTURES: Marked degenerative changes in the spine from L4 through S1 with lesser changes elsewhere. No bony destructive lesions. CT/CT abdomen pelvis wo con IMPRESSION: ? Subtle new inflammatory changes around the pancreatic body and neck consistent with subtle pancreatitis. No pseudocyst. ? Again seen is an elevated left hemidiaphragm and an enlarged fatty liver. ? Fleischner guidelines were followed. ECG Data Attestation: I personally reviewed and interpreted this ECG as follows: ECG interpretation date: 07/28/21 ECG interpretation time: 13:05 Interpretation: Normal sinus rhythm with ventricular rate of [address] abnormalities no acute ischemic change are noted. Similar compared to prior EKG similar when compared to prior EKG Jul 23, 2021 Critical Care Time Critical Care Time Critical Care Time: Yes Total Critical Care Time: 60 Attestation: I personally attest to this time spent taking care of the patient Discharge Plan Discharge Clinical Impression: Acute pancreatitis, Diabetes mellitus, new onset, Acute hyponatremia, RUSLAN (acute kidney injury) Patient Disposition: Admitted As Inpatient
--- NOTE | 2021-07-28 12:47 | ECG_ITS ---
Test Reason : WEAKNESS Blood Pressure : / mmHG Vent. Rate : 094 BPM Atrial Rate : 094 BPM P-R Int : 196 ms QRS Dur : 102 ms QT Int : 364 ms P-R-T Axes : 031 -19 012 degrees QTc Int : 455 ms Normal sinus rhythm Inferior infarct (cited on or before 17-NOV-2020) Cannot rule out Anterior infarct (cited on or before 07-OCT-2020) Abnormal ECG When compared with ECG of 23-JUL-2021 11:43, ID interval has decreased Referred By: Ailyn Kang Electronically Signed By:NICOLE BEE
[2021-07-28 12:51] LABS: Amylase 204 U/L (28-100); Lactate Dehydrogenase 280 U/L (118-273)
[2021-07-28 12:58] LABS: Estimated Average Glucose 212 mg/dL
[2021-07-28] MEDS: Morphine Sulfate 2 MG/ML CARTRIDGE IVPUSH (13:04)
[2021-07-28] MEDS: ondansetron HCL 4 MG/2 ML VIAL IVPUSH (13:04)
[2021-07-28] MEDS: 0.9 % Sodium Chloride 1,000 ML 999 ML IVCONT ×2 (13:04→13:05)
[2021-07-28] MEDS: methylPREDNISolone Sod Succ 125 MG/2 ML VIAL IVPUSH (13:04)
[2021-07-28 13:12] LABS: B Type Natriuretic Peptide 14 pg/mL (<100)
[2021-07-28 13:14] LABS: Acetone, serum QL Negative (Negative)
[2021-07-28 13:20] LABS: COVID-19 Test Negative (Negative)
[2021-07-28 13:40] LABS: Influenza A Negative (Negative); Influenza B2 Negative (Negative)
[2021-07-28] MEDS: Albuterol Sulfate (0.083%) 2.5 MG/3 ML VIAL.NEB 5 MG INHALE (13:55)
[2021-07-28] MEDS: HYDROmorphone HCl 1 MG/ML SYRINGE IVPUSH ×3 (14:06→22:08)
[2021-07-28 14:08] LABS: Venous Blood Gas Refer to POC result
[2021-07-28 14:08] LABS: VBG Base Excess 6.9 mmol/L; VBG HCO3 31 mmol/L (22-26); VBG pCO2 44 mmHg; VBG pH 7.46 (7.32-7.43); VBG pO2 51 mmHg
--- NOTE | 2021-07-28 16:31 | PM.IMHP ---
History of Present Illness Date of Service: 07/28/21 Chief Complaint: abd pain 55M presented with abd pain Acute recurrent alcoholic pancreatitis Clear liquids IV Dilaudid Monitor electrolytes Alcohol dependence with withdrawal Phenobarb CIWA Diabetes new onset Insulin, will need education, likely related to chronic pancreatitis Pseudohyponatremia Due to hyperglycemia RUSLAN Likely prerenal, hydrate, monitor Alcoholic fatty liver disease Abstinence recommended dvt prophylaxis - lovenox full code patient with singificant pain from pancreatitis needing ivf and iv pain meds, also in etoh withdrawal, therefore, likely to need atleast 2 midnights [facility] Medical History Alcohol withdrawal Anxiety Atelectasis Chronic pancreatitis COPD (chronic obstructive pulmonary disease) Depression Diverticulitis EtOH dependence HTN (hypertension) Hypomagnesemia Pancreatitis Pancreatitis, chronic Prolonged QT interval Recurrent pneumonia Tachycardia Family History (Updated 07/28/21 @ 16:22 by Landon Morales MD) Mother Alcohol dependence Surgical History History of colon resection Hx of cholecystectomy Previous back surgery Social History Household Members: Family Household Members Other:: Brother Housing: House Do you presently have visiting nurse or other home services: No Alcohol intake: current Alcohol intake frequency: 3 or more drinks per day Alcohol type: hard liquor Patient Tobacco Use Status: Current everyday Tobacco user Tobacco use type: Cigarette Cigarette Packs Per Day: 1.5 Cigarettes Per Day: 30.0 Second Hand Smoke Exposure: No Advance Directives: No Advance Directives Information Provided: No service: No Current occupational status: employed Current occupational exposures/hazards: No Cognitive needs: No Hearing needs: No Vision needs: No Meds Allergies Allergy/AdvReac Type Severity Reaction Status Date / Time No Known Allergies Allergy Verified 07/20/21 09:58 [No Known Allergies*] Active Medications: Current Medications Hydromorphone HCl (Hydromorphone Hcl 1 Mg/Ml Syringe) 1 mg IVPUSH Q2H PRN; Protocol PRN Reason: moderate pain Pharmacy Consult (Consult Rx Perform Med Rec) 1 each MISCELLANE ONCE PRN PRN Reason: Consult order Home Medications Medication Instructions Recorded Confirmed Last Taken Type albuterol sulfate 90 mcg/actuation 2 puff inhalation Q4H PRN wheezing 05/01/20 11/17/20 Unknown History aerosol inhaler duloxetine 60 mg capsule,delayed 60 mg PO DAILY 05/01/20 11/17/20 Unknown History release folic acid 1 mg tablet 1 mg PO DAILY 05/01/20 11/17/20 Unknown History dgyzxn-feloglrw-txvxiyg 3 - 4 cap PO TIDWM 10/07/20 11/17/20 Unknown History 40,000-126,000-168,000 unit capsule, delay rel (Zenpep) amlodipine 10 mg tablet 1 tab PO DAILY 11/17/20 11/17/20 Unknown History ondansetron 4 mg disintegrating 1 tab PO Q8H PRN nausea 11/17/20 11/17/20 Unknown History tablet metoprolol succinate 50 mg 50 mg PO DAILY 07/20/21 Unknown History tablet,extended release 24 hr albuterol sulfate 1 vial inhalation Q4H PRN wheezing 07/28/21 Unknown History amitriptyline 10 mg tablet 1 tab PO BEDTIME 07/28/21 Unknown History fluticasone 250 mcg-salmeterol 50 1 puff inhalation Q12H 07/28/21 Unknown History mcg/dose blistr powdr for inhalation (Grover Inhchris) fluticasone fur. 100 mcg-umeclid 1 puff inhalation DAILY 07/28/21 Unknown History 62.5 mcg-vilant 25 mcg inhalat.powder (Trelegy Ellipta) hydroxyzine HCl 25 mg tablet 1 tab PO Q8H PRN anxiety 07/28/21 Unknown History omeprazole 20 mg capsule,delayed 1 cap PO DAILY 07/28/21 Unknown History release pantoprazole 40 mg tablet,delayed 1 tab PO DAILY 07/28/21 Unknown History release potassium chloride 10 mEq 1 tab PO DAILY 07/28/21 Unknown History tablet,extended release tizanidine 2 mg tablet 1 tab PO BID 07/28/21 Unknown History varenicline 0.5 mg (11)-1 mg (42) 1 tab PO 07/28/21 Unknown History tablets in a dose pack Physical Exam Vital Signs and Narrative: Vital Signs: Last Vital Signs Temp 98 F 07/28/21 11:00 Pulse 92 07/28/21 14:10 Resp 20 07/28/21 14:10 BP 164/90 H 07/28/21 14:10 Pulse Ox 98 07/28/21 14:10 O2 Del Method 07/28/21 14:10 BMI result Body Mass Index 26.4 Results Labs CBC and Chem 7: 07/28/21 11:09 07/28/21 11:09 Labs: Laboratory Results - last 24 hr 07/28/21 07/28/21 07/28/21 11:09 11:09 11:09 MCV 87.3 MCH 30.5 MCHC 34.9 RDW 12.7 Plt Count 250 MPV 9.0 L Immature Gran % (Auto) 0.8 H Neut % (Auto) 71.5 Lymph % (Auto) 16.3 L [place] % (Auto) 9.6 Eos % (Auto) 1.3 Baso % (Auto) 0.5 Lymph # (Auto) 1.5 [place] # (Auto) 0.9 Eos # (Auto) 0.1 Baso # (Auto) 0.1 Abs Immat Gran (auto) 0.08 H Absolute Neuts (auto) 6.8 Absolute Nucleated RBC 0.000 Nucleated RBC % (auto) 0.0 VBG pH VBG pCO2 VBG pO2 VBG HCO3 VBG O2 Saturation VBG Base Excess Anion Gap 18 Estim Creat Clear Calc 65.0 Estimated GFR 51 Random Glucose 511 H* Estimat Average Glucose Hemoglobin A1c % Lactic Acid Calcium 8.5 Total Bilirubin 0.6 Direct Bilirubin 0.3 AST 62 H ALT 50 H Alkaline Phosphatase 171 H Lactate Dehydrogenase 280 H B-Natriuretic Peptide Total Protein 6.7 Albumin 3.7 Amylase 204 H D Lipase 210 H Ethyl Alcohol < 10 Acetone, Qual COVID-19 (JUAN LUIS) COVID-19 Clin Com Influenza Type A (HARSH) Influenza Type B (HARSH) Influenza A & B Note 07/28/21 07/28/21 07/28/21 11:09 11:09 12:58 MCV MCH MCHC RDW Plt Count MPV Immature Gran % (Auto) Neut % (Auto) Lymph % (Auto) [place] % (Auto) Eos % (Auto) Baso % (Auto) Lymph # (Auto) [place] # (Auto) Eos # (Auto) Baso # (Auto) Abs Immat Gran (auto) Absolute Neuts (auto) Absolute Nucleated RBC Nucleated RBC % (auto) VBG pH VBG pCO2 VBG pO2 VBG HCO3 VBG O2 Saturation VBG Base Excess Anion Gap Estim Creat Clear Calc Estimated GFR Random Glucose Estimat Average Glucose 212 Hemoglobin A1c % 9.0 Lactic Acid Calcium Total Bilirubin Direct Bilirubin AST ALT Alkaline Phosphatase Lactate Dehydrogenase B-Natriuretic Peptide 14 Total Protein Albumin Amylase Lipase Ethyl Alcohol Acetone, Qual Negative COVID-19 (JUAN LUIS) COVID-19 Clin Com Influenza Type A (HARSH) Influenza Type B (HARSH) Influenza A & B Note 07/28/21 07/28/21 07/28/21 12:58 12:58 13:12 MCV MCH MCHC RDW Plt Count MPV Immature Gran % (Auto) Neut % (Auto) Lymph % (Auto) [place] % (Auto) Eos % (Auto) Baso % (Auto) Lymph # (Auto) [place] # (Auto) Eos # (Auto) Baso # (Auto) Abs Immat Gran (auto) Absolute Neuts (auto) Absolute Nucleated RBC Nucleated RBC % (auto) VBG pH VBG pCO2 VBG pO2 VBG HCO3 VBG O2 Saturation VBG Base Excess Anion Gap Estim Creat Clear Calc Estimated GFR Random Glucose Estimat Average Glucose Hemoglobin A1c % Lactic Acid 2.0 Calcium Total Bilirubin Direct Bilirubin AST ALT Alkaline Phosphatase Lactate Dehydrogenase B-Natriuretic Peptide Total Protein Albumin Amylase Lipase Ethyl Alcohol Acetone, Qual COVID-19 (JUAN LUIS) Negative COVID-[employer] Clin Com See Note Influenza Type A (HARSH) Negative Influenza Type B (HARSH) Negative Influenza A & B Note See Note 07/28/21 14:00 MCV MCH MCHC RDW Plt Count MPV Immature Gran % (Auto) Neut % (Auto) Lymph % (Auto) [place] % (Auto) Eos % (Auto) Baso % (Auto) Lymph # (Auto) [place] # (Auto) Eos # (Auto) Baso # (Auto) Abs Immat Gran (auto) Absolute Neuts (auto) Absolute Nucleated RBC Nucleated RBC % (auto) VBG pH 7.46 H VBG pCO2 44 VBG pO2 51 VBG HCO3 31 H VBG O2 Saturation 78.0 VBG Base Excess 6.9 Anion Gap Estim Creat Clear Calc Estimated GFR Random Glucose Estimat Average Glucose Hemoglobin A1c % Lactic Acid Calcium Total Bilirubin Direct Bilirubin AST ALT Alkaline Phosphatase Lactate Dehydrogenase B-Natriuretic Peptide Total Protein Albumin Amylase Lipase Ethyl Alcohol Acetone, Qual COVID-19 (JUAN LUIS) COVID-19 Clin Com Influenza Type A (HARSH) Influenza Type B (HARSH) Influenza A & B Note Imaging Radiologist's Impressions: Impressions Chest X-Ray 07/28/21 13:25 IMPRESSION: Improving left lower lung atelectasis. No acute cardiopulmonary process. Abdomen/Pelvis CT 07/28/21 13:52 IMPRESSION: Subtle new inflammatory changes around the pancreatic body and neck consistent with subtle pancreatitis. No pseudocyst. Again seen is an elevated left hemidiaphragm and an enlarged fatty liver. Fleischner guidelines were followed. Quality Stroke Does the patient have a stroke diagnosis?: No VTE Prior VTE?: Yes VTE Risk Level:: Medical - moderate - high VTE Device Contraindication: Treatment Not Indicated VTE Drug Contraindication: N/A - Med Ordered
--- NOTE | 2021-07-28 17:03 | PHA.MEDREC ---
Pharmacy Consult ? Medication Reconciliation Pharmacy has completed the medication reconciliation. Pt reluctant to list medications, agreeable to almost everything I named that I had listed. Did state he has not yet started his Chantix and that he took everything this morning.
[2021-07-28 17:04] LABS: Glucose, Whole Blood 441 mg/dL (60-115)
[2021-07-28] MEDS: Insulin Regular, Human 100 UNIT/ML 3 ML VIAL IVPUSH (17:17)
[2021-07-28] MEDS: Enoxaparin Sodium 40 MG/0.4 ML SYRINGE SUBCUT (17:17)
[2021-07-28] MEDS: Lactated Ringers 1,000 ML 150 ML IVCONT (17:24)
[2021-07-28] MEDS: Magnesium Oxide 400 MG TABLET PO (17:32)
[2021-07-28] MEDS: PHENobarbitaL 200 MG, PHENobarbitaL 60 MG 260 MG PO (18:38)
--- NOTE | 2021-07-28 20:56 | PC.NURSE ---
RN-RN report given, pt to transfer to ED overflow.
[2021-07-28] MEDS: Gabapentin 300 MG CAPSULE PO (22:07)
[2021-07-28] MEDS: TiZANidine HCL 4 MG TABLET 2 MG PO (22:07)
[2021-07-28 22:14] LABS: Glucose, Whole Blood 488 mg/dL (60-115)
[2021-07-28] MEDS: Insulin Lispro 100 UNIT/ML 3 ML VIAL SUBCUT (22:15)
[2021-07-28] MEDS: Amitriptyline HCl 10 MG TABLET PO (22:58)
[2021-07-29] MEDS: HYDROmorphone HCl 1 MG/ML SYRINGE IVPUSH ×6 (01:24→20:06)
--- NOTE | 2021-07-29 02:55 | PC.NURSE ---
pt tremulous, pt denies visual or auditory hallucinations, pt denies H/A, pt alert & oriented.
[2021-07-29 04:03] VITALS: PULSE 80; RESP 9; O2SAT 93
[2021-07-29] MEDS: Lactated Ringers 1,000 ML 150 ML IVCONT ×3 (05:47→18:16)
[2021-07-29] MEDS: Omeprazole 40 MG CAPSULE.DR PO (05:48)
[2021-07-29 06:38] LABS: Hematocrit 38.2 % (42.0-52.0); Hemoglobin 12.9 g/dl (14.0-18.0); Mean Corpuscular HGB Conc 33.8 g/dl (31.0-36.0); Mean Corpuscular Hemoglobin 30.2 pg (27.0-33.0); Mean Corpuscular Volume 89.5 fL (80.0-98.0); Mean Platelet Volume 9.5 fL (9.4-12.4); Platelet Count 203 X10*3/uL (160-400); Red Blood Count 4.27 X10*6/uL (4.60-5.80); Red Cell Distribution Width 12.8 % (11.0-16.0); White Blood Count 9.8 X10*3/uL (4.8-10.8)
[2021-07-29 07:18] LABS: Anion Gap 17 (12-20); Blood Urea Nitrogen 17 mg/dL (9-16); Calcium 8.5 mg/dL (8.4-10.2); Carbon Dioxide 24 mmol/L (22-29); Chloride 95 mmol/L (96-108); Creatinine Clr Calc Pharmacy 119.4; Estimated Glomerular Filt Rate > 60; Glucose Fasting 342 mg/dL (60-99); Lipase 245 U/L (8-78); Potassium 4.4 mmol/L (3.3-5.1); Sodium 132 mmol/L (135-145)
[2021-07-29 07:58] VITALS: BP 130/83; PULSE 85; RESP 13; O2SAT 92
[2021-07-29] MEDS: Insulin Glargine,Hum.rec.anlog 100 UNIT/ML 10 ML VIAL 15 UNIT SUBCUT (09:37)
[2021-07-29] MEDS: Insulin Lispro 100 UNIT/ML 3 ML VIAL SUBCUT ×4 (09:37→22:24)
[2021-07-29] MEDS: PHENobarbitaL 30 MG TABLET 60 MG PO ×2 (09:38→20:07)
[2021-07-29] MEDS: Magnesium Oxide 400 MG TABLET PO ×2 (09:38→16:52)
[2021-07-29] MEDS: amLODIPine Besylate 10 MG TABLET PO (09:38)
[2021-07-29] MEDS: DULoxetine HCl 60 MG CAPSULE.DR PO (09:38)
[2021-07-29] MEDS: TiZANidine HCL 4 MG TABLET 2 MG PO ×2 (09:39→20:07)
[2021-07-29] MEDS: Folic Acid 1 MG TABLET PO (09:40)
[2021-07-29] MEDS: Multivitamin TABLET 1 TAB PO (09:40)
[2021-07-29] MEDS: Thiamine HCL 100 MG TABLET PO (09:40)
--- NOTE | 2021-07-29 09:41 | P.PNIM_ITS ---
Subjective Subjective Date of Service: 07/29/21 Interval History: cc: abd pain interval history:sob, continued abd pain Gastrointestinal Gastrointestinal: Reports no additional gastrointestinal complaints Genitourinary Genitourinary: Reports no additional male genitourinary complaints Physical Exam Vital Signs: Vital Signs: Last Vital Signs Temp 97.0 F 07/28/21 23:37 Pulse 85 07/29/21 07:58 Resp 13 07/29/21 07:58 BP 130/83 07/29/21 07:58 Pulse Ox 92 07/29/21 07:58 O2 Del Method 07/29/21 07:58 O2 Flow Rate 2 07/29/21 04:03 BMI result Body Mass Index 26.4 General: AO X 3, no acute distress Resp: wheezing bilateral, no accessory muscles used CVS: S1,S2,RRR GI: soft, tender, non distended Neuro: motor grossly intact, alert Psych: appropriate affect, appropriate insight Objective Data Active Medications Albuterol Sulfate (Albuterol Sulfate (0.083%) 2.5 Mg/3 Ml Vial.Neb) 2.5 mg INHALE Q4H PRN PRN Reason: wheezing Amitriptyline HCl (Amitriptyline Hcl 10 Mg Tablet) 10 mg PO BEDTIME [facility] Last Admin: 07/28/21 22:58 Dose: 10 mg Documented By: ELSI Amlodipine Besylate (Amlodipine Besylate 10 Mg Tablet) 10 mg PO DAILY [facility]; Protocol Last Admin: 07/29/21 09:38 Dose: 10 mg Documented By: STEPHAN Dextrose (Dextrose 50 % 25 Gm/50 Ml Syringe) 25 gm IVPUSH Q15M PRN; Protocol PRN Reason: per Hypoglycemia Standing Ord. Duloxetine HCl (Duloxetine Hcl 60 Mg Capsule.Dr) 60 mg PO DAILY [facility] Last Admin: 07/29/21 09:38 Dose: 60 mg Documented By: STEPHAN Enoxaparin Sodium (Enoxaparin Sodium 40 Mg/0.4 Ml Syringe) 40 mg SUBCUT Q24H [facility] Last Admin: 07/28/21 17:17 Dose: 40 mg Documented By: ZENON Fluticasone/Vilanterol (Fluticasone/Vilanterol 100/25 Blst.W.Dev) 1 puff INHALE RDAILY [facility] Folic Acid (Folic Acid 1 Mg Tablet) 1 mg PO DAILY [facility] Last Admin: 07/29/21 09:40 Dose: 1 mg Documented By: STEPHAN Gabapentin (Gabapentin 300 Mg Capsule) 300 mg PO BEDTIME [facility] Last Admin: 07/28/21 22:07 Dose: 300 mg Documented By: ELSI Glucose (Glucose Gel 15 Gm Gel..Gram.) 15 gm PO Q15M PRN; Protocol PRN Reason: per Hypoglycemia Standing Ord. Hydromorphone HCl (Hydromorphone Hcl 1 Mg/Ml Syringe) 1 mg IVPUSH Q2H PRN; Protocol PRN Reason: moderate pain Last Admin: 07/29/21 06:16 Dose: 1 mg Documented By: ELSI Hydroxyzine HCl (Hydroxyzine Hcl 25 Mg Tablet) 25 mg PO Q8H PRN PRN Reason: anxiety Lactated Ringer's (Lr) 1,000 mls @ 150 mls/hr IVCONT .Q6H40M [facility] Last Admin: 07/29/21 05:47 Dose: 150 mls/hr Documented By: ELSI Insulin Glargine (Insulin Glargine,Hum.Rec.Anlog 100 Unit/Ml 10 Ml Vial) 15 unit SUBCUT DAILY [facility] Last Admin: 07/29/21 09:37 Dose: 15 unit Documented By: STEPHAN Insulin Human Lispro (Insulin Lispro 100 Unit/Ml 3 Ml Vial) 0 unit SUBCUT QIDACHS [facility]; Protocol Last Admin: 07/29/21 09:37 Dose: 10 unit Documented By: STEPHAN Magnesium Oxide (Magnesium Oxide 400 Mg Tablet) 400 mg PO BIDPC [facility] Last Admin: 07/29/21 09:38 Dose: 400 mg Documented By: STEPHAN Metoprolol Succinate (Metoprolol Succinate Er 50 Mg Tab.Er.24h) 50 mg PO DAILY [facility]; Protocol Multivitamins/Vitamin C (Multivitamin Tablet) 1 tab PO DAILY [facility] Last Admin: 07/29/21 09:40 Dose: 1 tab Documented By: STEPHAN Omeprazole (Omeprazole 40 Mg Capsule.) 40 mg PO DAILY@0630 [facility] Last Admin: 07/29/21 05:48 Dose: 40 mg Documented By: ELSI Pharmacy Consult (Consult Rx Perform Med Rec) 1 each MISCELLANE ONCE PRN PRN Reason: Consult order Pharmacy Consult (Consult Rx Etoh Phenob Po Dose) 1 each MISCELLANE ONCE PRN; Protocol PRN Reason: Consult order Phenobarbital (Phenobarbital 30 Mg Tablet) 60 mg PO BID [facility] Stop: 07/30/21 21:01 Last Admin: 07/29/21 09:38 Dose: 60 mg Documented By: STEPHAN Phenobarbital (Phenobarbital 30 Mg Tablet) 30 mg PO BID [facility] Stop: 08/01/21 21:01 Phenobarbital (Phenobarbital 30 Mg Tablet) 30 mg PO DAILY [facility] Stop: 08/03/21 09:01 Prednisone (Prednisone 20 Mg Tablet) 40 mg PO DAILY [facility] Thiamine HCl (Thiamine Hcl 100 Mg Tablet) 100 mg PO DAILY [facility] Last Admin: 07/29/21 09:40 Dose: 100 mg Documented By: STEPHAN Tiotropium Milo (Tiotropium Milo 18 Mcg Cap.W.Dev) 1 puff INHALE RDAILY [facility] Tizanidine HCl (Tizanidine Hcl 4 Mg Tablet) 2 mg PO BID [facility] Last Admin: 07/29/21 09:39 Dose: 2 mg Documented By: STEPHAN Labs CBC & Chem 7: 07/29/21 05:55 07/29/21 05:55 Labs: Laboratory Results - last 24 hr 07/28/21 07/28/21 07/28/21 11:09 11:09 11:09 MCV 87.3 MCH 30.5 MCHC 34.9 RDW 12.7 Plt Count 250 MPV 9.0 L Immature Gran % (Auto) 0.8 H Neut % (Auto) 71.5 Lymph % (Auto) 16.3 L [place] % (Auto) 9.6 Eos % (Auto) 1.3 Baso % (Auto) 0.5 Lymph # (Auto) 1.5 [place] # (Auto) 0.9 Eos # (Auto) 0.1 Baso # (Auto) 0.1 Abs Immat Gran (auto) 0.08 H Absolute Neuts (auto) 6.8 Absolute Nucleated RBC 0.000 Nucleated RBC % (auto) 0.0 VBG pH VBG pCO2 VBG pO2 VBG HCO3 VBG O2 Saturation VBG Base Excess Anion Gap 18 Estim Creat Clear Calc 65.0 Estimated GFR 51 POC Glucose Random Glucose 511 H* Fasting Glucose Estimat Average Glucose Hemoglobin A1c % Lactic Acid Calcium 8.5 Total Bilirubin 0.6 Direct Bilirubin 0.3 AST 62 H ALT 50 H Alkaline Phosphatase 171 H Lactate Dehydrogenase 280 H B-Natriuretic Peptide Total Protein 6.7 Albumin 3.7 Amylase 204 H D Lipase 210 H Ethyl Alcohol < 10 Acetone, Qual COVID-19 ([facility]) COVID-19 Clin Com Influenza Type A ([facility]) Influenza Type B ([facility]) Influenza A & B Note 07/28/21 07/28/21 07/28/21 11:09 11:09 12:58 MCV MCH MCHC RDW Plt Count MPV Immature Gran % (Auto) Neut % (Auto) Lymph % (Auto) [place] % (Auto) Eos % (Auto) Baso % (Auto) Lymph # (Auto) [place] # (Auto) Eos # (Auto) Baso # (Auto) Abs Immat Gran (auto) Absolute Neuts (auto) Absolute Nucleated RBC Nucleated RBC % (auto) VBG pH VBG pCO2 VBG pO2 VBG HCO3 VBG O2 Saturation VBG Base Excess Anion Gap Estim Creat Clear Calc Estimated GFR POC Glucose Random Glucose Fasting Glucose Estimat Average Glucose 212 Hemoglobin A1c % 9.0 Lactic Acid Calcium Total Bilirubin Direct Bilirubin AST ALT Alkaline Phosphatase Lactate Dehydrogenase B-Natriuretic Peptide 14 Total Protein Albumin Amylase Lipase Ethyl Alcohol Acetone, Qual Negative COVID-19 ([facility]) COVID-19 Clin Com Influenza Type A ([facility]) Influenza Type B ([facility]) Influenza A & B Note 07/28/21 07/28/21 07/28/21 12:58 12:58 13:12 MCV MCH MCHC RDW Plt Count MPV Immature Gran % (Auto) Neut % (Auto) Lymph % (Auto) [place] % (Auto) Eos % (Auto) Baso % (Auto) Lymph # (Auto) [place] # (Auto) Eos # (Auto) Baso # (Auto) Abs Immat Gran (auto) Absolute Neuts (auto) Absolute Nucleated RBC Nucleated RBC % (auto) VBG pH VBG pCO2 VBG pO2 VBG HCO3 VBG O2 Saturation VBG Base Excess Anion Gap Estim Creat Clear Calc Estimated GFR POC Glucose Random Glucose Fasting Glucose Estimat Average Glucose Hemoglobin A1c % Lactic Acid 2.0 Calcium Total Bilirubin Direct Bilirubin AST ALT Alkaline Phosphatase Lactate Dehydrogenase B-Natriuretic Peptide Total Protein Albumin Amylase Lipase Ethyl Alcohol Acetone, Qual COVID-19 ([facility]) Negative COVID-19 Clin Com See Note Influenza Type A ([facility]) Negative Influenza Type B ([facility]) Negative Influenza A & B Note See Note 07/28/21 07/28/21 07/28/21 14:00 17:00 22:05 MCV MCH MCHC RDW Plt Count MPV Immature Gran % (Auto) Neut % (Auto) Lymph % (Auto) [place] % (Auto) Eos % (Auto) Baso % (Auto) Lymph # (Auto) [place] # (Auto) Eos # (Auto) Baso # (Auto) Abs Immat Gran (auto) Absolute Neuts (auto) Absolute Nucleated RBC Nucleated RBC % (auto) VBG pH 7.46 H VBG pCO2 44 VBG pO2 51 VBG HCO3 31 H VBG O2 Saturation 78.0 VBG Base Excess 6.9 Anion Gap Estim Creat Clear Calc Estimated GFR POC Glucose 441 H* 488 H* Random Glucose Fasting Glucose Estimat Average Glucose Hemoglobin A1c % Lactic Acid Calcium Total Bilirubin Direct Bilirubin AST ALT Alkaline Phosphatase Lactate Dehydrogenase B-Natriuretic Peptide Total Protein Albumin Amylase Lipase Ethyl Alcohol Acetone, Qual COVID-19 ([facility]) COVID-19 Clin Com Influenza Type A ([facility]) Influenza Type B ([facility]) Influenza A & B Note 07/29/21 07/29/21 05:55 05:55 MCV 89.5 MCH 30.2 MCHC 33.8 RDW 12.8 Plt Count 203 MPV 9.5 Immature Gran % (Auto) Neut % (Auto) Lymph % (Auto) [place] % (Auto) Eos % (Auto) Baso % (Auto) Lymph # (Auto) [place] # (Auto) Eos # (Auto) Baso # (Auto) Abs Immat Gran (auto) Absolute Neuts (auto) Absolute Nucleated RBC 0.000 Nucleated RBC % (auto) 0.0 VBG pH VBG pCO2 VBG pO2 VBG HCO3 VBG O2 Saturation VBG Base Excess Anion Gap 17 Estim Creat Clear Calc 119.4 Estimated GFR > 60 POC Glucose Random Glucose Fasting Glucose 342 H Estimat Average Glucose Hemoglobin A1c % Lactic Acid Calcium 8.5 Total Bilirubin Direct Bilirubin AST ALT Alkaline Phosphatase Lactate Dehydrogenase B-Natriuretic Peptide Total Protein Albumin Amylase Lipase 245 H Ethyl Alcohol Acetone, Qual COVID-19 ([facility]) COVID-19 Clin Com Influenza Type A ([facility]) Influenza Type B ([facility]) Influenza A & B Note Assessment and Plan (1) Acute pancreatitis: Status: Acute Plan Chief Complaint: abd pain 55M presented with abd pain Acute recurrent alcoholic pancreatitis continue Clear liquids IV Dilaudid Monitor electrolytes acute hypoxic respiratory failure due to copd with acute decompensation prednisone, bronchodilators Alcohol dependence with withdrawal Phenobarb CIWA Diabetes new onset with hyperglycemia Insulin, education, likely related to chronic pancreatitis Pseudohyponatremia Due to hyperglycemia RUSLAN Likely prerenal, resolved Alcoholic fatty liver disease Abstinence recommended dvt prophylaxis - lovenox full code reason for continued hospitalization: not tolerating po, hypoxic, uncontrolled blood sugars Quality Stroke Does the patient have a stroke diagnosis?: No VTE Prior VTE?: Yes VTE Risk Level:: Medical - moderate - high VTE Device Contraindication: Treatment Not Indicated VTE Drug Contraindication: N/A - Med Ordered
[2021-07-29] MEDS: Albuterol Sulfate (0.083%) 2.5 MG/3 ML VIAL.NEB INHALE ×2 (10:01→18:14)
[2021-07-29 10:02] VITALS: PULSE 89; RESP 16; O2SAT 94
[2021-07-29] MEDS: Fluticasone/Vilanterol 100/25 BLST.W.DEV 1 PUFF INHALE ×2 (10:04→10:17)
--- NOTE | 2021-07-29 11:19 | PC.NURSE ---
took over for omar, will administer am meds that were left
--- NOTE | 2021-07-29 12:10 | PC.NURSE ---
called pharmacy for 9am missing meds
--- NOTE | 2021-07-29 12:18 | PC.NURSE ---
patient a&ox3, quality assurance monitor final nsr 90s, vitals otherwise stable, pt requesting po- pt given gingerale and jello per order, call cherry within reach, will continue to monitor.
[2021-07-29 12:50] VITALS: BP 133/88; PULSE 94; RESP 16; TEMP 36.7; O2SAT 92
[2021-07-29] MEDS: predniSONE 20 MG TABLET 40 MG PO (12:56)
[2021-07-29] MEDS: Metoprolol Succinate ER 50 MG TAB.ER.24H PO (12:57)
--- NOTE | 2021-07-29 12:58 | PC.NURSE ---
pharmacy brought missing meds, pt medicated per order
[2021-07-29 16:09] VITALS: BP 132/92; PULSE 90; RESP 15; TEMP 36.5; O2SAT 92
--- NOTE | 2021-07-29 16:11 | PC.NURSE ---
patient accidentally pulled out IV to rt forearm, pt requested to not use his rt AC iv so he could bend his arm and wished to have his access restarted in his left, this nurse placed a 20g in pts left forearm.
[2021-07-29] MEDS: Enoxaparin Sodium 40 MG/0.4 ML SYRINGE SUBCUT (16:51)
--- NOTE | 2021-07-29 16:56 | PC.NURSE ---
patient a&ox3, family at bedside, pt c/o 09/28 abd pain, pt medicated for pain per order, medicated with other meds per order, cardiac tech intact- nsr, call cherry within reach, will continue to monitor
[2021-07-29 18:12] VITALS: PULSE 90; RESP 16; O2SAT 92
[2021-07-29] MEDS: Gabapentin 300 MG CAPSULE PO (20:08)
--- NOTE | 2021-07-29 20:39 | PC.NURSE ---
called pharmacy for missing meds
[2021-07-29] MEDS: Amitriptyline HCl 10 MG TABLET PO (21:09)
--- NOTE | 2021-07-29 21:32 | PC.NURSE ---
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
--- NOTE | 2021-07-29 22:48 | PC.NURSE ---
pt refused nicotine patch before bed as it gives him nightmares but would like it for the morning.
[2021-07-30] MEDS: HYDROmorphone HCl 1 MG/ML SYRINGE IVPUSH ×9 (00:14→20:35)
[2021-07-30] MEDS: Lactated Ringers 1,000 ML 150 ML IVCONT ×3 (02:08→15:32)
[2021-07-30] MEDS: Omeprazole 40 MG CAPSULE.DR PO (05:42)
[2021-07-30 06:09] VITALS: BP 148/99; PULSE 78; RESP 12; TEMP 36.9; O2SAT 92
[2021-07-30 07:02] LABS: Hematocrit 37.1 % (42.0-52.0); Hemoglobin 12.5 g/dl (14.0-18.0); Mean Corpuscular HGB Conc 33.7 g/dl (31.0-36.0); Mean Corpuscular Hemoglobin 30.5 pg (27.0-33.0); Mean Corpuscular Volume 90.5 fL (80.0-98.0); Mean Platelet Volume 9.5 fL (9.4-12.4); Platelet Count 186 X10*3/uL (160-400); Red Cell Distribution Width 12.6 % (11.0-16.0); White Blood Count 8.6 X10*3/uL (4.8-10.8)
[2021-07-30 07:11] LABS: Blood Urea Nitrogen 14 mg/dL (9-16); Calcium 8.4 mg/dL (8.4-10.2); Creatinine Clr Calc Pharmacy 142.9; Estimated Glomerular Filt Rate > 60; Glucose Fasting 161 mg/dL (60-99)
[2021-07-30 07:24] LABS: Glucose, Whole Blood 184 mg/dL (60-115)
[2021-07-30 07:25] LABS: Glucose, Whole Blood 344 mg/dL (60-115)
[2021-07-30 07:25] LABS: Glucose, Whole Blood 271 mg/dL (60-115)
[2021-07-30 07:25] LABS: Glucose, Whole Blood 357 mg/dL (60-115)
[2021-07-30 07:25] LABS: Glucose, Whole Blood 177 mg/dL (60-115)
[2021-07-30 07:29] LABS: Anion Gap 15 (12-20); Carbon Dioxide 26 mmol/L (22-29); Chloride 95 mmol/L (96-108); Potassium 3.2 mmol/L (3.3-5.1); Sodium 133 mmol/L (135-145)
[2021-07-30] MEDS: Insulin Lispro 100 UNIT/ML 3 ML VIAL SUBCUT ×3 (07:54→20:36)
[2021-07-30] MEDS: Insulin Glargine,Hum.rec.anlog 100 UNIT/ML 10 ML VIAL 15 UNIT SUBCUT (07:54)
[2021-07-30] MEDS: Thiamine HCL 100 MG TABLET PO (07:55)
[2021-07-30] MEDS: DULoxetine HCl 60 MG CAPSULE.DR PO (07:55)
[2021-07-30] MEDS: predniSONE 20 MG TABLET 40 MG PO (07:55)
[2021-07-30] MEDS: Metoprolol Succinate ER 50 MG TAB.ER.24H PO (07:55)
[2021-07-30] MEDS: Folic Acid 1 MG TABLET PO (07:55)
[2021-07-30] MEDS: Magnesium Oxide 400 MG TABLET PO ×2 (07:55→17:30)
[2021-07-30] MEDS: PHENobarbitaL 30 MG TABLET 60 MG PO ×2 (07:55→20:35)
[2021-07-30] MEDS: TiZANidine HCL 4 MG TABLET 2 MG PO ×2 (07:56→20:34)
[2021-07-30] MEDS: amLODIPine Besylate 10 MG TABLET PO (07:56)
[2021-07-30] MEDS: Multivitamin TABLET 1 TAB PO (07:56)
[2021-07-30 07:58] VITALS: BP 152/91; PULSE 87; RESP 28; TEMP 36.1; O2SAT 92
[2021-07-30] MEDS: Nicotine 21 MG PATCH.TD24 TRANSDERMA (07:59)
[2021-07-30] MEDS: Fluticasone/Vilanterol 100/25 BLST.W.DEV 1 PUFF INHALE ×2 (08:08→09:02)
--- NOTE | 2021-07-30 11:17 | P.PNIM_ITS ---
Subjective Subjective Date of Service: 07/30/21 Interval History: cc: abd pain interval history:sob, continued abd pain Gastrointestinal Gastrointestinal: Reports no additional gastrointestinal complaints Genitourinary Genitourinary: Reports no additional male genitourinary complaints Physical Exam Vital Signs: Vital Signs: Last Vital Signs Temp 97 F 07/30/21 07:58 Pulse 87 07/30/21 07:58 Resp 28 H 07/30/21 07:58 BP 152/91 H 07/30/21 07:58 Pulse Ox 92 07/30/21 07:58 O2 Del Method 07/30/21 07:58 O2 Flow Rate 2 07/30/21 07:58 BMI result Body Mass Index 26.4 General: AO X 3, no acute distress Resp: wheezing bilateral, no accessory muscles used CVS: S1,S2,RRR GI: soft, tender, non distended Neuro: motor grossly intact, alert Psych: appropriate affect, appropriate insight Objective Data Active Medications Albuterol Sulfate (Albuterol Sulfate (0.083%) 2.5 Mg/3 Ml Vial.Neb) 2.5 mg INHALE Q4H PRN PRN Reason: wheezing Last Admin: 07/29/21 18:14 Dose: 2.5 mg Documented By: MARISEL Amitriptyline HCl (Amitriptyline Hcl 10 Mg Tablet) 10 mg PO BEDTIME [facility] Last Admin: 07/29/21 21:09 Dose: 10 mg Documented By: NISA Amlodipine Besylate (Amlodipine Besylate 10 Mg Tablet) 10 mg PO DAILY [facility]; Protocol Last Admin: 07/30/21 07:56 Dose: 10 mg Documented By: CHERYL Dextrose (Dextrose 50 % 25 Gm/50 Ml Syringe) 25 gm IVPUSH Q15M PRN; Protocol PRN Reason: per Hypoglycemia Standing Ord. Duloxetine HCl (Duloxetine Hcl 60 Mg Capsule.Dr) 60 mg PO DAILY [facility] Last Admin: 07/30/21 07:55 Dose: 60 mg Documented By: CHERYL Enoxaparin Sodium (Enoxaparin Sodium 40 Mg/0.4 Ml Syringe) 40 mg SUBCUT Q24H [facility] Last Admin: 07/29/21 16:51 Dose: 40 mg Documented By: NISA Fluticasone/Vilanterol (Fluticasone/Vilanterol 100/[address]) 1 puff INHALE RDAILY COUNT INCLUDES [facility] Last Admin: 07/30/21 09:02 Dose: 1 puff Documented By: KENY Folic Acid (Folic Acid 1 Mg Tablet) 1 mg PO DAILY COUNT [facility]CLUDES [facility] Last Admin: 07/30/21 07:55 Dose: 1 mg Documented By: CHERYL Gabapentin (Gabapentin 300 Mg Capsule) 300 mg PO BEDTIME COUNT INCLUDES [facility] Last Admin: 07/29/21 20:08 Dose: 300 mg Documented By: YOJANA Glucose (Glucose Gel 15 Gm Gel..Gram.) 15 gm PO Q15M PRN; Protocol PRN Reason: per Hypoglycemia Standing Ord. Hydromorphone HCl (Hydromorphone Hcl 1 Mg/Ml Syringe) 1 mg IVPUSH Q2H PRN; Protocol PRN Reason: moderate pain Last Admin: 07/30/21 07:54 Dose: 1 mg Documented By: CHERYL Hydroxyzine HCl (Hydroxyzine Hcl 25 Mg Tablet) 25 mg PO Q8H PRN PRN Reason: anxiety Lactated Ringer's (Lr) 1,000 mls @ 150 mls/hr IVCONT .Q6H40M COUNT INCLUDES [facility] Last Admin: 07/30/21 07:52 Dose: 150 mls/hr Documented By: CHERYL Insulin Glargine (Insulin Glargine,Hum.Rec.Anlog 100 Unit/Ml 10 Ml Vial) 15 un it SUBCUT DAILY COUNT [facility]CLUDES [facility] Last Admin: 07/30/21 07:54 Dose: 15 unit Documented By: CHERYL Insulin Human Lispro (Insulin Lispro 100 Unit/Ml 3 Ml Vial) 0 unit SUBCUT QIDACHS COUNT INCLUDES THE [facility]; Protocol Last Admin: 07/30/21 07:54 Dose: 2 unit Documented By: CHERYL Magnesium Oxide (Magnesium Oxide 400 Mg Tablet) 400 mg PO BIDPC COUNT INCLUDES THE [facility] Last Admin: 07/30/21 07:55 Dose: 400 mg Documented By: CHERYL Metoprolol Succinate (Metoprolol Succinate Er 50 Mg Tab.Er.24h) 50 mg PO DAILY COUNT [facility]CLUDES [facility]; Protocol Last Admin: 07/30/21 07:55 Dose: 50 mg Documented By: CHERYL Multivitamins/Vitamin C (Multivitamin Tablet) 1 tab PO DAILY COUNT [facility]CLUD[facility] Last Admin: 07/30/21 07:56 Dose: 1 tab Documented By: CHERYL Nicotine (Nicotine 21 Mg Patch.Td24) 21 mg TRANSDERMA DAILY COUNT INCLUDES [facility] Last Admin: 07/30/21 07:59 Dose: 21 mg Documented By: CHERYL Omeprazole (Omeprazole 40 Mg Capsule.Dr) 40 mg PO DAILY@0630 COUNT [facility]CLUD[facility] Last Admin: 07/30/21 05:42 Dose: 40 mg Documented By: KEI Pharmacy Consult (Consult Rx Perform Med Rec) 1 each MISCELLANE ONCE PRN PRN Reason: Consult order Pharmacy Consult (Consult Rx Etoh Phenob Po Dose) 1 each MISCELLANE ONCE PRN; Protocol PRN Reason: Consult order Phenobarbital (Phenobarbital 30 Mg Tablet) 60 mg PO BID COUNT [facility]CLUD[facility] Stop: 07/30/21 21:01 Last Admin: 07/30/21 07:55 Dose: 60 mg Documented By: CHERYL Phenobarbital (Phenobarbital 30 Mg Tablet) 30 mg PO BID COUNT [facility]CLUD[facility] Stop: 08/01/21 21:01 Phenobarbital (Phenobarbital 30 Mg Tablet) 30 mg PO DAILY COUNT [facility]CLUD[facility] Stop: 08/03/21 09:01 Prednisone (Prednisone 20 Mg Tablet) 40 mg PO DAILY COUNT [facility]CLUDES [facility] Last Admin: 07/30/21 07:55 Dose: 40 mg Documented By: CHERYL Thiamine HCl (Thiamine Hcl 100 Mg Tablet) 100 mg PO DAILY COUNT INCLUDES [facility] Last Admin: 07/30/21 07:55 Dose: 100 mg Documented By: CHERYL Tiotropium [place] (Tiotropium [place] 18 Mcg Cap.W.Dev) 1 puff INHALE RDAILY COUNT INCLUDES [facility] Last Admin: 07/30/21 07:53 Dose: 1 puff Documented By: CHERYL Tizanidine HCl (Tizanidine Hcl 4 Mg Tablet) 2 mg PO BID COUNT INCLUDES [facility] Last Admin: 07/30/21 07:56 Dose: 2 mg Documented By: CHERYL Labs CBC & Chem 7: 07/30/21 06:01 07/30/21 06:01 Labs: Laboratory Results - last 24 hr 07/29/21 07/29/21 07/29/21 08:00 13:26 16:44 MCV MCH MCHC RDW Plt Count MPV Absolute Nucleated RBC Nucleated RBC % (auto) Anion Gap Estim Creat Clear Calc Estimated GFR POC Glucose 357 H* 271 H 184 H Fasting Glucose Calcium 07/29/21 07/30/21 07/30/21 21:45 06:01 06:01 MCV 90.5 MCH 30.5 MCHC 33.7 RDW 12.6 Plt Count 186 MPV 9.5 Absolute Nucleated RBC 0.000 Nucleated RBC % (auto) 0.0 Anion Gap 15 Estim Creat Clear Calc 142.9 Estimated GFR > 60 POC Glucose 344 H Fasting Glucose 161 H D Calcium 8.4 07/30/21 07:21 MCV MCH MCHC RDW Plt Count MPV Absolute Nucleated RBC Nucleated RBC % (auto) Anion Gap Estim Creat Clear Calc Estimated GFR POC Glucose 177 H Fasting Glucose Calcium Microbiology Microbiology Results: Microbiology 07/28/21 13:12 Blood Culture - Preliminary Blood - Venous No growth after 24 hours. 07/28/21 12:58 Blood Culture - Preliminary Blood - Venous No growth after 24 hours. Assessment and Plan (1) Acute pancreatitis: Status: Acute Plan Chief Complaint: abd pain 55M presented with abd pain Acute recurrent alcoholic pancreatitis continue Clear liquids, not interested in solids yet IV Dilaudid Monitor electrolytes acute hypoxic respiratory failure due to copd with acute decompensation prednisone, bronchodilators Alcohol dependence with withdrawal Phenobarb CIWA hypokalemia replace, monitor Diabetes new onset with hyperglycemia Insulin, education, likely related to chronic pancreatitis Pseudohyponatremia Due to hyperglycemia RUSLAN Likely prerenal, resolved Alcoholic fatty liver disease Abstinence recommended dvt prophylaxis - lovenox full code reason for continued hospitalization: not tolerating po, hypoxic, uncontrolled blood sugars Quality Stroke Does the patient have a stroke diagnosis?: No VTE Prior VTE?: Yes VTE Risk Level:: Medical - moderate - high VTE Device Contraindication: Treatment Not Indicated VTE Drug Contraindication: N/A - Med Ordered
[2021-07-30 12:00] LABS: Glucose, Whole Blood 152 mg/dL (60-115)
[2021-07-30 14:09] VITALS: BP 157/92; PULSE 94; RESP 21; TEMP 36.7; O2SAT 93
[2021-07-30] MEDS: hydrOXYzine HCL 25 MG TABLET PO (15:32)
[2021-07-30] MEDS: Enoxaparin Sodium 40 MG/0.4 ML SYRINGE SUBCUT (17:30)
[2021-07-30 17:39] LABS: Glucose, Whole Blood 139 mg/dL (60-115)
[2021-07-30 17:48] VITALS: BP 138/96; PULSE 85; RESP 16; TEMP 36.1; O2SAT 92
[2021-07-30 20:27] VITALS: BP 164/100; PULSE 92; RESP 16; TEMP 36.8; O2SAT 92
[2021-07-30 20:33] LABS: Glucose, Whole Blood 156 mg/dL (60-115)
[2021-07-30] MEDS: Gabapentin 300 MG CAPSULE PO (20:36)
[2021-07-31] VITALS (14 sets, daily range): BP systolic 122–169; BP diastolic 71–105; PULSE 78–91; RESP 12–20; TEMP 36–36.8; O2SAT 92–97
[2021-07-31] MEDS: HYDROmorphone HCl 1 MG/ML SYRINGE IVPUSH ×10 (01:08→23:33)
[2021-07-31 01:28] LABS: Glucose, Whole Blood 77 mg/dL (60-115)
[2021-07-31] MEDS: Lactated Ringers 1,000 ML 150 ML IVCONT ×4 (03:55→21:25)
[2021-07-31] MEDS: Omeprazole 40 MG CAPSULE.DR PO (05:44)
[2021-07-31 07:07] LABS: Glucose, Whole Blood 139 mg/dL (60-115)
[2021-07-31 07:07] LABS: Hematocrit 36.2 % (42.0-52.0); Hemoglobin 12.2 g/dl (14.0-18.0); Mean Corpuscular HGB Conc 33.7 g/dl (31.0-36.0); Mean Corpuscular Hemoglobin 30.7 pg (27.0-33.0); Mean Corpuscular Volume 91.2 fL (80.0-98.0); Mean Platelet Volume 9.8 fL (9.4-12.4); Platelet Count 183 X10*3/uL (160-400); Red Blood Count 3.97 X10*6/uL (4.60-5.80); Red Cell Distribution Width 12.8 % (11.0-16.0); White Blood Count 8.2 X10*3/uL (4.8-10.8)
[2021-07-31 07:21] LABS: Anion Gap 13 (12-20); Blood Urea Nitrogen 11 mg/dL (9-16); Calcium 8.4 mg/dL (8.4-10.2); Carbon Dioxide 26 mmol/L (22-29); Chloride 96 mmol/L (96-108); Creatinine Clr Calc Pharmacy 142.9; Estimated Glomerular Filt Rate > 60; Glucose Fasting 128 mg/dL (60-99); Potassium 3.1 mmol/L (3.3-5.1); Sodium 132 mmol/L (135-145)
[2021-07-31] MEDS: Fluticasone/Vilanterol 100/25 BLST.W.DEV 1 PUFF INHALE ×2 (08:28→08:32)
[2021-07-31] MEDS: Potassium Chloride ER 20 MEQ TAB.ER.PRT 40 MEQ PO (08:46)
[2021-07-31] MEDS: Thiamine HCL 100 MG TABLET PO (08:48)
[2021-07-31] MEDS: amLODIPine Besylate 10 MG TABLET PO (08:48)
[2021-07-31] MEDS: Insulin Glargine,Hum.rec.anlog 100 UNIT/ML 10 ML VIAL 15 UNIT SUBCUT (08:48)
[2021-07-31] MEDS: PHENobarbitaL 30 MG TABLET PO ×2 (08:48→21:26)
[2021-07-31] MEDS: DULoxetine HCl 60 MG CAPSULE.DR PO (08:49)
[2021-07-31] MEDS: Multivitamin TABLET 1 TAB PO (08:49)
[2021-07-31] MEDS: predniSONE 20 MG TABLET 40 MG PO (08:49)
[2021-07-31] MEDS: Nicotine 21 MG PATCH.TD24 TRANSDERMA (08:49)
[2021-07-31] MEDS: Metoprolol Succinate ER 50 MG TAB.ER.24H PO (08:49)
[2021-07-31] MEDS: TiZANidine HCL 4 MG TABLET 2 MG PO ×2 (08:49→21:25)
[2021-07-31] MEDS: Folic Acid 1 MG TABLET PO (08:49)
[2021-07-31] MEDS: Magnesium Oxide 400 MG TABLET PO ×2 (09:01→16:55)
--- NOTE | 2021-07-31 10:50 | HO.PM.IMPN ---
Subjective Subjective Date of Service: 07/31/21 Interval History: cc: abd interval history:worsening pain this morning Cardiovascular Cardiovascular: Reports no additional cardiovascular complaints Respiratory Respiratory: Reports no additional respiratory complaints Physical Exam Vital Signs: Vital Signs: Last Vital Signs Temp 96.8 F 07/31/21 03:49 Pulse 85 07/31/21 08:29 Resp 16 07/31/21 08:29 BP 126/71 07/31/21 07:53 Pulse Ox 94 07/31/21 07:53 O2 Del Method 07/31/21 07:53 O2 Flow Rate 2 07/31/21 07:53 BMI result Body Mass Index 26.4 General: AO X 3, no acute distress Resp: wheezing bilateral, no accessory muscles used CVS: S1,S2,RRR GI: soft, tender, non distended Neuro: motor grossly intact, alert Psych: appropriate affect, appropriate insight Objective Data Active Medications Albuterol Sulfate (Albuterol Sulfate (0.083%) 2.5 Mg/3 Ml Vial.Neb) 2.5 mg INHALE Q4H PRN PRN Reason: wheezing Last Admin: 07/29/21 18:14 Dose: 2.5 mg Documented By: MARISEL Amitriptyline HCl (Amitriptyline Hcl 10 Mg Tablet) 10 mg PO BEDTIME [facility] Last Admin: 07/30/21 21:17 Dose: Not Given Documented By: AVERY Non-Admin Reason: Med Not Available Amlodipine Besylate (Amlodipine Besylate 10 Mg Tablet) 10 mg PO DAILY [facility]; Protocol Last Admin: 07/31/21 08:48 Dose: 10 mg Documented By: CHERYL Dextrose (Dextrose 50 % 25 Gm/50 Ml Syringe) 25 gm IVPUSH Q15M PRN; Protocol PRN Reason: per Hypoglycemia Standing Ord. Duloxetine HCl (Duloxetine Hcl 60 Mg Capsule.Dr) 60 mg PO DAILY [facility] Last Admin: 07/31/21 08:49 Dose: 60 mg Documented By: CHERYL Enoxaparin Sodium (Enoxaparin Sodium 40 Mg/0.4 Ml Syringe) 40 mg SUBCUT Q24H [facility] Last Admin: 07/30/21 17:30 Dose: 40 mg Documented By: CHERYL Fluticasone/Vilanterol (Fluticasone/Vilanterol 100/25 Blst.W.Dev) 1 puff INHALE RDAILY [facility] Last Admin: 07/31/21 08:32 Dose: 1 puff Documented By: JANIS Folic Acid (Folic Acid 1 Mg Tablet) 1 mg PO DAILY [facility] Last Admin: 07/31/21 08:49 Dose: 1 mg Documented By: CHERYL Gabapentin (Gabapentin 300 Mg Capsule) 300 mg PO BEDTIME [facility] Last Admin: 07/30/21 20:36 Dose: 300 mg Documented By: AVERY Glucose (Glucose Gel 15 Gm Gel..Gram.) 15 gm PO Q15M PRN; Protocol PRN Reason: per Hypoglycemia Standing Ord. Hydromorphone HCl (Hydromorphone Hcl 1 Mg/Ml Syringe) 1 mg IVPUSH Q2H PRN; Protocol PRN Reason: moderate pain Last Admin: 07/31/21 08:46 Dose: 1 mg Documented By: CHERYL Hydroxyzine HCl (Hydroxyzine Hcl 25 Mg Tablet) 25 mg PO Q8H PRN PRN Reason: anxiety Last Admin: 07/30/21 15:32 Dose: 25 mg Documented By: CHERYL Lactated Ringer's (Lr) 1,000 mls @ 150 mls/hr IVCONT .Q6H40M [facility] Last Admin: 07/31/21 03:55 Dose: 150 mls/hr Documented By: YANI Insulin Glargine (Insulin Glargine,Hum.Rec.Anlog 100 Unit/Ml 10 Ml Vial) 15 unit SUBCUT DAILY [facility] Last Admin: 07/31/21 08:48 Dose: 15 unit Documented By: CHERYL Insulin Human Lispro (Insulin Lispro 100 Unit/Ml 3 Ml Vial) 0 unit SUBCUT QIDACHS [facility]; Protocol Last Admin: 07/31/21 07:37 Dose: Not Given Documented By: CHERYL Non-Admin Reason: No Insulin Coverage Magnesium Oxide (Magnesium Oxide 400 Mg Tablet) 400 mg PO BIDPC [facility] Last Admin: 07/31/21 09:01 Dose: 400 mg Documented By: CHERYL Metoprolol Succinate (Metoprolol Succinate Er 50 Mg Tab.Er.24h) 50 mg PO DAILY [facility]; Protocol Last Admin: 07/31/21 08:49 Dose: 50 mg Documented By: CHERYL Multivitamins/Vitamin C (Multivitamin Tablet) 1 tab PO DAILY [facility] Last Admin: 07/31/21 08:49 Dose: 1 tab Documented By: CHERYL Nicotine (Nicotine 21 Mg Patch.Td24) 21 mg TRANSDERMA DAILY [facility] Last Admin: 07/31/21 08:49 Dose: 21 mg Documented By: CHERYL Omeprazole (Omeprazole 40 Mg Capsule.Dr) 40 mg PO DAILY@0630 [facility] Last Admin: 07/31/21 05:44 Dose: 40 mg Documented By: YANI Pharmacy Consult (Consult Rx Perform Med Rec) 1 each MISCELLANE ONCE PRN PRN Reason: Consult order Pharmacy Consult (Consult Rx Etoh Phenob Po Dose) 1 each MISCELLANE ONCE PRN; Protocol PRN Reason: Consult order Phenobarbital (Phenobarbital 30 Mg Tablet) 30 mg PO BID [facility] Stop: 08/01/21 21:01 Last Admin: 07/31/21 08:48 Dose: 30 mg Documented By: CHERYL Phenobarbital (Phenobarbital 30 Mg Tablet) 30 mg PO DAILY [facility] Stop: 08/03/21 09:01 Prednisone (Prednisone 20 Mg Tablet) 40 mg PO DAILY [facility] Last Admin: 07/31/21 08:49 Dose: 40 mg Documented By: CHERYL Thiamine HCl (Thiamine Hcl 100 Mg Tablet) 100 mg PO DAILY [facility] Last Admin: 07/31/21 08:48 Dose: 100 mg Documented By: CHERYL Tiotropium Cornucopia (Tiotropium Cornucopia 18 Mcg Cap.W.Dev) 1 puff INHALE RDAILY [facility] Last Admin: 07/31/21 08:28 Dose: 1 puff Documented By: JANIS Tizanidine HCl (Tizanidine Hcl 4 Mg Tablet) 2 mg PO BID [facility] Last Admin: 07/31/21 08:49 Dose: 2 mg Documented By: CHERYL Labs CBC & Chem 7: 07/31/21 06:14 07/31/21 06:14 Labs: Laboratory Results - last 24 hr 07/30/21 07/30/21 07/30/21 11:50 17:33 20:25 MCV MCH MCHC RDW Plt Count MPV Absolute Nucleated RBC Nucleated RBC % (auto) Anion Gap Estim Creat Clear Calc Estimated GFR POC Glucose 152 H 139 H 156 H Fasting Glucose Calcium 07/31/21 07/31/21 07/31/21 01:04 06:14 06:14 MCV 91.2 MCH 30.7 MCHC 33.7 RDW 12.8 Plt Count 183 MPV 9.8 Absolute Nucleated RBC 0.000 Nucleated RBC % (auto) 0.0 Anion Gap 13 Estim Creat Clear Calc 142.9 Estimated GFR > 60 POC Glucose 77 Fasting Glucose 128 H Calcium 8.4 07/31/21 07:03 MCV MCH MCHC RDW Plt Count MPV Absolute Nucleated RBC Nucleated RBC % (auto) Anion Gap Estim Creat Clear Calc Estimated GFR POC Glucose 139 H Fasting Glucose Calcium Microbiology Microbiology Results: Microbiology 07/28/21 13:12 Blood Culture - Preliminary Blood - Venous No growth after 48 hours. 07/28/21 12:58 Blood Culture - Preliminary Blood - Venous No growth after 48 hours. Assessment and Plan (1) Acute pancreatitis: Status: Acute Plan Chief Complaint: abd pain 55M presented with abd pain Acute recurrent alcoholic pancreatitis not tolerating clears, worse pain today, check repeat CT abd IV Dilaudid Monitor electrolytes acute hypoxic respiratory failure due to copd with acute decompensation prednisone, bronchodilators Alcohol dependence with withdrawal Phenobarb CIWA hypokalemia replace, monitor Diabetes new onset with hyperglycemia Insulin, education, likely related to chronic pancreatitis RULSAN Likely prerenal, resolved Alcoholic fatty liver disease Abstinence recommended dvt prophylaxis - lovenox full code reason for continued hospitalization: not tolerating po, hypoxic, Quality Stroke Does the patient have a stroke diagnosis?: No VTE Prior VTE?: Yes VTE Risk Level:: Medical - moderate - high VTE Device Contraindication: Treatment Not Indicated VTE Drug Contraindication: N/A - Med Ordered
[2021-07-31 12:56] LABS: Glucose, Whole Blood 141 mg/dL (60-115)
[2021-07-31 15:34] LABS: Glucose, Whole Blood 204 mg/dL (60-115)
[2021-07-31] MEDS: Enoxaparin Sodium 40 MG/0.4 ML SYRINGE SUBCUT (16:55)
[2021-07-31] MEDS: Insulin Lispro 100 UNIT/ML 3 ML VIAL SUBCUT (16:55)
[2021-07-31] MEDS: Albuterol Sulfate (0.083%) 2.5 MG/3 ML VIAL.NEB INHALE (18:16)
[2021-07-31 19:20] LABS: Glucose, Whole Blood 109 mg/dL (60-115)
[2021-07-31] MEDS: Amitriptyline HCl 10 MG TABLET PO (21:26)
[2021-07-31] MEDS: Gabapentin 300 MG CAPSULE PO (21:26)
[2021-08-01] VITALS (9 sets, daily range): BP systolic 126–164; BP diastolic 66–98; PULSE 63–91; RESP 16–20; TEMP 36.2–37.2; O2SAT 92–99
[2021-08-01] MEDS: HYDROmorphone HCl 1 MG/ML SYRINGE IVPUSH ×10 (03:13→23:55)
[2021-08-01] MEDS: Lactated Ringers 1,000 ML 150 ML IVCONT ×4 (03:15→23:59)
[2021-08-01] MEDS: Omeprazole 40 MG CAPSULE.DR PO (05:40)
[2021-08-01 06:18] LABS: Hematocrit 34.3 % (42.0-52.0); Hemoglobin 11.2 g/dl (14.0-18.0); Mean Corpuscular HGB Conc 32.7 g/dl (31.0-36.0); Mean Corpuscular Hemoglobin 29.8 pg (27.0-33.0); Mean Corpuscular Volume 91.2 fL (80.0-98.0); Mean Platelet Volume 9.9 fL (9.4-12.4); Platelet Count 160 X10*3/uL (160-400); Red Blood Count 3.76 X10*6/uL (4.60-5.80); Red Cell Distribution Width 12.7 % (11.0-16.0); White Blood Count 7.9 X10*3/uL (4.8-10.8)
[2021-08-01 07:07] LABS: Alanine Aminotransferase 78 U/L (0-40); Alkaline Phosphatase 212 U/L (39-117); Anion Gap 13 (12-20); Aspartate Amino Transferase 51 U/L (5-37); Bilirubin Direct 0.3 mg/dL (0.0-0.5); Bilirubin Total 0.5 mg/dL (0.0-1.0); Blood Urea Nitrogen 6 mg/dL (9-16); Calcium 8.1 mg/dL (8.4-10.2); Carbon Dioxide 25 mmol/L (22-29); Chloride 100 mmol/L (96-108); Creatinine Clr Calc Pharmacy 152.1; Estimated Glomerular Filt Rate > 60; Glucose Fasting 105 mg/dL (60-99); Lipase 65 U/L (8-78); Potassium 3.1 mmol/L (3.3-5.1); Sodium 135 mmol/L (135-145)
[2021-08-01 07:18] LABS: Albumin Level 3.1 g/dL (3.5-5.0); Total Protein 5.3 g/dL (6.5-8.0)
[2021-08-01] MEDS: Nicotine 21 MG PATCH.TD24 TRANSDERMA (08:03)
[2021-08-01 08:04] LABS: Glucose, Whole Blood 114 mg/dL (60-115)
[2021-08-01] MEDS: amLODIPine Besylate 10 MG TABLET PO (08:06)
[2021-08-01] MEDS: Multivitamin TABLET 1 TAB PO (08:06)
[2021-08-01] MEDS: predniSONE 20 MG TABLET 40 MG PO (08:07)
[2021-08-01] MEDS: Thiamine HCL 100 MG TABLET PO (08:07)
[2021-08-01] MEDS: PHENobarbitaL 30 MG TABLET PO ×2 (08:07→19:38)
[2021-08-01] MEDS: TiZANidine HCL 4 MG TABLET 2 MG PO ×2 (08:07→19:38)
[2021-08-01] MEDS: DULoxetine HCl 60 MG CAPSULE.DR PO (08:07)
[2021-08-01] MEDS: Magnesium Oxide 400 MG TABLET PO ×2 (08:07→17:23)
[2021-08-01] MEDS: Metoprolol Succinate ER 50 MG TAB.ER.24H PO (08:07)
[2021-08-01] MEDS: Folic Acid 1 MG TABLET PO (08:07)
[2021-08-01] MEDS: Potassium Chloride ER 20 MEQ TAB.ER.PRT 40 MEQ PO (08:09)
[2021-08-01] MEDS: Fluticasone/Vilanterol 100/25 BLST.W.DEV 1 PUFF INHALE (08:11)
--- NOTE | 2021-08-01 09:05 | P.PNIM_ITS ---
Subjective Subjective Date of Service: 08/01/21 Interval History: cc: abd pain interval history:overall improved today, still with sob and abd pain Cardiovascular Cardiovascular: Reports no additional cardiovascular complaints Respiratory Respiratory: Reports no additional respiratory complaints Physical Exam Vital Signs: Vital Signs: Last Vital Signs Temp 98.5 F 08/01/21 07:31 Pulse 91 08/01/21 08:07 Resp 17 08/01/21 07:31 BP 164/89 H 08/01/21 07:31 Pulse Ox 92 08/01/21 07:31 O2 Del Method 08/01/21 07:31 O2 Flow Rate 2 08/01/21 07:31 BMI result Body Mass Index 26.4 General: AO X 3, no acute distress Resp: wheezing bilateral, no accessory muscles used CVS: S1,S2,RRR GI: soft, tender, non distended Neuro: motor grossly intact, alert Psych: appropriate affect, appropriate insight Objective Data Active Medications Albuterol Sulfate (Albuterol Sulfate (0.083%) 2.5 Mg/3 Ml Vial.Neb) 2.5 mg INHALE Q4H PRN PRN Reason: wheezing Last Admin: 07/31/21 18:16 Dose: 2.5 mg Documented By: LEXX Amitriptyline HCl (Amitriptyline Hcl 10 Mg Tablet) 10 mg PO BEDTIME [facility] Last Admin: 07/31/21 21:26 Dose: 10 mg Documented By: BELL Amlodipine Besylate (Amlodipine Besylate 10 Mg Tablet) 10 mg PO DAILY [facility]; Protocol Last Admin: 08/01/21 08:06 Dose: 10 mg Documented By: TERRI Dextrose (Dextrose 50 % 25 Gm/50 Ml Syringe) 25 gm IVPUSH Q15M PRN; Protocol PRN Reason: per Hypoglycemia Standing Ord. Duloxetine HCl (Duloxetine Hcl 60 Mg Capsule.Dr) 60 mg PO DAILY [facility] Last Admin: 08/01/21 08:07 Dose: 60 mg Documented By: TERRI Enoxaparin Sodium (Enoxaparin Sodium 40 Mg/0.4 Ml Syringe) 40 mg SUBCUT Q24H [facility] Last Admin: 07/31/21 16:55 Dose: 40 mg Documented By: RAUL Fluticasone/Vilanterol (Fluticasone/Vilanterol 100/25 Blst.W.Dev) 1 puff INHALE RDAILY [facility] Last Admin: 08/01/21 08:11 Dose: 1 puff Documented By: ZACK Folic Acid (Folic Acid 1 Mg Tablet) 1 mg PO DAILY [facility] Last Admin: 08/01/21 08:07 Dose: 1 mg Documented By: TERRI Gabapentin (Gabapentin 300 Mg Capsule) 300 mg PO BEDTIME [facility] Last Admin: 07/31/21 21:26 Dose: 300 mg Documented By: BELL Glucose (Glucose Gel 15 Gm Gel..Gram.) 15 gm PO Q15M PRN; Protocol PRN Reason: per Hypoglycemia Standing Ord. Hydromorphone HCl (Hydromorphone Hcl 1 Mg/Ml Syringe) 1 mg IVPUSH Q2H PRN; Protocol PRN Reason: moderate pain Last Admin: 08/01/21 08:03 Dose: 1 mg Documented By: TERRI Hydroxyzine HCl (Hydroxyzine Hcl 25 Mg Tablet) 25 mg PO Q8H PRN PRN Reason: anxiety Last Admin: 07/30/21 15:32 Dose: 25 mg Documented By: CHERYL Lactated Ringer's (Lr) 1,000 mls @ 150 mls/hr IVCONT .Q6H40M [facility] Last Admin: 08/01/21 03:15 Dose: 150 mls/hr Documented By: BELL Insulin Glargine (Insulin Glargine,Hum.Rec.Anlog 100 Unit/Ml 10 Ml Vial) 15 unit SUBCUT DAILY [facility] Last Admin: 07/31/21 08:48 Dose: 15 unit Documented By: CHERYL Insulin Human Lispro (Insulin Lispro 100 Unit/Ml 3 Ml Vial) 0 unit SUBCUT QIDACHS [facility]; Protocol Last Admin: 08/01/21 08:10 Dose: Not Given Documented By: TERRI Non-Admin Reason: No Insulin Coverage Magnesium Oxide (Magnesium Oxide 400 Mg Tablet) 400 mg PO BIDPC [facility] Last Admin: 08/01/21 08:07 Dose: 400 mg Documented By: TERRI Metoprolol Succinate (Metoprolol Succinate Er 50 Mg Tab.Er.24h) 50 mg PO DAILY [facility]; Protocol Last Admin: 08/01/21 08:07 Dose: 50 mg Documented By: TERRI Multivitamins/Vitamin C (Multivitamin Tablet) 1 tab PO DAILY [facility] Last Admin: 08/01/21 08:06 Dose: 1 tab Documented By: TERRI Nicotine (Nicotine 21 Mg Patch.Td24) 21 mg TRANSDERMA DAILY [facility] Last Admin: 08/01/21 08:03 Dose: 21 mg Documented By: TERRI Omeprazole (Omeprazole 40 Mg Capsule.Dr) 40 mg PO DAILY@0630 [facility] Last Admin: 08/01/21 05:40 Dose: 40 mg Documented By: BELL Pharmacy Consult (Consult Rx Perform Med Rec) 1 each MISCELLANE ONCE PRN PRN Reason: Consult order Pharmacy Consult (Consult Rx Etoh Phenob Po Dose) 1 each MISCELLANE ONCE PRN; Protocol PRN Reason: Consult order Phenobarbital (Phenobarbital 30 Mg Tablet) 30 mg PO BID [facility] Stop: 08/01/21 21:01 Last Admin: 08/01/21 08:07 Dose: 30 mg Documented By: TERRI Phenobarbital (Phenobarbital 30 Mg Tablet) 30 mg PO DAILY [facility] Stop: 08/03/21 09:01 Prednisone (Prednisone 20 Mg Tablet) 40 mg PO DAILY [facility] Last Admin: 08/01/21 08:07 Dose: 40 mg Documented By: TERRI Thiamine HCl (Thiamine Hcl 100 Mg Tablet) 100 mg PO DAILY [facility] Last Admin: 08/01/21 08:07 Dose: 100 mg Documented By: TERRI Tiotropium Halma (Tiotropium Halma 18 Mcg Cap.W.Dev) 1 puff INHALE RDAILY [facility] Last Admin: 08/01/21 08:00 Dose: 1 puff Documented By: ZACK Tizanidine HCl (Tizanidine Hcl 4 Mg Tablet) 2 mg PO BID [facility] Last Admin: 08/01/21 08:07 Dose: 2 mg Documented By: TERRI Labs CBC & Chem 7: 08/01/21 05:33 08/01/21 05:33 Labs: Laboratory Results - last 24 hr 07/31/21 07/31/21 07/31/21 12:25 15:04 18:48 MCV MCH MCHC RDW Plt Count MPV Absolute Nucleated RBC Nucleated RBC % (auto) Anion Gap Estim Creat Clear Calc Estimated GFR POC Glucose 141 H 204 H 109 Fasting Glucose Calcium Total Bilirubin Direct Bilirubin AST ALT Alkaline Phosphatase Total Protein Albumin Lipase 08/01/21 08/01/2108/01/22 05:33 05:33 08:00 MCV 91.2 MCH 29.8 MCHC 32.7 RDW 12.7 Plt Count 160 MPV 9.9 Absolute Nucleated RBC 0.000 Nucleated RBC % (auto) 0.0 Anion Gap 13 Estim Creat Clear Calc 152.1 Estimated GFR > 60 POC Glucose 114 Fasting Glucose 105 H Calcium 8.1 L Total Bilirubin 0.5 Direct Bilirubin 0.3 AST 51 H ALT 78 H Alkaline Phosphatase 212 H D Total Protein 5.3 L D Albumin 3.1 L Lipase 65 Assessment and Plan (1) Acute pancreatitis: Status: Acute Plan Chief Complaint: abd pain 55M presented with abd pain Acute recurrent alcoholic pancreatitis improved today, due to worsening 07/31/[address] abd was done, question of PD stone, though likely calcification, plan for MRI abd to rule out stone in duct IV Dilaudid acute hypoxic respiratory failure due to copd with acute decompensation wean o2 prednisone, bronchodilators Alcohol dependence with withdrawal Phenobarb CIWA hypokalemia replace, monitor Diabetes new onset with hyperglycemia Insulin, education, likely related to chronic pancreatitis RUSLAN Likely prerenal, resolved Alcoholic fatty liver disease Abstinence recommended dvt prophylaxis - lovenox full code reason for continued hospitalization: not tolerating po, Quality Stroke Does the patient have a stroke diagnosis?: No VTE Prior VTE?: Yes VTE Risk Level:: Medical - moderate - high VTE Device Contraindication: Treatment Not Indicated VTE Drug Contraindication: N/A - Med Ordered
[2021-08-01] MEDS: Insulin Glargine,Hum.rec.anlog 100 UNIT/ML 10 ML VIAL 15 UNIT SUBCUT (10:10)
[2021-08-01 11:29] LABS: Glucose, Whole Blood 175 mg/dL (60-115)
--- NOTE | 2021-08-01 11:33 | MHC.RECOVRN ---
This specifications writer met w/ pt, upon entering room pt alert and oriented. Pt states interested in MAT for ETOH use, concerned about health insurance [employer]. Pt states plans to f/u with [facility]. This specifications writer discussed setting this up upon discharge. Pt agreed. Pt states hx of drinking 20 ETOH drinks per day for many years. Pt states about 10 years ago, one year recovery with AA meetings. Pt states not interested in AA meetings at this time. Pt states history of pacreatitis due to ETOH use. Plan to follow up w/ resource packet for pt.
[2021-08-01] MEDS: hydrOXYzine HCL 25 MG TABLET PO (11:37)
[2021-08-01] MEDS: Insulin Lispro 100 UNIT/ML 3 ML VIAL SUBCUT (12:55)
--- NOTE | 2021-08-01 14:47 | MHC.CM.PN ---
nurse manager rn case note electronic medical record reviewed along with case discussed with staff nruse and hospitalist met with patient , referral iniated to the recovery team for his chronic etoh dependence, per docuemntation (etoh pancreatitis, etoh withdrawl, ct abd, acute hypocic resp fail;ure sec to copd decompensation weaned from o2 brochodilator ciwa. gi cons ?mrcp or ercp new onset diabetetes insulin education likely related to pancreatitis patient recioved one dose of iv gadobutrol for ct scan ., ref to recovery team for etoh abuse,depression hx discharge plan lives withhis brother patient was sent in from his [facility] apoointment, patient is interested in medication ssist treatment and community supports , referred to the recovery team nurse and social media sr strategy manager. pcp dr xin durham call for post hospitla discharge follow up transportyation family
[2021-08-01 15:57] LABS: Glucose, Whole Blood 145 mg/dL (60-115)
[2021-08-01] MEDS: Enoxaparin Sodium 40 MG/0.4 ML SYRINGE SUBCUT (17:23)
[2021-08-01] MEDS: Amitriptyline HCl 10 MG TABLET PO (19:38)
[2021-08-01] MEDS: Gabapentin 300 MG CAPSULE PO (19:38)
[2021-08-01] MEDS: Albuterol Sulfate (0.083%) 2.5 MG/3 ML VIAL.NEB INHALE (19:48)
[2021-08-01 20:13] LABS: Glucose, Whole Blood 125 mg/dL (60-115)
[2021-08-02] VITALS (9 sets, daily range): BP systolic 133–171; BP diastolic 75–93; PULSE 77–86; RESP 17–20; TEMP 36.1–36.9; O2SAT 91–97
[2021-08-02] MEDS: HYDROmorphone HCl 1 MG/ML SYRINGE IVPUSH ×7 (03:06→19:40)
[2021-08-02] MEDS: Omeprazole 40 MG CAPSULE.DR PO (06:03)
[2021-08-02 07:18] LABS: Glucose, Whole Blood 135 mg/dL (60-115)
[2021-08-02] MEDS: Multivitamin TABLET 1 TAB PO (08:14)
[2021-08-02] MEDS: predniSONE 20 MG TABLET 40 MG PO (08:14)
[2021-08-02] MEDS: DULoxetine HCl 60 MG CAPSULE.DR PO (08:14)
[2021-08-02] MEDS: Thiamine HCL 100 MG TABLET PO (08:14)
[2021-08-02] MEDS: TiZANidine HCL 4 MG TABLET 2 MG PO ×2 (08:14→19:44)
[2021-08-02] MEDS: PHENobarbitaL 30 MG TABLET PO (08:14)
[2021-08-02] MEDS: Nicotine 21 MG PATCH.TD24 TRANSDERMA (08:14)
[2021-08-02] MEDS: Metoprolol Succinate ER 50 MG TAB.ER.24H PO (08:14)
[2021-08-02] MEDS: Folic Acid 1 MG TABLET PO (08:14)
[2021-08-02] MEDS: amLODIPine Besylate 10 MG TABLET PO (08:14)
[2021-08-02] MEDS: Magnesium Oxide 400 MG TABLET PO ×2 (08:14→17:03)
[2021-08-02] MEDS: Insulin Glargine,Hum.rec.anlog 100 UNIT/ML 10 ML VIAL 15 UNIT SUBCUT (08:17)
--- NOTE | 2021-08-02 11:09 | HO.PM.IMPN ---
Subjective Subjective Date of Service: 08/02/21 Interval History: cc: abd pain interval history:overall improved today, still with sob and abd pain but intersted in solids Cardiovascular Cardiovascular: Reports no additional cardiovascular complaints Respiratory Respiratory: Reports no additional respiratory complaints Physical Exam Vital Signs: Vital Signs: Last Vital Signs Temp 98.3 F 08/02/21 07:39 Pulse 81 08/02/21 07:46 Resp 20 08/02/21 07:46 BP 133/78 08/02/21 07:39 Pulse Ox 93 08/02/21 07:39 O2 Del Method 08/02/21 07:39 O2 Flow Rate 2 08/02/21 07:39 BMI result Body Mass Index 26.4 General: AO X 3, no acute distress Resp: prolonged expiration bilateral, no accessory muscles used CVS: S1,S2,RRR GI: soft, tender, non distended Neuro: motor grossly intact, alert Psych: appropriate affect, appropriate insight Objective Data Active Medications Albuterol Sulfate (Albuterol Sulfate (0.083%) 2.5 Mg/3 Ml Vial.Neb) 2.5 mg INHALE Q4H PRN PRN Reason: wheezing Last Admin: 08/01/21 19:48 Dose: 2.5 mg Documented By: TAMMIE Amitriptyline HCl (Amitriptyline Hcl 10 Mg Tablet) 10 mg PO BEDTIME [facility] Last Admin: 08/01/21 19:38 Dose: 10 mg Documented By: KRISTIAN Amlodipine Besylate (Amlodipine Besylate 10 Mg Tablet) 10 mg PO DAILY [facility]; Protocol Last Admin: 08/02/21 08:14 Dose: 10 mg Documented By: TERRI Dextrose (Dextrose 50 % 25 Gm/50 Ml Syringe) 25 gm IVPUSH Q15M PRN; Protocol PRN Reason: per Hypoglycemia Standing Ord. Duloxetine HCl (Duloxetine Hcl 60 Mg Capsule.Dr) 60 mg PO DAILY [facility] Last Admin: 08/02/21 08:14 Dose: 60 mg Documented By: TERRI Enoxaparin Sodium (Enoxaparin Sodium 40 Mg/0.4 Ml Syringe) 40 mg SUBCUT Q24H [facility] Last Admin: 08/01/21 17:23 Dose: 40 mg Documented By: TERRI Fluticasone/Vilanterol (Fluticasone/Vilanterol 100/25 Blst.W.Dev) 1 puff INHALE RDAILY [facility] Last Admin: 08/02/21 07:47 Dose: Not Given Documented By: ADRIANA Non-Admin Reason: Medication Discontinued Folic Acid (Folic Acid 1 Mg Tablet) 1 mg PO DAILY [facility] Last Admin: 08/02/21 08:14 Dose: 1 mg Documented By: TERRI Gabapentin (Gabapentin 300 Mg Capsule) 300 mg PO BEDTIME [facility] Last Admin: 08/01/21 19:38 Dose: 300 mg Documented By: KRISTIAN Glucose (Glucose Gel 15 Gm Gel..Gram.) 15 gm PO Q15M PRN; Protocol PRN Reason: per Hypoglycemia Standing Ord. Hydromorphone HCl (Hydromorphone Hcl 1 Mg/Ml Syringe) 1 mg IVPUSH Q2H PRN; Protocol PRN Reason: moderate pain Last Admin: 08/02/21 09:02 Dose: 1 mg Documented By: TERRI Hydroxyzine HCl (Hydroxyzine Hcl 25 Mg Tablet) 25 mg PO Q8H PRN PRN Reason: anxiety Last Admin: 08/01/21 11:37 Dose: 25 mg Documented By: TERRI Insulin Glargine (Insulin Glargine,Hum.Rec.Anlog 100 Unit/Ml 10 Ml Vial) 15 unit SUBCUT DAILY [facility] Last Admin: 08/02/21 08:17 Dose: 15 unit Documented By: TERRI Insulin Human Lispro (Insulin Lispro 100 Unit/Ml 3 Ml Vial) 0 unit SUBCUT QIDACHS [facility]; Protocol Last Admin: 08/02/21 07:50 Dose: Not Given Documented By: TERRI Non-Admin Reason: No Insulin Coverage Magnesium Oxide (Magnesium Oxide 400 Mg Tablet) 400 mg PO BIDPC [facility] Last Admin: 08/02/21 08:14 Dose: 400 mg Documented By: TERRI Metoprolol Succinate (Metoprolol Succinate Er 50 Mg Tab.Er.24h) 50 mg PO DAILY [facility]; Protocol Last Admin: 08/02/21 08:14 Dose: 50 mg Documented By: TERRI Multivitamins/Vitamin C (Multivitamin Tablet) 1 tab PO DAILY [facility] Last Admin: 08/02/21 08:14 Dose: 1 tab Documented By: TERRI Nicotine (Nicotine 21 Mg Patch.Td24) 21 mg TRANSDERMA DAILY [facility] Last Admin: 08/02/21 08:14 Dose: 21 mg Documented By: TERRI Omeprazole (Omeprazole 40 Mg Capsule.Dr) 40 mg PO DAILY@0630 [facility] Last Admin: 08/02/21 06:03 Dose: 40 mg Documented By: KRISTIAN Pharmacy Consult (Consult Rx Perform Med Rec) 1 each MISCELLANE ONCE PRN PRN Reason: Consult order Pharmacy Consult (Consult Rx Etoh Phenob Po Dose) 1 each MISCELLANE ONCE PRN; Protocol PRN Reason: Consult order Phenobarbital (Phenobarbital 30 Mg Tablet) 30 mg PO DAILY [facility] Stop: 08/03/21 09:01 Last Admin: 08/02/21 08:14 Dose: 30 mg Documented By: TERRI Prednisone (Prednisone 20 Mg Tablet) 40 mg PO DAILY [facility] Last Admin: 08/02/21 08:14 Dose: 40 mg Documented By: TERRI Thiamine HCl (Thiamine Hcl 100 Mg Tablet) 100 mg PO DAILY [facility] Last Admin: 08/02/21 08:14 Dose: 100 mg Documented By: TERRI Tiotropium Berger (Tiotropium Berger 18 Mcg Cap.W.Dev) 1 puff INHALE RDAILY [facility] Last Admin: 08/02/21 07:43 Dose: 1 puff Documented By: ADRIANA Tizanidine HCl (Tizanidine Hcl 4 Mg Tablet) 2 mg PO BID [facility] Last Admin: 08/02/21 08:14 Dose: 2 mg Documented By: TERRI Labs CBC & Chem 7: 08/01/21 05:33 08/01/21 05:33 Labs: Laboratory Results - last 24 hr 08/01/21 08/01/21 08/01/21 11:15 15:23 20:10 POC Glucose 175 H 145 H 125 H 08/02/21 07:14 POC Glucose 135 H Assessment and Plan (1) Acute pancreatitis: Status: Acute Plan Chief Complaint: abd pain 55M presented with abd pain Acute recurrent alcoholic pancreatitis improved overall, due to worsening 07/31/[address] abd was done, question of PD stone, MRI abd 08/01/21 ruled out stone in duct IV Dilaudid will advance to solids today acute hypoxic respiratory failure due to copd with acute decompensation wean o2 prednisone, bronchodilators Alcohol dependence with withdrawal Phenobarb CIWA hypokalemia replace, monitor Diabetes new onset with hyperglycemia sugars now well controlled Insulin, education, likely related to chronic pancreatitis RUSLAN Likely prerenal, resolved Alcoholic fatty liver disease Abstinence recommended dvt prophylaxis - lovenox full code reason for continued hospitalization: still needing o2 Quality Stroke Does the patient have a stroke diagnosis?: No VTE Prior VTE?: Yes VTE Risk Level:: Medical - moderate - high VTE Device Contraindication: Treatment Not Indicated VTE Drug Contraindication: N/A - Med Ordered
[2021-08-02 11:48] LABS: Glucose, Whole Blood 157 mg/dL (60-115)
[2021-08-02] MEDS: Insulin Lispro 100 UNIT/ML 3 ML VIAL SUBCUT ×3 (12:06→19:45)
[2021-08-02] MEDS: Albuterol Sulfate (0.083%) 2.5 MG/3 ML VIAL.NEB INHALE (13:42)
--- NOTE | 2021-08-02 14:05 | MHC.CM.PN ---
NURSE AQUATIC PHYSIOTHERAPIST NOTE ELECTRONIC MEDICAL RECORD REVIEWED ALONG WITH CASE DISCUSS WITH HOSPITALIST PATIENT WILL TRY TO BE WEANED FORM HIS OXYGEN TODAY , ADVANCE DIET AND MOOOOOONITOR TOLERANCE. PATIENT HAS BEEN SEEN BY THE RECOVERY TEAM NURSE ON 08/01/21 HE IS INTERESTED IN THE MAT FOR ETOH ABUSE, (PLEASE SEE HER NOTE) HE WAS ENCORAGED TO CALL FOR FOLLOW UP [facility] TIME OF DISCHARGE AND SHE WILL FOLLOW UP WITH [facility] INFORMATION FOR HIM DISCHARGE PLAN ANTICIPATED D'/C HOME 1-2 DAYS , NO SERVICE SET BY CASE MANAGEMENT , HE LIVES WITH HIS BROTHER TRANSPORTATION FAMILY PCP DR ULISSES NAVA INSTRUCTED TO CALL FOR POST HOSPTILA DISCHARGE FOLLOWM UP
[2021-08-02 16:26] LABS: Glucose, Whole Blood 177 mg/dL (60-115)
[2021-08-02] MEDS: Enoxaparin Sodium 40 MG/0.4 ML SYRINGE SUBCUT (17:02)
[2021-08-02 19:34] LABS: Glucose, Whole Blood 181 mg/dL (60-115)
[2021-08-02] MEDS: Gabapentin 300 MG CAPSULE PO (19:45)
[2021-08-02] MEDS: Amitriptyline HCl 10 MG TABLET PO (19:45)
[2021-08-03] MEDS: HYDROmorphone HCl 1 MG/ML SYRINGE IVPUSH ×5 (02:05→14:24)
[2021-08-03 03:07] VITALS: BP 155/85; PULSE 79; RESP 17; TEMP 36.1; O2SAT 95
[2021-08-03] MEDS: Omeprazole 40 MG CAPSULE.DR PO (05:35)
[2021-08-03 06:40] LABS: Hematocrit 34.7 % (42.0-52.0); Hemoglobin 11.5 g/dl (14.0-18.0); Mean Corpuscular HGB Conc 33.1 g/dl (31.0-36.0); Mean Corpuscular Hemoglobin 30.5 pg (27.0-33.0); Mean Platelet Volume 9.9 fL (9.4-12.4); Platelet Count 177 X10*3/uL (160-400); Red Blood Count 3.77 X10*6/uL (4.60-5.80); Red Cell Distribution Width 12.8 % (11.0-16.0); White Blood Count 7.6 X10*3/uL (4.8-10.8)
[2021-08-03 06:54] LABS: Anion Gap 13 (12-20); Blood Urea Nitrogen 7 mg/dL (9-16); Calcium 8.5 mg/dL (8.4-10.2); Carbon Dioxide 25 mmol/L (22-29); Chloride 102 mmol/L (96-108); Creatinine Clr Calc Pharmacy 152.1; Estimated Glomerular Filt Rate > 60; Glucose Fasting 86 mg/dL (60-99); Potassium 3.3 mmol/L (3.3-5.1); Sodium 137 mmol/L (135-145)
[2021-08-03 07:32] VITALS: BP 136/80; PULSE 83; RESP 18; TEMP 36.6; O2SAT 93
[2021-08-03 07:40] VITALS: PULSE 83; RESP 18; O2SAT 93
[2021-08-03 07:53] LABS: Glucose, Whole Blood 121 mg/dL (60-115)
[2021-08-03] MEDS: Magnesium Oxide 400 MG TABLET PO (08:44)
[2021-08-03] MEDS: Folic Acid 1 MG TABLET PO (08:44)
[2021-08-03] MEDS: PHENobarbitaL 30 MG TABLET PO (08:45)
[2021-08-03] MEDS: Metoprolol Succinate ER 50 MG TAB.ER.24H PO (08:45)
[2021-08-03] MEDS: TiZANidine HCL 4 MG TABLET 2 MG PO (08:45)
[2021-08-03] MEDS: amLODIPine Besylate 10 MG TABLET PO (08:46)
[2021-08-03] MEDS: Multivitamin TABLET 1 TAB PO (08:46)
[2021-08-03] MEDS: Nicotine 21 MG PATCH.TD24 TRANSDERMA (08:46)
[2021-08-03] MEDS: Thiamine HCL 100 MG TABLET PO (08:46)
[2021-08-03] MEDS: DULoxetine HCl 60 MG CAPSULE.DR PO (08:46)
[2021-08-03] MEDS: predniSONE 20 MG TABLET 40 MG PO (08:46)
[2021-08-03] MEDS: Insulin Glargine,Hum.rec.anlog 100 UNIT/ML 10 ML VIAL 15 UNIT SUBCUT (08:47)
[2021-08-03 10:59] VITALS: PULSE 101; PULSE 111; PULSE 82; PULSE 87; O2SAT 86; O2SAT 90; O2SAT 91; O2SAT 94
[2021-08-03 11:24] VITALS: BP 164/92; PULSE 80; RESP 18; TEMP 36.6; O2SAT 91
[2021-08-03 11:33] LABS: Glucose, Whole Blood 169 mg/dL (60-115)
[2021-08-03] MEDS: Insulin Lispro 100 UNIT/ML 3 ML VIAL SUBCUT (11:52)
--- NOTE | 2021-08-03 12:05 | PM.DS ---
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 Patient has a long history of alcohol dependence with recurrent alcoholic pancreatitis.? He states he has been having about 1 week of epigastric abdominal pain similar to his previous episodes radiating to the back associated with decreased appetite, decreased alcohol intake.? Denies fever, chills, diarrhea.? He has also started to have alcohol withdrawal symptoms of shakiness and restlessness.? In ED CT abdomen was consistent with acute pancreatitis.? Lab significant for hyperglycemia of about 500, this is a new finding, patient has no history of diabetes, A1c was 9. Hospital course the patient was admitted to the hospital for evaluation of abdominal pain. Found to have acute recurrent alcoholic pancreatitis confirmed by CT scan of the abdomen. A more CP was done on 08/01 and ruled out any stones in the ducts. He was treated with IV fluid, bowel rest and IV pain medication with good response over the course of hospital stay as he became able to tolerate diet with significantly decreased the need for pain Medications. He was treated with phenobarbital protocol for alcohol withdrawal symptoms. Scored by CIWA protocol as well. Noted to have acute hypoxic respiratory failure due to COPD exacerbation. Treated with IV steroids and bronchodilator nebulizers with good response over the course of hospital stay but he remained to require oxygen supplement. A home of 2 study was done as he qualified for 1 L of oxygen upon ambulation. Noted to have elevated blood sugar levels. HbA1c of 9. Believed to be newly diagnosed diabetes type 2 from recurrent pancreatitis and pancreatic injury. Controlled with insulin during the hospital stay but discharged home on metformin and glipizide to be followed by his primary care physician. CT scan showed alcoholic fatty liver. He was advised complete abstinence from alcohol. He was advised to quit smoking. Nicotine patches prescribed. Quit smoking, nicotine patches prescribed Start Spiriva inhaler daily continue tapering dose of steroids as prescribed start glipizide and metformin for diabetes To follow-up with PCP for further monitoring and adjustments of diabetes medications Time Spent with Patient Time attestation: Total time spent providing and/or coordinating discharge services: Discharge coordination time: Greater than 30 minutes Quality: Safe Use of Opioids Does Pt have an Active Cancer Diagnosis on the Problem List?: No Quality: Stroke Does the patient have a stroke diagnosis?: No Physical Exam Vital Signs: Vital Signs: Last Vital Signs Temp 97.8 F 08/03/21 11:24 Pulse 80 08/03/21 11:24 Resp 18 08/03/21 11:24 BP 164/92 H 08/03/21 11:24 Pulse Ox 91 L 08/03/21 11:24 O2 Del Method 08/03/21 11:24 O2 Flow Rate 2 08/03/21 07:32 BMI result Body Mass Index 26.4 Const: Other: Constitutional : Alert, oriented, not in distress Neck : Normal inspection, Supple Cardiovascular : RRR, no JVP, no lower extremity edema Respiratory : fair bilateral air entry, no crackles, wheezes or rhonchi Gastrointestinal: soft, lax, Normal bowel sounds, Non tender Skin : Warm, Dry Neurological : Alert & oriented x3, No focal deficit , CN 2-12 within normal DS: Data Data Completed and Pending Completed studies during hospitalization [Text1]: Procedures Detoxification Services for Substance Abuse Treatment (10/07/20) Labs on day of discharge: Laboratory Results - last 24 hr 08/02/21 08/02/21 08/03/21 15:33 19:12 05:38 WBC 7.6 RBC 3.77 L Hgb 11.5 L Hct 34.7 L MCV 92.0 MCH 30.5 MCHC 33.1 RDW 12.8 Plt Count 177 MPV 9.9 Absolute Nucleated RBC 0.000 Nucleated RBC % (auto) 0.0 Sodium Potassium Chloride Carbon Dioxide Anion Gap BUN Creatinine Estim Creat Clear Calc Estimated GFR POC Glucose 177 H 181 H Fasting Glucose Calcium 08/03/21 08/03/21 08/03/21 05:38 07:35 11:28 WBC RBC Hgb Hct MCV MCH MCHC RDW Plt Count MPV Absolute Nucleated RBC Nucleated RBC % (auto) Sodium 137 Potassium 3.3 Chloride 102 Carbon Dioxide 25 Anion Gap 13 BUN 7 L Creatinine 0.62 Estim Creat Clear Calc 152.1 Estimated GFR > 60 POC Glucose 121 H 169 H Fasting Glucose 86 Calcium 8.5 Discharge Plan Discharge Patient Disposition: Home, Self-Care Discharge Diagnosis: acute pancreatitis COPD exacerbation New onset diabetes Alcohol withdrawal Referrals: Oren Leon MD [Primary Care Provider] - 1 Week Discharge Medications: New nicotine 21 mg/24 hr Patch 24 Hour 21 mg transdermal DAILY Qty: 28 0RF metformin 850 mg tablet 850 mg PO BID Qty: 60 1RF glipizide 5 mg tablet 5 mg PO DAILY Qty: 30 0RF prednisone 10 mg tablet See Taper PO DAILY Qty: 30 0RF Taper: Prednisone 40 mg daily for 3 Days and 0 Hour 30 mg daily for 3 Days and 0 Hour 20 mg daily for 3 Days and 0 Hour 10 mg daily for 3 Days and 0 Hour Spiriva with HandiHaler 18 mcg capsule, w/inhalation device 1 cap inhalation DAILY Qty: 30 0RF Rx Instructions: puncture 1 cap using device; one dose = 2 inhalations Continued folic acid 1 mg tablet 1 mg PO DAILY albuterol sulfate 90 mcg/actuation HFA aerosol inhaler 2 puff inhalation Q4H PRN (Reason: wheezing) duloxetine 60 mg capsule,delayed release(DR/EC) 60 mg PO DAILY Zenpep 40,000-126,000- 168,000 unit Capsule,Delayed Release(Dr/Ec) 3 - 4 cap PO TIDWM amlodipine 10 mg tablet 1 tab PO DAILY magnesium oxide 400 mg (241.3 mg magnesium) Tablet 400 mg PO BIDPC Qty: 60 0RF multivitamin [Daily-Jerald] Tablet 1 tab PO DAILY Qty: 30 0RF thiamine mononitrate (vit B1) 100 mg Tablet 100 mg PO DAILY Qty: 30 0RF omeprazole 40 mg capsule,delayed release(DR/EC) 40 mg PO DAILY 30 Days Qty: 30 0RF tizanidine 2 mg tablet 1 tab PO BID potassium chloride 10 mEq tablet extended release 1 tab PO DAILY amitriptyline 10 mg tablet 1 tab PO BEDTIME hydroxyzine HCl 25 mg tablet 1 tab PO Q8H PRN (Reason: anxiety) Trelegy Ellipta 100-62.5-25 mcg blister with device 1 puff inhalation DAILY fluticasone propion-salmeterol [Wixela Inhub] 250-50 mcg/dose blister with device 1 puff inhalation Q12H albuterol sulfate 2.5 mg /3 mL (0.083 %) solution for nebulization 1 vial inhalation Q4H PRN (Reason: wheezing) pantoprazole 40 mg tablet,delayed release (DR/EC) 1 tab PO DAILY metoprolol succinate 50 mg tablet extended release 24 hr 50 mg PO DAILY gabapentin 300 mg capsule 300 mg PO BEDTIME 30 Days Qty: 30 1RF Spiriva Respimat 1.25 mcg/actuation mist 2 puff inhalation DAILY 30 Days Qty: 4 1RF Discharge Orders: Discharge Order (Routine); Ordered 08/03/21 Ordered By: Ady Fitzpatrick Diet: diabetic diet and low fat, low cholesterol Activity on Discharge: As tolerated Stand Alone Forms: Patient Portal Discharge page Care Plan Goals: Read below Health Concerns: Read below Plan of Treatment: Read below Assessment: you were admitted to the hospital for evaluation of abdominal pain. Found to have acute pancreatitis as a result of added to her in the a a. Your treated with IV fluid, alcohol withdrawal treatment for as your abdominal pain improved gradually and you were able to tolerate more diet. Noticed to have elevated blood sugar levels and diagnosed with diabetes. Your sugar was controlled with insulin in the hospital but will continue with tablets of metformin and glipizide as outpatient. Quit smoking, nicotine patches prescribed Start Spiriva inhaler daily continue tapering dose of steroids as prescribed start glipizide and metformin for diabetes To follow-up with PCP for further monitoring and adjustments of diabetes medications
--- NOTE | 2021-08-03 12:38 | MHC.CM.PN ---
Plan dc home today, lives with brother, is independent and has ride home. Has appointment tomorrow at [facility] for medication assisted treatment for ETOH. Complicated dc r/t multiple ED visits, will be followed by [facility] for 90 days as well. Has appointment with PCP scheduled for next week. Assisted patient in completing HCP, he chose his brother as HCP. Gave patient original and copies and placed a copy in the chart.
== END 2021-08-03 15:00 | disposition home or self-care (01) | DRG 438 ==
LOC: HO.ED 15:56 → HO.EDOVER 16:40 → HO.S3 07-31 12:01
PROVIDERS: Physician Assistant Medical; Admitting Provider Internal Medicine; Emergency Provider Emergency Medicine; PCP Family Medicine; Visit Provider Student in an Organized Health Care Education/Training Program
DX: K85.20 Alcohol induced acute pancreatitis without necrosis or infection (principal); J96.01 Acute respiratory failure with hypoxia; J44.1 Chronic obstructive pulmonary disease with (acute) exacerbation; N17.9 Acute kidney failure, unspecified; F10.239 Alcohol dependence with withdrawal, unspecified; F41.9 Anxiety disorder, unspecified; F32.A Depression, unspecified; K70.0 Alcoholic fatty liver; E87.6 Hypokalemia; F17.210 Nicotine dependence, cigarettes, uncomplicated; Y90.0 Blood alcohol level of less than 20 mg/100 ml; Z86.718 Personal history of other venous thrombosis and embolism; Z20.822 Contact with and (suspected) exposure to COVID-19; Z71.6 Tobacco abuse counseling; Z79.51 Long term (current) use of inhaled steroids; Z79.899 Other long term (current) drug therapy
CPT/HCPCS: 36415; 71046; 74176; 74183; 80048; 80076; 82009; 82077; 82150; 82803; 82947; 83036; 83605; 83615; 83690; 83880; 85025; 85027; 87040; 87502; 87635; 93005; 94640; 96361; 96374; 96375; 99285; A9585; J1170; J1650; J2270; J2405; J2930

== ENCOUNTER → 2021-08-04 10:50 | Outpatient (BNVA) | payer OTHER, SELFPAY | PROVIDERS: PCP Family Medicine; Visit Provider Nurse Practitioner Psychiatric/Mental Health | DX: Z51.81 Encounter for therapeutic drug level monitoring (principal); F10.20 Alcohol dependence, uncomplicated | CPT/HCPCS: 80305 ==

== ENCOUNTER → 2021-08-19 10:21 | Outpatient (BNVA) | payer OTHER, SELFPAY | PROVIDERS: PCP Family Medicine; Visit Provider Nurse Practitioner Psychiatric/Mental Health | DX: Z51.81 Encounter for therapeutic drug level monitoring (principal); F11.20 Opioid dependence, uncomplicated | CPT/HCPCS: 80305 ==

== ENCOUNTER 2021-08-24 10:21 | Outpatient (REF) | payer OTHER, SELFPAY ==
[2021-08-24 13:28] LABS: MANUAL DIFF FLAG NO
[2021-08-24 13:30] LABS: Basophils Percent Auto 0.3 % (0-2); Eosinophils Absolute Auto 0.2 X10*3/uL (0.0-0.4); Eosinophils Percent Auto 1.7 % (0-4); Hematocrit 39.6 % (42.0-52.0); Hemoglobin 13.6 g/dl (14.0-18.0); Imm Gran Abs Auto 0.06 X10*3/uL (0.00-0.03); Imm Gran Pct Auto 0.7 % (0.0-0.4); Lymphocytes Absolute Auto 1.3 X10*3/uL (1.2-4.9); Lymphocytes Percent Auto 14.5 % (20-40); Mean Corpuscular HGB Conc 34.3 g/dl (31.0-36.0); Mean Corpuscular Hemoglobin 30.3 pg (27.0-33.0); Mean Corpuscular Volume 88.2 fL (80.0-98.0); Mean Platelet Volume 9.8 fL (9.4-12.4); Monocytes Absolute Auto 0.7 X10*3/uL (0.1-1.2); Monocytes Percent Auto 8.4 % (2-11); Neutrophils Absolute Auto 6.5 x10*3/uL (2.0-8.3); Neutrophils Percent Auto 74.4 % (45-73); Platelet Count 266 X10*3/uL (160-400); Red Blood Count 4.49 X10*6/uL (4.60-5.80); Red Cell Distribution Width 13.3 % (11.0-16.0); White Blood Count 8.7 X10*3/uL (4.8-10.8)
[2021-08-24 13:52] LABS: Appearance Urine CLEAR; Color Urine YELLOW; Glucose Urine UA >=1000 MG/DL (NEG); Leukocyte Esterase Urine NEG (NEG); Nitrite Urine NEG (NEG); Specific Gravity - Urine <= 1.005 (1.005-1.025); Urine Blood NEG (NEG); Urine Ketones NEG (NEG); Urine Protein NEG (NEG-TRACE)
[2021-08-24 14:04] LABS: RBC Urine 0 /HPF (0); Squamous Epithelial Cell Urine TRACE /LPF
[2021-08-24 14:28] LABS: Alanine Aminotransferase 26 U/L (0-40); Albumin Level 3.4 g/dL (3.5-5.0); Alkaline Phosphatase 169 U/L (39-117); Aspartate Amino Transferase 23 U/L (5-37); Bilirubin Total 0.5 mg/dL (0.0-1.0); Blood Urea Nitrogen 7 mg/dL (9-16); Calcium 8.6 mg/dL (8.4-10.2); Cholesterol 206 mg/dL; Estimated Glomerular Filt Rate > 60; HDL Cholesterol 49 mg/dL; LDL Cholesterol Calculated 102 mg/dl; Lipase 81 U/L (8-78); Total Protein 6.1 g/dL (6.5-8.0); Triglycerides 278 mg/dL
[2021-08-24 14:38] LABS: Prostate Specific Antigen Scr 0.64 ng/mL (<0.05-4.0); TSH reflex Free T4 0.42 uIU/mL (0.32-4.0)
[2021-08-24 14:47] LABS: Anion Gap 18 (12-20); Carbon Dioxide 26 mmol/L (22-29); Chloride 92 mmol/L (96-108); Glucose Fasting 414 mg/dL (60-99); Potassium 3.2 mmol/L (3.3-5.1); Sodium 133 mmol/L (135-145)
== END 2021-08-24 10:22 | disposition home or self-care (01) ==
LOC: HO.WFDLDS 10:21
PROVIDERS: Visit Provider Family Medicine
DX: Z00.00 Encounter for general adult medical examination without abnormal findings (principal); Z12.5 Encounter for screening for malignant neoplasm of prostate; K85.20 Alcohol induced acute pancreatitis without necrosis or infection; Z87.19 Personal history of other diseases of the digestive system
CPT/HCPCS: 36415; 80053; 80061; 81001; 83690; 84153; 84443; 85025

== ENCOUNTER 2021-08-26 11:07 | Outpatient (REF) | payer OTHER, SELFPAY ==
[2021-08-26 13:52] LABS: MANUAL DIFF FLAG NO
[2021-08-26 13:57] LABS: Basophils Percent Auto 0.6 % (0-2); Eosinophils Absolute Auto 0.1 X10*3/uL (0.0-0.4); Eosinophils Percent Auto 1.8 % (0-4); Hematocrit 38.3 % (42.0-52.0); Hemoglobin 13.3 g/dl (14.0-18.0); Imm Gran Abs Auto 0.07 X10*3/uL (0.00-0.03); Lymphocytes Absolute Auto 1.4 X10*3/uL (1.2-4.9); Lymphocytes Percent Auto 19.9 % (20-40); Mean Corpuscular HGB Conc 34.7 g/dl (31.0-36.0); Mean Corpuscular Hemoglobin 30.7 pg (27.0-33.0); Mean Corpuscular Volume 88.5 fL (80.0-98.0); Mean Platelet Volume 9.8 fL (9.4-12.4); Monocytes Absolute Auto 0.8 X10*3/uL (0.1-1.2); Neutrophils Absolute Auto 4.6 x10*3/uL (2.0-8.3); Neutrophils Percent Auto 65.7 % (45-73); Platelet Count 268 X10*3/uL (160-400); Red Blood Count 4.33 X10*6/uL (4.60-5.80); Red Cell Distribution Width 13.6 % (11.0-16.0); White Blood Count 7.1 X10*3/uL (4.8-10.8)
[2021-08-26 23:23] LABS: Alanine Aminotransferase 49 U/L (0-40); Albumin Level 3.6 g/dL (3.5-5.0); Alkaline Phosphatase 255 U/L (39-117); Amylase 151 U/L (28-100); Anion Gap 19 (12-20); Aspartate Amino Transferase 55 U/L (5-37); Bilirubin Total 0.4 mg/dL (0.0-1.0); Blood Urea Nitrogen 8 mg/dL (9-16); Calcium 8.7 mg/dL (8.4-10.2); Carbon Dioxide 25 mmol/L (22-29); Chloride 94 mmol/L (96-108); Estimated Glomerular Filt Rate > 60; Glucose Random 208 mg/dL (60-115); Lipase 62 U/L (8-78); Potassium 3.1 mmol/L (3.3-5.1); Sodium 135 mmol/L (135-145); Total Protein 6.3 g/dL (6.5-8.0)
== END 2021-08-26 11:08 | disposition home or self-care (01) ==
LOC: HO.WFDLDS 11:07
PROVIDERS: Visit Provider Family Medicine
DX: Z00.00 Encounter for general adult medical examination without abnormal findings (principal); K85.90 Acute pancreatitis without necrosis or infection, unspecified; F10.20 Alcohol dependence, uncomplicated
CPT/HCPCS: 36415; 80053; 82150; 83690; 85025

== ENCOUNTER 2021-09-28 08:55 | Outpatient (REF) | payer OTHER, SELFPAY ==
[2021-09-28 10:57] LABS: Anion Gap 20 (12-20); Blood Urea Nitrogen 8 mg/dL (9-16); Calcium 9.3 mg/dL (8.4-10.2); Carbon Dioxide 23 mmol/L (22-29); Chloride 103 mmol/L (96-108); Estimated Glomerular Filt Rate > 60; Glucose Random 161 mg/dL (60-115); Potassium 4.5 mmol/L (3.3-5.1); Sodium 141 mmol/L (135-145)
[2021-09-28 12:21] LABS: Microalbum/Creatinine Ratio Ur 12.3 ug/mg cr
[2021-09-29 08:57] LABS: C Peptide 1.54 ng/mL (0.80-3.85)
[2021-10-01 18:50] LABS: Glutamic acid decarboxylase Ab <5 IU/mL (<5)
== END 2021-09-28 08:56 | disposition home or self-care (01) ==
LOC: HO.10HDL 08:55
PROVIDERS: Visit Provider Internal Medicine Endocrinology, Diabetes & Metabolism
DX: E11.9 Type 2 diabetes mellitus without complications (principal)
CPT/HCPCS: 36415; 80048; 82043; 82947; 84681; 86341

== ENCOUNTER 2021-10-31 09:07 | Outpatient (REF) | payer OTHER, SELFPAY ==
[2021-10-31 09:57] LABS: Alanine Aminotransferase 44 U/L (0-40); Alkaline Phosphatase 146 U/L (39-117); Aspartate Amino Transferase 74 U/L (5-37); Bilirubin Direct 0.2 mg/dL (0.0-0.5); Bilirubin Total 0.5 mg/dL (0.0-1.0); Total Protein 6.9 g/dL (6.5-8.0)
== END 2021-10-31 09:08 | disposition home or self-care (01) ==
LOC: HO.LAB 09:07
PROVIDERS: PCP Family Medicine; Visit Provider Nurse Practitioner Psychiatric/Mental Health
DX: F10.20 Alcohol dependence, uncomplicated (principal); Z51.81 Encounter for therapeutic drug level monitoring; Z79.899 Other long term (current) drug therapy
CPT/HCPCS: 36415; 80076; 80305

== ENCOUNTER 2021-11-01 08:36 | Emergency (ER) | payer OTHER, SELFPAY ==
--- NOTE | ~2021-11-01 | US_ITS ---
EXAMINATION: US ABDOMEN LIMITED CLINICAL INFORMATION: Epigastric/right upper quadrant pain. Question pancreatitis.. COMPARISON: Previous MR of the abdomen and CT of the abdomen and pelvis most recent July 2021 and limited abdominal ultrasound April 2019 TECHNIQUE: Real-time imaging of the right upper quadrant abdominal viscera. FINDINGS: PANCREAS: Not visualized due to bowel gas LIVER: Liver echotexture is increased. The liver is enlarged, right lobe measuring 20 cm in length. No focal liver lesion or biliary duct dilatation. No focal hepatic lesion. There is no intrahepatic biliary duct dilatation seen. GALLBLADDER: Surgically removed COMMON BILE DUCT: Normal in caliber measuring 0.8 cm in diameter. RIGHT KIDNEY: Normal. No hydronephrosis. No renal calculi or focal parenchymal lesions. The kidney measures 11 cm in maximum dimension. FREE FLUID: None. US/US abdomen limited IMPRESSION: Slightly enlarged echogenic liver probably representing fatty infiltration. Normal caliber intrahepatic and extrahepatic bile ducts. Pancreas not seen.
--- NOTE | ~2021-11-01 | XR_ITS ---
EXAMINATION: XR CHEST CLINICAL INFORMATION: Wheezing, COPD. COMPARISON: 07/28/2021 chest radiographs. TECHNIQUE: Frontal view of the chest was obtained. FINDINGS: Mild to moderate elevation of the left hemidiaphragm. Mild linear markings in the left midlung without significant change. The lungs otherwise clear. The heart and mediastinal structures are unremarkable. XR/XR chest 1V IMPRESSION: Mild to moderate elevation of left hemidiaphragm and mild left midlung atelectasis/scarring without significant change. No acute cardiopulmonary process.
[2021-11-01 08:43] VITALS: BP 138/91; PULSE 98; RESP 18; TEMP 36.9; O2SAT 98; BMI 26.4
[2021-11-01 08:52] LABS: Glucose, Whole Blood 163 mg/dL (60-115)
[2021-11-01 10:03] LABS: MANUAL DIFF FLAG NO
[2021-11-01 10:04] LABS: Basophils Absolute Auto 0.1 X10*3/uL (0.0-0.2); Eosinophils Absolute Auto 0.2 X10*3/uL (0.0-0.4); Eosinophils Percent Auto 2.4 % (0-4); Hematocrit 39.9 % (42.0-52.0); Hemoglobin 13.6 g/dl (14.0-18.0); Imm Gran Abs Auto 0.04 X10*3/uL (0.00-0.03); Imm Gran Pct Auto 0.6 % (0.0-0.4); Lymphocytes Absolute Auto 1.4 X10*3/uL (1.2-4.9); Lymphocytes Percent Auto 21.9 % (20-40); Mean Corpuscular HGB Conc 34.1 g/dl (31.0-36.0); Mean Corpuscular Hemoglobin 31.6 pg (27.0-33.0); Mean Corpuscular Volume 92.8 fL (80.0-98.0); Mean Platelet Volume 8.3 fL (9.4-12.4); Monocytes Absolute Auto 0.7 X10*3/uL (0.1-1.2); Monocytes Percent Auto 11.7 % (2-11); Neutrophils Absolute Auto 3.9 x10*3/uL (2.0-8.3); Neutrophils Percent Auto 62.4 % (45-73); Platelet Count 171 X10*3/uL (160-400); Red Cell Distribution Width 14.1 % (11.0-16.0); White Blood Count 6.3 X10*3/uL (4.8-10.8)
[2021-11-01 10:21] LABS: COVID-19 Test Negative (Negative); IDNOW Serial# 55D5AD1C
[2021-11-01 10:25] LABS: Alanine Aminotransferase 46 U/L (0-40); Albumin Level 3.8 g/dL (3.5-5.0); Alkaline Phosphatase 141 U/L (39-117); Anion Gap 16 (12-20); Aspartate Amino Transferase 71 U/L (5-37); Bilirubin Direct 0.2 mg/dL (0.0-0.5); Bilirubin Total 0.5 mg/dL (0.0-1.0); Blood Urea Nitrogen 7 mg/dL (9-16); Carbon Dioxide 24 mmol/L (22-29); Chloride 106 mmol/L (96-108); Creatinine Clr Calc Pharmacy 133.1; Estimated Glomerular Filt Rate > 60; Ethanol < 10 mg/dL; Glucose Random 143 mg/dL (60-115); Lactate Dehydrogenase 327 U/L (118-273); Lipase 15 U/L (8-78); Magnesium 1.4 mg/dL (1.6-2.6); Potassium 4.1 mmol/L (3.3-5.1); Sodium 142 mmol/L (135-145); Total Protein 6.7 g/dL (6.5-8.0)
--- NOTE | 2021-11-01 13:28 | ED.GENADULT ---
HPI - General Adult General Chief complaint: General Medical <MYRIAM Swartz - Last Filed: 11/01/21 17:57> Stated complaint: pancreatitis <MYRIAM Swartz - Last Filed: 11/01/21 17:57> Time Seen by Provider: 11/01/21 09:07 <MYRIAM Swartz - Last Filed: 11/01/21 17:57> Source: patient <MYRIAM Swartz - Last Filed: 11/01/21 17:57> Mode of arrival: ambulatory <MYRIAM Swartz - Last Filed: 11/01/21 17:57> History of Present Illness HPI narrative: 56-year-old male with a past medical history of anxiety, chronic pancreatitis, COPD, depression, diverticulitis, HTN, ETOH dependence drinks approximately 20 drinks daily, last drink last night presenting to the ED complaining of upper abdominal pain, nausea, vomiting, and diarrhea times 3-4 days. Denies history of EtOH withdrawal seizures. Reports decreased p.o. intake. Denies fever, chills, dysuria/hematuria, CP/SOB, new/worsening cough. <MYRIAM Swartz - Last Filed: 11/01/21 17:57> Onset (ago): day(s) <MYRIAM Swartz - Last Filed: 11/01/21 17:57> Related Data Home medications: Home Medications Medication Instructions Recorded Confirmed albuterol sulfate 90 mcg/actuation 2 puff inhalation Q4H PRN wheezing 05/01/20 09/09/21 aerosol inhaler duloxetine 60 mg capsule,delayed 60 mg PO DAILY 05/01/20 09/09/21 release folic acid 1 mg tablet 1 mg PO DAILY 05/01/20 09/09/21 [id number] 3 - 4 cap PO TIDWM 10/07/20 09/09/21 40,000-126,000-168,000 unit capsule, delay rel (Zenpep) albuterol sulfate 2.5 mg/3 mL 1 vial inhalation Q4H PRN wheezing 07/28/21 09/09/21 (0.083 %) solution for nebulization amitriptyline 10 mg tablet 1 tab PO BEDTIME 07/28/21 09/09/21 fluticasone 250 mcg-salmeterol 50 1 puff inhalation Q12H 07/28/21 09/09/21 mcg/dose blistr powdr for inhalation (Grover Castillo) fluticasone fur. 100 mcg-umeclid 1 puff inhalation DAILY 07/28/21 09/09/21 62.5 mcg-vilant 25 mcg inhalat.powder (Trelegy Ellipta) hydroxyzine HCl 25 mg tablet 1 tab PO Q8H PRN anxiety 07/28/21 09/09/21 pantoprazole 40 mg tablet,delayed 1 tab PO DAILY 07/28/21 09/09/21 release potassium chloride 10 mEq 1 tab PO DAILY 07/28/21 09/09/21 tablet,extended release tizanidine 2 mg tablet 1 tab PO BID 07/28/21 09/09/21 varenicline 0.5 mg (11)-1 mg (42) ea PO 08/12/21 09/09/21 tablets in a dose pack Previous Rx's Medication Instructions Recorded magnesium oxide 400 mg (241.3 mg 400 mg PO BIDPC #60 tabs 11/20/20 magnesium) tablet multivitamin (Daily-Jerald tablet) 1 tab PO DAILY #30 tabs 11/20/20 thiamine mononitrate (vit B1) 100 100 mg PO DAILY #30 tabs 11/20/20 mg tablet omeprazole 40 mg capsule,delayed 40 mg PO DAILY 30 days #30 caps 07/23/21 release nicotine 21 mg/24 hr daily 21 mg transdermal DAILY #28 ea 08/03/21 transdermal patch tiotropium bromide 18 mcg capsule 1 cap inhalation DAILY #30 08/03/21 with inhalation device (Spiriva inhalations with HandiHaler) naltrexone 50 mg tablet 50 mg PO DAILY #30 tabs 08/19/21 pen needle, diabetic 32 gauge x #100 ea 08/26/21 1/4 (BD Ultra-Fine Micro Pen Needle) pen needle, diabetic 29 gauge x #100 ea 08/28/21 1 (BD Ultra-Fine Original Pen Needle) blood sugar diagnostic (FreeStyle #200 ea 08/29/21 Lite Strips) blood-glucose meter (FreeStyle #1 ea 08/29/21 Lite Meter kit) lancets 28 gauge (FreeStyle #200 ea 08/29/21 Lancets) amlodipine 10 mg tablet 10 mg PO DAILY 90 days #90 tabs 09/15/21 gabapentin 300 mg capsule 300 mg PO BEDTIME 30 days #30 caps 09/15/21 tiotropium bromide 1.25 2 puff inhalation DAILY 30 days #4 09/15/21 mcg/actuation mist for inhalation grams (Spiriva Respimat) glucagon 3 mg/actuation nasal 3 mg intranasal ONCE #2 ea 09/28/21 spray (Baqsimi) naltrexone microspheres 380 mg 380 mg IM Q4W #1 ea 10/12/21 intramuscular suspension,extended release (Vivitrol) amitriptyline 25 mg tablet 25 mg PO BEDTIME 30 days #30 tabs 10/14/21 insulin glargine 100 unit/mL (3 14 unit (0.14 mL) subcut QPM 30 10/14/21 mL) subcutaneous pen ( days #6 mL KwikPen U-100 Insulin) metoprolol succinate 100 mg 100 mg PO DAILY 90 days #90 tabs 10/14/21 tablet,extended release 24 hr ondansetron 4 mg disintegrating 4 mg PO Q8H PRN nausea and 10/14/21 tablet vomiting 30 days #12 tabs aluminum-mag hydroxide-simethicone 5 ml PO 5XD PRN dyspepsia #30 mL 11/01/21 200 mg-200 mg-20 mg/5 mL oral susp (Maalox Advanced) famotidine 20 mg tablet (Pepcid) 20 mg PO DAILY #20 tabs 11/01/21 <MYRIAM Swartz - Last Filed: 11/01/21 17:57> Allergies/adverse reactions: Allergies Allergy/AdvReac Type Severity Reaction Status Date / Time No Known Allergies Allergy Verified 10/31/21 09:28 [No Known Allergies*] <MYRIAM Swartz - Last Filed: 11/01/21 17:57> Review of Systems Review of Systems: Constitutional: No Fever, No Chills, No Fatigue, No Malaise ENT/Mouth: No Ear Pain, No Nasal Congestion, No sore throat, No Rhinorrhea, No Swallowing Difficulty Eyes: No Eye Pain, No Swelling, No Redness, No Vision Changes Cardiovascular: No Chest Pain, No SOB, No Dyspnea on Exertion, No Orthopnea, No Edema, No Palpitations Respiratory: No Cough, No Sputum, No Dyspnea Gastrointestinal: + Nausea, + Vomiting, + Diarrhea, No Constipation, + Abdominal pain Genitourinary: No Dysuria, No Urinary Frequency, No Hematuria, No Urinary Incontinence/retention, No Flank Pain Musculoskeletal: No joint pain, No Myalgias, No Joint Swelling Skin: No Skin Lesions, No rash Neuro: No Weakness, No Numbness, No Loss of Consciousness, No Dizziness, No Headache <MYRIAM Swartz - Last Filed: 11/01/21 17:57> Yes all other systems are reviewed and are negative <MYRIAM Swartz - Last Filed: 11/01/21 17:57> Constitutional: Constitutional: Reports as per HPI <MYRIAM Swartz Last Filed: 11/01/21 17:57> [facility] Past Medical History Attestation statement: The following information was validated with the patient. <MYRIAM Swartz - Last Filed: 11/01/21 17:57> Medical History: Medical History Anxiety Chronic pancreatitis COPD (chronic obstructive pulmonary disease) Depression Diabetes mellitus, new onset EtOH dependence HTN (hypertension) Smoker <MYRIAM Swartz - Last Filed: 11/01/21 17:57> Surgical History: Surgical History History of colon resection Hx of cholecystectomy Previous back surgery <MYRIAM Swartz - Last Filed: 11/01/21 17:57> Family History Family History: Family History Mother Alcohol dependence Substance use disorder <MYRAIM Swartz Last Filed: 11/01/21 17:57> Social History Social History: Social History Household Members: Family Household Members Other:: Brother Housing: House Do you presently have visiting nurse or other home services: No Alcohol intake: current Alcohol intake frequency: 3 or more drinks per day Alcohol type: hard liquor Patient Tobacco Use Status: Current everyday Tobacco user Tobacco use type: Cigarette Cigarette Packs Per Day: 1 Cigarettes Per Day: 20.0 Years Smoked: 40 e-Cigarette/Vaping Use: Never Used Second Hand Smoke Exposure: No Advance Directives: No Advance Directives Information Provided: No service: No Current occupational status: employed Current occupational exposures/hazards: No Cognitive needs: No Hearing needs: No Vision needs: No <MYRIAM Swartz Last Filed: 11/01/21 17:57> Physical Exam ED Vital Signs: Vital Signs - 24 hr 11/01/21 08:43 11/01/21 13:45 11/01/21 14:18 Temperature 98.5 F 98.3 F Pulse Rate 98 87 94 Respiratory Rate 18 18 16 Blood Pressure 138/91 H 141/92 H Pulse Oximetry 98 92 Oxygen Delivery Method Room Air Room Air 11/01/21 15:59 Temperature 98.1 F Pulse Rate 92 Respiratory Rate 24 H Blood Pressure 157/97 H Pulse Oximetry 92 Oxygen Delivery Method Room Air BMI result Body Mass Index 26.4 <MYRIAM Swartz Last Filed: 11/01/21 17:57> Vital Signs - 24 hr 11/01/21 08:43 11/01/21 13:45 11/01/21 14:18 Temperature 98.5 F 98.3 F Pulse Rate 98 87 94 Respiratory Rate 18 18 16 Blood Pressure 138/91 H 141/92 H Pulse Oximetry 98 92 Oxygen Delivery Method Room Air Room Air 11/01/21 15:59 Temperature 98.1 F Pulse Rate 92 Respiratory Rate 24 H Blood Pressure 157/97 H Pulse Oximetry 92 Oxygen Delivery Method Room Air BMI result Body Mass Index 26.4 <MYRIAM Pack Last Filed: 11/01/21 19:49> Const General: cooperative, healthy appearing and no acute distress <MYRIAM Swartz Last Filed: 11/01/21 17:57> Orientation/consciousness: patient oriented x3 <MYRIAM Swartz Last Filed: 11/01/21 17:57> Limitations: no limitations <MYRIAM Swartz Last Filed: 11/01/21 17:57> HENMT Head: Yes normal to inspection and Yes atraumatic <MRYIAM Swartz Last Filed: 11/01/21 17:57> Ears: hearing grossly normal bilaterally <MYRIAM Swartz Last Filed: 11/01/21 17:57> General nose exam: Normal external nose present <MYRIAM Swartz Last Filed: 11/01/21 17:57> Face and sinus: Yes normal facial exam <Brionna Phelan PA - Last Filed: 11/01/21 17:57> Eyes General: appearance normal, both eyes and all related structures <Brionna Phelan PA - Last Filed: 11/01/21 17:57> EOM: EOMs intact bilaterally <Brionna Phelan PA - Last Filed: 11/01/21 17:57> Neck Neck: Yes normal visual inspection and Yes no meningeal signs <Brionna Phelan PA - Last Filed: 11/01/21 17:57> Resp Effort & Inspection: normal respiratory effort and no respiratory distress <Brionna Phelan PA - Last Filed: 11/01/21 17:57> Auscultation: wheezes expiratory wheezes and right lower <Brionna Phelan PA - Last Filed: 11/01/21 17:57> Cardio Rate: regular rate <Brionna Phelan PA - Last Filed: 11/01/21 17:57> Heart sounds: S1 normal heart sound present and S2 normal heart sound present <Brionna Phelan PA - Last Filed: 11/01/21 17:57> GI Inspection: Yes normal to inspection <Brionna Phelan PA - Last Filed: 11/01/21 17:57> Palpation (GI): Soft to palpation, Tenderness to palpation present (GI) in the epigastrum and in the RUQ, no guarding and not rigid <Brionna Phelan PA - Last Filed: 11/01/21 17:57> General: Yes no CVA tenderness <Brionna Phelan PA - Last Filed: 11/01/21 17:57> Back/Spine/Pelvis Back: no CVA tenderness <Brionna Phelan PA - Last Filed: 11/01/21 17:57> Skin Rashes: no rashes <Brionna Phelan PA - Last Filed: 11/01/21 17:57> Wounds: no wounds <Brionna Phelan PA - Last Filed: 11/01/21 17:57> Neuro General: patient oriented x3, tone normal and no meningeal signs <MYRIAM Swartz - Last Filed: 11/01/21 17:57> Gait exam (Neuro): Normal gait present <MYRIAM Swartz Last Filed: 11/01/21 17:57> Extrem General: Yes normal to inspection <MYRIAM Swartz - Last Filed: 11/01/21 17:57> Course Course Course Narrative: -1422--no leukocytosis. H&H at patient's baseline. Lactic acid WNL. Magnesium 1.4 > will give 2 g IV repletion -chronic transaminitis. LDH elevated to 327. Amylase 67 -[place]'s criteria = 1 (severe pancreatitis unlikely) XR chest 1V IMPRESSION: Mild to moderate elevation of left hemidiaphragm and mild left midlung atelectasis/scarring without significant change. No acute cardiopulmonary process. -1545--on re-evaluation patient reports continued pain, states had mild relief with 1st dose of morphine will give GI cocktail includin Pepcid, Maalox, Zofan and additional 2 mg Morphine US abdomen limited IMPRESSION: Slightly enlarged echogenic liver probably representing fatty infiltration. Normal caliber intrahepatic and extrahepatic bile ducts. Pancreas not seen. > Will p.o. challenge. On re-evaluation while discussing results patient reports interest in detox. Will obtain recovery consult -patient has been tolerating PO without pain, nausea or vomiting. No vomiting since ED arrival -Kayla from [facility] team spoke with patient, there are no available detox beds of patient's liking. Patient will speak with recovery operator for resources/counseling prior to discharge. <MYRIAM Swartz Last Filed: 11/01/21 17:57> Reevaluation(s) Reevaluation #1: Patient did an intake for [facility]. They will call him tomorrow morning. He would like to go home spend the night at home and then go to [facility] tomorrow. He was provided with outpatient resources including therapist, recovery operator, amongst other resources. assistant tennis coach spoke to patient. At this time patient feels comfortable with discharge home. Feeling well, tolerating p.o.. At this time patient will be discharged home. Comfortable with plan <MYRIAM Pack Last Filed: 11/01/21 19:49> Time: 19:49 <MYRIAM Pack - Last Filed: 11/01/21 19:49> Medical Decision Making MDM Narrative Medical decision making narrative: 56-year-old male with a past medical history of anxiety, chronic pancreatitis, COPD, depression, diverticulitis, HTN, ETOH dependence drinks approximately 20 drinks daily, last drink last night presenting to the ED complaining of upper abdominal pain, nausea, vomiting, and diarrhea times 3-4 days. On exam vital signs stable, NAD, appears in pain, lungs with mild expiratory wheeze, abdomen soft with epigastric pain, no rebound or guarding. Concern for COPD exacerbation vs acute on chronic pancreatitis vs metabolic/infectious etiologies. Low suspicion for severe sepsis at this time. Plan: Labs, UA, CXR, IVF, pain management, abdomen ultrasound as patient has had 7 CTs in the past year <MYRIAM Swartz - Last Filed: 11/01/21 17:57> Medical Records Medical records reviewed: Yes I reviewed the patient's medical records. <MYRIAM Swartz - Last Filed: 11/01/21 17:57> Lab Data Lab results reviewed: Yes I reviewed the patient's lab results. <MYRIAM Swartz - Last Filed: 11/01/21 17:57> Result diagrams: : 11/01/21 09:58 11/01/21 09:58 <MYRIAM Swartz - Last Filed: 11/01/21 17:57> Labs: Lab Results 11/01/21 11/01/21 11/01/21 Range/Units 08:48 09:58 09:58 WBC 6.3 (4.8-10.8) X10*3/uL RBC 4.30 L (4.60-5.80) X10*6/uL Hgb 13.6 L (14.0-18.0) g/dl Hct 39.9 L (42.0-52.0) % MCV 92.8 (80.0-98.0) fL MCH 31.6 (27.0-33.0) pg MCHC 34.1 (31.0-36.0) g/dl RDW 14.1 (11.0-16.0) % Plt Count 171 D (160-400) X10*3/uL MPV 8.3 L (9.4-12.4) fL Immature Gran % (Auto) 0.6 H (0.0-0.4) % Neut % (Auto) 62.4 (45-73) % Lymph % (Auto) 21.9 (20-40) % Bea[place]gard % (Auto) 11.7 H (2-11) % Eos % (Auto) 2.4 (0-4) % Baso % (Auto) 1.0 (0-2) % Lymph # (Auto) 1.4 (1.2-4.9) X10*3/uL [place] # (Auto) 0.7 (0.1-1.2) X10*3/uL Eos # (Auto) 0.2 (0.0-0.4) X10*3/uL Baso # (Auto) 0.1 (0.0-0.2) X10*3/uL Abs Immat Gran (auto) 0.04 H (0.00-0.03) X10*3/uL Absolute Neuts (auto) 3.9 (2.0-8.3) x10*3/uL Absolute Nucleated RBC 0.000 (0.0-0.012) X10*3/uL Nucleated RBC % (auto) 0.0 (0.0-0.2) /100WBC Sodium 142 (135-145) mmol/L Potassium 4.1 (3.3-5.1) mmol/L Chloride 106 (96-108) mmol/L Carbon Dioxide 24 (22-29) mmol/L Anion Gap 16 (12-20) BUN 7 L (9-16) mg/dL Creatinine 0.70 (0.5-1.4) mg/dL Estim Creat Clear Calc 133.1 Estimated GFR > 60 POC Glucose 163 H (60-115) mg/dL Random Glucose 143 H (60-115) mg/dL Lactic Acid (0.5-2.0) mmol/L Calcium 9.0 (8.4-10.2) mg/dL Magnesium 1.4 L* (1.6-2.6) mg/dL Total Bilirubin 0.5 (0.0-1.0) mg/dL Direct Bilirubin 0.2 (0.0-0.5) mg/dL AST 71 H (5-37) U/L ALT 46 H (0-40) U/L Alkaline Phosphatase 141 H (39-117) U/L Lactate Dehydrogenase 327 H (118-273) U/L Total Protein 6.7 (6.5-8.0) g/dL Albumin 3.8 (3.5-5.0) g/dL Amylase (28-100) U/L Lipase 15 (8-78) U/L Urine Color Urine Appearance Urine pH (5.0-9.0) Ur Specific [place] (1.005-1.025) Urine Protein (Neg-Trace) mg/dL Urine Glucose (UA) (Negative) mg/dL Urine Ketones (Negative) mg/dL Urine Blood (Negative) Urine Nitrite (Negative) Ur Leukocyte Esterase (Negative) Ethyl Alcohol < 10 mg/dL Acetone, Qual Negative (Negative) COVID-19 (JUAN LUIS) (Negative) COVID-19 Clin Com 11/01/21 11/01/21 11/01/21 Range/Units 09:58 13:45 13:45 WBC (4.8-10.8) X10*3/uL RBC (4.60-5.80) X10*6/uL Hgb (14.0-18.0) g/dl Hct (42.0-52.0) % MCV (80.0-98.0) fL MCH (27.0-33.0) pg MCHC (31.0-36.0) g/dl RDW (11.0-16.0) % Plt Count (160-400) X10*3/uL MPV (9.4-12.4) fL Immature Gran % (Auto) (0.0-0.4) % Neut % (Auto) (45-73) % Lymph % (Auto) (20-40) % [place] % (Auto) (2-11) % Eos % (Auto) (0-4) % Baso % (Auto) (0-2) % Lymph # (Auto) (1.2-4.9) X10*3/uL [place] # (Auto) (0.1-1.2) X10*3/uL Eos # (Auto) (0.0-0.4) X10*3/uL Baso # (Auto) (0.0-0.2) X10*3/uL Abs Immat Gran (auto) (0.00-0.03) X10*3/uL Absolute Neuts (auto) (2.0-8.3) x10*3/uL Absolute Nucleated RBC (0.0-0.012) X10*3/uL Nucleated RBC % (auto) (0.0-0.2) /100WBC Sodium (135-145) mmol/L Potassium (3.3-5.1) mmol/L Chloride (96-108) mmol/L Carbon Dioxide (22-29) mmol/L Anion Gap (12-20) BUN (9-16) mg/dL Creatinine (0.5-1.4) mg/dL Estim Creat Clear Calc Estimated GFR POC Glucose (60-115) mg/dL Random Glucose (60-115) mg/dL Lactic Acid 1.0 (0.5-2.0) mmol/L Calcium (8.4-10.2) mg/dL Magnesium (1.6-2.6) mg/dL Total Bilirubin (0.0-1.0) mg/dL Direct Bilirubin (0.0-0.5) mg/dL AST (5-37) U/L ALT (0-40) U/L Alkaline Phosphatase (39-117) U/L Lactate Dehydrogenase (118-273) U/L Total Protein (6.5-8.0) g/dL Albumin (3.5-5.0) g/dL Amylase 67 D (28-100) U/L Lipase (8-78) U/L Urine Color Urine Appearance Urine pH (5.0-9.0) Ur Specific [place] (1.005-1.025) Urine Protein (Neg-Trace) mg/dL Urine Glucose (UA) (Negative) mg/dL Urine Ketones (Negative) mg/dL Urine Blood (Negative) Urine Nitrite (Negative) Ur Leukocyte Esterase (Negative) Ethyl Alcohol mg/dL Acetone, Qual (Negative) COVID-19 (JUAN LUIS) Negative (Negative) COVID-19 Clin Com See Note 11/01/21 11/01/21 Range/Units 14:26 14:31 WBC (4.8-10.8) X10*3/uL RBC (4.60-5.80) X10*6/uL Hgb (14.0-18.0) g/dl Hct (42.0-52.0) % MCV (80.0-98.0) fL MCH (27.0-33.0) pg MCHC (31.0-36.0) g/dl RDW (11.0-16.0) % Plt Count (160-400) X10*3/uL MPV (9.4-12.4) fL Immature Gran % (Auto) (0.0-0.4) % Neut % (Auto) (45-73) % Lymph % (Auto) (20-40) % [place] % (Auto) (2-11) % Eos % (Auto) (0-4) % Baso % (Auto) (0-2) % Lymph # (Auto) (1.2-4.9) X10*3/uL [place] # (Auto) (0.1-1.2) X10*3/uL Eos # (Auto) (0.0-0.4) X10*3/uL Baso # (Auto) (0.0-0.2) X10*3/uL Abs Immat Gran (auto) (0.00-0.03) X10*3/uL Absolute Neuts (auto) (2.0-8.3) x10*3/uL Absolute Nucleated RBC (0.0-0.012) X10*3/uL Nucleated RBC % (auto) (0.0-0.2) /100WBC Sodium (135-145) mmol/L Potassium (3.3-5.1) mmol/L Chloride (96-108) mmol/L Carbon Dioxide (22-29) mmol/L Anion Gap (12-20) BUN (9-16) mg/dL Creatinine (0.5-1.4) mg/dL Estim Creat Clear Calc Estimated GFR POC Glucose 137 H (60-115) mg/dL Random Glucose (60-115) mg/dL Lactic Acid (0.5-2.0) mmol/L Calcium (8.4-10.2) mg/dL Magnesium (1.6-2.6) mg/dL Total Bilirubin (0.0-1.0) mg/dL Direct Bilirubin (0.0-0.5) mg/dL AST (5-37) U/L ALT (0-40) U/L Alkaline Phosphatase (39-117) U/L Lactate Dehydrogenase (118-273) U/L Total Protein (6.5-8.0) g/dL Albumin (3.5-5.0) g/dL Amylase (28-100) U/L Lipase (8-78) U/L Urine Color Yellow Urine Appearance Clear Urine pH 7.0 (5.0-9.0) Ur Specific [place] 1.015 (1.005-1.025) Urine Protein Negative (Neg-Trace) mg/dL Urine Glucose (UA) Negative (Negative) mg/dL Urine Ketones Negative (Negative) mg/dL Urine Blood Negative (Negative) Urine Nitrite Negative (Negative) Ur Leukocyte Esterase Negative (Negative) Ethyl Alcohol mg/dL Acetone, Qual (Negative) COVID-19 ([facility]IS) (Negative) COVID-19 Clin Com <MYRIAM Swartz - Last Filed: 11/01/21 17:57> Lab Results 11/01/21 11/01/21 11/01/21 Range/Units 08:48 09:58 09:58 WBC 6.3 (4.8-10.8) X10*3/uL RBC 4.30 L (4.60-5.80) X10*6/uL Hgb 13.6 L (14.0-18.0) g/dl Hct 39.9 L (42.0-52.0) % MCV 92.8 (80.0-98.0) fL MCH 31.6 (27.0-33.0) pg MCHC 34.1 (31.0-36.0) g/dl RDW 14.1 (11.0-16.0) % Plt Count 171 D (160-400) X10*3/uL MPV 8.3 L (9.4-12.4) fL Immature Gran % (Auto) 0.6 H (0.0-0.4) % Neut % (Auto) 62.4 (45-73) % Lymph % (Auto) 21.9 (20-40) % [place] % (Auto) 11.7 H (2-11) % Eos % (Auto) 2.4 (0-4) % Baso % (Auto) 1.0 (0-2) % Lymph # (Auto) 1.4 (1.2-4.9) X10*3/uL [place] # (Auto) 0.7 (0.1-1.2) X10*3/uL Eos # (Auto) 0.2 (0.0-0.4) X10*3/uL Baso # (Auto) 0.1 (0.0-0.2) X10*3/uL Abs Immat Gran (auto) 0.04 H (0.00-0.03) X10*3/uL Absolute Neuts (auto) 3.9 (2.0-8.3) x10*3/uL Absolute Nucleated RBC 0.000 (0.0-0.012) X10*3/uL Nucleated RBC % (auto) 0.0 (0.0-0.2) /100WBC Sodium 142 (135-145) mmol/L Potassium 4.1 (3.3-5.1) mmol/L Chloride 106 (96-108) mmol/L Carbon Dioxide 24 (22-29) mmol/L Anion Gap 16 (12-20) BUN 7 L (9-16) mg/dL Creatinine 0.70 (0.5-1.4) mg/dL Estim Creat Clear Calc 133.1 Estimated GFR > 60 POC Glucose 163 H (60-115) mg/dL Random Glucose 143 H (60-115) mg/dL Lactic Acid (0.5-2.0) mmol/L Calcium 9.0 (8.4-10.2) mg/dL Magnesium 1.4 L* (1.6-2.6) mg/dL Total Bilirubin 0.5 (0.0-1.0) mg/dL Direct Bilirubin 0.2 (0.0-0.5) mg/dL AST 71 H (5-37) U/L ALT 46 H (0-40) U/L Alkaline Phosphatase 141 H (39-117) U/L Lactate Dehydrogenase 327 H (118-273) U/L Total Protein 6.7 (6.5-8.0) g/dL Albumin 3.8 (3.5-5.0) g/dL Amylase (28-100) U/L Lipase 15 (8-78) U/L Urine Color Urine Appearance Urine pH (5.0-9.0) Ur Specific [place] (1.005-1.025) Urine Protein (Neg-Trace) mg/dL Urine Glucose (UA) (Negative) mg/dL Urine Ketones (Negative) mg/dL Urine Blood (Negative) Urine Nitrite (Negative) Ur Leukocyte Esterase (Negative) Ethyl Alcohol < 10 mg/dL Acetone, Qual Negative (Negative) COVID-19 ([facility]) (Negative) COVID-19 Clin Com 11/01/21 11/01/21 11/01/21 Range/Units 09:58 13:45 13:45 WBC (4.8-10.8) X10*3/uL RBC (4.60-5.80) X10*6/uL Hgb (14.0-18.0) g/dl Hct (42.0-52.0) % MCV (80.0-98.0) fL MCH (27.0-33.0) pg MCHC (31.0-36.0) g/dl RDW (11.0-16.0) % Plt Count (160-400) X10*3/uL MPV (9.4-12.4) fL Immature Gran % (Auto) (0.0-0.4) % Neut % (Auto) (45-73) % Lymph % (Auto) (20-40) % [place] % (Auto) (2-11) % Eos % (Auto) (0-4) % Baso % (Auto) (0-2) % Lymph # (Auto) (1.2-4.9) X10*3/uL [place] # (Auto) (0.1-1.2) X10*3/uL Eos # (Auto) (0.0-0.4) X10*3/uL Baso # (Auto) (0.0-0.2) X10*3/uL Abs Immat Gran (auto) (0.00-0.03) X10*3/uL Absolute Neuts (auto) (2.0-8.3) x10*3/uL Absolute Nucleated RBC (0.0-0.012) X10*3/uL Nucleated RBC % (auto) (0.0-0.2) /100WBC Sodium (135-145) mmol/L Potassium (3.3-5.1) mmol/L Chloride (96-108) mmol/L Carbon Dioxide (22-29) mmol/L Anion Gap (12-20) BUN (9-16) mg/dL Creatinine (0.5-1.4) mg/dL Estim Creat Clear Calc Estimated GFR POC Glucose (60-115) mg/dL Random Glucose (60-115) mg/dL Lactic Acid 1.0 (0.5-2.0) mmol/L Calcium (8.4-10.2) mg/dL Magnesium (1.6-2.6) mg/dL Total Bilirubin (0.0-1.0) mg/dL Direct Bilirubin (0.0-0.5) mg/dL AST (5-37) U/L ALT (0-40) U/L Alkaline Phosphatase (39-117) U/L Lactate Dehydrogenase (118-273) U/L Total Protein (6.5-8.0) g/dL Albumin (3.5-5.0) g/dL Amylase 67 D (28-100) U/L Lipase (8-78) U/L Urine Color Urine Appearance Urine pH (5.0-9.0) Ur Specific [place] (1.005-1.025) Urine Protein (Neg-Trace) mg/dL Urine Glucose (UA) (Negative) mg/dL Urine Ketones (Negative) mg/dL Urine Blood (Negative) Urine Nitrite (Negative) Ur Leukocyte Esterase (Negative) Ethyl Alcohol mg/dL Acetone, Qual (Negative) COVID-19 ([facility]) Negative (Negative) COVID-19 Clin Com See Note 11/01/21 11/01/21 Range/Units 14:26 14:31 WBC (4.8-10.8) X10*3/uL RBC (4.60-5.80) X10*6/uL Hgb (14.0-18.0) g/dl Hct (42.0-52.0) % MCV (80.0-98.0) fL MCH (27.0-33.0) pg MCHC (31.0-36.0) g/dl RDW (11.0-16.0) % Plt Count (160-400) X10*3/uL MPV (9.4-12.4) fL Immature Gran % (Auto) (0.0-0.4) % Neut % (Auto) (45-73) % Lymph % (Auto) (20-40) % [place] % (Auto) (2-11) % Eos % (Auto) (0-4) % Baso % (Auto) (0-2) % Lymph # (Auto) (1.2-4.9) X10*3/uL [place] # (Auto) (0.1-1.2) X10*3/uL Eos # (Auto) (0.0-0.4) X10*3/uL Baso # (Auto) (0.0-0.2) X10*3/uL Abs Immat Gran (auto) (0.00-0.03) X10*3/uL Absolute Neuts (auto) (2.0-8.3) x10*3/uL Absolute Nucleated RBC (0.0-0.012) X10*3/uL Nucleated RBC % (auto) (0.0-0.2) /100WBC Sodium (135-145) mmol/L Potassium (3.3-5.1) mmol/L Chloride (96-108) mmol/L Carbon Dioxide (22-29) mmol/L Anion Gap (12-20) BUN (9-16) mg/dL Creatinine (0.5-1.4) mg/dL Estim Creat Clear Calc Estimated GFR POC Glucose 137 H (60-115) mg/dL Random Glucose (60-115) mg/dL Lactic Acid (0.5-2.0) mmol/L Calcium (8.4-10.2) mg/dL Magnesium (1.6-2.6) mg/dL Total Bilirubin (0.0-1.0) mg/dL Direct Bilirubin (0.0-0.5) mg/dL AST (5-37) U/L ALT (0-40) U/L Alkaline Phosphatase (39-117) U/L Lactate Dehydrogenase (118-273) U/L Total Protein (6.5-8.0) g/dL Albumin (3.5-5.0) g/dL Amylase (28-100) U/L Lipase (8-78) U/L Urine Color Yellow Urine Appearance Clear Urine pH 7.0 (5.0-9.0) Ur Specific [place] 1.015 (1.005-1.025) Urine Protein Negative (Neg-Trace) mg/dL Urine Glucose (UA) Negative (Negative) mg/dL Urine Ketones Negative (Negative) mg/dL Urine Blood Negative (Negative) Urine Nitrite Negative (Negative) Ur Leukocyte Esterase Negative (Negative) Ethyl Alcohol mg/dL Acetone, Qual (Negative) COVID-19 ([facility]) (Negative) COVID-19 Clin Com <MYRIAM Pack - Last Filed: 11/01/21 19:49> Discharge Plan Discharge Clinical Impression: Acute on chronic pancreatitis, EtOH dependence <MYRIAM Swartz - Last Filed: 11/01/21 17:57> Patient Disposition: Home, Self-Care <MYRIAM Swartz - Last Filed: 11/01/21 17:57> Instructions: Pancreatitis (ED), Alcohol Withdrawal (ED), Alcohol Dependence (ED) <MYRIAM Swartz - Last Filed: 11/01/21 17:57> Additional Instructions: You have chronic pancreatitis. It is very important your staying hydrated at home. Pepcid and Maalox will help with your symptoms. You should really reconsider going to detox. Drinking alcohol will make her symptoms worse Avoid alcohol and drug use this can kill you If your symptoms persist or worsen, you have uncontrollable pain, persistent nausea or vomiting, fever, your unable to eat or drink return to the emergency department <MYRIAM Swartz - Last Filed: 11/01/21 17:57> Prescriptions: New famotidine [Pepcid] 20 mg tablet 20 mg PO DAILY Qty: 20 0RF alum-mag hydroxide-simeth [Maalox Advanced] 200-200-20 mg/5 mL suspension 5 ml PO 5XD PRN (Reason: dyspepsia) Qty: 30 0RF Rx Instructions: administer between meals and at bedtime No Action naltrexone 50 mg tablet 50 mg PO DAILY Qty: 30 1RF (DME) pen needle, diabetic [BD Ultra-Fine Orig Pen Needle] 29 gauge x 1/2 needle See Rx Instructions .Route Qty: 100 4RF Rx Instructions: Daily, As directed (DME) blood-glucose meter [FreeStyle Lite Meter] Kit See Rx Instructions .ROUTE .MEDSUPPLY Qty: 1 0RF Rx Instructions: DX: E11.9, test blood sugar twice a day, duration 999 days (DME) FreeStyle Lite Strips Strip See Rx Instructions .ROUTE .MEDSUPPLY Qty: 200 4RF Rx Instructions: DX: E11.9, test blood sugar 2 times a day, 90 days (DME) lancets [FreeStyle Lancets] 28 gauge misc See Rx Instructions .ROUTE .MEDSUPPLY Qty: 200 4RF Rx Instructions: As directed amlodipine 10 mg tablet 10 mg PO DAILY 90 Days Qty: 90 3RF gabapentin 300 mg capsule 300 mg PO BEDTIME 30 Days Qty: 30 1RF Spiriva Respimat 1.25 mcg/actuation mist 2 puff inhalation DAILY 30 Days Qty: 4 1RF Vivitrol 380 mg suspension,extended rel recon 380 mg IM Q4W Qty: 1 5RF folic acid 1 mg tablet 1 mg PO DAILY albuterol sulfate 90 mcg/actuation HFA aerosol inhaler 2 puff inhalation Q4H PRN (Reason: wheezing) duloxetine 60 mg capsule,delayed release(DR/EC) 60 mg PO DAILY Zenpep 40,000-126,000- 168,000 unit Capsule,Delayed Release(Dr/Ec) 3 - 4 cap PO TIDWM magnesium oxide 400 mg (241.3 mg magnesium) Tablet 400 mg PO BIDPC Qty: 60 0RF multivitamin [Daily-Jerald] Tablet 1 tab PO DAILY Qty: 30 0RF thiamine mononitrate (vit B1) 100 mg Tablet 100 mg PO DAILY Qty: 30 0RF omeprazole 40 mg capsule,delayed release(DR/EC) 40 mg PO DAILY 30 Days Qty: 30 0RF tizanidine 2 mg tablet 1 tab PO BID potassium chloride 10 mEq tablet extended release 1 tab PO DAILY amitriptyline 10 mg tablet 1 tab PO BEDTIME hydroxyzine HCl 25 mg tablet 1 tab PO Q8H PRN (Reason: anxiety) Trelegy Ellipta 100-62.5-25 mcg blister with device 1 puff inhalation DAILY fluticasone propion-salmeterol [Wixela Inhub] 250-50 mcg/dose blister with device 1 puff inhalation Q12H albuterol sulfate 2.5 mg /3 mL (0.083 %) solution for nebulization 1 vial inhalation Q4H PRN (Reason: wheezing) pantoprazole 40 mg tablet,delayed release (DR/EC) 1 tab PO DAILY nicotine 21 mg/24 hr Patch 24 Hour 21 mg transdermal DAILY Qty: 28 0RF Spiriva with HandiHaler 18 mcg capsule, w/inhalation device 1 cap inhalation DAILY Qty: 30 0RF Rx Instructions: puncture 1 cap using device; one dose = 2 inhalations varenicline 0.5 mg (11)- 1 mg (42) tablets,dose pack PO (DME) pen needle, diabetic [BD Ultra-Fine Micro Pen Needle] 32 gauge x 1/4 needle See Rx Instructions .ROUTE .MEDSUPPLY Qty: 100 2RF Rx Instructions: Once a day As directed, 90 days metoprolol succinate 100 mg tablet extended release 24 hr 100 mg PO DAILY 90 Days Qty: 90 2RF ondansetron 4 mg tablet,disintegrating 4 mg PO Q8H PRN (Reason: nausea and vomiting) 30 Days Qty: 12 0RF insulin glargine [Basaglar KwikPen U-100 Insulin] 100 unit/mL (3 mL) insulin pen 14 unit subcut QPM 30 Days Qty: 6 3RF amitriptyline 25 mg tablet 25 mg PO BEDTIME 30 Days Qty: 30 1RF Baqsimi 3 mg/actuation spray,non-aerosol 3 mg intranasal ONCE Qty: 2 4RF <MYRIAM Swartz - Last Filed: 11/01/21 17:57> Referrals: [facility] [Outside] Oren Leon MD [Primary Care Provider] - 2 days <MYRIAM Swartz - Last Filed: 11/01/21 17:57>
[2021-11-01 13:45] VITALS: PULSE 87; RESP 18; O2SAT 98
[2021-11-01] MEDS: Albuterol/Iprat 2.5/0.5MG 3 ML AMPUL.NEB INHALE (13:45)
[2021-11-01] MEDS: Morphine Sulfate 2 MG/ML CARTRIDGE IVPUSH ×3 (13:50→19:14)
[2021-11-01] MEDS: chlordiazePOXIDE HCl 25 MG CAPSULE 50 MG PO (13:51)
[2021-11-01] MEDS: Magnesium Sulfate/H2O 2 GM/50 ML PIGGYBACK IV (13:51)
[2021-11-01] MEDS: 0.9 % Sodium Chloride 1,000 ML 999 ML IV ×2 (13:51→15:51)
[2021-11-01 13:57] LABS: Amylase 67 U/L (28-100)
[2021-11-01 14:18] VITALS: BP 141/92; PULSE 94; RESP 16; TEMP 36.8; O2SAT 92
[2021-11-01 14:32] LABS: Glucose, Whole Blood 137 mg/dL (60-115)
[2021-11-01 14:41] LABS: Appearance Urine Clear; Color Urine Yellow; Glucose Urine UA Negative (Negative); Leukocyte Esterase Urine Negative (Negative); Nitrite Urine Negative (Negative); Specific Gravity - Urine 1.015 (1.005-1.025); Urine Blood Negative (Negative); Urine Ketones Negative (Negative); Urine Protein Negative (Neg-Trace)
[2021-11-01 14:52] LABS: Acetone, serum QL Negative (Negative)
[2021-11-01 15:59] VITALS: BP 157/97; PULSE 92; RESP 24; TEMP 36.7; O2SAT 92
[2021-11-01] MEDS: Famotidine/PF 20 MG/2 ML VIAL IVPUSH (16:25)
[2021-11-01] MEDS: ondansetron HCL 4 MG/2 ML VIAL IVPUSH (16:25)
[2021-11-01] MEDS: Magnesium Hydrox/Alum Hydrox 30 ML ORAL.SUSP PO (16:25)
[2021-11-01] MEDS: Sucralfate 1 GM TABLET PO (16:25)
--- NOTE | 2021-11-01 18:11 | MHC.CARE ---
CARE team consult received for 56 year old male who self presented to the ED seeking detox from alcohol. Pt has been medically cleared and appropriate for possible transfer to a detox facility. CARE team contacted [facility] and [facility]. No beds available at [facility] but [facility] did have availability. Pt's information was provided to central intake who reported that it would be passed along to the community marketing coordinator who would call pt for a screening and phone intake. This customs entry writer met with pt to discuss the available bed. Pt declined this bed, citing that he isn't comfortable going to a detox facility in [place] or [place] because of stories that he's heard from other people who have been. He reported that he has been to [facility] for detox in the past but is not interested in going to a facility that is out of the local area. This customs entry writer explained that pt's only local options are in [place] or [place]. Pt expressed a preference to either be medically admitted for a detox, which isn't an option at this time, or discharged home with medications to detox. Pt was advised that it's not typical for someone to discharge from an emergency department with withdrawal taper medications, but if he's not agreeable to going to a detox facility then he will be discharged home. Pt reported that he is interested in outpatient supports. He is currently going to [facility] for naltrexone, with the goal of starting vivitrol injections. He reported that he hasn't been started on vivitrol due to his liver function and that he hasn't been taking the naltrexone as prescribed. Pt is agreeable to meeting with a motor coach supervisor to discuss possible referral to [facility] to work with an ongoing motor coach supervisor. CARE team spoke with motor coach supervisor to provide her with details re: the conversation had with the pt. ED provider was updated re: the consultation and pt's preference to return home.
[2021-11-01] MEDS: chlordiazePOXIDE HCl 25 MG CAPSULE PO (18:20)
--- NOTE | 2021-11-01 19:43 | MHC.RECOVSUP ---
? Reason for consult: Recovery Support o Current location: ED -14 o Identified substance use concern: Alcohol Use Disorder? - Withdrawal - Seeking ATS (detox) - Support ? ?Intervention: o ATS bed search started/completed/in process o MAT started or to be started o Community resources provided o Harm reduction discussion ? Plan: o Referral to [facility] o Bed search in progress to [facility] o Follow up tomorrow ? ? Additional information: Patient consultation with Care Team before contact. Patient is a 56 year old male who is suffering from AUD. PT describes his active addiction, what it looks like and the results from his behaviors. Patients marriage of [address] is in divorce court and his relationship with his children have been estranged. Pt also shares that he thinks he had a seizure during his shift at work which caused him to fall and fracture his face which resulted in taking disability. Patients family, work, health and relationships have been effected from his alcoholism. I was able to encourage him to complete an intake at [facility] with a coordinator. He was advised from the team at [facility] to call tomorrow morning to secure a bed. We reviewed harm reduction strategies and community resources was provided.
[2021-11-01 19:53] VITALS: BP 149/100; PULSE 88; RESP 16; O2SAT 92
== END 2021-11-01 20:07 | disposition home or self-care (01) ==
PROVIDERS: Emergency Medicine; Physician Assistant; Emergency Provider Student in an Organized Health Care Education/Training Program; PCP Family Medicine
DX: K85.90 Acute pancreatitis without necrosis or infection, unspecified (principal); K86.1 Other chronic pancreatitis; F10.20 Alcohol dependence, uncomplicated; Y90.0 Blood alcohol level of less than 20 mg/100 ml; R10.10 Upper abdominal pain, unspecified; R11.2 Nausea with vomiting, unspecified; E11.9 Type 2 diabetes mellitus without complications; I10 Essential (primary) hypertension; F17.210 Nicotine dependence, cigarettes, uncomplicated; Z20.822 Contact with and (suspected) exposure to COVID-19
CPT/HCPCS: 36415; 71045; 76705; 80048; 80076; 81003; 82009; 82077; 82150; 82947; 83605; 83615; 83690; 83735; 85025; 87040; 87635; 94640; 96361; 96374; 96375; 96376; 99284; J2270; J2405; J3475

== ENCOUNTER → 2021-11-08 09:35 | Outpatient (BNVA) | payer OTHER, SELFPAY | PROVIDERS: PCP Family Medicine; Visit Provider Nurse Practitioner Psychiatric/Mental Health | DX: Z51.81 Encounter for therapeutic drug level monitoring (principal); Z79.899 Other long term (current) drug therapy | CPT/HCPCS: 80305 ==

== ENCOUNTER 2021-11-11 08:10 | Emergency (ER) | payer OTHER, SELFPAY ==
--- NOTE | ~2021-11-11 | CT_ITS ---
EXAMINATION: CT ABDOMEN AND PELVIS WITH CONTRAST CLINICAL INFORMATION: Abdominal pain, back pain COMPARISON: Ultrasound abdomen 11/01/2021, MR abdomen without and with gadolinium contrast 08/01/2021, CT abdomen and pelvis noncontrast 07/31/2021. TECHNIQUE: Multidetector volumetric images were obtained from the superior aspect of the liver through the pubic symphysis following administration 85 mL of Omnipaque 350 intravenous contrast. Sagittal and coronal reformatted images were obtained on the technologist's workstation. Oral contrast: No This CT examination was performed using dose optimization techniques as appropriate, variously including the following: *Automated exposure control *Adjustment of mA and/or kV according to patient size (this includes techniques or standardized protocols for targeted exams where dose is matched to indication/reason for exam; i.e. extremities or head) *Use of iterative reconstruction technique DLP: 843 mGy-cm FINDINGS: LUNG BASES: Atelectasis left posterior base. Subsegmental atelectasis right medial base. No effusion. There is eventration/elevation left diaphragm similar to prior imaging. LIVER, GALLBLADDER, AND BILIARY TREE: Liver is upper limits of normal size and smooth in contour. There is mild diffuse hepatic steatosis similar to prior study. No focal hepatic parenchymal lesion or intrahepatic biliary ductal dilatation. Prior cholecystectomy. Common duct unremarkable. PANCREAS: The pancreas is again atrophic with mildly enlarged pancreatic duct, 6 mm in caliber. There are some scattered parenchymal calcifications again seen. No focal pancreatic enlargement or peripancreatic inflammatory changes. SPLEEN: Unremarkable. ADRENAL GLANDS: Unremarkable. KIDNEYS AND URETERS: The kidneys are normal in size, shape, and attenuation. No hydronephrosis, hydroureter, or calculi seen. No perinephric stranding. There is an incidental cyst medial mid to lower pole right kidney just under 2 cm again seen. No additional imaging follow-up recommended for this benign cyst.. BLADDER: Unremarkable. GASTROINTESTINAL TRACT: No obstruction or inflammatory changes in bowel or mesentery. Normal appendix. No pneumatosis or free air. No ascites or fluid collection. ABDOMINAL WALL: No significant hernia is appreciated. LYMPH NODES: There are a few borderline enlarged nodes in region of gastrohepatic ligament at root of mesentery similar to prior exam. No retroperitoneal or pelvic lymphadenopathy. VASCULAR: Unremarkable. PELVIC VISCERA: Unremarkable. OSSEOUS STRUCTURES: No acute bony abnormality. There are degenerative changes mid to lower lumbar spine. CT/CT abdomen pelvis w IV con IMPRESSION: -No acute inflammatory changes in abdomen or pelvis. -Atrophic pancreas with chronic enlarged pancreatic duct. No peripancreatic inflammatory changes. -No bowel obstruction, ascites, or fluid collection. -Prior cholecystectomy. No ductal dilatation. -No hydronephrosis, calculi, or perinephric stranding.
[2021-11-11 08:23] VITALS: BP 132/82; PULSE 100; RESP 18; TEMP 36.4; O2SAT 94; BMI 26.4
--- NOTE | 2021-11-11 09:50 | ECG_ITS ---
Test Reason : Chest Pain Blood Pressure : / mmHG Vent. Rate : 081 BPM Atrial Rate : 081 BPM P-R Int : 228 ms QRS Dur : 102 ms QT Int : 406 ms P-R-T Axes : 027 -21 004 degrees QTc Int : 471 ms Sinus rhythm with 1st degree A-V block Inferior infarct (cited on or before 17-NOV-2020) Cannot rule out Anterior infarct (cited on or before 07-OCT-2020) Abnormal ECG When compared with ECG of 28-JUL-2021 13:05, VT interval has increased Referred By: Perla Prince Electronically Signed By:HERMES MONTENEGRO
--- NOTE | 2021-11-11 09:53 | ED.ABDPAIN ---
HPI - Abdominal Pain General Chief Complaint: Abdominal Pain Stated Complaint: pancreatitis Time Seen by Provider: 11/11/21 09:27 Source: patient Mode of arrival: ambulatory Limitations: no limitations History of Present Illness HPI narrative: 56 yo male with a past medical history of anxiety, chronic pancreatitis, COPD, depression, diverticulitis, HTN, ETOH dependence drinks approximately 20 drinks daily, last drink last night here with 4 days of upper abdominal pain/back pain/nausea. Seen here several days ago for same. Went to detox this last weekend but left and didn't want to stay. Continuing to drink alcohol. Related Data Home Medications Medication Instructions Recorded Confirmed albuterol sulfate 90 mcg/actuation 2 puff inhalation Q4H PRN wheezing 05/01/20 09/09/21 aerosol inhaler duloxetine 60 mg capsule,delayed 60 mg PO DAILY 05/01/20 09/09/21 release folic acid 1 mg tablet 1 mg PO DAILY 05/01/20 09/09/21 [id number]-[id number]-aertwad 3 - 4 cap PO TIDWM 10/07/20 09/09/21 40,000-126,000-168,000 unit capsule, delay rel (Zenpep) fluticasone 250 mcg-salmeterol 50 1 puff inhalation Q12H 07/28/21 09/09/21 mcg/dose blistr powdr for inhalation (Wixela Inhub) fluticasone fur. 100 mcg-umeclid 1 puff inhalation DAILY 07/28/21 09/09/21 62.5 mcg-vilant 25 mcg inhalat.powder (Trelegy Ellipta) hydroxyzine HCl 25 mg tablet 1 tab PO Q8H PRN anxiety 07/28/21 09/09/21 potassium chloride 10 mEq 1 tab PO DAILY 07/28/21 09/09/21 tablet,extended release tizanidine 2 mg tablet 1 tab PO BID PRN Pain 07/28/21 09/09/21 omeprazole 20 mg capsule,delayed 1 cap PO DAILY 11/11/21 release Previous Rx's Medication Instructions Recorded magnesium oxide 400 mg (241.3 mg 400 mg PO BIDPC #60 tabs 11/20/20 magnesium) tablet multivitamin (Daily-Jerald tablet) 1 tab PO DAILY #30 tabs 11/20/20 pen needle, diabetic 32 gauge x #100 ea 08/26/21 1 (BD Ultra-Fine Micro Pen Needle) pen needle, diabetic 29 gauge x #100 ea 08/28/2102/20 (BD Ultra-Fine Original Pen Needle) blood sugar diagnostic (FreeStyle #200 ea 08/29/21 Lite Strips) blood-glucose meter (FreeStyle #1 ea 08/29/21 Lite Meter kit) lancets 28 gauge (FreeStyle #200 ea 08/29/21 Lancets) amlodipine 10 mg tablet 10 mg PO DAILY 90 days #90 tabs 09/15/21 gabapentin 300 mg capsule 300 mg PO BEDTIME 30 days #30 caps 09/15/21 tiotropium bromide 1.25 2 puff inhalation DAILY 30 days #4 09/15/21 mcg/actuation mist for inhalation grams (Spiriva Respimat) glucagon 3 mg/actuation nasal 3 mg intranasal ONCE #2 ea 09/28/21 spray (Baqsimi) naltrexone microspheres 380 mg 380 mg IM Q4W #1 ea 10/12/21 intramuscular suspension,extended release (Vivitrol) insulin glargine 100 unit/mL (3 14 unit (0.14 mL) subcut QPM 30 10/14/21 mL) subcutaneous pen (agl #6 mL KwikPen U-100 Insulin) metoprolol succinate 100 mg 100 mg PO DAILY 90 days #90 tabs 10/14/21 tablet,extended release 24 hr famotidine 20 mg tablet (Pepcid) 20 mg PO DAILY #20 tabs 11/01/21 amitriptyline 25 mg tablet 25 mg PO BEDTIME 30 days #30 tabs 11/09/21 Allergies Allergy/AdvReac Type Severity Reaction Status Date / Time No Known Allergies Allergy Verified 11/08/21 15:04 [No Known Allergies*] Review of Systems Review of Systems Yes all other systems are reviewed and are negative Constitutional: Reports no additional constitutional complaints, Denies body ache(s), Denies chills, Denies fever(s), Denies headache(s) and Denies weakness Eyes: Reports no additional eye complaints and Denies change in vision Reports system reviewed and no additional complaints, except as documented, Denies dizziness, Denies headache(s), Denies nasal congestion, Denies nasal discharge and Denies neck pain Cardiovascular: Reports no additional cardiovascular complaints, Denies chest pain, Denies leg edema and Denies dyspnea Respiratory: Reports no additional respiratory complaints, Denies cough and Denies dyspnea Gastrointestinal: Reports no additional gastrointestinal complaints, Reports abdominal pain, Denies diarrhea, Reports nausea and Denies vomiting Genitourinary: Denies urinary incontinence Musculoskeletal: Reports no additional musculoskeletal complaints, Reports back pain, Denies arthralgias, Denies joint swelling, Denies neck pain, Denies numbness and Denies tingling Skin/Breast: Reports system reviewed and no additional complaints, except as docu and Denies rash Reports system reviewed and no additional complaints, except as documented, Denies dizziness, Denies headache(s), Denies numbness, Denies tingling and Denies weakness PMFSH Past Medical History Attestation statement: The following information was validated with the patient. Source: old records reviewed and nursing notes reviewed Medical History Anxiety Chronic pancreatitis COPD (chronic obstructive pulmonary disease) Depression Diabetes mellitus, new onset EtOH dependence HTN (hypertension) Smoker Surgical History History of colon resection Hx of cholecystectomy Previous back surgery Family History Family History Mother Alcohol dependence Substance use disorder Social History Social History Household Members: Family Household Members Other:: Brother Housing: House Do you presently have visiting nurse or other home services: No Alcohol intake: current Alcohol intake frequency: 3 or more drinks per day Alcohol type: hard liquor Patient Tobacco Use Status: Current everyday Tobacco user Tobacco use type: Cigarette Cigarette Packs Per Day: 1 Cigarettes Per Day: 20.0 Years Smoked: 40 e-Cigarette/Vaping Use: Never Used Second Hand Smoke Exposure: No Use of substances other than those prescribed or required for medical reasons: No Advance Directives: Yes Advance Directives on File: Yes Advance Directives Date on File: 08/04/21 service: No Current occupational status: employed Current occupational exposures/hazards: No Cognitive needs: No Hearing needs: No Vision needs: No Physical Exam ED Vital Signs: Vital Signs - 24 hr 11/11/21 08:23 11/11/21 11:03 11/11/21 12:53 Temperature 97.6 F 98.0 F 98.3 F Pulse Rate 100 82 86 Respiratory Rate 18 20 28 H Blood Pressure 132/82 146/95 H 145/96 H Pulse Oximetry 94 93 93 Oxygen Delivery Method Room Air Room Air Room Air BMI result Body Mass Index 26.4 Const General: cooperative, healthy appearing and comfortable Orientation/consciousness: patient oriented x3 Limitations: no limitations HENMT Head: Yes normal to inspection Ears: hearing grossly normal bilaterally Eyes General: appearance normal, both eyes and all related structures Pupils: Equal, round and reactive pupils present Neck Neck: Yes normal visual inspection, Yes full ROM, Yes no lymphadenopathy and Yes no meningeal signs Chest Chest palpation & inspection: normal inspection of the chest Resp Effort & Inspection: normal respiratory effort Auscultation: clear to auscultation bilaterally Cardio Rate: regular rate Rhythm: regular rhythm Peripheral pulses: Peripheral pulses 2+ throughout GI Inspection: Yes normal to inspection Palpation (GI): Soft to palpation, Tenderness to palpation present (GI) in the epigastrum; with no rebound tenderness and no guarding General: Yes no CVA tenderness Back/Spine/Pelvis Back: no CVA tenderness Thoracic/Lumbar Spine: thoracic and lumbar spine normal to inspection Skin General skin exam: no rashes or lesions noted Neuro General: patient oriented x3, moves all extremities and no meningeal signs Cranial nerves: Yes Equal, round and reactive pupils present Cognition (Neuro): normal cognition Gait exam (Neuro): Normal gait present Extrem General: Yes normal to inspection Course Course Course Narrative: 1315-reviewed labs which appear at baseline. Patient does have some chronic hypomagnesemia which is secondary to alcohol use. He received 2 g IV while he was here in the emergency room. His CT shows no evidence of pancreatitis. He is drinking reji yolanda with no vomiting. He does still have some epigastric pain and I suspect that he likely has some gastritis from under underlying alcohol use. Will have acid recovery operator come and speak to him about detox resources Reevaluation(s) Reevaluation #1: 1992-patient was offered detox resources and met with the acid recovery operator but declined all these. He does not want to go to detox today. Patient wants to go home with pain medications specifically narcotic pain medication. He tells me he plans to continue to drink alcohol at home. We had a lengthy discussion. I anticipate the him continue to drink alcohol will continue to cause him abdominal pain. In addition I will not prescribe him narcotic pain medication if he has plans to continue to drink alcohol as he may aspirate and . This was explained at length. Patient declined all resources. Plan for discharge home. MDM - Abdominal Pain MDM Narrative Medical decision making narrative: 56 yo male with history of chronic pancreatitis, chronic alcohol use here 4 days of upper abdominal pain, back pain and nausea. Will need labs, UA, CT A/P Will give morpine, zofran, IVF If medically cleared consider detox CIWA scores ordered with phenobarb protocol PRN. No active withdrawal now Medical Records Attestation: I reviewed the patient's medical records. Lab Data Attestation: I reviewed the patient's lab results. Result diagrams: 11/11/21 10:56 11/11/21 10:56 Labs: Lab Results 11/11/21 11/11/21 11/11/21 Range/Units 10:56 10:56 10:56 WBC 6.0 (4.8-10.8) X10*3/uL RBC 4.48 L (4.60-5.80) X10*6/uL Hgb 14.3 (14.0-18.0) g/dl Hct 42.1 (42.0-52.0) % MCV 94.0 (80.0-98.0) fL MCH 31.9 (27.0-33.0) pg MCHC 34.0 (31.0-36.0) g/dl RDW 12.9 (11.0-16.0) % Plt Count 212 (160-400) X10*3/uL MPV 9.1 L (9.4-12.4) fL Immature Gran % (Auto) 0.3 (0.0-0.4) % Neut % (Auto) 63.4 (45-73) % Lymph % (Auto) 22.7 (20-40) % [place] % (Auto) 10.3 (2-11) % Eos % (Auto) 2.5 (0-4) % Baso % (Auto) 0.8 (0-2) % Lymph # (Auto) 1.4 (1.2-4.9) X10*3/uL [place] # (Auto) 0.6 (0.1-1.2) X10*3/uL Eos # (Auto) 0.2 (0.0-0.4) X10*3/uL Baso # (Auto) 0.1 (0.0-0.2) X10*3/uL Abs Immat Gran (auto) 0.02 (0.00-0.03) X10*3/uL Absolute Neuts (auto) 3.8 (2.0-8.3) x10*3/uL Absolute Nucleated RBC 0.000 (0.0-0.012) X10*3/uL Nucleated RBC % (auto) 0.0 (0.0-0.2) /100WBC Sodium 143 (135-145) mmol/L Potassium 3.5 (3.3-5.1) mmol/L Chloride 107 (96-108) mmol/L Carbon Dioxide 21 L (22-29) mmol/L Anion Gap 19 (12-20) BUN 5 L (9-16) mg/dL Creatinine 0.68 (0.5-1.4) mg/dL Estim Creat Clear Calc 137.0 Estimated GFR > 60 POC Glucose (60-115) mg/dL Random Glucose 121 H (60-115) mg/dL Lactic Acid 1.8 (0.5-2.0) mmol/L Calcium 9.6 D (8.4-10.2) mg/dL Magnesium 1.4 L* (1.6-2.6) mg/dL Total Bilirubin 0.4 (0.0-1.0) mg/dL Direct Bilirubin 0.2 (0.0-0.5) mg/dL AST 43 H (5-37) U/L ALT 35 (0-40) U/L Alkaline Phosphatase 139 H (39-117) U/L Total Protein 7.0 (6.5-8.0) g/dL Albumin 4.1 (3.5-5.0) g/dL Lipase 72 (8-78) U/L Urine Opiates Screen (Not Detect) Urine Fentanyl Screen (Not Detect) Ur Barbiturates Screen (Not Detect) Ur Phencyclidine Scrn (Not Detect) Ur Amphetamines Screen (Not Detect) U Benzodiazepines Scrn (Not Detect) Urine Cocaine Screen (Not Detect) U Marijuana (THC) Screen (Not Detect) Ethyl Alcohol mg/dL 09/23/22 09/23/22 09/23/22 Range/Units 10:56 12:28 12:58 WBC (4.8-10.8) X10*3/uL RBC (4.60-5.80) X10*6/uL Hgb (14.0-18.0) g/dl Hct (42.0-52.0) % MCV (80.0-98.0) fL MCH (27.0-33.0) pg MCHC (31.0-36.0) g/dl RDW (11.0-16.0) % Plt Count (160-400) X10*3/uL MPV (9.4-12.4) fL Immature Gran % (Auto) (0.0-0.4) % Neut % (Auto) (45-73) % Lymph % (Auto) (20-40) % [place] % (Auto) (2-11) % Eos % (Auto) (0-4) % Baso % (Auto) (0-2) % Lymph # (Auto) (1.2-4.9) X10*3/uL [place] # (Auto) (0.1-1.2) X10*3/uL Eos # (Auto) (0.0-0.4) X10*3/uL Baso # (Auto) (0.0-0.2) X10*3/uL Abs Immat Gran (auto) (0.00-0.03) X10*3/uL Absolute Neuts (auto) (2.0-8.3) x10*3/uL Absolute Nucleated RBC (0.0-0.012) X10*3/uL Nucleated RBC % (auto) (0.0-0.2) /100WBC Sodium (135-145) mmol/L Potassium (3.3-5.1) mmol/L Chloride (96-108) mmol/L Carbon Dioxide (22-29) mmol/L Anion Gap (12-20) BUN (9-16) mg/dL Creatinine (0.5-1.4) mg/dL Estim Creat Clear Calc Estimated GFR POC Glucose 115 (60-115) mg/dL Random Glucose (60-115) mg/dL Lactic Acid (0.5-2.0) mmol/L Calcium (8.4-10.2) mg/dL Magnesium (1.6-2.6) mg/dL Total Bilirubin (0.0-1.0) mg/dL Direct Bilirubin (0.0-0.5) mg/dL AST (5-37) U/L ALT (0-40) U/L Alkaline Phosphatase (39-117) U/L Total Protein (6.5-8.0) g/dL Albumin (3.5-5.0) g/dL Lipase (8-78) U/L Urine Opiates Screen POSITIVE H (Not Detect) Urine Fentanyl Screen Not Detected (Not Detect) Ur Barbiturates Screen POSITIVE H (Not Detect) Ur Phencyclidine Scrn Not Detected (Not Detect) Ur Amphetamines Screen Not Detected (Not Detect) U Benzodiazepines Scrn POSITIVE H (Not Detect) Urine Cocaine Screen Not Detected (Not Detect) U Marijuana (THC) Screen Not Detected (Not Detect) Ethyl Alcohol < 10 mg/dL Imaging Data CT scan - abdomen: Attestation: I personally reviewed and interpreted this imaging study as follows: Radiologist's impression: [place] [id number] XRay Report Signed Patient: Diana Branham I MR#: [id number] : 02/29/1948 Acct:[id number] Age/Sex: 73 / F ADM Date: 11/11/21 Loc: .ED Attending Dr: Ordering Physician: Perla Prince NP Date of Service: 11/11/21 Procedure(s): XR chest 1V Accession Number(s): [id number] cc: Perla Prince NP~ EXAMINATION: XR CHEST CLINICAL INFORMATION: Weakness. COMPARISON: Chest radiograph dated from 10/25/2021. TECHNIQUE: Frontal view of the chest was obtained. FINDINGS: Stable appearance of the cardiomediastinal silhouette. Unchanged mild interstitial thickening. No new focal airspace opacities, pleural effusions or pneumothorax. No acute osseous abnormalities. Redemonstration of nonspecific screw projecting over the left axillary region. 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 XR/XR chest 1V IMPRESSION: No acute cardiopulmonary findings. ? ECG Data Attestation: I personally reviewed and interpreted this ECG as follows: ECG interpretation date: 11/11/21 ECG interpretation time: 10:41 Interpretation: Sinus rhythm with a first-degree AV block with a rate of 81, normal UT, normal QRS, normal QT Discharge Plan Discharge Clinical Impression: Abdominal pain Patient Disposition: Home, Self-Care Instructions: Abdominal Pain (ED) Additional Instructions: You were offered detox resources but declined this. If you change your mind then please return to the emergency department or reach out to the acid recovery operator Your CT scan does not show any evidence of pancreatitis. You should continue to take an antacid medication as discussed Prescriptions: No Action (DME) pen needle, diabetic [BD Ultra-Fine Orig Pen Needle] 29 gauge x 1/2 needle See Rx Instructions .Route Qty: 100 4RF Rx Instructions: Daily, As directed (DME) blood-glucose meter [FreeStyle Lite Meter] Kit See Rx Instructions .ROUTE .MEDSUPPLY Qty: 1 0RF Rx Instructions: DX: E11.9, test blood sugar twice a day, duration 999 days (DME) FreeStyle Lite Strips Strip See Rx Instructions .ROUTE .MEDSUPPLY Qty: 200 4RF Rx Instructions: DX: E11.9, test blood sugar 2 times a day, 90 days (DME) lancets [FreeStyle Lancets] 28 gauge misc See Rx Instructions .ROUTE .MEDSUPPLY Qty: 200 4RF Rx Instructions: As directed amlodipine 10 mg tablet 10 mg PO DAILY 90 Days Qty: 90 3RF gabapentin 300 mg capsule 300 mg PO BEDTIME 30 Days Qty: 30 1RF Spiriva Respimat 1.25 mcg/actuation mist 2 puff inhalation DAILY 30 Days Qty: 4 1RF Vivitrol 380 mg suspension,extended rel recon 380 mg IM Q4W Qty: 1 5RF amitriptyline 25 mg tablet 25 mg PO BEDTIME 30 Days Qty: 30 1RF folic acid 1 mg tablet 1 mg PO DAILY albuterol sulfate 90 mcg/actuation HFA aerosol inhaler 2 puff inhalation Q4H PRN (Reason: wheezing) duloxetine 60 mg capsule,delayed release(DR/EC) 60 mg PO DAILY Zenpep 40,000-126,000- 168,000 unit Capsule,Delayed Release(Dr/Ec) 3 - 4 cap PO TIDWM magnesium oxide 400 mg (241.3 mg magnesium) Tablet 400 mg PO BIDPC Qty: 60 0RF multivitamin [Daily-Jerald] Tablet 1 tab PO DAILY Qty: 30 0RF famotidine [Pepcid] 20 mg tablet 20 mg PO DAILY Qty: 20 0RF tizanidine 2 mg tablet 1 tab PO BID PRN (Reason: Pain) potassium chloride 10 mEq tablet extended release 1 tab PO DAILY hydroxyzine HCl 25 mg tablet 1 tab PO Q8H PRN (Reason: anxiety) Trelegy Ellipta 100-62.5-25 mcg blister with device 1 puff inhalation DAILY fluticasone propion-salmeterol [Wixela Inhub] 250-50 mcg/dose blister with device 1 puff inhalation Q12H omeprazole 20 mg capsule,delayed release(DR/EC) 1 cap PO DAILY (DME) pen needle, diabetic [BD Ultra-Fine Micro Pen Needle] 32 gauge x 1/4 needle See Rx Instructions .ROUTE .MEDSUPPLY Qty: 100 2RF Rx Instructions: Once a day As directed, 90 days metoprolol succinate 100 mg tablet extended release 24 hr 100 mg PO DAILY 90 Days Qty: 90 2RF insulin glargine [Basaglar KwikPen U-100 Insulin] 100 unit/mL (3 mL) insulin pen 14 unit subcut QPM 30 Days Qty: 6 3RF Baqsimi 3 mg/actuation spray,non-aerosol 3 mg intranasal ONCE Qty: 2 4RF Referrals: Oren Leon MD [Primary Care Provider] - 1 week Interventions: ED Discharge Assessment Last Done: 11/11/21 13:33 Discharge Date/Time: 11/11/21 13:40
[2021-11-11] MEDS: Morphine Sulfate 4 MG/ML CARTRIDGE IVPUSH ×2 (10:40→13:06)
[2021-11-11] MEDS: 0.9 % Sodium Chloride 1,000 ML 999 ML IV (10:40)
[2021-11-11] MEDS: ondansetron HCL 4 MG/2 ML VIAL IVPUSH (10:41)
[2021-11-11] MEDS: PHENobarbitaL sodium 130 MG/ML IM ONCE 195 MG IM (10:41)
[2021-11-11 11:03] VITALS: BP 146/95; PULSE 82; RESP 20; TEMP 36.7; O2SAT 93
[2021-11-11 11:04] LABS: MANUAL DIFF FLAG NO
[2021-11-11 11:05] LABS: Basophils Absolute Auto 0.1 X10*3/uL (0.0-0.2); Basophils Percent Auto 0.8 % (0-2); Eosinophils Absolute Auto 0.2 X10*3/uL (0.0-0.4); Eosinophils Percent Auto 2.5 % (0-4); Hematocrit 42.1 % (42.0-52.0); Hemoglobin 14.3 g/dl (14.0-18.0); Imm Gran Abs Auto 0.02 X10*3/uL (0.00-0.03); Imm Gran Pct Auto 0.3 % (0.0-0.4); Lymphocytes Absolute Auto 1.4 X10*3/uL (1.2-4.9); Lymphocytes Percent Auto 22.7 % (20-40); Mean Corpuscular Hemoglobin 31.9 pg (27.0-33.0); Mean Platelet Volume 9.1 fL (9.4-12.4); Monocytes Absolute Auto 0.6 X10*3/uL (0.1-1.2); Monocytes Percent Auto 10.3 % (2-11); Neutrophils Absolute Auto 3.8 x10*3/uL (2.0-8.3); Neutrophils Percent Auto 63.4 % (45-73); Platelet Count 212 X10*3/uL (160-400); Red Blood Count 4.48 X10*6/uL (4.60-5.80); Red Cell Distribution Width 12.9 % (11.0-16.0)
[2021-11-11 11:16] LABS: Ethanol < 10 mg/dL; Lactic Acid 1.8 mmol/L (0.5-2.0)
[2021-11-11 11:27] LABS: Alanine Aminotransferase 35 U/L (0-40); Albumin Level 4.1 g/dL (3.5-5.0); Alkaline Phosphatase 139 U/L (39-117); Anion Gap 19 (12-20); Aspartate Amino Transferase 43 U/L (5-37); Bilirubin Direct 0.2 mg/dL (0.0-0.5); Bilirubin Total 0.4 mg/dL (0.0-1.0); Blood Urea Nitrogen 5 mg/dL (9-16); Calcium 9.6 mg/dL (8.4-10.2); Carbon Dioxide 21 mmol/L (22-29); Chloride 107 mmol/L (96-108); Estimated Glomerular Filt Rate > 60; Glucose Random 121 mg/dL (60-115); Lipase 72 U/L (8-78); Magnesium 1.4 mg/dL (1.6-2.6); Potassium 3.5 mmol/L (3.3-5.1); Sodium 143 mmol/L (135-145)
[2021-11-11] MEDS: iohexoL 350 MG/ML 100 ML INFUS..BTL 85 ML IV (11:50)
[2021-11-11] MEDS: Magnesium Sulfate/H2O 2 GM/50 ML PIGGYBACK IV (12:22)
[2021-11-11 12:53] VITALS: BP 145/96; PULSE 86; RESP 28; TEMP 36.8; O2SAT 93
[2021-11-11 12:56] LABS: Amphetamine Screen Urine Not Detected (Not Detect); Barbiturates, Urine POSITIVE (Not Detect); Benzodiazepines Screen Urine POSITIVE (Not Detect); Cannabinoid Screen Urine Not Detected (Not Detect); Cocaine Screen Urine Not Detected (Not Detect); Fentanyl, urine Not Detected (Not Detect); Opiate Screen Urine POSITIVE (Not Detect); Phencyclidine Screen Urine Not Detected (Not Detect)
[2021-11-11 13:04] LABS: Glucose, Whole Blood 115 mg/dL (60-115)
[2021-11-11] MEDS: Famotidine/PF 20 MG/2 ML VIAL IVPUSH (13:06)
--- NOTE | 2021-11-11 13:23 | MHC.RECOVSUP ---
? Reason for consult:ETOH o Current location:ED13 o Identified substance use concern: - Seeking ATS (detox) - Support ? Intervention: o Harm reduction discussion ? Plan:Pt has been in contact with [facility] in [place], and declined anywhere else. I discussed harm reduction strategies with him, and reassured Bob that we are available should he need to contact us for assistance.
== END 2021-11-11 13:40 | disposition home or self-care (01) ==
PROVIDERS: Nurse Practitioner Family; Emergency Provider Emergency Medicine; PCP Family Medicine
DX: R10.10 Upper abdominal pain, unspecified (principal); E11.9 Type 2 diabetes mellitus without complications; I10 Essential (primary) hypertension; F17.210 Nicotine dependence, cigarettes, uncomplicated; F10.20 Alcohol dependence, uncomplicated; Y90.0 Blood alcohol level of less than 20 mg/100 ml; Z79.899 Other long term (current) drug therapy; Z79.4 Long term (current) use of insulin
CPT/HCPCS: 36415; 74177; 80048; 80076; 80307; 82077; 82947; 83605; 83690; 83735; 85025; 93005; 96361; 96372; 96374; 96375; 96376; 99285; J2270; J2405; J2560; J3475; Q9967

== ENCOUNTER → 2021-12-02 11:00 | Outpatient (BNVA) | payer OTHER, SELFPAY | PROVIDERS: PCP Family Medicine; Visit Provider Nurse Practitioner Psychiatric/Mental Health | DX: Z51.81 Encounter for therapeutic drug level monitoring (principal); F10.20 Alcohol dependence, uncomplicated | CPT/HCPCS: 80305 ==

== ENCOUNTER 2022-01-02 08:42 | Emergency (ER) | payer OTHER, SELFPAY ==
--- NOTE | ~2022-01-02 | CT_ITS ---
EXAMINATION: CT ABDOMEN AND PELVIS WITH CONTRAST CLINICAL INFORMATION: Abdominal pain COMPARISON: 11/11/2021 TECHNIQUE: Multidetector volumetric images were obtained from the superior aspect of the liver through the pubic symphysis following administration 85 mL of Omnipaque 350 intravenous contrast. Sagittal and coronal reformatted images were obtained on the technologist's workstation. Oral contrast: No This CT examination was performed using dose optimization techniques as appropriate, variously including the following: *Automated exposure control *Adjustment of mA and/or kV according to patient size (this includes techniques or standardized protocols for targeted exams where dose is matched to indication/reason for exam; i.e. extremities or head) *Use of iterative reconstruction technique DLP: 637 mGy-cm FINDINGS: LUNG BASES: Elevated left hemidiaphragm. Minor compressive atelectasis at the left base. No pleural effusion. LIVER, GALLBLADDER, AND BILIARY TREE: Moderate hepatic steatosis. The liver does appear prominent. No focal hepatic lesions. There is no intrahepatic biliary dilatation. The gallbladder is unremarkable with no evidence of radiopaque gallstones, gallbladder wall thickening, or obvious pericholecystic inflammatory changes. PANCREAS: The pancreas appears atrophic and there is what appears to be chronic dilatation of the pancreatic duct with intrinsic punctate calcification. No change. SPLEEN: Unremarkable. ADRENAL GLANDS: Unremarkable. KIDNEYS AND URETERS: Stable simple appearing cyst at 15 mm posterior right kidney. No suspicious lesions or hydronephrosis or perinephric collection. No additional imaging follow-up recommended for this cyst. BLADDER: Unremarkable. GASTROINTESTINAL TRACT: Postsurgical changes are seen within the rectum. There are no fluid collections around the suture line. No bowel obstruction or right or left lower quadrant inflammatory change. Appendix normal. ABDOMINAL WALL: No significant hernia is appreciated. LYMPH NODES: Normal. VASCULAR: Aorta atherosclerotic but nonaneurysmal. PELVIC VISCERA: Unremarkable. OSSEOUS STRUCTURES: Advanced degenerative change in the lumbar spine but no acute fracture. CT/CT abdomen pelvis w IV con IMPRESSION: No bowel obstruction. Chronic findings in the pancreas. No hydronephrosis.
[2022-01-02 08:43] VITALS: BP 92/66; PULSE 104; RESP 18; TEMP 36.1; O2SAT 96; BMI 26.4
[2022-01-02 08:54] LABS: MANUAL DIFF FLAG NO
[2022-01-02 08:55] LABS: Basophils Absolute Auto 0.1 X10*3/uL (0.0-0.2); Eosinophils Absolute Auto 0.3 X10*3/uL (0.0-0.4); Eosinophils Percent Auto 5.1 % (0-4); Hematocrit 45.2 % (42.0-52.0); Hemoglobin 15.3 g/dl (14.0-18.0); Imm Gran Abs Auto 0.03 X10*3/uL (0.00-0.03); Imm Gran Pct Auto 0.6 % (0.0-0.4); Lymphocytes Absolute Auto 1.7 X10*3/uL (1.2-4.9); Lymphocytes Percent Auto 33.3 % (20-40); Mean Corpuscular HGB Conc 33.8 g/dl (31.0-36.0); Mean Corpuscular Hemoglobin 30.8 pg (27.0-33.0); Mean Corpuscular Volume 91.1 fL (80.0-98.0); Mean Platelet Volume 8.8 fL (9.4-12.4); Monocytes Absolute Auto 0.7 X10*3/uL (0.1-1.2); Neutrophils Absolute Auto 2.4 x10*3/uL (2.0-8.3); Platelet Count 227 X10*3/uL (160-400); Red Blood Count 4.96 X10*6/uL (4.60-5.80); Red Cell Distribution Width 12.6 % (11.0-16.0); White Blood Count 5.1 X10*3/uL (4.8-10.8)
[2022-01-02 09:26] LABS: Alanine Aminotransferase 38 U/L (0-40); Albumin Level 3.9 g/dL (3.5-5.0); Alkaline Phosphatase 175 U/L (39-117); Anion Gap 18 (12-20); Aspartate Amino Transferase 46 U/L (5-37); Bilirubin Direct 0.3 mg/dL (0.0-0.5); Bilirubin Total 0.6 mg/dL (0.0-1.0); Blood Urea Nitrogen 9 mg/dL (9-16); Calcium 8.9 mg/dL (8.4-10.2); Carbon Dioxide 19 mmol/L (22-29); Chloride 107 mmol/L (96-108); Creatinine Clr Calc Pharmacy 103.5; Estimated Glomerular Filt Rate > 60; Glucose Random 184 mg/dL (60-115); Potassium 3.2 mmol/L (3.3-5.1); Sodium 141 mmol/L (135-145); Total Protein 7.2 g/dL (6.5-8.0)
[2022-01-02 09:36] VITALS: BP 132/87; PULSE 94; RESP 18; TEMP 36.4; O2SAT 95
--- NOTE | 2022-01-02 09:36 | ED.GENADULT ---
HPI - General Adult General Chief complaint: Abdominal Pain Stated complaint: Pancreatitis Time Seen by Provider: 01/02/22 09:33 Source: patient Mode of arrival: ambulatory Limitations: no limitations History of Present Illness HPI narrative: Patient is a 56 year old assigned male at with a history of chronic pancreatitis presenting to the emergency department today with abdominal pain. Patient states that he has been drinking alcohol over the last 3 days and his pancreatitis seems to be flaring again. Patient denies any dizziness, lightheadedness, nausea, vomiting, fever, chills, blurry vision, double vision, loss of vision, chest pain, difficulty breathing, shortness of breath, back pain, night sweats, pain with urination, increased urinary frequency, increased urinary urgency, blood in his urine or stool, syncope or a near syncopal episode, recent trauma or falls, bowel incontinence, bladder incontinence, bowel retention, bladder retention, or any other complaints at this time. Onset (ago): hour(s) Location: abdomen Radiation: non-radiation Severity: mild Severity scale (1-10): 3 Quality: dull Relieving factors: none Exacerbating factors: none Associated symptoms: denies other symptoms Treatments prior to arrival: none Related Data Home Medications Medication Instructions Recorded Confirmed albuterol sulfate 90 mcg/actuation 2 puff inhalation Q4H PRN wheezing 05/01/20 11/29/21 aerosol inhaler folic acid 1 mg tablet 1 mg PO DAILY 05/01/20 11/29/21 hlhkan-lriopnni-rdjueja 3 - 4 cap PO TIDWM 10/07/20 11/29/21 40,000-126,000-168,000 unit capsule, delay rel (Zenpep) fluticasone 250 mcg-salmeterol 50 1 puff inhalation Q12H 07/28/21 11/29/21 mcg/dose blistr powdr for inhalation (Wixela Inhub) fluticasone fur. 100 mcg-umeclid 1 puff inhalation DAILY 07/28/21 11/29/21 62.5 mcg-vilant 25 mcg inhalat.powder (Trelegy Ellipta) hydroxyzine HCl 25 mg tablet 1 tab PO Q8H PRN anxiety 07/28/21 11/29/21 potassium chloride 10 mEq 1 tab PO DAILY 07/28/21 11/29/21 tablet,extended release tizanidine 2 mg tablet 1 tab PO BID PRN Pain 07/28/21 11/29/21 glipizide 5 mg tablet 5 mg PO DAILY 11/29/21 11/29/21 albuterol sulfate 2.5 mg/3 mL mg inhalation Q4H PRN wheezing 12/07/21 (0.083 %) solution for nebulization Previous Rx's Medication Instructions Recorded magnesium oxide 400 mg (241.3 mg 400 mg PO BIDPC #60 tabs 11/20/20 magnesium) tablet multivitamin (Daily-Jerald tablet) 1 tab PO DAILY #30 tabs 11/20/20 pen needle, diabetic 32 gauge x #100 ea 08/26/2102/22 (BD Ultra-Fine Micro Pen Needle) pen needle, diabetic 29 gauge x #100 ea 08/28/2102/20 (BD Ultra-Fine Original Pen Needle) blood sugar diagnostic (FreeStyle #200 ea 08/29/21 Lite Strips) blood-glucose meter (FreeStyle #1 ea 08/29/21 Lite Meter kit) lancets 28 gauge (FreeStyle #200 ea 08/29/21 Lancets) amlodipine 10 mg tablet 10 mg PO DAILY 90 days #90 tabs 09/15/21 gabapentin 300 mg capsule 300 mg PO BEDTIME 30 days #30 caps 09/15/21 glucagon 3 mg/actuation nasal 3 mg intranasal ONCE #2 ea 09/28/21 spray (Baqsimi) metoprolol succinate 100 mg 100 mg PO DAILY 90 days #90 tabs 10/14/21 tablet,extended release 24 hr insulin glargine 100 unit/mL (3 18 unit (0.18 mL) subcut QPM 30 11/17/21 mL) subcutaneous pen (Basaglar days #6 mL KwikPen U-100 Insulin) ketoconazole 2 % topical cream 1 appl topical BID 30 days #60 11/17/21 grams omeprazole 40 mg capsule,delayed 40 mg PO DAILY 30 days #30 caps 11/17/21 release tiotropium bromide 1.25 2 puff inhalation DAILY 30 days #4 11/22/21 mcg/actuation mist for inhalation grams (Spiriva Respimat) sucralfate 100 mg/mL oral 1 g (10 mL) PO Q6H 8 weeks #2,240 11/29/21 suspension mL naltrexone 50 mg tablet 50 mg PO DAILY #30 tabs 12/02/21 fluconazole 200 mg tablet 200 mg PO DAILY #14 tabs 12/07/21 omeprazole 40 mg capsule,delayed 40 mg PO DAILY 30 days #30 caps 12/07/21 release amitriptyline 25 mg tablet 25 mg PO BEDTIME 30 days #30 tabs 12/12/21 duloxetine 20 mg capsule,delayed 20 mg PO BID 30 days #60 caps 12/12/21 release Allergies Allergy/AdvReac Type Severity Reaction Status Date / Time No Known Allergies Allergy Verified 12/19/21 11:04 [No Known Allergies*] Review of Systems Constitutional: Constitutional: Reports no additional constitutional complaints, Denies chills, Denies fever(s) and Denies night sweats Eyes: Eyes: Reports no additional eye complaints, Denies blurry vision, Denies change in vision, Denies diplopia, Denies eye discharge, Denies loss of vision and Denies eye pain ENT: Denies dizziness Cardiovascular: Cardiovascular: Reports no additional cardiovascular complaints, Denies chest pain, Denies lightheadedness, Denies Loss of Consciousness and Denies dyspnea Respiratory: Respiratory: Reports no additional respiratory complaints and Denies dyspnea Gastrointestinal: Gastrointestinal: Reports no additional gastrointestinal complaints, Reports abdominal pain, Denies melena, Denies hematochezia, Denies change in bowel habits and Denies change in stool character Genitourinary: Genitourinary: Reports no additional male genitourinary complaints, Denies hematuria, Denies oliguria, Denies difficulty urinating, Denies dysuria, Denies urinary frequency, Denies urinary hesitancy, Denies urinary incontinence and Denies urinary urgency Musculoskeletal: Musculoskeletal: Reports no additional musculoskeletal complaints, Denies numbness and Denies tingling Neurologic: Denies dizziness, Denies loss of vision, Denies numbness and Denies tingling Psychiatric: Psychiatric: Reports no additional psychiatric complaints Endocrine: Endocrine: Reports no additional endocrine complaints Hematologic/Lymphatic: Hematologic/Lymphatic: Reports no additional hematologic/lymphatic complaints Allergic/Immunologic: Allergic/Immunologic: Reports no additional allergic/immunologic complaints [facility] Past Medical History Attestation statement: The following information was validated with the patient. Source: old records reviewed Medical History Anxiety Chronic pancreatitis COPD (chronic obstructive pulmonary disease) Depression Diabetes mellitus, new onset EtOH dependence HTN (hypertension) Smoker Surgical History History of colon resection Hx of cholecystectomy Hx of colonoscopy Previous back surgery Family History Family History Mother Alcohol dependence Substance use disorder Social History Social History Household Members: Family Household Members Other:: Brother Housing: House Do you presently have visiting nurse or other home services: No Alcohol intake: current Alcohol intake frequency: 3 or more drinks per day Alcohol type: hard liquor Patient Tobacco Use Status: Current everyday Tobacco user Tobacco use type: Cigarette Cigarette Packs Per Day: 1 Cigarettes Per Day: 20.0 Years Smoked: 40 e-Cigarette/Vaping Use: Never Used Second Hand Smoke Exposure: No Advance Directives: Yes Advance Directives on File: Yes Advance Directives Date on File: 08/04/21 service: No Current occupational status: employed Current occupational exposures/hazards: No Cognitive needs: No Hearing needs: No Vision needs: No Physical Exam ED Vital Signs: Vital Signs - 24 hr 01/02/22 08:43 01/02/22 09:36 01/02/22 10:09 Temperature 97 F 97.5 F 98.0 F Pulse Rate 104 H 94 85 Respiratory Rate 18 18 16 Blood Pressure 92/66 132/87 123/81 Pulse Oximetry 96 95 95 Oxygen Delivery Method Room Air Room Air Room Air 01/02/22 12:59 Temperature Pulse Rate 96 Respiratory Rate 18 Blood Pressure 121/85 Pulse Oximetry 93 Oxygen Delivery Method Room Air BMI result Body Mass Index 26.4 Const General: cooperative, no acute distress, alert and awake Nutritional Appearance: well nourished Orientation/consciousness: patient oriented x3 Limitations: no limitations HENMT Head: Yes normal to inspection and Yes atraumatic Ears: hearing grossly normal bilaterally and external ears normal General nose exam: Normal external nose present, no nasal discharge noted and no epistaxis Face and sinus: Yes normal facial exam, No abrasion and No laceration Mouth: Normal oral and palatal mucosa present, no drooling and no muffled voice Eyes General: appearance normal, both eyes and all related structures Periorbital: periorbital findings normal Eyelids: Yes eyelids normal Conjunctivae: conjunctivae normal Pupils: Equal, round and reactive pupils present EOM: EOMs intact bilaterally Neck Neck: Yes normal visual inspection, Yes full ROM and Yes no lymphadenopathy Chest Chest palpation & inspection: normal inspection of the chest Resp Effort & Inspection: normal respiratory effort and able to speak in complete sentences Auscultation: clear to auscultation bilaterally Cardio Rate: regular rate Rhythm: regular rhythm GI Inspection: Yes normal to inspection Palpation (GI): Soft to palpation, not firm, nontender, no guarding and not rigid Neuro General: patient oriented x3 and moves all extremities Cranial nerves: Yes Equal, round and reactive pupils present Cognition (Neuro): normal cognition Motor exam (neuro): 5/5 motor strength present throughout Sensory Exam: Normal double simultaneous stimulation for sensation Coordination: jqbnfw-el-[id number] test normal Extrem General: Yes normal to inspection, Yes full ROM and Yes capillary refill normal Psych Appearance: grossly normal Mental Status: mental status grossly normal Affect: normal affect Attitude: cooperative Thought process: Normal thought process present Thought content: Normal thought content present Insight: Good insight present (Psych) Medications Administered Discontinued Medications Generic Name Dose Route Start Last Admin Trade Name Serena PRN Reason Stop Dose Admin Sodium Chloride 1,000 mls @ 999 mls/hr 01/02/22 09:45 01/02/22 12:19 Ns IV 01/02/22 10:45 Infused .Q1H1M FELIX Infusion Iohexol 100 ml 01/02/22 10:57 01/02/22 10:58 Iohexol 350 Mg/Ml 100 Ml Infus..Btl IV 01/02/22 10:58 85 ml ONCE ONE Administration Lorazepam 2 mg 01/02/22 12:33 01/02/22 12:59 Lorazepam 1 Mg Tablet PO 01/02/22 12:34 2 mg ONCE ONE Administration Morphine Sulfate 4 mg 01/02/22 09:43 01/02/22 10:03 Morphine Sulfate 4 Mg/Ml Cartridge IVPUSH 01/02/22 09:44 4 mg ONCE ONE Administration Protocol Ondansetron HCl 4 mg 01/02/22 09:43 01/02/22 10:04 Ondansetron Hcl 4 Mg/2 Ml Vial IVPUSH 01/02/22 09:44 4 mg ONCE ONE Administration Potassium Chloride 40 meq 01/02/22 11:18 01/02/22 11:44 Potassium Chloride Packet 20 Meq Packet PO 01/02/22 11:19 40 meq ONCE ONE Administration Medical Decision Making MDM Narrative Medical decision making narrative: Patient is a 56 year old assigned male at with a history of chronic pancreatitis presenting to the emergency department today with epigastric pain. Patient's physical exam was unremarkable. Patient's blood work showed a decreased potassium of 3.2 but was otherwise unremarkable. Patient's EKG was unremarkable. Patient's abdominal CT showed no acute process. I explained my physical exam findings as well as all test results to the patient. I answered all questions asked by the patient. Patient received potassium, pain medication, and IV fluids which he stated helped his symptoms significantly. I stressed the importance of the patient taking his medication as prescribed. I stressed the importance of the patient following up with his primary care provider. I stressed the importance of the patient returning to the emergency department immediately if his symptoms were to worsen or if he were to develop any dizziness, shortness of breath, difficulty breathing, chest pain, blurry vision, loss of vision, nausea, vomiting, abdominal pain, fever, chills, back pain, or any other complaints. Patient verbalized agreement and understanding with this treatment plan and discharge. Medical Records Medical records reviewed: Yes I reviewed the patient's medical records. Lab Data Lab results reviewed: Yes I reviewed the patient's lab results. Result diagrams: 01/02/22 08:51 01/02/22 08:51 Labs: Lab Results 01/02/22 01/02/22 Range/Units 08:51 08:51 WBC 5.1 (4.8-10.8) X10*3/uL RBC 4.96 (4.60-5.80) X10*6/uL Hgb 15.3 (14.0-18.0) g/dl Hct 45.2 (42.0-52.0) % MCV 91.1 (80.0-98.0) fL MCH 30.8 (27.0-33.0) pg MCHC 33.8 (31.0-36.0) g/dl RDW 12.6 (11.0-16.0) % Plt Count 227 (160-400) X10*3/uL MPV 8.8 L (9.4-12.4) fL Immature Gran % (Auto) 0.6 H (0.0-0.4) % Neut % (Auto) 47.0 (45-73) % Lymph % (Auto) 33.3 (20-40) % [place] % (Auto) 13.0 H (2-11) % Eos % (Auto) 5.1 H (0-4) % Baso % (Auto) 1.0 (0-2) % Lymph # (Auto) 1.7 (1.2-4.9) X10*3/uL [place] # (Auto) 0.7 (0.1-1.2) X10*3/uL Eos # (Auto) 0.3 (0.0-0.4) X10*3/uL Baso # (Auto) 0.1 (0.0-0.2) X10*3/uL Abs Immat Gran (auto) 0.03 (0.00-0.03) X10*3/uL Absolute Neuts (auto) 2.4 (2.0-8.3) x10*3/uL Absolute Nucleated RBC 0.000 (0.0-0.012) X10*3/uL Nucleated RBC % (auto) 0.0 (0.0-0.2) /100WBC Sodium 141 (135-145) mmol/L Potassium 3.2 L (3.3-5.1) mmol/L Chloride 107 (96-108) mmol/L Carbon Dioxide 19 L (22-29) mmol/L Anion Gap 18 (12-20) BUN 9 (9-16) mg/dL Creatinine 0.90 (0.5-1.4) mg/dL Estim Creat Clear Calc 103.5 Estimated GFR > 60 Random Glucose 184 H (60-115) mg/dL Calcium 8.9 D (8.4-10.2) mg/dL Total Bilirubin 0.6 (0.0-1.0) mg/dL Direct Bilirubin 0.3 (0.0-0.5) mg/dL AST 46 H (5-37) U/L ALT 38 (0-40) U/L Alkaline Phosphatase 175 H (39-117) U/L Total Protein 7.2 (6.5-8.0) g/dL Albumin 3.9 (3.5-5.0) g/dL Lipase 61 (8-78) U/L Imaging Data CT scan - abdomen: Attestation: I personally reviewed and interpreted this imaging study as follows: My impression: No acute process. Radiologist's impression: EXAMINATION: CT ABDOMEN AND PELVIS WITH CONTRAST? CLINICAL INFORMATION: Abdominal pain? COMPARISON: 11/11/2021? TECHNIQUE: Multidetector volumetric images were obtained from the superior aspect of the liver through the pubic symphysis following administration 85 mL of Omnipaque 350 intravenous contrast. Sagittal and coronal reformatted images were obtained on the technologist's workstation.? Oral contrast: No This CT examination was performed using dose optimization techniques as appropriate, variously including the following: *Automated exposure control *Adjustment of mA and/or kV according to patient size (this includes techniques or standardized protocols for targeted exams where dose is matched to indication/reason for exam; i.e. extremities or head) *Use of iterative reconstruction technique DLP: 637 mGy-cm FINDINGS: LUNG BASES: Elevated left hemidiaphragm. Minor compressive atelectasis at the left base. No pleural effusion.? LIVER, GALLBLADDER, AND BILIARY TREE: Moderate hepatic steatosis. The liver does appear prominent. No focal hepatic lesions. There is no intrahepatic biliary dilatation. The gallbladder is unremarkable with no evidence of radiopaque gallstones, gallbladder wall thickening, or obvious pericholecystic inflammatory changes.? PANCREAS: The pancreas appears atrophic and there is what appears to be chronic dilatation of the pancreatic duct with intrinsic punctate calcification. No change.? SPLEEN: Unremarkable.? ADRENAL GLANDS: Unremarkable.? KIDNEYS AND URETERS: Stable simple appearing cyst at 15 mm posterior right kidney. No suspicious lesions or hydronephrosis or perinephric collection. No additional imaging follow-up recommended for this cyst. BLADDER: Unremarkable.? GASTROINTESTINAL TRACT: Postsurgical changes are seen within the rectum. There are no fluid collections around the suture line. No bowel obstruction or right or left lower quadrant inflammatory change. Appendix normal. ABDOMINAL WALL: No significant hernia is appreciated.? LYMPH NODES: Normal. VASCULAR: Aorta atherosclerotic but nonaneurysmal. PELVIC VISCERA: Unremarkable.? OSSEOUS STRUCTURES: Advanced degenerative change in the lumbar spine but no acute fracture.? CT/CT abdomen pelvis w IV con IMPRESSION: No bowel obstruction. Chronic findings in the pancreas. No hydronephrosis. Dictated By: Trung Guillory MD Signed By: Electronically signed by Trung Guillory MD 01/02/22 1222 ECG Data Attestation: I personally reviewed and interpreted this ECG as follows: Prior ECG tracings: available for review Interpretation: Vent. Rate: 091 BPM ? ? Atrial Rate: 091 BPM P-R Int: 200 ms? QRS Dur: 090 ms QT Int: 362 ms ? ? ? P-R-T Axes: 018 -26 -08 degrees QTc Int: 445 ms ? Normal sinus rhythm Inferior infarct (cited on or before 17-NOV-2020) Possible Anterolateral infarct (cited on or before 07-OCT-2020) Low voltage QRS Left axis deviation Nonspecific T wave abnormality Anterolateral leads Abnormal ECG When compared with ECG of 11-NOV-2021 10:41, Questionable change in initial forces of Lateral leads ? Electronically Signed By:AIDEE ELLER MD Dictated By: Pepe Eller MD Signed By: Electronically signed by Pepe Eller MD 01/02/22 1257 Discharge Plan Discharge Clinical Impression: Acute hypokalemia, Acute on chronic pancreatitis Patient Disposition: Home, Self-Care Instructions: Pancreatitis (ED), Hypokalemia (ED) Additional Instructions: Follow up with your primary care provider. Return to the emergency department immediately if your symptoms worsen or if you develop any dizziness, shortness of breath, difficulty breathing, chest pain, blurry vision, loss of vision, nausea, vomiting, abdominal pain, fever, chills, back pain, or any other complaints. Prescriptions: No Action (DME) pen needle, diabetic [BD Ultra-Fine Orig Pen Needle] 29 gauge x 1/2 needle See Rx Instructions .Route Qty: 100 4RF Rx Instructions: Daily, As directed (DME) blood-glucose meter [FreeStyle Lite Meter] Kit See Rx Instructions .ROUTE .MEDSUPPLY Qty: 1 0RF Rx Instructions: DX: E11.9, test blood sugar twice a day, duration 999 days (DME) FreeStyle Lite Strips Strip See Rx Instructions .ROUTE .MEDSUPPLY Qty: 200 4RF Rx Instructions: DX: E11.9, test blood sugar 2 times a day, 90 days (DME) lancets [FreeStyle Lancets] 28 gauge misc See Rx Instructions .ROUTE .MEDSUPPLY Qty: 200 4RF Rx Instructions: As directed amlodipine 10 mg tablet 10 mg PO DAILY 90 Days Qty: 90 3RF gabapentin 300 mg capsule 300 mg PO BEDTIME 30 Days Qty: 30 1RF Spiriva Respimat 1.25 mcg/actuation mist 2 puff inhalation DAILY 30 Days Qty: 4 1RF naltrexone 50 mg tablet 50 mg PO DAILY Qty: 30 0RF amitriptyline 25 mg tablet 25 mg PO BEDTIME 30 Days Qty: 30 1RF duloxetine 20 mg capsule,delayed release(DR/EC) 20 mg PO BID 30 Days Qty: 60 0RF folic acid 1 mg tablet 1 mg PO DAILY albuterol sulfate 90 mcg/actuation HFA aerosol inhaler 2 puff inhalation Q4H PRN (Reason: wheezing) Zenpep 40,000-126,000- 168,000 unit Capsule,Delayed Release(Dr/Ec) 3 - 4 cap PO TIDWM magnesium oxide 400 mg (241.3 mg magnesium) Tablet 400 mg PO BIDPC Qty: 60 0RF multivitamin [Daily-Jerald] Tablet 1 tab PO DAILY Qty: 30 0RF tizanidine 2 mg tablet 1 tab PO BID PRN (Reason: Pain) potassium chloride 10 mEq tablet extended release 1 tab PO DAILY hydroxyzine HCl 25 mg tablet 1 tab PO Q8H PRN (Reason: anxiety) Trelegy Ellipta 100-62.5-25 mcg blister with device 1 puff inhalation DAILY fluticasone propion-salmeterol [Wixela Inhub] 250-50 mcg/dose blister with device 1 puff inhalation Q12H (DME) pen needle, diabetic [BD Ultra-Fine Micro Pen Needle] 32 gauge x 1/4 needle See Rx Instructions .ROUTE .MEDSUPPLY Qty: 100 2RF Rx Instructions: Once a day As directed, 90 days metoprolol succinate 100 mg tablet extended release 24 hr 100 mg PO DAILY 90 Days Qty: 90 2RF insulin glargine [Basaglar KwikPen U-100 Insulin] 100 unit/mL (3 mL) insulin pen 18 unit subcut QPM 30 Days Qty: 6 3RF omeprazole 40 mg capsule,delayed release(DR/EC) 40 mg PO DAILY 30 Days Qty: 30 0RF ketoconazole 2 % cream 1 appl topical BID 30 Days Qty: 60 0RF glipizide 5 mg tablet 5 mg PO DAILY sucralfate 100 mg/mL suspension 1 g PO Q6H 56 Days Qty: 2240 0RF Baqsimi 3 mg/actuation spray,non-aerosol 3 mg intranasal ONCE Qty: 2 4RF albuterol sulfate 2.5 mg /3 mL (0.083 %) solution for nebulization inhalation Q4H PRN (Reason: wheezing) omeprazole 40 mg capsule,delayed release(DR/EC) 40 mg PO DAILY 30 Days Qty: 30 2RF fluconazole 200 mg tablet 200 mg PO DAILY Qty: 14 0RF Interventions: ED Discharge Assessment Last Done: 01/02/22 13:00 Discharge Date/Time: 01/02/22 13:55
[2022-01-02 09:37] LABS: Lipase 61 U/L (8-78)
[2022-01-02] MEDS: 0.9 % Sodium Chloride 1,000 ML 999 ML IV (09:56)
--- OUTSIDE RECORDS SUMMARY | 2022-01-02 09:58 | XMS_ITS ---
:1965 Author Care Team Providers Name Role Phone Urgent Care Primary Care Provider Unavailable Allergies Code Code System Name Reaction Severity Status Onset NKDA ? Medications Name Status Start Date Stop Date ? ? acamprosate 333 mg tablet,delayed release Active ? Not available TAKE 2 TABLETS BY MOUTH 3 TIMES A DAY acetaminophen 325 mg tablet Active ? Not available TAKE 3 TABLETS BY MOUTH EVERY 6 HOURS albuterol sulfate 2.5 mg/3 mL (0.083 %) solution for nebulizatio n Active ? Not available TAKE 1 VIAL BY NEBULIZATION EVERY 4 EBONI RS NEEDED FOR WHEEZING FOR UP TO 30 DAYS. albuterol sulfate HFA 90 mcg/actuation aerosol inhaler Active ? Not available INHALE 2 PUFFS INTO THE LUNGS EVERY 4 H OURS NEEDED FOR COUGH, WHEEZING OR SHORTNESS OF BREATH amitriptyline 10 mg tablet Active ? Not a vailable TAKE 1 TABLET BY MOUTH EVERYDAY AT BEDTIME amlodipine 10 mg tablet Active ? Not avai lable TAKE 1 TABLET BY MOUTH EVERY DAY amlodipine 5 mg tablet Active ? Not avail able TAKE 1 TABLET BY MOUTH EVERY DAY amoxicillin 500 mg tablet Active ? Not av ailable TAKE 1 TABLET BY MOUTH THREE TIMES A DAY FOR 7 DAYS azithromycin 250 mg tablet Active ? Not a vailable TAKE 2 TABLETS BY MOUTH TODAY, THEN TAKE 1 TABLET DAILY FOR 4 D AYS cephalexin 500 mg capsule Active ? Not av ailable TAKE 1 CAPSULE BY MOUTH THREE TIMES A DAY FOR 7 DAYS chlorthalidone 25 mg tablet Active ? Not available TAKE 1 TABLET BY MOUTH EVERY DAY Daily-Jerald (with folic acid) 400 mcg tablet Active ? Not available TAKE 1 TABLET BY MOUTH EVERY DAY doxycycline monohydrate 100 mg tablet Active ? Not available TAKE 1 TABLET BY MOUTH TWICE A DAY FOR 7 DAYS duloxetine 60 mg capsule,delayed release Active ? Not available TAKE 1 CAPSULE BY MOUTH EVERY DAY folic acid 1 mg tablet Active ? Not avail able TAKE 1 TABLET BY MOUTH EVERY DAY gabapentin 100 mg capsule Active ? Not av ailable hydroxyzine HCl 25 mg tablet Active ? Not available TAKE 1 TABLET BY MOUTH EVERY 8 HOURS NEEDED FOR ANXIETY ibuprofen 600 mg tablet Active ? Not avai lable magnesium oxide 400 mg (241.3 mg magnesium) tablet Active ? Not available TAKE 1 TABLET BY MOUTH TWICE A DAY AFTER MEALS nicotine 21 mg/24 hr daily transdermal patch Active ? Not available APPLY 1 PATCH TO SKIN DAILY omeprazole 20 mg capsule,delayed release Active ? Not available TAKE 1 CAPSULE BY MOUTH EVERY DAY omeprazole 40 mg capsule,delayed release Active ? Not available TAKE 1 CAPSULE BY MOUTH EVERY DAY ondansetron 4 mg disintegrating tablet Active ? Not available TAKE 1 TABLET BY MOUTH EVERY 8 HOURS NEEDED FOR NAUSEA ondansetron HCl 4 mg tablet Active ? Not available TAKE 1 TAB BY MOUTH EVERY 8 HOURS NEEDED FOR NAUSEA oxycodone 5 mg tablet Active ? Not availa ble oxycodone-acetaminophen 5 mg-325 mg tablet Active ? Not available TAKE 1 TABLET BY MOUTH EVERY 6 HOURS NEEDED peg 3350-electrolytes 236 gram-22.74 gram-6.74 gram-5.86 Active ? Not available gram solution thiamine HCl (vitamin B1) 100 mg tablet Active ? Not available TAKE 1 TABLET BY MOUTH EVERY DAY tizanidine 2 mg tablet Active ? Not avail able Trelegy Ellipta 100 mcg-62.5 mcg-25 mcg powder for inhalation Ac tive ? Not available INHALE 1 PUFF INTO THE LUNGS DAILY FOR 30 DAYS. Zenpep 40,000 unit-126,000 unit-168,000 unit capsule,delayed rel ease Active ? Not available TAKE 3-4 CAPSULES BY MOUTH 3 TIMES DAILY (WITH MEALS). Notes: muscle relaxer Problems None recorded. Procedures Date Name Performed by ? ? Cholecystectomy Information not avai lable ? Back Surgery Information not avai lable Results Lab Results Date Name Specimen Result Interpretation Description Value Range Status Address ? 03/08/2021 SARS CoV 2 RNA ? Result negative ? ? 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 03/08/2021 Abdominal Pain; Suspected COVID-19; Dysp alan; Cough Mariza Aragon, HOUSEHOLD PERSONAL ASSISTANT: [address] [facility], [place] [address], Ph. Social History Tobacco Smoking Status Heavy Tobacco Smoker (1 pack per day) Vaccine List Notes: Covid Vaccinated with J&J and M oderna Booster Plan of Care Reminders Provider Appointments None recorded. ? ? Lab None recorded. ? ? Referral None recorded. ? ? Procedures None recorded. ? ? Surgeries None recorded. ? ? Imaging None recorded. ? ? Vitals 04/14/2021 10:15AM Established Patient Blood Pressure 152/87 mm[Hg] 03/08/2021 02:12PM New Patient Blood Pressure 178/104 mm[Hg]
[2022-01-02] MEDS: Morphine Sulfate 4 MG/ML CARTRIDGE IVPUSH (10:03)
[2022-01-02] MEDS: ondansetron HCL 4 MG/2 ML VIAL IVPUSH (10:04)
[2022-01-02 10:09] VITALS: BP 123/81; PULSE 85; RESP 16; TEMP 36.7; O2SAT 95
[2022-01-02] MEDS: iohexoL 350 MG/ML 100 ML INFUS..BTL IV (10:58)
[2022-01-02] MEDS: Potassium Chloride Packet 20 MEQ PACKET 40 MEQ PO (11:44)
--- NOTE | 2022-01-02 12:36 | ECG_ITS ---
Test Reason : EPIGastric pain Blood Pressure : / mmHG Vent. Rate : 091 BPM Atrial Rate : 091 BPM P-R Int : 200 ms QRS Dur : 090 ms QT Int : 362 ms P-R-T Axes : 018 -26 -08 degrees QTc Int : 445 ms Normal sinus rhythm Inferior infarct (cited on or before 17-NOV-2020) Possible Anterolateral infarct (cited on or before 07-OCT-2020) Low voltage QRS Left axis deviation Nonspecific T wave abnormality Anterolateral leads Abnormal ECG When compared with ECG of 11-NOV-2021 10:41, Questionable change in initial forces of Lateral leads Referred By: Preeti Davila Electronically Signed By:AIDEE ELLER MD
[2022-01-02 12:59] VITALS: BP 121/85; PULSE 96; RESP 18; O2SAT 93
[2022-01-02] MEDS: LORazepam 1 MG TABLET 2 MG PO (12:59)
== END 2022-01-02 13:55 | disposition home or self-care (01) ==
PROVIDERS: Emergency Provider Emergency Medicine Emergency Medical Services; PCP Family Medicine
DX: K86.1 Other chronic pancreatitis (principal); E87.6 Hypokalemia; F10.20 Alcohol dependence, uncomplicated; Y90.9 Presence of alcohol in blood, level not specified; E11.9 Type 2 diabetes mellitus without complications; I10 Essential (primary) hypertension; F17.210 Nicotine dependence, cigarettes, uncomplicated; Z79.4 Long term (current) use of insulin
CPT/HCPCS: 36415; 74177; 80048; 80076; 83690; 85025; 93005; 96361; 96374; 96375; 99284; J2270; J2405; Q9967

== ENCOUNTER 2022-01-03 11:18 | Inpatient (IN) | payer OTHER, SELFPAY ==
[2022-01-03 11:48] VITALS: BP 124/85; PULSE 122; RESP 20; TEMP 36.7; O2SAT 95; BMI 26.4
--- NOTE | 2022-01-03 11:53 | ED_ITS ---
HPI - Abdominal Pain General Chief Complaint: Abdominal Pain Stated Complaint: Pancreatitis Time Seen by Provider: 01/03/22 14:52 Source: patient Mode of arrival: ambulatory Limitations: no limitations History of Present Illness HPI narrative: 56-year-old male with chronic alcoholic pancreatitis patient was seen yesterday in the ED and was discharged home came back today to the emergency department for persistence of severe epigastric pain. Patient had a full workup yesterday including CT of abdomen and pelvis which was remarkable, patient had to drink alcohol last night because he is worried about withdrawal symptoms patient get seizure from withdrawal from alcohol. Related Data Home Medications Medication Instructions Recorded Confirmed albuterol sulfate 90 mcg/actuation 2 puff inhalation Q4H PRN wheezing 05/01/20 01/03/22 aerosol inhaler folic acid 1 mg tablet 1 mg PO DAILY 05/01/20 01/03/22 ltegec-laxyojek-jaqbxtm 3 - 4 cap PO TIDWM 10/07/20 01/03/22 40,000-126,000-168,000 unit capsule, delay rel (Zenpep) fluticasone fur. 100 mcg-umeclid 1 puff inhalation DAILY 07/28/21 01/03/22 62.5 mcg-vilant 25 mcg inhalat.powder (Trelegy Ellipta) potassium chloride 10 mEq 1 tab PO DAILY 07/28/21 01/03/22 tablet,extended release tizanidine 2 mg tablet 1 tab PO BID PRN Pain 07/28/21 01/03/22 albuterol sulfate 2.5 mg/3 mL 2.5 mg inhalation Q4H PRN wheezing 12/07/21 01/03/22 (0.083 %) solution for nebulization insulin glargine 100 unit/mL (3 20 unit subcut QPM 01/03/22 01/03/22 mL) subcutaneous pen (Basaglar KwikPen U-100 Insulin) metoprolol succinate 50 mg 1 tab PO DAILY 01/03/22 01/03/22 tablet,extended release 24 hr Previous Rx's Medication Instructions Recorded magnesium oxide 400 mg (241.3 mg 400 mg PO BIDPC #60 tabs 11/20/20 magnesium) tablet multivitamin (Daily-Jerald tablet) 1 tab PO DAILY #30 tabs 11/20/20 pen needle, diabetic 32 gauge x #100 ea 07/08/22 1/4 (BD Ultra-Fine Micro Pen Needle) pen needle, diabetic 29 gauge x #100 ea 08/28/21 1 (BD Ultra-Fine Original Pen Needle) blood sugar diagnostic (FreeStyle #200 ea 08/29/21 Lite Strips) blood-glucose meter (FreeStyle #1 ea 08/29/21 Lite Meter kit) lancets 28 gauge (FreeStyle #200 ea 08/29/21 Lancets) amlodipine 10 mg tablet 10 mg PO DAILY 90 days #90 tabs 09/15/21 glucagon 3 mg/actuation nasal 3 mg intranasal ONCE #2 ea 09/28/21 spray (Baqsimi) omeprazole 40 mg capsule,delayed 40 mg PO DAILY 30 days #30 caps 11/17/21 release tiotropium bromide 1.25 2 puff inhalation DAILY 30 days #4 11/22/21 mcg/actuation mist for inhalation grams (Spiriva Respimat) naltrexone 50 mg tablet 50 mg PO DAILY #30 tabs 12/02/21 fluconazole 200 mg tablet 200 mg PO DAILY #14 tabs 12/07/21 amitriptyline 25 mg tablet 25 mg PO BEDTIME 30 days #30 tabs 01/03/22 duloxetine 20 mg capsule,delayed 20 mg PO BID 30 days #60 caps 01/03/22 release Allergies Allergy/AdvReac Type Severity Reaction Status Date / Time No Known Allergies Allergy Verified 12/19/21 11:04 [No Known Allergies*] Review of Systems Review of Systems All other systems are reviewed and are negative Constitutional: Reports as per HPI and Reports no additional constitutional complaints Eyes: Reports as per HPI and Reports no additional eye complaints Reports system reviewed and no additional complaints, except as documented Cardiovascular: Reports as per HPI and Reports no additional cardiovascular complaints Respiratory: Reports as per HPI and Reports no additional respiratory complaints Gastrointestinal: Reports as per HPI and Reports no additional gastrointestinal complaints Genitourinary: Reports no additional female genitourinary complaints Musculoskeletal: Reports no additional musculoskeletal complaints Skin/Breast: Reports system reviewed and no additional complaints, except as docu Psychiatric: Reports no additional psychiatric complaints Endocrine: Reports no additional endocrine complaints Hematologic/Lymphatic: Reports no additional hematologic/lymphatic complaints Allergic/Immunologic: Reports no additional allergic/immunologic complaints Reports system reviewed and no additional complaints, except as documented and Reports Abnormal speech present ON LICENSE OF [facility] Past Medical History Medical History Anxiety Chronic pancreatitis COPD (chronic obstructive pulmonary disease) Depression Diabetes mellitus, new onset EtOH dependence HTN (hypertension) Smoker Surgical History History of colon resection Hx of cholecystectomy Hx of colonoscopy Previous back surgery Family History Family History Mother Alcohol dependence Substance use disorder Social History Social History Household Members: Family Household Members Other:: Brother Housing: House Do you presently have visiting nurse or other home services: No Alcohol intake: current Alcohol intake frequency: 3 or more drinks per day Alcohol type: hard liquor Patient Tobacco Use Status: Current everyday Tobacco user Tobacco use type: Cigarette Cigarette Packs Per Day: 1 Cigarettes Per Day: 20.0 Years Smoked: 40 e-Cigarette/Vaping Use: Never Used Second Hand Smoke Exposure: No Advance Directives: Yes Advance Directives on File: Yes Advance Directives Date on File: 08/04/21 service: No Current occupational status: employed Current occupational exposures/hazards: No Cognitive needs: No Hearing needs: No Vision needs: No Physical Exam ED Vital Signs: Vital Signs - 24 hr 01/03/22 11:48 Temperature 98.1 F Pulse Rate 122 H Respiratory Rate 20 Blood Pressure 124/85 Pulse Oximetry 95 Oxygen Delivery Method Room Air BMI result Body Mass Index 26.4 Vital signs have been reviewed as appeared to be correct. Blood pressure normal. Heart rate elevated. Respiration rate normal. Temperature normal. Oxygen saturation normal. Appearance: Alert. Oriented X3. No acute distress. Head: Normal external exam. Normocephalic. Atraumatic. No Mosher signs noted. No raccoon eyes noted Eyes: PERRLA. EOMI. Conjunctiva and sclera normal. Eyelids normal. ENT: TM's Normal. Pharynx normal. Uvula midline. Moist mucous membranes. No trismus noted. No drooling noted. No muffled voice noted. Neck: Normal inspection. Neck supple. FROM. No adenopathy. Thyroid Normal. No meningeal signs. No neck mass noted. CVS: Normal heart rate and rhythm. Heart sound normal. No murmurs noted. Pulses normal throughout. Respiratory: No respiratory distress. Painless inspiration. Breath sounds normal. No wheezes/rales/rhonchi noted. Chest nontender. No accessory muscle usage noted or decreased air movement noted. Abdomen: Soft, mild epigastric tenderness, no rebound tenderness. Bowel sounds normal in all 4 quadrants. No distention noted. No organomegaly noted. No visible injury noted. Back: No CVA tenderness. Full range of motion noted. Skin: Skin warm and dry. Normal skin color. Normal skin turgor. No rashes/lesions/lacerations noted. Extremities: No lower extremity edema. Extremities exhibit normal range of motion. Extremities nontender. Neuro: Oriented X 3. Cranial nerve exam: II-XII are grossly intact No motor deficit. No sensory deficit. Reflexes normal. Course Course Course Narrative: Chronic alcoholic pancreatitis was seen yesterday in the emergency department and return for persistent pain, we will start the patient on phenobarb to help with alcohol detoxification and prevent withdrawal seizure, otherwise admit for IV hydration and IV pain medication. Reevaluation(s) Reevaluation #1: 56-year-old male with history of chronic alcohol pancreatitis return to the emergency department for persistence of severe upper abdominal pain and nausea, patient stated that he drinks every day last drink was last night despite the pain and because he is worried about withdrawal symptoms, patient had labs and CT of the abdomen which showed chronic pancreatic changes. During my triage assessment we will give the patient Ativan and Dilaudid p.o.. Time: 11:53 Medications Administered Discontinued Medications Generic Name Dose Route Start Last Admin Trade Name Freq PRN Reason Stop Dose Admin Hydromorphone HCl 2 mg 01/03/22 11:50 01/03/22 11:56 Hydromorphone Hcl 2 Mg Tablet PO 01/03/22 11:51 2 mg ONCE ONE Administration Lorazepam 2 mg 01/03/22 11:50 01/03/22 11:56 Lorazepam 1 Mg Tablet PO 01/03/22 11:51 2 mg ONCE ONE Administration MDM - Abdominal Pain Lab Data Attestation: I reviewed the patient's lab results. Result diagrams: 01/03/22 12:02 01/03/22 12:02 Labs: Lab Results 01/03/22 01/03/22 01/03/22 Range/Units 12:02 12:02 12:02 WBC 8.2 (4.8-10.8) X10*3/uL RBC 4.78 (4.60-5.80) X10*6/uL Hgb 15.2 (14.0-18.0) g/dl Hct 44.0 (42.0-52.0) % MCV 92.1 (80.0-98.0) fL MCH 31.8 (27.0-33.0) pg MCHC 34.5 (31.0-36.0) g/dl RDW 12.7 (11.0-16.0) % Plt Count 207 (160-400) X10*3/uL MPV 9.0 L (9.4-12.4) fL Immature Gran % (Auto) 0.7 H (0.0-0.4) % Neut % (Auto) 67.7 (45-73) % Lymph % (Auto) 18.3 L (20-40) % Yuba % (Auto) 9.6 (2-11) % Eos % (Auto) 2.6 (0-4) % Baso % (Auto) 1.1 (0-2) % Lymph # (Auto) 1.5 (1.2-4.9) X10*3/uL [place] # (Auto) 0.8 (0.1-1.2) X10*3/uL Eos # (Auto) 0.2 (0.0-0.4) X10*3/uL Baso # (Auto) 0.1 (0.0-0.2) X10*3/uL Abs Immat Gran (auto) 0.06 H (0.00-0.03) X10*3/uL Absolute Neuts (auto) 5.5 (2.0-8.3) x10*3/uL Absolute Nucleated RBC 0.000 (0.0-0.012) X10*3/uL Nucleated RBC % (auto) 0.0 (0.0-0.2) /100WBC Sodium 138 (135-145) mmol/L Potassium 3.3 (3.3-5.1) mmol/L Chloride 104 (96-108) mmol/L Carbon Dioxide 17 L (22-29) mmol/L Anion Gap 20 (12-20) BUN 8 L D (9-16) mg/dL Creatinine 0.85 (0.5-1.4) mg/dL Estim Creat Clear Calc 109.6 Estimated GFR > 60 Random Glucose 242 H D (60-115) mg/dL Calcium 9.0 (8.4-10.2) mg/dL Total Bilirubin 0.6 (0.0-1.0) mg/dL Direct Bilirubin 0.4 (0.0-0.5) mg/dL AST 63 H (5-37) U/L ALT 46 H (0-40) U/L Alkaline Phosphatase 280 H D (39-117) U/L Troponin I High Sens 3.4 (<3.5-35.0) ng/L Total Protein 7.3 (6.5-8.0) g/dL Albumin 4.0 (3.5-5.0) g/dL Lipase 66 (8-78) U/L Discharge Plan Discharge Clinical Impression: Alcoholic pancreatitis, Alcohol withdrawal Patient Disposition: Admitted As Inpatient Prescriptions: No Action (DME) pen needle, diabetic [BD Ultra-Fine Orig Pen Needle] 29 gauge x 1/2 needle See Rx Instructions .Route Qty: 100 4RF Rx Instructions: Daily, As directed (DME) blood-glucose meter [FreeStyle Lite Meter] Kit See Rx Instructions .ROUTE .MEDSUPPLY Qty: 1 0RF Rx Instructions: DX: E11.9, test blood sugar twice a day, duration 999 days (DME) FreeStyle Lite Strips Strip See Rx Instructions .ROUTE .MEDSUPPLY Qty: 200 4RF Rx Instructions: DX: E11.9, test blood sugar 2 times a day, 90 days (DME) lancets [FreeStyle Lancets] 28 gauge misc See Rx Instructions .ROUTE .MEDSUPPLY Qty: 200 4RF Rx Instructions: As directed amlodipine 10 mg tablet 10 mg PO DAILY 90 Days Qty: 90 3RF Spiriva Respimat 1.25 mcg/actuation mist 2 puff inhalation DAILY 30 Days Qty: 4 1RF naltrexone 50 mg tablet 50 mg PO DAILY Qty: 30 0RF duloxetine 20 mg capsule,delayed release(DR/EC) 20 mg PO BID 30 Days Qty: 60 0RF amitriptyline 25 mg tablet 25 mg PO BEDTIME 30 Days Qty: 30 1RF folic acid 1 mg tablet 1 mg PO DAILY albuterol sulfate 90 mcg/actuation HFA aerosol inhaler 2 puff inhalation Q4H PRN (Reason: wheezing) Zenpep 40,000-126,000- 168,000 unit Capsule,Delayed Release(Dr/Ec) 3 - 4 cap PO TIDWM magnesium oxide 400 mg (241.3 mg magnesium) Tablet 400 mg PO BIDPC Qty: 60 0RF multivitamin [Daily-Jerald] Tablet 1 tab PO DAILY Qty: 30 0RF metoprolol succinate 50 mg tablet extended release 24 hr 1 tab PO DAILY insulin glargine [Basaglar KwikPen U-100 Insulin] 100 unit/mL (3 mL) insulin pen 20 unit subcut QPM tizanidine 2 mg tablet 1 tab PO BID PRN (Reason: Pain) potassium chloride 10 mEq tablet extended release 1 tab PO DAILY Trelegy Ellipta 100-62.5-25 mcg blister with device 1 puff inhalation DAILY (DME) pen needle, diabetic [BD Ultra-Fine Micro Pen Needle] 32 gauge x 1/4 needle See Rx Instructions .ROUTE .MEDSUPPLY Qty: 100 2RF Rx Instructions: Once a day As directed, 90 days omeprazole 40 mg capsule,delayed release(DR/EC) 40 mg PO DAILY 30 Days Qty: 30 0RF Baqsimi 3 mg/actuation spray,non-aerosol 3 mg intranasal ONCE Qty: 2 4RF albuterol sulfate 2.5 mg /3 mL (0.083 %) solution for nebulization 2.5 mg inhalation Q4H PRN (Reason: wheezing) fluconazole 200 mg tablet 200 mg PO DAILY Qty: 14 0RF
[2022-01-03] MEDS: HYDROmorphone HCl 2 MG TABLET PO (11:56)
[2022-01-03] MEDS: LORazepam 1 MG TABLET 2 MG PO (11:56)
[2022-01-03 12:08] LABS: Basophils Absolute Auto 0.1 X10*3/uL (0.0-0.2); Basophils Percent Auto 1.1 % (0-2); Eosinophils Absolute Auto 0.2 X10*3/uL (0.0-0.4); Eosinophils Percent Auto 2.6 % (0-4); Hemoglobin 15.2 g/dl (14.0-18.0); Imm Gran Abs Auto 0.06 X10*3/uL (0.00-0.03); Imm Gran Pct Auto 0.7 % (0.0-0.4); Lymphocytes Absolute Auto 1.5 X10*3/uL (1.2-4.9); Lymphocytes Percent Auto 18.3 % (20-40); MANUAL DIFF FLAG NO; Mean Corpuscular HGB Conc 34.5 g/dl (31.0-36.0); Mean Corpuscular Hemoglobin 31.8 pg (27.0-33.0); Mean Corpuscular Volume 92.1 fL (80.0-98.0); Monocytes Absolute Auto 0.8 X10*3/uL (0.1-1.2); Monocytes Percent Auto 9.6 % (2-11); Neutrophils Absolute Auto 5.5 x10*3/uL (2.0-8.3); Neutrophils Percent Auto 67.7 % (45-73); Platelet Count 207 X10*3/uL (160-400); Red Blood Count 4.78 X10*6/uL (4.60-5.80); Red Cell Distribution Width 12.7 % (11.0-16.0); White Blood Count 8.2 X10*3/uL (4.8-10.8)
[2022-01-03 12:31] LABS: Troponin-I High Sensitivity 3.4 ng/L (<3.5-35.0)
[2022-01-03 12:35] LABS: Alanine Aminotransferase 46 U/L (0-40); Alkaline Phosphatase 280 U/L (39-117); Anion Gap 20 (12-20); Aspartate Amino Transferase 63 U/L (5-37); Bilirubin Direct 0.4 mg/dL (0.0-0.5); Bilirubin Total 0.6 mg/dL (0.0-1.0); Blood Urea Nitrogen 8 mg/dL (9-16); Carbon Dioxide 17 mmol/L (22-29); Chloride 104 mmol/L (96-108); Creatinine Clr Calc Pharmacy 109.6; Estimated Glomerular Filt Rate > 60; Glucose Random 242 mg/dL (60-115); Lipase 66 U/L (8-78); Potassium 3.3 mmol/L (3.3-5.1); Sodium 138 mmol/L (135-145); Total Protein 7.3 g/dL (6.5-8.0)
--- NOTE | 2022-01-03 13:27 | PHA.MEDREC ---
Pharmacy Consult ? Medication Reconciliation Pharmacy has completed the medication reconciliation. 2 consults were put in while patient was PRE ER. Took patient to a secluded corner and obtain med rec.
--- OUTSIDE RECORDS SUMMARY | 2022-01-03 14:58 | XMS_ITS ---
[...] RNA ? Result negative ? ? [facility] (COVID-19), QL, [facility]: 57 inventory coordinator-PCR, Respiratory [facility], Specimen [facility] d Past Encounters 04/14/2021 Ingrowing Toenail; Onychomycosis of Toen ails MYRIAM Urban: [address] , [place] [address], Ph. 03/08/2021 Abdominal Pain; Suspected COVID-19; Dysp alan; Cough Mariza Aragon, CUSTOMER RESOLUTION SPECIALIST: [address] [facility], [place] [address], Ph. Social History Tobacco Smoking Status Heavy [...]
[2022-01-03 15:24] VITALS: BP 131/89; PULSE 107; RESP 20; O2SAT 93
[2022-01-03 15:39] VITALS: BP 135/90; PULSE 93; RESP 18; TEMP 37.1; O2SAT 98
--- NOTE | 2022-01-03 15:40 | PC.NURSE ---
THIS PCT ASSUMED CARE OF PT AT 1500 ,VS TAKEN ,COVID SWAB SEND TO LAB ,URINAL AT BEDSIDE ,CALL [facility] WITHIN REACH .
[2022-01-03] MEDS: 0.9 % Sodium Chloride 1,000 ML 999 ML IV (15:47)
[2022-01-03] MEDS: PHENobarbitaL sodium 130 MG/ML IM ONCE 320 MG IM (15:48)
[2022-01-03] MEDS: HYDROmorphone HCl 1 MG/ML SYRINGE IVPUSH ×2 (15:48→21:24)
--- NOTE | 2022-01-03 15:54 | PC.NURSE ---
pt alert and oriented, skin pwd, respirations even and unlabored, ls wheezing through out all villar and sating at 93% on room air, pt reports lower abd pain that travels to the mid and upper and pain at 10/10 with nausea. pt is a daily drinker of 10-15 mixed drinks last drink was yesterday morning. vs stable
[2022-01-03] MEDS: 0.9 % Sodium Chloride Flush 3 ML SYRINGE IVFLUSH (15:57)
[2022-01-03 16:11] LABS: COVID-19 Test Negative (Negative); IDNOW Serial# 16C4AD1C
--- NOTE | 2022-01-03 16:17 | P.HPHOSP_ITS ---
History of Present Illness Date of Service: 01/03/22 Chief Complaint: abdominal pain The patient is a 56 year old male with a PMH of chronic pancreatitis on enzymes, continual alcohol use despite multiple bouts of pancreatitis, prior alcohol withdrawal, COPD who presents to the ED for the second time in less than 24 hours with complaints of severe abdominal pain and loss of appetite. The patient reports he began noticing his symptoms about 5 days prior to admission. He states that he continued to drink until the evening prior to admission. The patient reports his pain is diffuse, severe in nature (10/10) and dull/achy. He states it is similar to his pancreatitis from previous episodes. He was in our ED yesterday for similar pain. He was treated with IV fluids, analgesics and supportive care. A CT scan completed at that time showed chronic pancreatitis. He improved with treatment in the ED and was sent home. He states that his pain returned again this morning and hence he came to the ED. In the ED he was treated with PO and IV dilaudid, 2L IVF, and PO ativan. His pain continued and he is exhibiting early withdrawal symptoms. Furthemore, he is not tolerating oral intake and hence will be admitted for further work up and treatment. Review of Systems Review of Systems: negative except HPI PMFSH Medical History Anxiety Chronic pancreatitis COPD (chronic obstructive pulmonary disease) Depression Diabetes mellitus, new onset EtOH dependence HTN (hypertension) Smoker Family History Mother Alcohol dependence Substance use disorder Surgical History History of colon resection Hx of cholecystectomy Hx of colonoscopy Previous back surgery Social History Household Members: Family Household Members Other:: Brother Housing: House Do you presently have visiting nurse or other home services: No Alcohol intake: current Alcohol intake frequency: 3 or more drinks per day Alcohol type: hard liquor Patient Tobacco Use Status: Current everyday Tobacco user Tobacco use type: Cigarette Cigarette Packs Per Day: 1 Cigarettes Per Day: 20.0 Years Smoked: 40 Smoked in Last 30 Days: Yes e-Cigarette/Vaping Use: Never Used Second Hand Smoke Exposure: No Use of substances other than those prescribed or required for medical reasons: No Advance Directives: Yes Advance Directives on File: Yes Advance Directives Date on File: 08/04/21 service: No Current occupational status: employed Current occupational exposures/hazards: No Cognitive needs: No Hearing needs: No Vision needs: No Meds Allergies Allergy/AdvReac Type Severity Reaction Status Date / Time No Known Allergies Allergy Verified 12/19/21 11:04 [No Known Allergies*] Active Medications: Current Medications Enoxaparin Sodium (Enoxaparin Sodium 40 Mg/0.4 Ml Syringe) 40 mg SUBCUT Q24H [facility] Hydromorphone HCl (Hydromorphone Hcl 1 Mg/Ml Syringe) 1 mg IVPUSH Q4H PRN; Protocol PRN Reason: Pain, Severe (Pain Scale 7-10) Lactated Ringer's (Lr) 1,000 mls @ 125 mls/hr IVCONT .Q8H [facility] Pharmacy Consult (Consult Rx Perform Med Rec) 1 each MISCELLANE ONCE PRN PRN Reason: Consult order Pharmacy Consult (Consult Rx Perform Med Rec) 1 each MISCELLANE ONCE PRN PRN Reason: Consult order Pharmacy Consult (Consult Rx Etoh Phenob Im/Po) 1 each MISCELLANE ONCE PRN; Protocol PRN Reason: Consult order Phenobarbital (Phenobarbital 30 Mg Tablet) 60 mg PO BID [facility]; Protocol Stop: 01/05/22 21:01 Phenobarbital (Phenobarbital 30 Mg Tablet) 30 mg PO BID [facility]; Protocol Stop: 01/07/22 21:01 Phenobarbital (Phenobarbital 15 Mg Tablet) 15 mg PO DAILY [facility]; Protocol Stop: 01/09/22 09:01 Phenobarbital Sodium (Phenobarbital Sodium 130 Mg/Ml Vial Im Q3hx2) 240 mg IM Q3H [facility]; Protocol Stop: 01/03/22 21:31 Sodium Chloride (0.9 % Sodium Chloride Flush 3 Ml Syringe) 3 ml IVFLUSH QSHIFT [facility] Last Admin: 01/03/22 15:57 Dose: 3 ml Home Medications Medication Instructions Recorded Confirmed Last Taken Type albuterol sulfate 90 mcg/actuation 2 puff inhalation Q4H PRN wheezing 05/01/20 01/03/22 Unknown History aerosol inhaler folic acid 1 mg tablet 1 mg PO DAILY 05/01/20 01/03/22 Unknown History [id number] 3 - 4 cap PO TIDWM 10/07/20 01/03/22 Unknown History 40,000-126,000-168,000 unit capsule, delay rel (Zenpep) fluticasone fur. 100 mcg-umeclid 1 puff inhalation DAILY 07/28/21 01/03/22 Unknown History 62.5 mcg-vilant 25 mcg inhalat.powder (Trelegy Ellipta) potassium chloride 10 mEq 1 tab PO DAILY 07/28/21 01/03/22 Unknown History tablet,extended release tizanidine 2 mg tablet 1 tab PO BID PRN Pain 07/28/21 01/03/22 Unknown History albuterol sulfate 2.5 mg/3 mL 2.5 mg inhalation Q4H PRN wheezing 12/07/2112/20 Unknown History (0.083 %) solution for nebulization insulin glargine 100 unit/mL (3 20 unit subcut QPM 01/03/22 01/03/22 Unknown History mL) subcutaneous pen (Basaglar KwikPen U-100 Insulin) metoprolol succinate 50 mg 1 tab PO DAILY 01/03/22 01/03/22 Unknown History tablet,extended release 24 hr Physical Exam Vital Signs and Narrative: Vital Signs: Last Vital Signs Temp 98.7 F 01/03/22 15:39 Pulse 93 01/03/22 15:39 Resp 18 01/03/22 15:39 BP 135/90 H 01/03/22 15:39 Pulse Ox 98 01/03/22 15:39 O2 Del Method 01/03/22 15:39 BMI result Body Mass Index 26.4 Const: Other: Constitutional - Awake and Alert, looks uncomfortable Eyes - PERRLA, EOMI Cardiovascular - S1S2, RRR, No edema Respiratory - Normal lung expansion, Normal respiratory effort, No respiratory distress, CTA bilaterally Gastrointestinal - Diffuse abdominal tenderness with voluntary guarding - No CVA tenderness Extremities - no calf tenderness bilaterally, no swelling Musculoskeletal - Normal inspection, normal ROM Skin - Warm/Dry Neurological - Alert & oriented x3, No focal deficit Psychological - Appropriate affect Results Labs CBC and Chem 7: 01/03/22 12:02 01/03/22 12:02 Labs: Laboratory Results - last 24 hr 01/03/22 01/03/22 01/03/22 12:02 12:02 12:02 MCV 92.1 MCH 31.8 MCHC 34.5 RDW 12.7 Plt Count 207 MPV 9.0 L Immature Gran % (Auto) 0.7 H Neut % (Auto) 67.7 Lymph % (Auto) 18.3 L [place] % (Auto) 9.6 Eos % (Auto) 2.6 Baso % (Auto) 1.1 Lymph # (Auto) 1.5 [place] # (Auto) 0.8 Eos # (Auto) 0.2 Baso # (Auto) 0.1 Abs Immat Gran (auto) 0.06 H Absolute Neuts (auto) 5.5 Absolute Nucleated RBC 0.000 Nucleated RBC % (auto) 0.0 Anion Gap 20 Estim Creat Clear Calc 109.6 Estimated GFR > 60 Random Glucose 242 H D Calcium 9.0 Total Bilirubin 0.6 Direct Bilirubin 0.4 AST 63 H ALT 46 H Alkaline Phosphatase 280 H D Troponin I High Sens 3.4 Total Protein 7.3 Albumin 4.0 Lipase 66 COVID-19 ([facility]) COVID-19 Clin Com 01/03/22 15:45 MCV MCH MCHC RDW Plt Count MPV Immature Gran % (Auto) Neut % (Auto) Lymph % (Auto) [place] % (Auto) Eos % (Auto) Baso % (Auto) Lymph # (Auto) [place] # (Auto) Eos # (Auto) Baso # (Auto) Abs Immat Gran (auto) Absolute Neuts (auto) Absolute Nucleated RBC Nucleated RBC % (auto) Anion Gap Estim Creat Clear Calc Estimated GFR Random Glucose Calcium Total Bilirubin Direct Bilirubin AST ALT Alkaline Phosphatase Troponin I High Sens Total Protein Albumin Lipase COVID-19 ([facility]) Negative COVID-19 Clin Com See Note Assessment and Plan (1) Alcoholic pancreatitis: Status: Acute Plan 55 yo M with a history of alcohol abuse and dependence with resultant medical complications inculding chronic pancreatitis who presents with a 5 day history of abdominal pain. He is admitted for treatment of acute on chronic pancreatitis 1. Acute on chronic pancreatitis due to continual alcohol use -- cessation has been again encouraged NPO IVF IV dilaudid repeat CT imaging if symptoms not improved in 24-48 hours 2. Alcohol abuse and dependence exhibiting early withdrawal symptoms -- has been started on phenobarb -- will continue 3. DM on long acting insulin at home, will hold use sliding scale while NPO 4. Chronic COPD continue baseline inhalers Full Code DVT pptx lovenox In light the degree of pain (severe) and his alcohol withdrawal (which is requiring IM phenobarb as he is unable to sufficiently take PO) anticipate he will need an inpatient hospitalization which is likely to span at least 2 midnights. Quality Stroke Does the patient have a stroke diagnosis?: No VTE Prior VTE?: No VTE Risk Level:: Medical - moderate - high VTE Device Contraindication: Treatment Not Indicated VTE Drug Contraindication: N/A - Med Ordered
--- OUTSIDE RECORDS SUMMARY | 2022-01-03 16:27 | XMS_ITS ---
[...] RNA ? Result negative ? ? 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 03/08/2021 Abdominal Pain; Suspected COVID-19; Dysp alan; Cough Mariza Aragon, T[employer] P[employer]ER: [address] [facility], [place] [address], Ph. Social History Tobacco Smoking Status Heavy [...]
[2022-01-03] MEDS: Lactated Ringers 1,000 ML 125 ML IVCONT (16:44)
--- NOTE | 2022-01-03 16:52 | PC.NURSE ---
pt was hooked up to casualty underwriter ,and was given some ice chips .
[2022-01-03 16:53] LABS: Estimated Average Glucose 137 mg/dL; Hemoglobin A1c % 6.4 %
[2022-01-03 16:55] VITALS: BP 133/82; PULSE 104; RESP 16; TEMP 36.8; O2SAT 98
--- NOTE | 2022-01-03 16:55 | PC.NURSE ---
report given to pedro thapa in overflow
[2022-01-03 17:02] LABS: Glucose, Whole Blood 172 mg/dL (60-115)
[2022-01-03] MEDS: Magnesium Oxide 400 MG TABLET PO (18:36)
[2022-01-03] MEDS: Enoxaparin Sodium 40 MG/0.4 ML SYRINGE SUBCUT (18:37)
[2022-01-03] MEDS: PHENobarbitaL sodium 130 MG/ML VIAL IM Q3Hx2 240 MG IM ×2 (18:37→21:23)
[2022-01-03] MEDS: Insulin Lispro 100 UNIT/ML 3 ML VIAL SUBCUT (18:42)
[2022-01-03 19:27] VITALS: BP 129/88; PULSE 117; RESP 20; TEMP 36.7; O2SAT 95
--- NOTE | 2022-01-03 19:29 | PC.NURSE ---
1999 ROUNDING DONE PT SAID HE HAS PAIN ,RN KENDALL IS AWARE ,ALSO PT HEART RATE IS UP ,PT VS TAKEN ,I OFFER PT FLUIDS ,PT HAD A SARAN MILKA WITH ICE ,CALL ORTIZ IN PLACE .
[2022-01-03 19:54] LABS: Appearance Urine Clear; Color Urine Yellow; Glucose Urine UA 100 mg/dL (Negative); Leukocyte Esterase Urine Negative (Negative); Nitrite Urine Negative (Negative); PH 6.5 (5.0-9.0); Specific Gravity - Urine 1.015 (1.005-1.025); Urine Blood Negative (Negative); Urine Ketones Negative (Negative); Urine Protein Trace mg/dL (Neg-Trace)
[2022-01-03 21:24] VITALS: RESP 18
--- NOTE | 2022-01-03 22:57 | PC.NURSE ---
Nurse to nurse report given to Linda Echeverria. Pt is ready for transport.
[2022-01-04] VITALS (10 sets, daily range): BP systolic 124–158; BP diastolic 88–101; PULSE 118–137; RESP 10–25; TEMP 36.3–37.2; O2SAT 87–96
[2022-01-04] MEDS: HYDROmorphone HCl 1 MG/ML SYRINGE IVPUSH ×4 (04:20→19:54)
[2022-01-04] MEDS: Albuterol/Iprat 2.5/0.5MG 3 ML AMPUL.NEB INHALE ×2 (04:58→10:32)
[2022-01-04] MEDS: Lactated Ringers 1,000 ML 125 ML IVCONT ×3 (05:40→23:07)
[2022-01-04 06:34] LABS: Glucose, Whole Blood 141 mg/dL (60-115)
[2022-01-04 07:11] LABS: Hematocrit 39.6 % (42.0-52.0); Hemoglobin 13.2 g/dl (14.0-18.0); Mean Corpuscular HGB Conc 33.3 g/dl (31.0-36.0); Mean Corpuscular Hemoglobin 31.4 pg (27.0-33.0); Mean Corpuscular Volume 94.1 fL (80.0-98.0); Mean Platelet Volume 9.6 fL (9.4-12.4); Platelet Count 190 X10*3/uL (160-400); Red Blood Count 4.21 X10*6/uL (4.60-5.80); Red Cell Distribution Width 12.9 % (11.0-16.0)
[2022-01-04 07:26] LABS: Anion Gap 15 (12-20); Blood Urea Nitrogen 9 mg/dL (9-16); Calcium 8.7 mg/dL (8.4-10.2); Carbon Dioxide 22 mmol/L (22-29); Chloride 107 mmol/L (96-108); Creatinine Clr Calc Pharmacy 127.6; Estimated Glomerular Filt Rate > 60; Glucose Random 165 mg/dL (60-115); Potassium 3.6 mmol/L (3.3-5.1); Sodium 140 mmol/L (135-145)
[2022-01-04] MEDS: Insulin Lispro 100 UNIT/ML 3 ML VIAL SUBCUT ×2 (07:43→16:45)
[2022-01-04] MEDS: PHENobarbitaL 30 MG TABLET 60 MG PO ×2 (09:10→22:48)
[2022-01-04] MEDS: amLODIPine Besylate 10 MG TABLET PO (09:10)
[2022-01-04] MEDS: Magnesium Oxide 400 MG TABLET PO ×2 (09:10→16:45)
[2022-01-04] MEDS: Metoprolol Succinate ER 50 MG TAB.ER.24H PO (09:10)
[2022-01-04] MEDS: Multivitamin TABLET 1 TAB PO (09:11)
[2022-01-04] MEDS: Folic Acid 1 MG TABLET PO (09:11)
[2022-01-04 12:20] LABS: Glucose, Whole Blood 177 mg/dL (60-115)
[2022-01-04 12:28] LABS: Glucose, Whole Blood 218 mg/dL (60-115)
--- NOTE | 2022-01-04 14:19 | MHC.CM.PN ---
EMR REVIEWED, PT ADMITTED W/ACUTE PANCREATITIS, CM MET W/PT WHO REPORT HE DID FOLLOW UP W/CCC AND STARTED ON NALTREXONE AND WOULD LIKE TO CONTINUE UPON D/C. ANTIC RECOVERY TEAM TO SEE PT PRIOR TO D/C HOME. PT REPORTS HE LIVES W/HIS BROTHER, USES INHALERS AND A NEBULIZER AND NO OTHER DME/HOME SERVICES. PT VERIFIES PCP IS CANDIS NAVA, HCP VERIFIED BROTHER KHANH [phone] AND COPY ON FILE FROM PREVIOUS VISIT, J&J X1 AND MODERNA X2.
[2022-01-04] MEDS: 0.9 % Sodium Chloride Flush 3 ML SYRINGE IVFLUSH ×2 (15:30→23:07)
[2022-01-04 16:01] LABS: Glucose, Whole Blood 162 mg/dL (60-115)
--- NOTE | 2022-01-04 17:09 | P.PNIM_ITS ---
Subjective Subjective Date of Service: 01/04/22 Interval History: Alcohol withdrawal, chronic pancreatitis Review of Systems abdominal pain seems to be improving, still tremulous and anxious denies any chest pain or shortness of breath or fever or chills Physical Exam Vital Signs: Vital Signs: Last Vital Signs Temp 98.6 F 01/04/22 15:30 Pulse 126 H 01/04/22 15:30 Resp 17 01/04/22 15:30 BP 137/91 H 01/04/22 15:30 Pulse Ox 92 01/04/22 15:30 O2 Del Method 01/04/22 15:30 O2 Flow Rate 2 01/04/22 15:30 BMI result Body Mass Index 26.4 Appearance: Alert.? Oriented X3.? not in distress.? cvs: rrr, [id number] , no murmur res: clear to auscultation ,no rhonchii or wheezing abd: no rebound or guarding ,nt, bs present. ext pulses present , no cyanosis . neuro: axo3 , nonfocal. Objective Data Active Medications Albuterol/Ipratropium (Albuterol/Iprat 2.5/0.5mg 3 Ml Ampul.Neb) 3 ml INHALE RQ4H PRN PRN Reason: Shortness of Breath/Wheezing Last Admin: 01/04/22 10:32 Dose: 3 ml Documented By: VINNY Amlodipine Besylate (Amlodipine Besylate 10 Mg Tablet) 10 mg PO DAILY REPLACED BY [facility]; Protocol Last Admin: 01/04/22 09:10 Dose: 10 mg Documented By: RALPH Enoxaparin Sodium (Enoxaparin Sodium 40 Mg/0.4 Ml Syringe) 40 mg SUBCUT Q24H REPLACED BY [facility] Last Admin: 01/03/22 18:37 Dose: 40 mg Documented By: KAVYA Fluticasone/Vilanterol (Fluticasone/Vilanterol 100/25 Blst.W.Dev) 1 puff INHALE RDAILY REPLACED BY [facility] Folic Acid (Folic Acid 1 Mg Tablet) 1 mg PO DAILY REPLACED BY [facility] Last Admin: 01/04/22 09:11 Dose: 1 mg Documented By: IRLANDAOPEWilmer Hydromorphone HCl (Hydromorphone Hcl 1 Mg/Ml Syringe) 1 mg IVPUSH Q4H PRN; Protocol PRN Reason: Pain, Severe (Pain Scale 7-10) Last Admin: 01/04/22 14:11 Dose: 1 mg Documented By: REHTT Lactated Ringer's (Lr) 1,000 mls @ 125 mls/hr IVCONT .Q8H REPLACED BY [facility] Last Admin: 01/04/22 14:07 Dose: 125 mls/hr Documented By: CHANG Insulin Human Lispro (Insulin Lispro 100 Unit/Ml 3 Ml Vial) 0 unit SUBCUT QIDA [facility]; Protocol Last Admin: 01/04/22 16:45 Dose: 2 unit Documented By: JOHANNA Magn[facility] ([facility] Mg [facility]) [facility] Last Admin: 01/04/22 16:45 Dose: 400 mg Documented By: JOHANNA Metoprolol Succinate (Metoprolol Succinate Er 50 Mg Tab.Er.24h) 50 mg PO DAILY REPLACED BY [facility]; Protocol Last Admin: 01/04/22 09:10 Dose: 50 mg Documented By: RALPH Multivitamins/Vitamin C (Multivitamin Tablet) 1 tab PO DAILY REPLACED BY [facility] Last Admin: 01/04/22 09:11 Dose: 1 tab Documented By: RALPH Pharmacy Consult (Consult Rx Perform Med Rec) 1 each MISCELLANE ONCE PRN PRN Reason: Consult order Pharmacy Consult (Consult Rx Perform Med Rec) 1 each MISCELLANE ONCE PRN PRN Reason: Consult order Pharmacy Consult (Consult Rx Etoh Phenob Im/Po) 1 each MISCELLANE ONCE PRN; Protocol PRN Reason: Consult order Phenobarbital (Phenobarbital 30 Mg Tablet) 60 mg PO BID REPLACED BY [facility]; Protocol Stop: 01/05/22 21:01 Last Admin: 01/04/22 09:10 Dose: 60 mg Documented By: RALPH Phenobarbital (Phenobarbital 30 Mg Tablet) 30 mg PO BID REPLACED BY [facility]; Protocol Stop: 01/07/22 21:01 Phenobarbital (Phenobarbital 15 Mg Tablet) 15 mg PO DAILY REPLACED BY [facility]; Protocol Stop: 01/09/22 09:01 Potassium Chloride (Potassium Chloride Er 10 Meq Capsule.Er) 10 meq PO DAILY REPLACED BY [facility] Last Admin: 01/04/22 09:10 Dose: 10 meq Documented By: RALPH Sodium Chloride (0.9 % Sodium Chloride Flush 3 Ml Syringe) 3 ml IVFLUSH QSHIFT REPLACED BY [facility] Last Admin: 01/04/22 15:30 Dose: 3 ml Documented By: JOHANNA Tiotropium [place] (Tiotropium [place] 18 Mcg Cap.W.Dev) 2 puff INHALE RDAILY REPLACED BY [facility] Last Admin: 01/04/22 07:36 Dose: Not Given Documented By: VINNY Non-Admin Reason: med unavail pharmacy called Tiotropium [place] (Tiotropium [place] 18 Mcg Cap.W.Dev) 1 puff INHALE RDAILY REPLACED BY [facility] Labs CBC & Chem 7: 01/04/22 06:02 01/04/22 06:02 Labs: Laboratory Results - last 24 hr 01/03/22 01/03/22 01/04/22 19:35 21:09 06:02 MCV 94.1 MCH 31.4 MCHC 33.3 RDW 12.9 Plt Count 190 MPV 9.6 Absolute Nucleated RBC 0.000 Nucleated RBC % (auto) 0.0 Anion Gap Estim Creat Clear Calc Estimated GFR POC Glucose 141 H Random Glucose Calcium Urine Color Yellow Urine Appearance Clear Urine pH 6.5 Ur Specific Clark 1.015 Urine Protein Trace Urine Glucose (UA) 100 H Urine Ketones Negative Urine Blood Negative Urine Nitrite Negative Ur Leukocyte Esterase Negative 01/04/22 01/04/22 01/04/22 06:02 07:09 12:25 MCV MCH MCHC RDW Plt Count MPV Absolute Nucleated RBC Nucleated RBC % (auto) Anion Gap 15 Estim Creat Clear Calc 127.6 Estimated GFR > 60 POC Glucose 177 H 218 H Random Glucose 165 H Calcium 8.7 Urine Color Urine Appearance Urine pH Ur Specific Clark Urine Protein Urine Glucose (UA) Urine Ketones Urine Blood Urine Nitrite Ur Leukocyte Esterase 01/04/22 15:34 MCV MCH MCHC RDW Plt Count MPV Absolute Nucleated RBC Nucleated RBC % (auto) Anion Gap Estim Creat Clear Calc Estimated GFR POC Glucose 162 H Random Glucose Calcium Urine Color Urine Appearance Urine pH Ur Specific Clark Urine Protein Urine Glucose (UA) Urine Ketones Urine Blood Urine Nitrite Ur Leukocyte Esterase Assessment and Plan (1) Alcohol withdrawal: Status: Acute (2) Alcoholic pancreatitis: Status: Acute Plan 55 yo M with a history of alcohol abuse and dependence with resultant medical complications inculding chronic pancreatitis who presents with a 5 day history of abdominal pain. He is admitted for treatment of acute on chronic pancreatitis 1. Acute on chronic pancreatitis due to continual alcohol use -- cessation has been again encouraged IVF,IV dilaudid repeat CT -CT/CT abdomen pelvis w IV con IMPRESSION: No bowel obstruction. Chronic findings in the pancreas. No hydronephrosis 2. Alcohol abuse and dependence exhibiting early withdrawal symptoms -- has been started on phenobarb -- will continue ciwa still high added another dose of pheobarbital. 3. DM on long acting insulin at home, will hold use sliding scale while NPO 4. Chronic COPD continue baseline inhalers Full Code DVT pptx lovenox. ongoing inpatient need : Alcohol withdrawal on phenobarbital and need CIWA monitoring. Quality Stroke Does the patient have a stroke diagnosis?: No VTE Prior VTE?: No VTE Risk Level:: Medical - moderate - high VTE Device Contraindication: Treatment Not Indicated VTE Drug Contraindication: N/A - Med Ordered
[2022-01-04] MEDS: Enoxaparin Sodium 40 MG/0.4 ML SYRINGE SUBCUT (17:14)
[2022-01-04] MEDS: PHENobarbitaL sodium 130 MG/ML VIAL IM (17:14)
[2022-01-04 19:50] LABS: Glucose, Whole Blood 127 mg/dL (60-115)
[2022-01-05] VITALS (8 sets, daily range): BP systolic 117–152; BP diastolic 62–97; PULSE 108–130; RESP 17–20; TEMP 36.5–37.3; O2SAT 90–94
[2022-01-05] MEDS: HYDROmorphone HCl 1 MG/ML SYRINGE IVPUSH ×6 (00:18→21:07)
[2022-01-05] MEDS: Albuterol/Iprat 2.5/0.5MG 3 ML AMPUL.NEB INHALE ×2 (04:40→17:29)
[2022-01-05 07:48] LABS: Glucose, Whole Blood 149 mg/dL (60-115)
[2022-01-05] MEDS: Metoprolol Succinate ER 50 MG TAB.ER.24H PO (08:02)
[2022-01-05] MEDS: Magnesium Oxide 400 MG TABLET PO ×2 (08:02→16:54)
[2022-01-05] MEDS: amLODIPine Besylate 10 MG TABLET PO (08:02)
[2022-01-05] MEDS: Omeprazole 40 MG CAPSULE.DR PO (08:02)
[2022-01-05] MEDS: Multivitamin TABLET 1 TAB PO (08:02)
[2022-01-05] MEDS: PHENobarbitaL 30 MG TABLET 60 MG PO ×2 (08:02→21:07)
[2022-01-05] MEDS: Folic Acid 1 MG TABLET PO (08:02)
[2022-01-05] MEDS: 0.9 % Sodium Chloride Flush 3 ML SYRINGE IVFLUSH ×3 (08:04→23:10)
[2022-01-05] MEDS: Fluticasone/Vilanterol 100/25 BLST.W.DEV 1 PUFF INHALE (08:36)
[2022-01-05] MEDS: Lactated Ringers 1,000 ML 125 ML IVCONT (09:38)
[2022-01-05] MEDS: PHENobarbitaL sodium 130 MG/ML VIAL IM (10:55)
[2022-01-05 11:12] LABS: Glucose, Whole Blood 180 mg/dL (60-115)
--- NOTE | 2022-01-05 11:17 | HO.PM.IMPN ---
Subjective Subjective Date of Service: 01/05/22 Interval History: Alcohol withdrawal, chronic pancreatitis Review of Systems patient still very tremulous, anxious abdominal pain somewhat improving, his he has could able to eat somewhat better. Physical Exam Vital Signs: Vital Signs: Last Vital Signs Temp 97.8 F 01/05/22 07:45 Pulse 123 H 01/05/22 08:38 Resp 18 01/05/22 08:38 BP 144/92 H 01/05/22 07:45 Pulse Ox 91 L 01/05/22 07:45 O2 Del Method 01/05/22 07:45 O2 Flow Rate 2.0 01/05/22 07:45 BMI result Body Mass Index 26.4 Appearance: Alert.? Oriented X3.? not in distress.? cvs: rrr, [id number] , no murmur res: clear to auscultation ,no rhonchii or wheezing abd: no rebound or guarding ,mild diffuse abd pain, bs present. ext pulses present , no cyanosis . neuro: axo3 , nonfocal. Objective Data Active Medications Albuterol/Ipratropium (Albuterol/Iprat 2.5/0.5mg 3 Ml Ampul.Neb) 3 ml INHALE RQ4H PRN PRN Reason: Shortness of Breath/Wheezing Last Admin: 01/05/22 04:40 Dose: 3 ml Documented By: BROOKLYN Amlodipine Besylate (Amlodipine Besylate 10 Mg Tablet) 10 mg PO DAILY [facility]; Protocol Last Admin: 01/05/22 08:02 Dose: 10 mg Documented By: TAMMY Enoxaparin Sodium (Enoxaparin Sodium 40 Mg/0.4 Ml Syringe) 40 mg SUBCUT Q24H [facility] Last Admin: 01/04/22 17:14 Dose: 40 mg Documented By: JOHANNA Fluticasone/Vilanterol (Fluticasone/Vilanterol 100/25 Blst.W.Dev) 1 puff INHALE RDAILY [facility] Last Admin: 01/05/22 08:36 Dose: 1 puff Documented By: DENZEL Folic Acid (Folic Acid 1 Mg Tablet) 1 mg PO DAILY [facility] Last Admin: 01/05/22 08:02 Dose: 1 mg Documented By: TAMMY Hydromorphone HCl (Hydromorphone Hcl 1 Mg/Ml Syringe) 1 mg IVPUSH Q4H PRN; Protocol PRN Reason: Pain, Severe (Pain Scale 7-10) Last Admin: 01/05/22 08:03 Dose: 1 mg Documented By: TAMMY Lactated Ringer's (Lr) 1,000 mls @ 125 mls/hr IVCONT .Q8H [facility] Last Admin: 01/05/22 09:38 Dose: 125 mls/hr Documented By: TAMMY Insulin Human Lispro (Insulin Lispro 100 Unit/Ml 3 Ml Vial) 0 unit SUBCUT QIDACHS [facility]; Protocol Last Admin: 01/05/22 07:42 Dose: Not Given Documented By: TAMMY Non-Admin Reason: No Insulin Coverage Magnesium Oxide (Magnesium Oxide 400 Mg Tablet) 400 mg PO BIDPC [facility] Last Admin: 01/05/22 08:02 Dose: 400 mg Documented By: TAMMY Metoprolol Succinate (Metoprolol Succinate Er 50 Mg Tab.Er.24h) 50 mg PO DAILY [facility]; Protocol Last Admin: 01/05/22 08:02 Dose: 50 mg Documented By: TAMMY Multivitamins/Vitamin C (Multivitamin Tablet) 1 tab PO DAILY [facility] Last Admin: 01/05/22 08:02 Dose: 1 tab Documented By: TAMMY Omeprazole (Omeprazole 40 Mg Capsule.Dr) 40 mg PO DAILY@0630 [facility] Last Admin: 01/05/22 08:02 Dose: 40 mg Documented By: TAMMY Pharmacy Consult (Consult Rx Perform Med Rec) 1 each MISCELLANE ONCE PRN PRN Reason: Consult order Pharmacy Consult (Consult Rx Perform Med Rec) 1 each MISCELLANE ONCE PRN PRN Reason: Consult order Pharmacy Consult (Consult Rx Etoh Phenob Im/Po) 1 each MISCELLANE ONCE PRN; Protocol PRN Reason: Consult order Phenobarbital (Phenobarbital 30 Mg Tablet) 60 mg PO BID [facility]; Protocol Stop: 01/05/22 21:01 Last Admin: 01/05/22 08:02 Dose: 60 mg Documented By: TAMMY Phenobarbital (Phenobarbital 30 Mg Tablet) 30 mg PO BID [facility]; Protocol Stop: 01/07/22 21:01 Phenobarbital (Phenobarbital 15 Mg Tablet) 15 mg PO DAILY [facility]; Protocol Stop: 01/09/22 09:01 Potassium Chloride (Potassium Chloride Er 10 Meq Capsule.Er) 10 meq PO DAILY [facility] Last Admin: 01/05/22 08:02 Dose: 10 meq Documented By: TAMMY Sodium Chloride (0.9 % Sodium Chloride Flush 3 Ml Syringe) 3 ml IVFLUSH QSHIFT [facility] Last Admin: 01/05/22 08:04 Dose: 3 ml Documented By: TAMMY Tiotropium [place] (Tiotropium [place] 18 Mcg Cap.W.Dev) 1 puff INHALE RDAILY [facility] Last Admin: 01/05/22 08:36 Dose: 1 puff Documented By: DENZEL Labs CBC & Chem 7: 01/04/22 06:02 01/04/22 06:02 Labs: Laboratory Results - last 24 hr 01/04/22 01/04/22 01/04/22 07:09 12:25 15:34 POC Glucose 177 H 218 H 162 H 01/04/22 01/05/22 01/05/22 19:32 07:23 11:07 POC Glucose 127 H 149 H 180 H Assessment and Plan (1) Alcohol withdrawal: Status: Acute (2) Alcoholic pancreatitis: Status: Acute Plan 55 yo M with a history of alcohol abuse and dependence with resultant medical complications inculding chronic pancreatitis who presents with a 5 day history of abdominal pain. He is admitted for treatment of acute on chronic pancreatitis 1. possible chronic pancreatitis repeat CT -CT/CT abdomen pelvis w IV con IMPRESSION: No bowel obstruction. Chronic findings in the pancreas. No hydronephrosis due to continual alcohol use -- cessation has been again encouraged IVF,IV dilaudid,pancreatic enzyme repacement. 2. Alcohol abuse and dependence exhibiting early withdrawal symptoms -- has been started on phenobarb -- will continue ciwa still high added another dose of pheobarbital. 3. DM: controlled on long acting insulin at home, will hold use sliding scale while NPO 4. Chronic COPD continue baseline inhalers Full Code DVT pptx lovenox. ongoing inpatient need : Alcohol withdrawal on phenobarbital and need CIWA monitoring. Quality Stroke Does the patient have a stroke diagnosis?: No VTE Prior VTE?: No VTE Risk Level:: Medical - moderate - high VTE Device Contraindication: Treatment Not Indicated VTE Drug Contraindication: N/A - Med Ordered
[2022-01-05] MEDS: Insulin Lispro 100 UNIT/ML 3 ML VIAL SUBCUT ×2 (12:09→21:08)
[2022-01-05] MEDS: Lipase/Prot/Amylase 24/76/120K 1 CAP CAPSULE.DR PO ×2 (12:09→16:54)
--- NOTE | 2022-01-05 14:30 | MHC.CM.PN ---
recived call from scott bilingual case manager kirill phone ext [phone], she also reported that if patient needs any home swervices they need to go through [facility]
[2022-01-05] MEDS: Nicotine 21 MG PATCH.TD24 TRANSDERMA (15:27)
[2022-01-05 16:29] LABS: Glucose, Whole Blood 142 mg/dL (60-115)
[2022-01-05] MEDS: Enoxaparin Sodium 40 MG/0.4 ML SYRINGE SUBCUT (16:59)
[2022-01-05 20:58] LABS: Glucose, Whole Blood 191 mg/dL (60-115)
[2022-01-06] VITALS (8 sets, daily range): BP systolic 111–154; BP diastolic 58–78; PULSE 110–134; RESP 16–20; TEMP 36.1–37.4; O2SAT 90–95
[2022-01-06] MEDS: HYDROmorphone HCl 1 MG/ML SYRINGE IVPUSH ×2 (01:12→05:17)
[2022-01-06] MEDS: Omeprazole 40 MG CAPSULE.DR PO (05:17)
[2022-01-06 07:34] LABS: Glucose, Whole Blood 132 mg/dL (60-115)
[2022-01-06] MEDS: Fluticasone/Vilanterol 100/25 BLST.W.DEV 1 PUFF INHALE (07:50)
[2022-01-06] MEDS: Lipase/Prot/Amylase 24/76/120K 1 CAP CAPSULE.DR PO ×3 (07:53→16:42)
[2022-01-06] MEDS: amLODIPine Besylate 10 MG TABLET PO (07:53)
[2022-01-06] MEDS: 0.9 % Sodium Chloride Flush 3 ML SYRINGE IVFLUSH ×3 (07:54→21:02)
[2022-01-06] MEDS: Multivitamin TABLET 1 TAB PO (07:54)
[2022-01-06] MEDS: Nicotine 21 MG PATCH.TD24 TRANSDERMA (07:54)
[2022-01-06] MEDS: Magnesium Oxide 400 MG TABLET PO ×2 (07:54→16:42)
[2022-01-06] MEDS: Folic Acid 1 MG TABLET PO (07:54)
[2022-01-06] MEDS: Metoprolol Succinate ER 50 MG TAB.ER.24H PO (07:54)
[2022-01-06] MEDS: PHENobarbitaL 30 MG TABLET PO ×2 (07:54→20:58)
[2022-01-06] MEDS: PHENobarbitaL sodium 130 MG/ML VIAL IM (10:57)
[2022-01-06] MEDS: HYDROmorphone HCl 1 MG/ML SYRINGE 0.5 MG IVPUSH ×4 (10:57→22:10)
[2022-01-06 11:21] LABS: Glucose, Whole Blood 141 mg/dL (60-115)
--- NOTE | 2022-01-06 12:40 | MHC.CM.PN ---
EMR REVIEWED, PER MULTIDISCIPLINARY ROUNDS PT REMAINS IN ETOH WITHDRAWAL, ANTIC D/C IN 1-2 DAYS, CM WILL CONT TO FOLLOW.
--- NOTE | 2022-01-06 14:52 | P.PNIM_ITS ---
Subjective Subjective Date of Service: 01/06/22 Interval History: Alcohol withdrawal, chronic pancreatitis Review of Systems patient still very tremulous, anxious ?abdominal pain somewhat improving, his he has could able to eat somewhat bet ter. Physical Exam Vital Signs: Vital Signs: Last Vital Signs Temp 99.3 F 01/06/22 11:26 Pulse 110 H 01/06/22 11:26 Resp 17 01/06/22 11:26 BP 111/65 01/06/22 11:26 Pulse Ox 92 01/06/22 11:26 O2 Del Method 01/06/22 11:26 O2 Flow Rate 2.5 01/06/22 11:26 BMI result Body Mass Index 26.4 ? Appearance: Alert.? Oriented X3.? not in distress.? cvs: rrr, [id number] , no murmur res: clear to auscultation ,no rhonchii or wheezing abd: no rebound or guarding ,mild diffuse abd pain, bs present. ext pulses present , no cyanosis . neuro: axo3 , nonfocal. Objective Data Active Medications Albuterol/Ipratropium (Albuterol/Iprat 2.5/0.5mg 3 Ml Ampul.Neb) 3 ml INHALE RQ4H PRN PRN Reason: Shortness of Breath/Wheezing Last Admin: 01/05/22 17:29 Dose: 3 ml Documented By: KENY Amlodipine Besylate (Amlodipine Besylate 10 Mg Tablet) 10 mg PO DAILY [facility]; Prot ocol Last Admin: 01/06/22 07:53 Dose: 10 mg Documented By: TAMMY Lipase/Protease/Amylase (Lipase/Prot/Amylase 24/76/120k 1 Cap Capsule.Dr) 1 cap PO TIDWM [facility] Last Admin: 01/06/22 12:21 Dose: 1 cap Documented By: TAMMY Enoxaparin Sodium (Enoxaparin Sodium 40 Mg/0.4 Ml Syringe) 40 mg SUBCUT Q24H [facility] Last Admin: 01/05/22 16:59 Dose: 40 mg Documented By: TAMMY Fluticasone/Vilanterol (Fluticasone/Vilanterol 100/25 Blst.W.Dev) 1 puff INHALE RDAILY [facility] Last Admin: 01/06/22 07:50 Dose: 1 puff Documented By: HELENA Folic Acid (Folic Acid 1 Mg Tablet) 1 mg PO DAILY [facility] Last Admin: 01/06/22 07:54 Dose: 1 mg Documented By: TAMMY Hydromorphone HCl (Hydromorphone Hcl 1 Mg/Ml Syringe) 0.5 mg IVPUSH Q4H PRN; Protocol PRN Reason: Pain, Severe (Pain Scale 7-10) Last Admin: 01/06/22 14:40 Dose: 0.5 mg Documented By: TAMMY Insulin Human Lispro (Insulin Lispro 100 Unit/Ml 3 Ml Vial) 0 unit SUBCUT QIDACHS [facility]; Protocol Last Admin: 01/06/22 11:46 Dose: Not Given Documented By: TAMMY Non-Admin Reason: No Insulin Coverage Magnesium Oxide (Magnesium Oxide 400 Mg Tablet) [facility] Last Admin: 01/06/22 07:54 Dose: 400 mg Documented By: TAMMY Metoprolol Succinate (Metoprolol Succinate Er 50 Mg Tab.Er.24h) 50 mg PO DAILY [facility]; Protocol Last Admin: 01/06/22 07:54 Dose: 50 mg Documented By: TAMMY Multivitamins/Vitamin C (Multivitamin Tablet) 1 tab PO DAILY [facility] Last Admin: 01/06/22 07:54 Dose: 1 tab Documented By: TAMMY Nicotine (Nicotine 21 Mg Patch.Td24) 21 mg TRANSDERMA DAILY [facility] Last Admin: 01/06/22 07:54 Dose: 21 mg Documented By: TAMMY Omeprazole (Omeprazole 40 Mg Capsule.Dr) 40 mg PO DAILY@0630 [facility] Last Admin: 01/06/22 05:17 Dose: 40 mg Documented By: SHALONDAJ Pharmacy Consult (Consult Rx Perform Med Rec) 1 each MISCELLANE ONCE PRN PRN Reason: Consult order Pharmacy Consult (Consult Rx Perform Med Rec) 1 each MISCELLANE ONCE PRN PRN Reason: Consult order Pharmacy Consult (Consult Rx Etoh Phenob Im/Po) 1 each MISCELLANE ONCE PRN; Protocol PRN Reason: Consult order Phenobarbital (Phenobarbital 30 Mg Tablet) 30 mg PO BID [facility]; Protocol Stop: 01/07/22 21:01 Last Admin: 01/06/22 07:54 Dose: 30 mg Documented By: TAMMY Phenobarbital (Phenobarbital 15 Mg Tablet) 15 mg PO DAILY [facility]; Protocol Stop: 01/09/22 09:01 Potassium Chloride (Potassium Chloride Er 10 Meq Capsule.Er) 10 meq PO DAILY [facility] Last Admin: 01/06/22 07:53 Dose: 10 meq Documented By: TAMMY Sodium Chloride (0.9 % Sodium Chloride Flush 3 Ml Syringe) 3 ml IVFLUSH QSHIFT [facility] Last Admin: 01/06/22 07:54 Dose: 3 ml Documented By: TAMMY Tiotropium [place] (Tiotropium [place] 18 Mcg Cap.W.Dev) 1 puff INHALE RDAILY [facility] Last Admin: 01/06/22 07:49 Dose: 1 puff Documented By: HELENA Labs CBC & Chem 7: 01/04/22 06:02 01/04/22 06:02 Labs: Laboratory Results - last 24 hr 01/05/22 01/05/22 01/06/22 15:59 20:55 07:23 POC Glucose 142 H 191 H 132 H 01/06/22 11:13 POC Glucose 141 H Assessment and Plan (1) Alcoholic pancreatitis: Status: Acute (2) Alcohol withdrawal: Status: Acute Plan 55 yo M with a history of alcohol abuse and dependence with resultant medical complications inculding chronic pancreatitis who presents with a 5 day history of abdominal pain. He is admitted for treatment of acute on chronic fernandez creatitis. 1. possible chronic pancreatitis repeat CT -CT/CT abdomen pelvis w IV con IMPRESSION: No bowel obstruction. Chronic findings in the pancreas. No hydronephrosis due to continual alcohol use -- cessation has been again encouraged IVF,IV dilaudid,pancreatic enzyme repacement. 2. Alcohol abuse and dependence exhibiting early withdrawal symptoms -- has been started on phenobarb -- will continue ciwa still high added another dose of pheobarbital. 3. DM: controlled fs with sliding scale coverage. 4. Chronic COPD continue baseline inhalers Full Code DVT pptx lovenox. ongoing inpatient need :? Alcohol withdrawal on phenobarbital and need CIWA monitoring. Quality Stroke Does the patient have a stroke diagnosis?: No VTE Prior VTE?: No VTE Risk Level:: Medical - moderate - high VTE Device Contraindication: Treatment Not Indicated VTE Drug Contraindication: N/A - Med Ordered
--- NOTE | 2022-01-06 15:18 | PM.GICN ---
History of Present Illness Data of Consult Service Date: 01/06/22 Requesting physician: Christiana Shha Primary Care Provider: Oren Leon MD HPI Reason for consult: Abd pain This is a 56-year-old gentleman with past medical history of alcohol use disorder, tobacco use disorder that has led to chronic pancreatitis with evidence of pancreatic insufficiency (type 2 diabetes, diarrhea) who is currently admitted for abdominal pain, alcohol withdrawal and question of acute on chronic pancreatitis. History was obtained from the patient, who states that last Sunday, he had sudden onset of mid abdominal pain that radiates down words, associated with nausea and diarrhea. Pain worsens with food intake. Three days prior to admission, he. The to see if that made the pain better, but it did not lead to any improvement and therefore he presented to the emergency room. Of note, patient reports drinking up to 20 drinks of vodka a day up until the evening of admission. On presentation was noted to be tachycardic and hypertensive consistent with alcohol withdrawal. Has remained afebrile. Labs are significant for hemoconcentration, and elevated LFTs on admission. Lipase was normal. CT scan showed dilated PD upstream to the PD stone measuring 0.4-0.5 cm. No fat stranding noted. Currently, patient reports being able to tolerate some liquids since yesterday evening. Reports pain predominantly in the right upper quadrant now. As above, continues to drink, as well as smoke. Not able to verbalize any readiness for cessation. Review of Systems Review of Systems: Yes all other systems are reviewed and are negative PMFSH Past Medical History Medical History Anxiety Chronic pancreatitis COPD (chronic obstructive pulmonary disease) Depression Diabetes mellitus, new onset EtOH dependence HTN (hypertension) Smoker Family History Family History Mother Alcohol dependence Substance use disorder Surgical History Surgical History History of colon resection Hx of cholecystectomy Hx of colonoscopy Previous back surgery Social History Social History Household Members: Family Household Members Other:: Brother Housing: House Do you presently have visiting nurse or other home services: No Alcohol intake: current Alcohol intake frequency: 3 or more drinks per day Alcohol type: hard liquor Patient Tobacco Use Status: Current everyday Tobacco user Tobacco use type: Cigarette Cigarette Packs Per Day: 1 Cigarettes Per Day: 20.0 Years Smoked: 40 e-Cigarette/Vaping Use: Never Used Second Hand Smoke Exposure: No Advance Directives Date on File: 08/04/21 service: No Current occupational status: employed Current occupational exposures/hazards: No Cognitive needs: No Hearing needs: No Vision needs: No Meds Allergies Allergy/AdvReac Type Severity Reaction Status Date / Time No Known Allergies Allergy Verified 12/19/21 11:04 [No Known Allergies*] Active Medications: Current Medications Albuterol/Ipratropium (Albuterol/Iprat 2.5/0.5mg 3 Ml Ampul.Neb) 3 ml INHALE RQ4H PRN PRN Reason: Shortness of Breath/Wheezing Last Admin: 01/05/22 17:29 Dose: 3 ml Amlodipine Besylate (Amlodipine Besylate 10 Mg Tablet) 10 mg PO DAILY [facility]; Protocol Last Admin: 01/06/22 07:53 Dose: 10 mg Lipase/Protease/Amylase (Lipase/Prot/Amylase 24/76/120k 1 Cap Capsule.Dr) 1 cap PO TIDWM [facility] Last Admin: 01/06/22 12:21 Dose: 1 cap Enoxaparin Sodium (Enoxaparin Sodium 40 Mg/0.4 Ml Syringe) 40 mg SUBCUT Q24H [facility] Last Admin: 01/05/22 16:59 Dose: 40 mg Fluticasone/Vilanterol (Fluticasone/Vilanterol 100/25 Blst.W.Dev) 1 puff INHALE RDAILY [facility] Last Admin: 01/06/22 07:50 Dose: 1 puff Folic Acid (Folic Acid 1 Mg Tablet) 1 mg PO DAILY [facility] Last Admin: 01/06/22 07:54 Dose: 1 mg Hydromorphone HCl (Hydromorphone Hcl 1 Mg/Ml Syringe) 0.5 mg IVPUSH Q4H PRN; Protocol PRN Reason: Pain, Severe (Pain Scale 7-10) Last Admin: 01/06/22 14:40 Dose: 0.5 mg Insulin Human Lispro (Insulin Lispro 100 Unit/Ml 3 Ml Vial) 0 unit SUBCUT QIDACHS [facility]; Protocol Last Admin: 01/06/22 11:46 Dose: Not Given Magnesium Oxide (Magnesium Oxide 400 Mg Tablet) 400 mg PO BIDPC [facility] Last Admin: 01/06/22 07:54 Dose: 400 mg Metoprolol Succinate (Metoprolol Succinate Er 50 Mg Tab.Er.24h) 50 mg PO DAILY [facility]; Protocol Last Admin: 01/06/22 07:54 Dose: 50 mg Multivitamins/Vitamin C (Multivitamin Tablet) 1 tab PO DAILY [facility] Last Admin: 01/06/22 07:54 Dose: 1 tab Nicotine (Nicotine 21 Mg Patch.Td24) 21 mg TRANSDERMA DAILY [facility] Last Admin: 01/06/22 07:54 Dose: 21 mg Omeprazole (Omeprazole 40 Mg Capsule.Dr) 40 mg PO DAILY@0630 [facility] Last Admin: 01/06/22 05:17 Dose: 40 mg Pharmacy Consult (Consult Rx Perform Med Rec) 1 each MISCELLANE ONCE PRN PRN Reason: Consult order Pharmacy Consult (Consult Rx Perform Med Rec) 1 each MISCELLANE ONCE PRN PRN Reason: Consult order Pharmacy Consult (Consult Rx Etoh Phenob Im/Po) 1 each MISCELLANE ONCE PRN; Protocol PRN Reason: Consult order Phenobarbital (Phenobarbital 30 Mg Tablet) 30 mg PO BID [facility]; Protocol Stop: 01/07/22 21:01 Last Admin: 01/06/22 07:54 Dose: 30 mg Phenobarbital (Phenobarbital 15 Mg Tablet) 15 mg PO DAILY [facility]; Protocol Stop: 01/09/22 09:01 Potassium Chloride (Potassium Chloride Er 10 Meq Capsule.Er) 10 meq PO DAILY [facility] Last Admin: 01/06/22 07:53 Dose: 10 meq Sodium Chloride (0.9 % Sodium Chloride Flush 3 Ml Syringe) 3 ml IVFLUSH QSHIFT [facility] Last Admin: 01/06/22 07:54 Dose: 3 ml Tiotropium [place] (Tiotropium [place] 18 Mcg Cap.W.Dev) 1 puff INHALE RDAILY [facility] Last Admin: 01/06/22 07:49 Dose: 1 puff Home Medications Medication Instructions Recorded Confirmed Last Taken Type albuterol sulfate 90 mcg/actuation 2 puff inhalation Q4H PRN wheezing 05/01/20 01/03/22 Unknown History aerosol inhaler folic acid 1 mg tablet 1 mg PO DAILY 05/01/20 01/03/22 Unknown History peljae-ddtwydsm-ureajlk 3 - 4 cap PO TIDWM 10/07/20 01/03/22 Unknown History 40,000-126,000-168,000 unit capsule, delay rel (Zenpep) fluticasone fur. 100 mcg-umeclid 1 puff inhalation DAILY 07/28/21 01/03/22 Unknown History 62.5 mcg-vilant 25 mcg inhalat.powder (Trelegy Ellipta) potassium chloride 10 mEq 1 tab PO DAILY 07/28/21 01/03/22 Unknown History tablet,extended release tizanidine 2 mg tablet 1 tab PO BID PRN Pain 07/28/21 01/03/22 Unknown History albuterol sulfate 2.5 mg/3 mL 2.5 mg inhalation Q4H PRN wheezing 12/07/21 01/03/22 Unknown History (0.083 %) solution for nebulization insulin glargine 100 unit/mL (3 20 unit subcut QPM 01/03/22 01/03/22 Unknown History mL) subcutaneous pen (Basaglar KwikPen U-100 Insulin) metoprolol succinate 50 mg 1 tab PO DAILY 01/03/22 01/03/22 Unknown History tablet,extended release 24 hr Physical Exam Vital Signs: Vital Signs: Last Vital Signs Temp 99.3 F 01/06/22 11:26 Pulse 110 H 01/06/22 11:26 Resp 17 01/06/22 11:26 BP 111/65 01/06/22 11:26 Pulse Ox 92 01/06/22 11:26 O2 Del Method 01/06/22 11:26 O2 Flow Rate 2.5 01/06/22 11:26 BMI result Body Mass Index 26.4 Gen appear: Middle-age male with obesity, diaphoretic HEENT: no icterus, no cervical lymphadenopathy Chest: No overt resp distress CVS: Rapid S1/S2, regular Abd: Soft, mild tenderness in the right upper quadrant, mildly distended Psych: Tremulous appearing Neuro: A/Ox3 noted to move all extremities spontaneously, fine tremors, no asterixis Ext: peripheral edema Results Labs CBC & Chem 7: 01/04/22 06:02 01/04/22 06:02 Assessment and Plan (1) Chronic pancreatitis: Status: Acute (2) Gastritis: Status: Acute (3) Alcohol withdrawal: Status: Acute (4) Elevated liver enzymes: Status: Acute (5) Abdominal pain: Status: Resolved Plan Abd pain like multifactorial from chronic pancreatitis, alcohol related gastritis possibly mild hepatitis. No clear evidence of acute on chronic pancreatitis based on labs or imaging. Albeit, CT abdomen was obtained on day 1, and may have evolving changes now. Reviewed in detail with the patient, that without alcohol and smoking cessation, very unlikely that will be able to avoid recurrent episodes. He seems to understand but does not appear willing at the time of my encounter. Recommendations: -low-fat diet. -nutrition consult. May need to add protein shakes to meet caloric demands. -can discontinue IV fluids. -recheck LFTs and INR -etOH withdrawal management as per primary team. Avoid long acting benzodiazepines. Symptom triggered ativan is okay. -Switch pain management to PO. Can alternative tylenol with PO oxycodone with ultimate goal to discontinue oxycodone. Avoid NSAIDs -Optimize blood sugars -Add bowel regimen Thank you for allowing me to participate in his care. Please do not hesitate to reach out for any questions or concerns Procedures Date of Service Date of Service: 01/06/22
[2022-01-06 16:21] LABS: Glucose, Whole Blood 174 mg/dL (60-115)
[2022-01-06] MEDS: Insulin Lispro 100 UNIT/ML 3 ML VIAL SUBCUT (16:42)
[2022-01-06] MEDS: Enoxaparin Sodium 40 MG/0.4 ML SYRINGE SUBCUT (18:20)
[2022-01-06 20:09] LABS: Glucose, Whole Blood 128 mg/dL (60-115)
[2022-01-07] MEDS: HYDROmorphone HCl 1 MG/ML SYRINGE 0.5 MG IVPUSH ×2 (02:22→06:20)
[2022-01-07 03:01] VITALS: RESP 18
[2022-01-07] MEDS: Omeprazole 40 MG CAPSULE.DR PO (06:14)
[2022-01-07 07:02] VITALS: BP 146/95; PULSE 105; RESP 18; TEMP 36; O2SAT 93
[2022-01-07 07:15] LABS: Glucose, Whole Blood 142 mg/dL (60-115)
[2022-01-07] MEDS: Nicotine 21 MG PATCH.TD24 TRANSDERMA (07:50)
[2022-01-07] MEDS: 0.9 % Sodium Chloride Flush 3 ML SYRINGE IVFLUSH (07:51)
[2022-01-07] MEDS: Magnesium Oxide 400 MG TABLET PO (07:51)
[2022-01-07] MEDS: Metoprolol Succinate ER 50 MG TAB.ER.24H PO (07:51)
[2022-01-07] MEDS: Lipase/Prot/Amylase 24/76/120K 1 CAP CAPSULE.DR PO (07:51)
[2022-01-07] MEDS: Folic Acid 1 MG TABLET PO (07:51)
[2022-01-07] MEDS: amLODIPine Besylate 10 MG TABLET PO (07:51)
[2022-01-07] MEDS: Multivitamin TABLET 1 TAB PO (07:51)
[2022-01-07] MEDS: PHENobarbitaL 30 MG TABLET PO (07:51)
[2022-01-07] MEDS: Fluticasone/Vilanterol 100/25 BLST.W.DEV 1 PUFF INHALE (07:55)
[2022-01-07 07:57] VITALS: PULSE 105; RESP 18; O2SAT 94
[2022-01-07] MEDS: oxyCODONE HCl Immed Release 5 MG TABLET PO (10:52)
[2022-01-07] MEDS: Acetaminophen 325 MG TABLET 650 MG PO (10:52)
--- NOTE | 2022-01-07 11:51 | P.DS_ITS ---
DS: Providers Provider Date of Service: 01/07/22 Date of admission: 01/03/22 16:17 Primary care physician: Oren Leon MD Consults: 01/06/22 14:54 Consult to Gastroenterology Routine Consulting Provider: [facility] [place] G[facility]ology [facility] Reason for consultation: pancreatitis Has provider been notified: No DS: Diagnosis Discharge Diagnosis (1) Chronic pancreatitis: Status: Acute (2) Gastritis: Status: Acute (3) Alcohol withdrawal: Status: Acute (4) Elevated liver enzymes: Status: Acute (5) Abdominal pain: Status: Resolved DS: Summary Hospital Course Hospital Course: 56 year old male with a PMH of chronic pancreatitis on enzymes, continual alcohol use despite multiple bouts of pancreatitis, prior alcohol withdrawal, COPD who presents to the ED for the second time in less than 24 hours with complaints of severe abdominal pain and loss of appetite. The patient reports he began noticing his symptoms about 5 days prior to admission. He states that he continued to drink until the evening prior to admission. The patient reports his pain is diffuse, severe in nature (10/10) and dull/achy. He states it is similar to his pancreatitis from previous episodes. He was in our ED yesterday for similar pain. He was treated with IV fluids, analgesics and supportive care. A CT scan completed at that time showed chronic pancreatitis. He improved with treatment in the ED and was sent home. He states that his pain returned again this morning and hence he came to the ED. In the ED he was treated with PO and IV dilaudid, 2L IVF, and PO ativan. His pain continued and he is exhibiting early withdrawal symptoms. Furthemore, he is not tolerating oral intake and hence will be admitted for further work up and treatment. hospital course: patient was treated for chronic pancreatitis- with IV hydration pain management advised to him in detail to abstain from alcohol and smoking - which is contributing recurrent port of pain. and he has to read fine- Seen by GI recommended the same also strongly advised to abstain from alcohol and smoking as well as advise good nutrition, in addition laxative added for constipation. alcohol withdrawal: Treated with phenobarb protocol seems to be improved. monitor renal function and electrolytes as well as liver function test and INR outpatient. Patient was any was ready for discharge so needs to follow-up out patiently with PCP. follow-up outpatient with GI. Above management discussed with the patient in detail length, he understand and in agreement with the above plan, time spent Time Spent with Patient Time attestation: Total time spent providing and/or coordinating discharge services: Discharge coordination time: Greater than 30 minutes Quality: Safe Use of Opioids Does Pt have an Active Cancer Diagnosis on the Problem List?: No Quality: Stroke Does the patient have a stroke diagnosis?: No Physical Exam Vital Signs: Vital Signs: Last Vital Signs Temp 96.8 F 01/07/22 07:02 Pulse 105 H 01/07/22 07:57 Resp 18 01/07/22 07:57 BP 146/95 H 01/07/22 07:02 Pulse Ox 93 01/07/22 07:02 O2 Del Method 01/07/22 07:02 O2 Flow Rate 2 01/07/22 07:02 BMI result Body Mass Index 26.4 Appearance: Alert.? Oriented X3.? not in distress.? Eyes: Pupils equal, round and reactive to light.? Sclera nonicteric.? ENT: Pharynx normal.? Moist mucous membranes. cvs: rrr, [id number] . res: clear to auscultation ,no rhonchii or wheezing abd: no rebound or guarding ,nt, bs present. ext pulses present , no cyanosis . neuro: axo3 , nonfocal. DS: Data Data Completed and Pending Completed studies during hospitalization [Text1]: Procedures Detoxification Services for Substance Abuse Treatment (07/28/21) Labs on day of discharge: Laboratory Results - last 24 hr 01/06/22 01/06/22 01/07/22 15:50 19:57 07:02 POC Glucose 174 H 128 H 142 H Additional Comments Additional comments: CT/CT abdomen pelvis w IV con IMPRESSION: No bowel obstruction. Chronic findings in the pancreas. No hydronephrosis. Discharge Plan Discharge Anticipated Discharge Date/Time: 01/07/22 11:38 Patient Disposition: Home, Self-Care Discharge Diagnosis: alcohol withdrawal,chronic pancreatitis Referrals: Oren Leon MD [Primary Care Provider] - 1 Week Discharge Medications: New docusate sodium [Colace] 100 mg capsule 100 mg PO DAILY Qty: 30 0RF polyethylene glycol 3350 [Miralax] 17 gram/dose powder 17 g PO DAILY Qty: 119 0RF acetaminophen [Tylenol] 325 mg capsule 650 mg PO Q6H PRN (Reason: pain (scale score 1-3)) Qty: 10 0RF Continued (DME) pen needle, diabetic [BD Ultra-Fine Orig Pen Needle] 29 gauge x 1/2 needle See Rx Instructions .Route Qty: 100 4RF Rx Instructions: Daily, As directed (DME) blood-glucose meter [FreeStyle Lite Meter] Kit See Rx Instructions .ROUTE .MEDSUPPLY Qty: 1 0RF Rx Instructions: DX: E11.9, test blood sugar twice a day, duration 999 days (DME) FreeStyle Lite Strips Strip See Rx Instructions .ROUTE .MEDSUPPLY Qty: 200 4RF Rx Instructions: DX: E11.9, test blood sugar 2 times a day, 90 days (DME) lancets [FreeStyle Lancets] 28 gauge misc See Rx Instructions .ROUTE .MEDSUPPLY Qty: 200 4RF Rx Instructions: As directed amlodipine 10 mg tablet 10 mg PO DAILY 90 Days Qty: 90 3RF Spiriva Respimat 1.25 mcg/actuation mist 2 puff inhalation DAILY 30 Days Qty: 4 1RF naltrexone 50 mg tablet 50 mg PO DAILY Qty: 30 0RF amitriptyline 25 mg tablet 25 mg PO BEDTIME 30 Days Qty: 30 1RF duloxetine 20 mg capsule,delayed release(DR/EC) 20 mg PO BID 30 Days Qty: 60 0RF folic acid 1 mg tablet 1 mg PO DAILY albuterol sulfate 90 mcg/actuation HFA aerosol inhaler 2 puff inhalation Q4H PRN (Reason: wheezing) Zenpep 40,000-126,000- 168,000 unit Capsule,Delayed Release(Dr/Ec) 3 - 4 cap PO TIDWM magnesium oxide 400 mg (241.3 mg magnesium) Tablet 400 mg PO BIDPC Qty: 60 0RF multivitamin [Daily-Jerald] Tablet 1 tab PO DAILY Qty: 30 0RF metoprolol succinate 50 mg tablet extended release 24 hr 1 tab PO DAILY insulin glargine [Basaglar KwikPen U-100 Insulin] 100 unit/mL (3 mL) insulin pen 20 unit subcut QPM tizanidine 2 mg tablet 1 tab PO BID PRN (Reason: Pain) potassium chloride 10 mEq tablet extended release 1 tab PO DAILY Trelegy Ellipta 100-62.5-25 mcg blister with device 1 puff inhalation DAILY (DME) pen needle, diabetic [BD Ultra-Fine Micro Pen Needle] 32 gauge x 1/4 needle See Rx Instructions .ROUTE .MEDSUPPLY Qty: 100 2RF Rx Instructions: Once a day As directed, 90 days omeprazole 40 mg capsule,delayed release(DR/EC) 40 mg PO DAILY 30 Days Qty: 30 0RF Baqsimi 3 mg/actuation spray,non-aerosol 3 mg intranasal ONCE Qty: 2 4RF albuterol sulfate 2.5 mg /3 mL (0.083 %) solution for nebulization 2.5 mg inhalation Q4H PRN (Reason: wheezing) Discontinued fluconazole 200 mg tablet 200 mg PO DAILY Qty: 14 0RF Discharge Orders: Discharge Order (Routine); Ordered 01/07/22 Ordered By: Christiana Shah Diet: Advance to usual diet Activity on Discharge: As tolerated Stand Alone Forms: Patient Portal Discharge page Care Plan Goals: patient was treated for chronic pancreatitis- with IV hydration pain management advised to him in detail to abstain from alcohol and smoking - which is contributing recurrent port of pain. and he has to read fine- Seen by GI recommended the same also strongly advised to abstain from alcohol and smoking as well as advise good nutrition, in addition laxative added for constipation. patient was advised low-fat diet, good nutrition, avoid alcohol and smoking as above. monitor says BMP, LFT, INR out patiently. follow up with GI outpatient. alcohol withdrawal: Treated with phenobarb protocol seems to be improved. Patient was any was ready for discharge so needs to follow-up out patiently with PCP. follow-up outpatient with GI. Health Concerns: As above. Plan of Treatment: As above. Assessment: As above.
== END 2022-01-07 12:20 | disposition home or self-care (01) | DRG 439 ==
LOC: HO.ED 15:04 → HO.EDOVER 16:26 → HO.S3 01-04 11:40
PROVIDERS: Admitting Provider Family Medicine; Emergency Provider Emergency Medicine; PCP Family Medicine; Visit Provider Internal Medicine
DX: K85.20 Alcohol induced acute pancreatitis without necrosis or infection (principal); F10.239 Alcohol dependence with withdrawal, unspecified; K86.0 Alcohol-induced chronic pancreatitis; J44.9 Chronic obstructive pulmonary disease, unspecified; E11.9 Type 2 diabetes mellitus without complications; K29.20 Alcoholic gastritis without bleeding; K70.10 Alcoholic hepatitis without ascites; F41.9 Anxiety disorder, unspecified; F17.210 Nicotine dependence, cigarettes, uncomplicated; Z20.822 Contact with and (suspected) exposure to COVID-19; Z79.4 Long term (current) use of insulin; Z79.899 Other long term (current) drug therapy
CPT/HCPCS: 36415; 80048; 80076; 81003; 82947; 83036; 83690; 84484; 85025; 85027; 87635; 94640; 99285; J1170; J1650; J2560

== ENCOUNTER → 2022-01-16 10:25 | Outpatient (BNVA) | payer OTHER, SELFPAY | PROVIDERS: PCP Family Medicine; Visit Provider Dietitian, Registered | DX: E11.9 Type 2 diabetes mellitus without complications (principal) | CPT/HCPCS: 97802 ==

== ENCOUNTER 2022-01-23 09:03 | Emergency (ER) | payer OTHER, SELFPAY ==
[2022-01-23] VITALS (7 sets, daily range): BP systolic 85–136; BP diastolic 60–88; PULSE 83–94; RESP 18–26; TEMP 36.1–36.6; O2SAT 93–99; BMI 26.4
--- NOTE | ~2022-01-23 | CT_ITS ---
EXAMINATION: CT ABDOMEN AND PELVIS WITH CONTRAST CLINICAL INFORMATION: Pancreatitis. Abdominal pain COMPARISON: Prior CT abdomen 01/02/2022 TECHNIQUE: Multidetector volumetric images were obtained from the superior aspect of the liver through the pubic symphysis following administration 85 mL of Omnipaque 350 intravenous contrast. Sagittal and coronal reformatted images were obtained on the technologist's workstation. Oral contrast: No This CT examination was performed using dose optimization techniques as appropriate, variously including the following: *Automated exposure control *Adjustment of mA and/or kV according to patient size (this includes techniques or standardized protocols for targeted exams where dose is matched to indication/reason for exam; i.e. extremities or head) *Use of iterative reconstruction technique DLP: 720 mGy-cm FINDINGS: LUNG BASES: Patchy consolidation at the left lung base may reflect pneumonia. LIVER, GALLBLADDER, AND BILIARY TREE: Advanced hepatic steatosis. The liver is prominent. No focal masses. There is no intrahepatic biliary dilatation. The gallbladder is absent. PANCREAS: Abnormal. There is distention of the pancreatic duct with mild peripancreatic inflammatory change consistent with acute pancreatitis superimposed upon changes of chronic pancreatitis. Findings have progressed from 01/02/2022. A few punctate calcifications are seen related to the pancreatic head although and some areas in the body and tail demonstrate poor enhancement suggestive of gland necrosis. This should be followed. There are no drainable adjacent collections or significant phlegmonous collections at this time. SPLEEN: Unremarkable. ADRENAL GLANDS: There is slight thickening of the left adrenal. The right adrenal is normal. No change. KIDNEYS AND URETERS: There is a cyst off the mid posterior right kidney at 11 mm. No change. No suspicious solid mass or hydronephrosis. BLADDER: Unremarkable. GASTROINTESTINAL TRACT: Appendix normal. No bowel obstruction or right or left lower quadrant inflammatory change. Postsurgical changes in the sigmoid noted. No change. ABDOMINAL WALL: No significant hernia is appreciated. LYMPH NODES: Normal. VASCULAR: Aorta is atherosclerotic but nonaneurysmal. PELVIC VISCERA: Unremarkable. OSSEOUS STRUCTURES: Advanced multilevel degenerative change in the spine. CT/CT abdomen pelvis w IV con IMPRESSION: Acute on chronic pancreatitis with possible areas of gland necrosis. No drainable collections or phlegmonous collections at this time. Recommend short-term follow-up.
--- NOTE | 2022-01-23 09:50 | ED_ITS ---
HPI - Abdominal Pain General Chief Complaint: Abdominal Pain Stated Complaint: abd pain Time Seen by Provider: 01/23/22 09:37 Source: patient Mode of arrival: ambulatory Limitations: no limitations History of Present Illness HPI narrative: Patient is a 56 year old male with a PMH of pancreatitis, alcohol withdrawal, COPD, HTN, Diabetes mellitus and gastritis presents to the ED today with 3 day history of abdominal pain. Patient reports that the abdominal pain was precipitated by 10-15 glasses of Vodka which he consumed on Sunday. Patient reports SOB with associated nausea but no vomiting right after the drinks. He states that the abdominal pain has progressively worsened and radiates to his chest. Patient also reports no bowel movements for 3 days. He states that he has not been eating much and he is not drinking any water. Patient reports his last alcoholic drink was last night. Patient denies, fever, vomiting, diarrhea, chest pain, dizziness, rectal bleeding, recent antibiotic use, sick contacts. MD elicited complaint: abdominal pain Pertinent past history: constipation and gastritis Onset (ago): day(s) (3 days) Pain Consistency: constant Location: diffuse Severity: severe Pain scale (0-10): 9 Quality: aching Radiation: chest Exacerbating factors: other (alcohol) Relieving factors: nothing Associated symptoms: nausea and constipation Related Data Home Medications Medication Instructions Recorded Confirmed albuterol sulfate 90 mcg/actuation 2 puff inhalation Q4H PRN wheezing 05/01/20 01/03/22 aerosol inhaler folic acid 1 mg tablet 1 mg PO DAILY 05/01/20 01/03/22 [id number] 3 - 4 cap PO TIDWM 10/07/20 01/03/22 40,000-126,000-168,000 unit capsule, delay rel (Zenpep) fluticasone fur. 100 mcg-umeclid 1 puff inhalation DAILY 07/28/21 01/03/22 62.5 mcg-vilant 25 mcg inhalat.powder (Trelegy Ellipta) potassium chloride 10 mEq 1 tab PO DAILY 07/28/21 01/03/22 tablet,extended release tizanidine 2 mg tablet 1 tab PO BID PRN Pain 07/28/21 01/03/22 albuterol sulfate 2.5 mg/3 mL 2.5 mg inhalation Q4H PRN wheezing 12/07/21 01/03/22 (0.083 %) solution for nebulization insulin glargine 100 unit/mL (3 20 unit subcut QPM 01/03/22 01/03/22 mL) subcutaneous pen (Basaglar KwikPen U-100 Insulin) metoprolol succinate 50 mg 1 tab PO DAILY 01/03/22 01/03/22 tablet,extended release 24 hr Previous Rx's Medication Instructions Recorded magnesium oxide 400 mg (241.3 mg 400 mg PO BIDPC #60 tabs 11/20/20 magnesium) tablet multivitamin (Daily-Jerald tablet) 1 tab PO DAILY #30 tabs 11/20/20 pen needle, diabetic 32 gauge x #100 ea 08/26/2102/22 (BD Ultra-Fine Micro Pen Needle) pen needle, diabetic 29 gauge x #100 ea 08/28/2102/20 (BD Ultra-Fine Original Pen Needle) blood sugar diagnostic (FreeStyle #200 ea 08/29/21 Lite Strips) blood-glucose meter (FreeStyle #1 ea 08/29/21 Lite Meter kit) lancets 28 gauge (FreeStyle #200 ea 08/29/21 Lancets) amlodipine 10 mg tablet 10 mg PO DAILY 90 days #90 tabs 09/15/21 glucagon 3 mg/actuation nasal 3 mg intranasal ONCE #2 ea 09/28/21 spray (Baqsimi) omeprazole 40 mg capsule,delayed 40 mg PO DAILY 30 days #30 caps 11/17/21 release tiotropium bromide 1.25 2 puff inhalation DAILY 30 days #4 11/22/21 mcg/actuation mist for inhalation grams (Spiriva Respimat) naltrexone 50 mg tablet 50 mg PO DAILY #30 tabs 12/02/21 amitriptyline 25 mg tablet 25 mg PO BEDTIME 30 days #30 tabs 01/03/22 duloxetine 20 mg capsule,delayed 20 mg PO BID 30 days #60 caps 01/04/22 release acetaminophen 325 mg capsule 650 mg PO Q6H PRN pain (scale 01/07/22 (Tylenol) score 1-3) #10 caps docusate sodium 100 mg capsule 100 mg PO DAILY #30 caps 01/07/22 (Colace) polyethylene glycol 3350 17 17 g PO DAILY #119 grams 01/07/22 gram/dose oral powder (Miralax) hydroxyzine HCl 25 mg tablet 25 mg PO TID PRN itching 30 days 01/19/22 #90 tabs Allergies Allergy/AdvReac Type Severity Reaction Status Date / Time No Known Allergies Allergy Verified 01/23/22 09:20 [No Known Allergies*] Review of Systems Review of Systems Constitutional : No Fever, No Chills, No Night Sweats, + Fatigue, No Malaise Cardiovascular : No Chest Pain, + SOB Respiratory : No Cough, No Sputum, No Wheezing, + Dyspnea Gastrointestinal : + Nausea, no Vomiting, No Diarrhea, + abdominal Pain, No Hematochezia, No Melena Genitourinary : No irregular bleeding, No Dysuria, No Urinary Frequency, No Hematuria,No Urinary Incontinence, No Urgency, No Flank Pain Musculoskeletal : No joint pain, No Myalgias, No Joint Swelling Skin : No Skin Lesions, No rash Neuro : No Weakness, No Numbness, No Paresthesias, No Loss of Consciousness, No Dizziness, No Headache Heme/Lymph: No Lymphadenopathy Endocrine : No Temperature Intolerance Yes all other systems are reviewed and are negative PMFSH Past Medical History Attestation statement: The following information was validated with the patient. Source: old records reviewed and nursing notes reviewed Medical History Anxiety Chronic pancreatitis COPD (chronic obstructive pulmonary disease) Depression Diabetes mellitus, new onset EtOH dependence HTN (hypertension) Smoker Surgical History History of colon resection Hx of cholecystectomy Hx of colonoscopy Previous back surgery Family History Family History Mother Alcohol dependence Substance use disorder Social History Social History Household Members: Family Household Members Other:: Brother Housing: House Do you presently have visiting nurse or other home services: No Alcohol intake: current Alcohol intake frequency: 3 or more drinks per day Alcohol type: hard liquor Patient Tobacco Use Status: Current everyday Tobacco user Tobacco use type: Cigarette Cigarette Packs Per Day: 1 Cigarettes Per Day: 20.0 Years Smoked: 40 Smoked in Last 30 Days: Yes e-Cigarette/Vaping Use: Never Used Second Hand Smoke Exposure: No Advance Directives: Yes Advance Directives on File: Yes Advance Directives Date on File: 08/04/21 service: No Current occupational status: employed Current occupational exposures/hazards: No Cognitive needs: No Hearing needs: No Vision needs: No Physical Exam ED Vital Signs: Vital Signs - 24 hr 01/23/22 09:15 01/23/22 10:43 01/23/22 12:03 Temperature 97.5 F 97.8 F Pulse Rate 91 94 Respiratory Rate 24 H 18 18 Blood Pressure 85/60 L 101/70 Pulse Oximetry 96 99 Oxygen Delivery Method Room Air Room Air 01/23/22 14:07 Temperature Pulse Rate 83 Respiratory Rate 22 H Blood Pressure 116/80 Pulse Oximetry 93 Oxygen Delivery Method Room Air BMI result Body Mass Index 26.4 Respiratory rate is 24. Blood pressure is 85/60. All other vitals reviewed and within normal limit. Appearance: Alert. Oriented X3. No acute distress. Head: Normal external exam. Normocephalic. Eyes: PERRLA. EOMI. Conjunctiva and sclera normal. Eyelids normal. ENT: Pharynx normal. Uvula midline. Moist mucous membranes. No trismus noted. No drooling noted. No muffled voice noted. Neck: Normal inspection. Neck supple. FROM. No adenopathy. No meningeal signs. CVS: Normal heart rate and rhythm. Heart sound normal. No murmurs noted. Respiratory: No respiratory distress. Painless inspiration. Breath sounds normal. No wheezes/rales/rhonchi noted. Chest nontender. No accessory muscle usage noted or decreased air movement noted. Abdomen: Abdomen is distended and tender to palpation in all 4 quadrants. + rigidity,+ rebound tenderness. Bowel sounds diminished in all 4 quadrants. No organomegaly noted. No visible injury noted. Negative Rovsing sign. Negative obturator's sign. Negative psoas sign. Negative Douglas sign. Back: No CVA tenderness. Full range of motion noted. Skin: Skin warm and dry. Normal skin color. Normal skin turgor. No rashes/lesions/lacerations noted. Extremities: Extremities exhibit normal range of motion. Extremities nontender. Neuro: Oriented X 3. No motor deficit. No sensory deficit. Normal steady gait . CN's II-XII intact bilaterally? Course Course Course Narrative: 10am - Patient is a 56 year old male with a PMH of pancreatitis, alcohol withdrawal, COPD, HTN, Diabetes mellitus and gastritis presents to the ED today with 3 day history of abdominal pain, nausea, SOB and constipation. . Patient reports that the abdominal pain was precipitated by 10-15 glasses of Vodka which he consumed on Sunday. Patient denies, fever, vomiting, diarrhea, chest pain, dizziness, rectal bleeding, recent antibiotic use, sick contacts. On physical exam, abdomen was distended, rigid and tender to palpation in all four quadrants. Bowel sounds were diminished in all 4 quadrants. On labs, patient had a low RBC count of 4.09, Hbg of 12.8 and Hct of 38.4%. Platelet count was 156, PT of 16.6, INR of 1.4 and lactate level of 501 u/l. Plan: Pain management with IV toradol 30mg. Reevaluation(s) Reevaluation #1: Labs obtained and reviewed - patient mild anemia with an H&H of 12.8/38.4. - platelet count 156. - random glucose 176. - lactic acid 2.2. - calcium 8.1. - magnesium 1.3. - AST 368 - ALT 138 - alkaline phosphate 181 - LDH 501 - total protein 5.5 - albumin 2.9 - lipase 27 - ethanol level negative - patient negative for COVID All other labs are within normal limits. CT scan abdomen pelvis with IV contrast returned at this time and revealed IMPRESSION: Acute on chronic pancreatitis with possible areas of gland necrosis. No drainable collections or phlegmonous collections at this time. Recommend short-term follow-up. Therefore at this time will consult with General surgery along with hospitalist for possible admission versus transfer Time: 13:00 Reevaluation #2: Dr. Stiven Sam Surgeon wrote a consult and seen the patient He is a known all it and he has acute on chronic pancreatitis.? He admits to heavy drinking.? 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 He has the otherwise benign exam.? Because of this finding, I told him that in may be best to be is in a tertiary care hospital in case he needs surgical intervention for his necrotizing pancreatitis.? In the meantime, he may be on supportive treatment.? I have discussed the above with the ED staff.? The plan is for him to be transferred. Due to CT scan reporting necrotic pancreatitis patient will need to be transferred to another facility therefore at this time will attempt to transfer to [facility]. Time: 14:45 Reevaluation #3: [facility] was not accepting any transfers. Therefore [facility] was contacted they also did not have any beds available. Then [facility] was also contacted they also do not have any beds available. Therefore [facility] accepted the patient he will go ED to ED Dr. Paulson will be the accepting provider. Patient will be transported via ALS with IV fluids and pain control. Patient understands agrees with this plan. Time: 16:18 Medical Decision Making Medical Decision Making Consideration of admission/observation: Consideration of Admission/Observation (I considered admission although my general surgeon and hospitalist reported that the patient would need higher level of care.) Escalation of care admission/observation considered: Escalation of care including admission/observation considered Discussion of management with other physician/healthcare provider/other source (e.g., hospitalist, senior research consultant, behavioral health): Discussion w/other physician/healthcare provider (I discussed this patient with my supervising provider/the hospitalist and the general surgeon) My interpretation is Discussion of test interpretation with radiology: Discussion of test interpretation with radiology Discussed with radiology regarding test interpretation. CT scan of abdomen pelvis with IV contrast FINDINGS: LUNG BASES: Patchy consolidation at the left lung base may reflect pneumonia. LIVER, GALLBLADDER, AND BILIARY TREE: Advanced hepatic steatosis. The liver is prominent. No focal masses. There is no intrahepatic biliary dilatation. The gallbladder is absent.? PANCREAS: Abnormal. There is distention of the pancreatic duct with mild peripancreatic inflammatory change consistent with acute pancreatitis superimposed upon changes of chronic pancreatitis. Findings have progressed from 01/02/2022. A few punctate calcifications are seen related to the pancreatic head although and some areas in the body and tail demonstrate poor enhancement suggestive of gland necrosis. This should be followed. There are no drainable adjacent collections or significant phlegmonous collections at this time. SPLEEN: Unremarkable.? ADRENAL GLANDS: There is slight thickening of the left adrenal. The right adrenal is normal. No change.? KIDNEYS AND URETERS: There is a cyst off the mid posterior right kidney at 11 mm. No change. No suspicious solid mass or hydronephrosis.? BLADDER: Unremarkable.? GASTROINTESTINAL TRACT: Appendix normal. No bowel obstruction or right or left lower quadrant inflammatory change. Postsurgical changes in the sigmoid noted. No change.? ABDOMINAL WALL: No significant hernia is appreciated.? LYMPH NODES: Normal. VASCULAR: Aorta is atherosclerotic but nonaneurysmal. PELVIC VISCERA: Unremarkable.? OSSEOUS STRUCTURES: Advanced multilevel degenerative change in the spine.? CT/CT abdomen pelvis w IV con IMPRESSION: Acute on chronic pancreatitis with possible areas of gland necrosis. No drainable collections or phlegmonous collections at this time. Recommend short-term follow-up. Medications Administered Discontinued Medications Generic Name Dose Route Start Last Admin Trade Name Freq PRN Reason Stop Dose Admin Hydromorphone HCl 1 mg 01/23/22 11:56 01/23/22 12:03 Hydromorphone Hcl 1 Mg/Ml Syringe IVPUSH 01/23/22 11:57 1 mg ONCE ONE Administration Protocol Hydromorphone HCl 1 mg 01/23/22 14:16 01/23/22 14:30 Hydromorphone Hcl 1 Mg/Ml Syringe IVPUSH 01/23/22 14:17 1 mg ONCE ONE Administration Protocol Sodium Chloride 1,000 mls @ 999 mls/hr 01/23/22 09:45 01/23/22 12:26 Ns IVCONT 01/23/22 10:45 Infused .Q1H1M FELIX Infusion Sodium Chloride 1,000 mls @ 999 mls/hr 01/23/22 11:00 01/23/22 14:25 Ns IVCONT 01/23/22 12:00 Infused .Q1H1M FELIX Infusion Magnesium Sulfate 2 gm in 50 mls @ 25 mls/hr 01/23/22 11:16 01/23/22 14:36 Magnesium Sulfate/H2o IV 01/23/22 13:15 Infused ONCE ONE Infusion Piperacillin Sod/Tazobactam 50 mls @ 100 mls/hr 01/23/22 12:59 01/23/22 14:19 Sod 3.375 gm/ Sodium Chloride IV 01/23/22 13:28 100 mls/hr ONCE ONE Administration Sodium Chloride 2,397 mls @ 2,397 mls/hr 01/23/22 13:53 01/23/22 14:21 Ns IV 01/23/22 14:52 2,397 mls/hr .Q1H STA Administration Iohexol 85 ml 01/23/22 11:38 01/23/22 11:39 Iohexol 350 Mg/Ml 100 Ml Infus..Btl IV 01/23/22 11:39 85 ml ONCE ONE Administration Lorazepam 2 mg 01/23/22 09:49 01/23/22 10:31 Lorazepam 1 Mg Tablet PO 01/23/22 09:50 2 mg ONCE ONE Administration Morphine Sulfate 4 mg 01/23/22 10:55 01/23/22 11:15 Morphine Sulfate 4 Mg/Ml Cartridge IVPUSH 01/23/22 10:56 4 mg ONCE ONE Administration Protocol Ondansetron HCl 4 mg 01/23/22 10:55 01/23/22 11:15 Ondansetron Hcl 4 Mg/2 Ml Vial IVPUSH 01/23/22 10:56 4 mg ONCE ONE Administration Critical Care Time Critical Care Time Critical Care Time: Yes Total Critical Care Time: 60 Attestation: I personally attest to this time spent taking care of the patient Discharge Plan Discharge Clinical Impression: Acute pancreatitis, Alcohol use disorder, severe, dependence Patient Disposition: [facility] Transfer Details: [facility] Dr. Paulson Prescriptions: No Action (DME) pen needle, diabetic [BD Ultra-Fine Orig Pen Needle] 29 gauge x 1/2 needle See Rx Instructions .Route Qty: 100 4RF Rx Instructions: Daily, As directed (DME) blood-glucose meter [FreeStyle Lite Meter] Kit See Rx Instructions .ROUTE .MEDSUPPLY Qty: 1 0RF Rx Instructions: DX: E11.9, test blood sugar twice a day, duration 999 days (DME) FreeStyle Lite Strips Strip See Rx Instructions .ROUTE .MEDSUPPLY Qty: 200 4RF Rx Instructions: DX: E11.9, test blood sugar 2 times a day, 90 days (DME) lancets [FreeStyle Lancets] 28 gauge misc See Rx Instructions .ROUTE .MEDSUPPLY Qty: 200 4RF Rx Instructions: As directed amlodipine 10 mg tablet 10 mg PO DAILY 90 Days Qty: 90 3RF Spiriva Respimat 1.25 mcg/actuation mist 2 puff inhalation DAILY 30 Days Qty: 4 1RF naltrexone 50 mg tablet 50 mg PO DAILY Qty: 30 0RF amitriptyline 25 mg tablet 25 mg PO BEDTIME 30 Days Qty: 30 1RF duloxetine 20 mg capsule,delayed release(DR/EC) 20 mg PO BID 30 Days Qty: 60 0RF hydroxyzine HCl 25 mg tablet 25 mg PO TID PRN (Reason: itching) 30 Days Qty: 90 0RF folic acid 1 mg tablet 1 mg PO DAILY albuterol sulfate 90 mcg/actuation HFA aerosol inhaler 2 puff inhalation Q4H PRN (Reason: wheezing) Zenpep 40,000-126,000- 168,000 unit Capsule,Delayed Release(Dr/Ec) 3 - 4 cap PO TIDWM magnesium oxide 400 mg (241.3 mg magnesium) Tablet 400 mg PO BIDPC Qty: 60 0RF multivitamin [Daily-Jerald] Tablet 1 tab PO DAILY Qty: 30 0RF metoprolol succinate 50 mg tablet extended release 24 hr 1 tab PO DAILY insulin glargine [Basaglar KwikPen U-100 Insulin] 100 unit/mL (3 mL) insulin pen 20 unit subcut QPM docusate sodium [Colace] 100 mg capsule 100 mg PO DAILY Qty: 30 0RF polyethylene glycol 3350 [Miralax] 17 gram/dose powder 17 g PO DAILY Qty: 119 0RF acetaminophen [Tylenol] 325 mg capsule 650 mg PO Q6H PRN (Reason: pain (scale score 1-3)) Qty: 10 0RF tizanidine 2 mg tablet 1 tab PO BID PRN (Reason: Pain) potassium chloride 10 mEq tablet extended release 1 tab PO DAILY Trelegy Ellipta 100-62.5-25 mcg blister with device 1 puff inhalation DAILY (DME) pen needle, diabetic [BD Ultra-Fine Micro Pen Needle] 32 gauge x 1/4 needle See Rx Instructions .ROUTE .MEDSUPPLY Qty: 100 2RF Rx Instructions: Once a day As directed, 90 days omeprazole 40 mg capsule,delayed release(DR/EC) 40 mg PO DAILY 30 Days Qty: 30 0RF Baqsimi 3 mg/actuation spray,non-aerosol 3 mg intranasal ONCE Qty: 2 4RF albuterol sulfate 2.5 mg /3 mL (0.083 %) solution for nebulization 2.5 mg inhalation Q4H PRN (Reason: wheezing)
[2022-01-23 10:05] LABS: MANUAL DIFF FLAG NO
[2022-01-23 10:06] LABS: Basophils Percent Auto 0.3 % (0-2); Eosinophils Absolute Auto 0.1 X10*3/uL (0.0-0.4); Eosinophils Percent Auto 1.5 % (0-4); Hematocrit 38.4 % (42.0-52.0); Hemoglobin 12.8 g/dl (14.0-18.0); Imm Gran Abs Auto 0.03 X10*3/uL (0.00-0.03); Imm Gran Pct Auto 0.4 % (0.0-0.4); Lymphocytes Absolute Auto 0.5 X10*3/uL (1.2-4.9); Lymphocytes Percent Auto 7.1 % (20-40); Mean Corpuscular HGB Conc 33.3 g/dl (31.0-36.0); Mean Corpuscular Hemoglobin 31.3 pg (27.0-33.0); Mean Corpuscular Volume 93.9 fL (80.0-98.0); Mean Platelet Volume 9.5 fL (9.4-12.4); Monocytes Absolute Auto 0.3 X10*3/uL (0.1-1.2); Monocytes Percent Auto 3.7 % (2-11); Neutrophils Absolute Auto 6.5 x10*3/uL (2.0-8.3); Platelet Count 156 X10*3/uL (160-400); Red Blood Count 4.09 X10*6/uL (4.60-5.80); Red Cell Distribution Width 14.1 % (11.0-16.0); White Blood Count 7.5 X10*3/uL (4.8-10.8)
[2022-01-23 10:16] LABS: INTERNATIONAL NORM RATIO 1.4 (0.9-1.1); Prothrombin Time 16.6 SEC (10.0-13.1)
[2022-01-23 10:28] LABS: Ethanol < 10 mg/dL; Lactate Dehydrogenase 501 U/L (118-273)
[2022-01-23] MEDS: 0.9 % Sodium Chloride 1,000 ML 999 ML IVCONT ×2 (10:31→12:04)
[2022-01-23] MEDS: LORazepam 1 MG TABLET 2 MG PO (10:31)
--- NOTE | 2022-01-23 10:50 | PC.NURSE ---
patient a/ox4 . jaydonrla . heart rate regular at 94 beats per minute . breathing even and unlabored . lungs clear throughout . skin pink warm and dry . abdomen firm and distended .rebound tenderness noted throughout lower abdomen . positive bowel sounds noted throughout . IV placed in right A.C . IV fluids started as ordered . patient medicated with Ativan as ordered . patient reports 10 out of 10 pain level . Reported to provider Jorge Luis Kang obtaining an order . patient aware of plan of care .
[2022-01-23 10:58] LABS: Alanine Aminotransferase 138 U/L (0-40); Albumin Level 2.9 g/dL (3.5-5.0); Alkaline Phosphatase 181 U/L (39-117); Anion Gap 15 (12-20); Aspartate Amino Transferase 368 U/L (5-37); Bilirubin Total 1.3 mg/dL (0.0-1.0); Blood Urea Nitrogen 11 mg/dL (9-16); Calcium 8.1 mg/dL (8.4-10.2); Carbon Dioxide 24 mmol/L (22-29); Chloride 103 mmol/L (96-108); Creatinine Clr Calc Pharmacy 107.1; Estimated Glomerular Filt Rate > 60; Glucose Random 176 mg/dL (60-115); Lipase 27 U/L (8-78); Magnesium 1.3 mg/dL (1.6-2.6); Potassium 3.8 mmol/L (3.3-5.1); Sodium 138 mmol/L (135-145); Total Protein 5.5 g/dL (6.5-8.0)
[2022-01-23] MEDS: ondansetron HCL 4 MG/2 ML VIAL IVPUSH (11:15)
[2022-01-23] MEDS: Morphine Sulfate 4 MG/ML CARTRIDGE IVPUSH (11:15)
--- NOTE | 2022-01-23 11:29 | PC.NURSE ---
Patient to CT for images . patient aware of plan of care .
[2022-01-23] MEDS: iohexoL 350 MG/ML 100 ML INFUS..BTL 85 ML IV (11:39)
[2022-01-23] MEDS: Magnesium Sulfate/H2O 2 GM/50 ML PIGGYBACK IV (11:45)
[2022-01-23] MEDS: HYDROmorphone HCl 1 MG/ML SYRINGE IVPUSH ×3 (12:03→16:57)
[2022-01-23 12:52] LABS: COVID-19 Test Negative (Negative)
[2022-01-23 13:01] LABS: Lactic Acid 2.2 mmol/L (0.5-2.0)
[2022-01-23] MEDS: Piperacillin Sodium/Tazobactam 3.375 GM in 0.9 % Sodium Chloride 50 ML IV (14:19)
[2022-01-23] MEDS: 0.9 % Sodium Chloride 2,397 ML 2397 ML IV (14:21)
[2022-01-23 14:35] LABS: Reflex Lactate? Lactic Acid Added
--- NOTE | 2022-01-23 14:35 | PC.NURSE ---
patient reports 9 out of 10 pain level in abdomen . patient medicated with 1mg diliuded as ordered by provider . patient aware of plan of care .
--- NOTE | 2022-01-23 14:36 | PM.CNGS ---
History of Present Illness Consult details Consult date: 01/23/22 Narrative: 56-year-old male here because of ?pancreatitis?. He is apparently well known to the ER. He has had multiple admissions for alcoholic pancreatitis in the past. His last discharge was actually about 3 weeks ago. He said he was drinking again last Sunday which is 3 days ago he started to have abdominal pain after that. He says that this morning, he thought that his pain was most severe? in a long time now so he decided to come to the emergency room. He denies any nausea or vomiting. He denies any fever. 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 He admits to severe abdominal pain in the upper abdomen. Review of Systems Constitutional: Constitutional: Denies chills and Denies fever(s) Cardiovascular: Cardiovascular: Denies chest pain, Denies dyspnea and Denies dyspnea on exertion Respiratory: Respiratory: Denies cough, Denies dyspnea and Denies dyspnea on exertion Gastrointestinal: Gastrointestinal: Denies hematochezia and Denies change in bowel habits Genitourinary: Genitourinary: Denies hematuria and Denies difficulty urinating Musculoskeletal: Musculoskeletal: Denies back pain and Denies limited range of motion Neurologic: Denies focal weakness and Denies convulsions Psychiatric: Psychiatric: Denies depression and Denies mood swings PMFSH Past Medical History Medical History Anxiety Chronic pancreatitis COPD (chronic obstructive pulmonary disease) Depression Diabetes mellitus, new onset EtOH dependence HTN (hypertension) Smoker Family History Family History Mother Alcohol dependence Substance use disorder Surgical History Surgical History History of colon resection Hx of cholecystectomy Hx of colonoscopy Previous back surgery Social History Social History Household Members: Family Household Members Other:: Brother Housing: House Do you presently have visiting nurse or other home services: No Alcohol intake: current Alcohol intake frequency: 3 or more drinks per day Alcohol type: hard liquor Patient Tobacco Use Status: Current everyday Tobacco user Tobacco use type: Cigarette Cigarette Packs Per Day: 1 Cigarettes Per Day: 20.0 Years Smoked: 40 e-Cigarette/Vaping Use: Never Used Second Hand Smoke Exposure: No Advance Directives Date on File: 08/04/21 service: No Current occupational status: employed Current occupational exposures/hazards: No Cognitive needs: No Hearing needs: No Vision needs: No Meds Allergies Allergy/AdvReac Type Severity Reaction Status Date / Time No Known Allergies Allergy Verified 01/31/22 11:48 [No Known Allergies*] Active Medications: Current Medications Sodium Chloride (Ns) 2,397 mls @ 2,397 mls/hr IV .Q1H STA Stop: 01/23/22 14:52 Last Admin: 01/23/22 14:21 Dose: 2,397 mls/hr Home Medications Medication Instructions Recorded Confirmed Last Taken Type albuterol sulfate 90 mcg/actuation 2 puff inhalation Q4H PRN wheezing 05/01/20 01/03/22 Unknown History aerosol inhaler folic acid 1 mg tablet 1 mg PO DAILY 05/01/20 01/03/22 Unknown History tntfnd-spzdhlwm-zheukhm 3 - 4 cap PO TIDWM 10/07/20 01/03/22 Unknown History 40,000-126,000-168,000 unit capsule, delay rel (Zenpep) fluticasone fur. 100 mcg-umeclid 1 puff inhalation DAILY 07/28/21 01/03/22 Unknown History 62.5 mcg-vilant 25 mcg inhalat.powder (Trelegy Ellipta) potassium chloride 10 mEq 1 tab PO DAILY 07/28/21 01/03/22 Unknown History tablet,extended release tizanidine 2 mg tablet 1 tab PO BID PRN Pain 07/28/21 01/03/22 Unknown History albuterol sulfate 2.5 mg/3 mL 2.5 mg inhalation Q4H PRN wheezing 12/07/21 01/03/22 Unknown History (0.083 %) solution for nebulization metoprolol succinate 50 mg 1 tab PO DAILY 01/03/22 01/03/22 Unknown History tablet,extended release 24 hr Physical Exam Vital Signs: Vital Signs: Last Vital Signs Temp 97.8 F 01/23/22 10:43 Pulse 83 01/23/22 14:07 Resp 22 H 01/23/22 14:07 BP 116/80 01/23/22 14:07 Pulse Ox 93 01/23/22 14:07 O2 Del Method 01/23/22 14:07 BMI result Body Mass Index 26.4 Const: General: comfortable and no acute distress Orientation/consciousness: patient oriented x3 Neck: Neck: Yes no lymphadenopathy Resp: Auscultation: clear to auscultation bilaterally Cardio: Rhythm: regular rhythm GI: Other: No guarding rebound, soft although tender in the epigastric area Palpation (GI): Soft to palpation, nontender and no guarding Neuro: General: patient oriented x3 Results Labs Result diagrams: 01/23/22 10:02 01/23/22 10:02 Labs: Abnormal lab results 01/23/22 01/23/22 01/23/22 Range/Units 10:02 10:02 10:02 RBC 4.09 L (4.60-5.80) X10*6/uL Hgb 12.8 L (14.0-18.0) g/dl Hct 38.4 L (42.0-52.0) % Plt Count 156 L (160-400) X10*3/uL Neut % (Auto) 87.0 H (45-73) % Lymph % (Auto) 7.1 L (20-40) % Lymph # (Auto) 0.5 L (1.2-4.9) X10*3/uL PT 16.6 H (10.0-13.1) SEC INR 1.4 H (0.9-1.1) Random Glucose 176 H (60-115) mg/dL Lactic Acid (0.5-2.0) mmol/L Calcium 8.1 L D (8.4-10.2) mg/dL Magnesium 1.3 L* (1.6-2.6) mg/dL Total Bilirubin 1.3 H (0.0-1.0) mg/dL AST 368 H (5-37) U/L ALT 138 H (0-40) U/L Alkaline Phosphatase 181 H (39-117) U/L Lactate Dehydrogenase (118-273) U/L Total Protein 5.5 L (6.5-8.0) g/dL Albumin 2.9 L (3.5-5.0) g/dL 01/23/22 01/23/22 Range/Units 10:02 12:29 RBC (4.60-5.80) X10*6/uL Hgb (14.0-18.0) g/dl Hct (42.0-52.0) % Plt Count (160-400) X10*3/uL Neut % (Auto) (45-73) % Lymph % (Auto) (20-40) % Lymph # (Auto) (1.2-4.9) X10*3/uL PT (10.0-13.1) SEC INR (0.9-1.1) Random Glucose (60-115) mg/dL Lactic Acid 2.2 H* (0.5-2.0) mmol/L Calcium (8.4-10.2) mg/dL Magnesium (1.6-2.6) mg/dL Total Bilirubin (0.0-1.0) mg/dL AST (5-37) U/L ALT (0-40) U/L Alkaline Phosphatase (39-117) U/L Lactate Dehydrogenase 501 H (118-273) U/L Total Protein (6.5-8.0) g/dL Albumin (3.5-5.0) g/dL Short CBC 01/23/22 Range/Units 10:02 WBC 7.5 (4.8-10.8) X10*3/uL Hgb 12.8 L (14.0-18.0) g/dl Hct 38.4 L (42.0-52.0) % Plt Count 156 L (160-400) X10*3/uL BMP 01/23/22 10:02 Sodium 138 Potassium 3.8 Chloride 103 Carbon Dioxide 24 BUN 11 Creatinine 0.87 Calcium 8.1 L D Liver Function 01/23/22 Range/Units 10:02 Total Bilirubin 1.3 H (0.0-1.0) mg/dL AST 368 H (5-37) U/L ALT 138 H (0-40) U/L Alkaline Phosphatase 181 H (39-117) U/L Albumin 2.9 L (3.5-5.0) g/dL All other labs normal. Laboratory Results WBC 7.5 X10*3/uL (4.8-10.8) 01/23/22 10:02 RBC 4.09 X10*6/uL (4.60-5.80) L 01/23/22 10:02 Hgb 12.8 g/dl (14.0-18.0) L 01/23/22 10:02 Hct 38.4 % (42.0-52.0) L 01/23/22 10:02 MCV 93.9 fL (80.0-98.0) 01/23/22 10:02 MCH 31.3 pg (27.0-33.0) 01/23/22 10:02 MCHC 33.3 g/dl (31.0-36.0) 01/23/22 10:02 RDW 14.1 % (11.0-16.0) 01/23/22 10:02 Plt Count 156 X10*3/uL (160-400) L 01/23/22 10:02 MPV 9.5 fL (9.4-12.4) 01/23/22 10:02 Immature Gran % (Auto) 0.4 % (0.0-0.4) 01/23/22 10:02 Neut % (Auto) 87.0 % (45-73) H 01/23/22 10:02 Lymph % (Auto) 7.1 % (20-40) L 01/23/22 10:02 Callahan % (Auto) 3.7 % (2-11) 01/23/22 10:02 Eos % (Auto) 1.5 % (0-4) 01/23/22 10:02 Baso % (Auto) 0.3 % (0-2) 01/23/22 10:02 Lymph # (Auto) 0.5 X10*3/uL (1.2-4.9) L 01/23/22 10:02 Callahan # (Auto) 0.3 X10*3/uL (0.1-1.2) 01/23/22 10:02 Eos # (Auto) 0.1 X10*3/uL (0.0-0.4) 01/23/22 10:02 Baso # (Auto) 0.0 X10*3/uL (0.0-0.2) 01/23/22 10:02 Abs Immat Gran (auto) 0.03 X10*3/uL (0.00-0.03) 01/23/22 10:02 Absolute Neuts (auto) 6.5 x10*3/uL (2.0-8.3) 01/23/22 10:02 Absolute Nucleated RBC 0.000 X10*3/uL (0.0-0.012) 01/23/22 10:02 Nucleated RBC % (auto) 0.0 /100WBC (0.0-0.2) 01/23/22 10:02 PT 16.6 SEC (10.0-13.1) H 01/23/22 10:02 INR 1.4 (0.9-1.1) H 01/23/22 10:02 Sodium 138 mmol/L (135-145) 01/23/22 10:02 Potassium 3.8 mmol/L (3.3-5.1) 01/23/22 10:02 Chloride 103 mmol/L (96-108) 01/23/22 10:02 Carbon Dioxide 24 mmol/L (22-29) 01/23/22 10:02 Anion Gap 15 (12-20) 01/23/22 10:02 BUN 11 mg/dL (9-16) 01/23/22 10:02 Creatinine 0.87 mg/dL (0.5-1.4) 01/23/22 10:02 Estim Creat Clear Calc 107.1 01/23/22 10:02 Estimated GFR > 60 01/23/22 10:02 Random Glucose 176 mg/dL (60-115) H 01/23/22 10:02 Lactic Acid 2.2 mmol/L (0.5-2.0) H* 01/23/22 12:29 Calcium 8.1 mg/dL (8.4-10.2) L D 01/23/22 10:02 Magnesium 1.3 mg/dL (1.6-2.6) L* 01/23/22 10:02 Total Bilirubin 1.3 mg/dL (0.0-1.0) H 01/23/22 10:02 AST 368 U/L (5-37) H 01/23/22 10:02 ALT 138 U/L (0-40) H 01/23/22 10:02 Alkaline Phosphatase 181 U/L (39-117) H 01/23/22 10:02 Lactate Dehydrogenase 501 U/L (118-273) H 01/23/22 10:02 Total Protein 5.5 g/dL (6.5-8.0) L 01/23/22 10:02 Albumin 2.9 g/dL (3.5-5.0) L 01/23/22 10:02 Lipase 27 U/L (8-78) 01/23/22 10:02 Ethyl Alcohol < 10 mg/dL 01/23/22 10:02 COVID-19 (JUAN LUIS) Negative (Negative) 01/23/22 12:29 COVID-19 Clin Com See Note 01/23/22 12:29 Impressions Abdomen/Pelvis CT 01/23/22 11:47 IMPRESSION: Acute on chronic pancreatitis with possible areas of gland necrosis. No drainable collections or phlegmonous collections at this time. Recommend short-term follow-up. Assessment and Plan (1) Acute pancreatitis: Status: Inactive He is a known all it and he has acute on chronic pancreatitis. He admits to heavy drinking. 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 He has the otherwise benign exam. Because of this finding, I told him that in may be best to be is in a tertiary care hospital in case he needs surgical intervention for his necrotizing pancreatitis. In the meantime, he may be on supportive treatment. I have discussed the above with the ED staff. The plan is for him to be transferred to [facility] at this time Procedures Date of Service Date of Service: 01/23/22
--- NOTE | 2022-01-23 15:27 | PC.NURSE ---
[facility]'s Transfer Line called at 1519 per Ailyn MIGUEL. Spoke with Shweta she stated that they are closed to medical transfers. [facility]'s Transfer Line called at 1520 per Ailyn MIGUEL. Gave patient demographics and faxed a Facesheet,Speaking with provider at this time.
--- NOTE | 2022-01-23 15:52 | PC.NURSE ---
[facility] called at 1549 per Ailyn MIGUEL. Spoke with Sera,gave patient demographics,speaking with provider at this time.
--- NOTE | 2022-01-23 16:15 | PC.NURSE ---
At 1600 [facility] called,spoke with Ailyn MIGUEL. accepted patient to [facility]. At 1610 [facility] called for a stat transfer per Ailyn MIGUEL.Spoke with dispatch and gave demographics awaiting a call back with an ETA. Ailyn made aware.
[2022-01-23 16:43] LABS: Appearance Urine Clear; Color Urine Yellow; Glucose Urine UA Negative (Negative); Leukocyte Esterase Urine Negative (Negative); Nitrite Urine Negative (Negative); Specific Gravity - Urine >= 1.030 (1.005-1.025); Urine Blood Negative (Negative); Urine Ketones Negative (Negative); Urine Protein Trace mg/dL (Neg-Trace)
--- NOTE | 2022-01-23 16:56 | PC.NURSE ---
EMS arrived at 1654 for transport.Rn aware
--- NOTE | 2022-01-23 17:20 | PC.NURSE ---
Nurse to nurse given to Tanya Echeverria at [facility] . Ems given report . patient transfering .
== END 2022-01-23 17:26 | disposition short-term general hospital (02) ==
PROVIDERS: Physician Assistant Medical; Emergency Provider Emergency Medicine; PCP Family Medicine
DX: K85.20 Alcohol induced acute pancreatitis without necrosis or infection (principal); F10.20 Alcohol dependence, uncomplicated; Y90.0 Blood alcohol level of less than 20 mg/100 ml; R11.0 Nausea; R06.02 Shortness of breath; Z20.822 Contact with and (suspected) exposure to COVID-19; E11.9 Type 2 diabetes mellitus without complications; I10 Essential (primary) hypertension; F17.210 Nicotine dependence, cigarettes, uncomplicated; Z79.4 Long term (current) use of insulin; Z79.899 Other long term (current) drug therapy
CPT/HCPCS: 36415; 74177; 80053; 81003; 82077; 83605; 83615; 83690; 83735; 85025; 85610; 87040; 87635; 96361; 96365; 96366; 96367; 96375; 96376; 99285; J1170; J2270; J2405; J2543; J3475; Q9967

== ENCOUNTER 2022-01-31 12:37 | Outpatient (REF) | payer OTHER, SELFPAY ==
[2022-01-31 14:11] LABS: MANUAL DIFF FLAG NO
[2022-01-31 14:22] LABS: Basophils Absolute Auto 0.1 X10*3/uL (0.0-0.2); Basophils Percent Auto 0.3 % (0-2); Eosinophils Percent Auto 0.2 % (0-4); Hematocrit 38.8 % (42.0-52.0); Hemoglobin 13.1 g/dl (14.0-18.0); Imm Gran Abs Auto 0.28 X10*3/uL (0.00-0.03); Imm Gran Pct Auto 1.8 % (0.0-0.4); Lymphocytes Absolute Auto 1.8 X10*3/uL (1.2-4.9); Lymphocytes Percent Auto 11.1 % (20-40); Mean Corpuscular HGB Conc 33.8 g/dl (31.0-36.0); Mean Corpuscular Hemoglobin 31.3 pg (27.0-33.0); Mean Corpuscular Volume 92.8 fL (80.0-98.0); Mean Platelet Volume 11.2 fL (9.4-12.4); Monocytes Absolute Auto 0.9 X10*3/uL (0.1-1.2); Monocytes Percent Auto 5.8 % (2-11); Neutrophils Absolute Auto 12.7 x10*3/uL (2.0-8.3); Neutrophils Percent Auto 80.8 % (45-73); Platelet Count 318 X10*3/uL (160-400); Red Blood Count 4.18 X10*6/uL (4.60-5.80); Red Cell Distribution Width 16.5 % (11.0-16.0); White Blood Count 15.8 X10*3/uL (4.8-10.8)
[2022-01-31 14:37] LABS: INTERNATIONAL NORM RATIO 2.1 (0.9-1.1); Prothrombin Time 24.9 SEC (10.0-13.1)
[2022-01-31 14:59] LABS: Alanine Aminotransferase 198 U/L (0-40); Albumin Level 2.8 g/dL (3.5-5.0); Alkaline Phosphatase 559 U/L (39-117); Anion Gap 21 (12-20); Aspartate Amino Transferase 843 U/L (5-37); Blood Urea Nitrogen 12 mg/dL (9-16); Calcium 8.1 mg/dL (8.4-10.2); Carbon Dioxide 20 mmol/L (22-29); Chloride 99 mmol/L (96-108); Estimated Glomerular Filt Rate > 60; Glucose Random 216 mg/dL (60-115); Lipase 31 U/L (8-78); Sodium 136 mmol/L (135-145); Total Protein 5.6 g/dL (6.5-8.0)
== END 2022-01-31 12:38 | disposition home or self-care (01) ==
LOC: HO.WFDLDS 12:37
PROVIDERS: Visit Provider Family Medicine
DX: Z00.00 Encounter for general adult medical examination without abnormal findings (principal); K85.20 Alcohol induced acute pancreatitis without necrosis or infection
CPT/HCPCS: 36415; 80053; 83690; 85025; 85610; 85730

== ENCOUNTER → 2022-02-21 10:26 | Outpatient (BNVA) | payer OTHER, SELFPAY | PROVIDERS: PCP Family Medicine; Visit Provider Registered Nurse Diabetes Educator | DX: Z13.89 Encounter for screening for other disorder (principal) ==

== ENCOUNTER → 2022-02-23 09:15 | Outpatient (BNVA) | payer OTHER, SELFPAY | PROVIDERS: PCP Family Medicine; Visit Provider Internal Medicine Endocrinology, Diabetes & Metabolism | DX: E11.9 Type 2 diabetes mellitus without complications (principal) | CPT/HCPCS: 82947 ==

== ENCOUNTER → 2022-03-14 12:00 | Outpatient (BNVA) | payer OTHER, SELFPAY | PROVIDERS: PCP Family Medicine; Visit Provider Dietitian, Registered | DX: E11.9 Type 2 diabetes mellitus without complications (principal) | CPT/HCPCS: 97803 ==

== ENCOUNTER 2022-03-29 11:07 | Outpatient (REF) | payer OTHER, SELFPAY ==
[2022-03-29 13:44] LABS: MANUAL DIFF FLAG NO
[2022-03-29 13:51] LABS: Basophils Absolute Auto 0.1 X10*3/uL (0.0-0.2); Basophils Percent Auto 0.7 % (0-2); Eosinophils Absolute Auto 0.1 X10*3/uL (0.0-0.4); Eosinophils Percent Auto 1.5 % (0-4); Hematocrit 45.1 % (42.0-52.0); Hemoglobin 15.6 g/dl (14.0-18.0); Imm Gran Abs Auto 0.03 X10*3/uL (0.00-0.03); Imm Gran Pct Auto 0.4 % (0.0-0.4); Lymphocytes Absolute Auto 1.5 X10*3/uL (1.2-4.9); Lymphocytes Percent Auto 21.1 % (20-40); Mean Corpuscular HGB Conc 34.6 g/dl (31.0-36.0); Mean Corpuscular Hemoglobin 35.5 pg (27.0-33.0); Mean Corpuscular Volume 102.5 fL (80.0-98.0); Mean Platelet Volume 9.9 fL (9.4-12.4); Monocytes Absolute Auto 0.6 X10*3/uL (0.1-1.2); Monocytes Percent Auto 7.9 % (2-11); Neutrophils Absolute Auto 4.9 x10*3/uL (2.0-8.3); Neutrophils Percent Auto 68.4 % (45-73); Platelet Count 189 X10*3/uL (160-400); Red Cell Distribution Width 12.6 % (11.0-16.0); White Blood Count 7.2 X10*3/uL (4.8-10.8)
[2022-03-29 14:03] LABS: Appearance Urine Cloudy; Color Urine Dark Yellow; Glucose Urine UA Negative (Negative); Leukocyte Esterase Urine Trace (Negative); Nitrite Urine Negative (Negative); Specific Gravity - Urine >= 1.030 (1.005-1.025); UMIC TRIGGER UA YES; Urine Blood Negative (Negative); Urine Ketones Trace mg/dL (Negative); Urine Protein 30 (1+) mg/dL (Neg-Trace)
[2022-03-29 14:24] LABS: Bacteria Urine None Seen (None Seen); Calcium Oxalate Crystals Urine Present; RBC Urine 0-2 /HPF (0-2); Squamous Epithelial Cell Urine 0-2 /HPF (0-2); WBC Urine 0-5 /HPF (0-5)
[2022-03-29 14:30] LABS: Creatinine Urine 350.15 mg/dL; Microalbum/Creatinine Ratio Ur 9.7 ug/mg cr
[2022-03-29 14:50] LABS: Alanine Aminotransferase 38 U/L (0-40); Albumin Level 3.8 g/dL (3.5-5.0); Alkaline Phosphatase 214 U/L (39-117); Anion Gap 20 (12-20); Aspartate Amino Transferase 85 U/L (5-37); Bilirubin Total 0.9 mg/dL (0.0-1.0); Blood Urea Nitrogen 7 mg/dL (9-16); Calcium 8.9 mg/dL (8.4-10.2); Carbon Dioxide 17 mmol/L (22-29); Chloride 106 mmol/L (96-108); Cholesterol 195 mg/dL; Estimated Glomerular Filt Rate > 60; Glucose Fasting 155 mg/dL (60-99); HDL Cholesterol 47 mg/dL; LDL Cholesterol Calculated 80 mg/dl; Lipase 18 U/L (8-78); Potassium 3.6 mmol/L (3.3-5.1); Prostate Specific Antigen Scr 2.85 ng/mL (<0.05-4.0); Sodium 139 mmol/L (135-145); TSH reflex Free T4 0.53 uIU/mL (0.32-4.0); Total Protein 7.3 g/dL (6.5-8.0); Triglycerides 342 mg/dL
== END 2022-03-29 11:08 | disposition home or self-care (01) ==
LOC: HO.WFDLDS 11:07
PROVIDERS: Visit Provider Family Medicine
DX: Z00.00 Encounter for general adult medical examination without abnormal findings (principal); Z12.5 Encounter for screening for malignant neoplasm of prostate; K85.20 Alcohol induced acute pancreatitis without necrosis or infection; I10 Essential (primary) hypertension
CPT/HCPCS: 36415; 80053; 80061; 81001; 81003; 82043; 83690; 84153; 84443; 85025

== ENCOUNTER 2022-05-11 10:25 | Outpatient (REF) | payer OTHER, SELFPAY ==
--- NOTE | ~2022-05-11 | FL_ITS ---
EXAMINATION: FL BARIUM SWALLOW CLINICAL INFORMATION: Dysphagia COMPARISON: None available. TECHNIQUE: Barium swallow examination is performed in semi-supine position using fluoroscopic evaluation in addition to multiple fluoroscopic spot views. The patient is imaged both upright and prone and using both thick and thin sulfate along with effervescent granules. Fluoroscopy time: 1.1 minutes DAP: 13.581 Gycm2 Images: 24 FINDINGS: Limited exam. Following oral administration of thin barium there is normal propagation bolus from the oral cavity through the pharynx, esophagus into stomach without obstruction. There is slight transverse orientation of gastroesophageal junction with mild suspicion for narrowing. The course, caliber and peristalsis of the esophagus is normal. FL/FL barium swallow IMPRESSION: Slightly transversely oriented GE junction with narrowing suspected. Otherwise rest of the esophagus is unremarkable.
== END 2022-05-11 10:26 | disposition home or self-care (01) ==
LOC: HO.XRAY 10:25
PROVIDERS: PCP Family Medicine; Visit Provider Physician Assistant
DX: R13.10 Dysphagia, unspecified (principal); R11.0 Nausea; K29.70 Gastritis, unspecified, without bleeding; K86.1 Other chronic pancreatitis
CPT/HCPCS: 74220

== ENCOUNTER → 2022-06-20 14:06 | Outpatient (BNVA) | payer OTHER, SELFPAY | PROVIDERS: PCP Family Medicine; Visit Provider Dietitian, Registered | DX: E11.9 Type 2 diabetes mellitus without complications (principal); Z71.3 Dietary counseling and surveillance | CPT/HCPCS: 97803 ==

== ENCOUNTER → 2022-07-19 11:31 | Outpatient (BNVA) | payer OTHER, SELFPAY | PROVIDERS: PCP Family Medicine; Visit Provider Internal Medicine ==

== ENCOUNTER 2022-09-08 14:58 | Outpatient (AMB) | payer OTHER, SELFPAY ==
[2022-09-08 15:03] VITALS: BP 100/56; PULSE 111; O2SAT 97; BMI 29.6
--- NOTE | 2022-09-08 15:03 | A.OFFPC_ITS ---
Vital Signs 09/08/22 15:03 Height 6 ft Weight 218 lb BMI 29.6 BP 100/56 L Pulse 111 H Pulse Source Pulse Oximeter Pulse Oximetry (%) 97 Oxygen Delivery Method Room Air Intake Visit Reasons: f/u diabetes and chronic conditions Intake Note: Patient is here to follow up on diabetes and chronic conditions. Allergies No Known Allergies [No Known Allergies*] Allergy (Verified 09/08/22 15:04) Medication List - Last Reconciled 09/08/22 by Oren Leon MD acetaminophen (Tylenol) 650 mg (2 x 325 mg) PO Q6H PRN albuterol sulfate 90 mcg/actuation 2 puffs inhalation Q4H PRN albuterol sulfate 2.5 mg inhalation Q4H PRN amitriptyline 25 mg PO BEDTIME 30 days amlodipine 10 mg PO DAILY 90 days azithromycin (Zithromax Z-Evelio) take 500 mg today (day 1), then 250 mg for 4 days (days 2-5) PO 5 days blood sugar diagnostic (FreeStyle Lite Strips) DX: E11.9, test blood sugar 2 times a day, 90 days blood-glucose meter (FreeStyle Lite Meter kit) DX: E11.9, test blood sugar twice a day, duration 999 days blood-glucose sensor (FreeStyle Valencia 3 Sensor device) As directed blood-glucose sensor (FreeStyle Valencia 3 Sensor device) As directed clotrimazole 1% 1 appl topical BID 2 weeks docusate sodium (Colace) 100 mg PO DAILY doxycycline monohydrate 100 mg PO BID duloxetine 30 mg PO BID 90 days famotidine 40 mg PO DAILY 30 days tiqovlbespt-pslvnlrdt-valaahme 100-62.5-25 mcg (Trelegy Ellipta) 1 ea inhalation DAILY 90 days folic acid 1 mg PO DAILY folic acid 0.4 mg PO DAILY 90 days glucagon 3 mg/actuation (Baqsimi) 3 mg intranasal ONCE hydroxyzine HCl 25 mg PO TID PRN 30 days insulin glargine (Basaglar KwikPen U-100 Insulin) 20 units (0.2 mL) subcut QPM 90 days lancets (FreeStyle Lancets) As directed twice a day dwzmmp-wbauffur-dihmipp 40,000-126,000- 168,000 unit (Zenpep) 3 - 4 caps PO TIDWM magnesium oxide 400 mg PO BIDPC metoprolol succinate ER 1 tab PO DAILY metoprolol succinate ER 100 mg PO DAILY 30 days multivitamin (Daily-Jerald tablet) 1 tab PO DAILY naltrexone 50 mg PO DAILY nicotine (Nicoderm CQ) 1 patch transdermal DAILY 28 days nicotine (polacrilex) (Nicorette) 4 mg buccal Q8H PRN 28 days omeprazole 40 mg PO DAILY 90 days pen needle, diabetic (BD Ultra-Fine Micro Pen Needle) Once a day As directed, 90 days pen needle, diabetic (BD Ultra-Fine Original Pen Needle) Daily, As directed polyethylene glycol 3350 (Miralax) 17 grams PO DAILY potassium chloride ER 1 tab PO DAILY prednisone mg PO pyridoxine (vitamin B6) 25 mg (1/2 x 50 mg) PO DAILY 90 days thiamine HCl (vitamin B1) 250 mg PO DAILY 90 days tiotropium bromide 1.25 mcg/actuation (Spiriva Respimat) 2 puffs inhalation DAILY 30 days tizanidine 2 mg PO BID PRN 30 days Tobacco use date assessed: 09/08/22 Dental Screening Did you have a dental visit in the last 12 months?: Yes Did you have a dental problem in the last 6 months where you did not have access to dental care?: No Was dental information given to patient?: No HPI f/u diabetes and chronic conditions HPI Details 56 y/o male presents to f/u diabetes and chronic conditions. Last A1c 4.5% on 08/02/22. Had decreased Lantus from 30 units daily to 28 units d aily. A1c today dropped to 4.3% despite decreasing lantus. He reports he has not been taking his glipizide regularly. He continues to be on his omeprazole 40mg daily. He continues drinking EtOH daily. He reports dizziness and had fallen once. He reports a fungal infection of his skin. HPI Comments History of Present Illness Details Documentation assistance for Oren Leon MD, was provided by Danish Olivarez, Director Of Women'S Services on 09/08/2022 3:42 PM STEFANY. Cori, Dr. Leon, have read, observed, and verified documentation. PFSH Medical History Anxiety Chronic pancreatitis COPD (chronic obstructive pulmonary disease) Depression Diabetes mellitus, new onset EtOH dependence HTN (hypertension) Smoker Surgical History History of colon resection Hx of cholecystectomy Hx of colonoscopy Previous back surgery Family History Mother Alcohol dependence Substance use disorder Social History Household Members: Family Household Members Other:: Brother Housing: House Do you presently have visiting nurse or other home services: No Alcohol intake: current Alcohol intake frequency: 3 or more drinks per day Alcohol type: hard liquor Patient Tobacco Use Status: Current everyday Tobacco user Tobacco use type: Cigarette Cigarettes Per Day: 15 Years Smoked: 40 e-Cigarette/Vaping Use: Never Used Second Hand Smoke Exposure: No Advance Directives Date on File: 08/04/21 service: No Current occupational status: employed Current occupational exposures/hazards: No Cognitive needs: No Hearing needs: No Vision needs: No Questionnaire Thrive Questionnaire Date Thrive assessed: 09/09/21 GEOFFREY-7 AMB Questionnaire GEOFFREY-7 Date GEOFFREY - 7 assessed: 01/31/22 Source: Developed by Drs. Emilio Wright, Tammy Collazo, Mio Tidwell and colleagues, with an educational lori from [employer]. Review of Systems Const Denies chills, Denies fatigue, Denies fever(s), Denies headache(s) and Denies weakness ENT Reports dizziness and Denies headache(s) Card Denies chest pain, Denies lightheadedness, Denies dyspnea and Denies other (Palpitations) Resp Denies cough, Denies dyspnea, Denies wheezing and Denies other ( shortness of breath) GI Reports nausea Musc Denies numbness and Denies tingling Neuro Reports dizziness, Denies headache(s), Denies numbness, Denies tingling, Denies paresthesias and Denies weakness Psych Denies anxiety and Denies depression Endo Denies fatigue Aller/Immun Denies wheezing Physical exam (Primary Care) Vital Signs: Last Vital Signs Pulse 111 H 09/08/22 15:03 BP 100/56 L 09/08/22 15:03 Pulse Ox 97 09/08/22 15:03 Oxygen Delivery Method Room Air 09/08/22 15:03 BMI result Body Mass Index 29.6 Tobacco/Smoking Status: Tobacco use Status Tobacco use date assessed 09/08/22 09/08/22 15:10 Patient Tobacco Use Status Current everyday Tobacco 09/08/22 15:10 Tobacco use type Cigarette 09/08/22 15:10 e-Cigarette/Vaping Use Never Used 09/08/22 15:10 Thrive Assessment: Date of Thrive Assessment Date Thrive assessed 09/09/21 09/08/22 15:10 Const General: no acute distress and well developed Nutritional Appearance: well nourished Orientation/consciousness: patient oriented x3 HENMT Head: Yes normocephalic and Yes atraumatic Eyes General: appearance normal, both eyes and all related structures Pupils: Equal, round and reactive pupils present EOM: EOMs intact bilaterally Resp Effort & Inspection: normal respiratory effort Auscultation: clear to auscultation bilaterally Cardio Rate: regular rate Rhythm: regular rhythm Heart sounds: S1 normal heart sound present, S2 normal heart sound present, no gallops, no murmurs and no rubs Neuro General: patient oriented x3 and gait normal Cranial nerves: Yes Equal, round and reactive pupils present Psych Affect: normal affect Results AMB Hemoglobin A1c AMB Hemoglobin A1c 4.3 % Last Edit by Ginna Ortega CMA on 09/08/22 15:39 Assessment and Plan Assessment & Plan (1) Diabetes mellitus: Code(s): E11.9 - Type 2 diabetes mellitus without complications Plan: A1c has dropped from 4.5% to 4.3% despite decreasing Lantus slightly. He also isn't taking glipizide very frequently but we will discontinue this entirely. He is not eating much food at all due to alcoholism and gastritis and nausea Will decrease Lantus from 28 units to 20 units daily (2) Dehydration: Code(s): E86.0 - Dehydration Plan: Patient is moderately dehydrated and feels mildly dizzy/orthostatic After providing him with water and ice chips blood pressure is still 100/50. I advised patient to go to the ED but he is declining this for now. He wants to continue trying to hydrate at home but says he will go to the ED if he is unable to keep up with hydration orders feeling worse or is not getting better by tomorrow morning. (3) GERD (gastroesophageal reflux disease): Code(s): K21.9 - Gastro-esophageal reflux disease without esophagitis Plan: GERD/gastritis Secondary to alcohol abuse He is on omeprazole and I will give him a prescription for famotidine as well He has an appointment with GI next month Encouraged weaning down alcohol further (4) Nausea: Code(s): R11.0 - Nausea Plan: Secondary to significant alcohol intake of up to 10 drinks per day with likely gastritis Encouraged weaning down alcohol intake Had a discussion with patient that this may also be early pancreatitis. Combined with hypotension and orthostasis, I recommended he go to the emergency department, particularly since his blood pressures are not increasing well with fluids. He declines this for now. (5) Alcohol use disorder, severe, dependence: Code(s): F10.20 - Alcohol dependence, uncomplicated Plan: Encouraged weaning (6) Gastritis: Code(s): K29.70 - Gastritis, unspecified, without bleeding Plan: As above (7) Dizziness: Code(s): R42 - Dizziness and giddiness Plan: Likely secondary to hypotension Patient declines ED visit this evening and will try hydration on his own 1st. History of falls (8) Fall: Code(s): W19.XXXA - Unspecified fall, initial encounter Plan: History of falls primarily due to alcoholism (9) Fungal infection of skin: Code(s): B36.9 - Superficial mycosis, unspecified Plan: Fungal infection of skin under pannus Will give him a script for clotrimazole Orders: Orders AMB Hemoglobin A1c Today E11.649 - Type 2 diabetes mellitus with hypoglycemia without coma, E11.9 - Type 2 diabetes mellitus without complications, Z13.9 - Encounter for screening, unspecified Medications: New famotidine 40 mg PO DAILY 30 days 30 tabs 0RF clotrimazole 1% 1 appl topical BID 2 weeks 45 grams 0RF Changed From insulin glargine (Basaglar KwikPen U-100 Insulin) 30 units (0.3 mL) subcut QPM 90 days 27 mL 3RF E11.9 - Type 2 diabetes mellitus without complications To insulin glargine (Basaglar KwikPen U-100 Insulin) 20 units (0.2 mL) subcut QPM 90 days 18 mL 3RF E11.9 - Type 2 diabetes mellitus without complications Discontinued glipizide Discontinued Reason: Doctor's Order 5 mg PO DAILY 90 days 90 tabs 3RF Coding Level of Care Code Est Pt Level 4 (00524) Diagnoses Diabetes mellitus E11.9 Dehydration E86.0 GERD (gastroesophageal reflux disease) K21.9 Nausea R11.0 Alcohol use disorder, severe, dependence F10.20 Gastritis K29.70 Dizziness R42 Fall W19.XXXA Fungal infection of skin B36.9
== END 2022-09-08 16:10 | disposition home or self-care (01) ==
PROVIDERS: PCP Family Medicine; Visit Provider Family Medicine
DX: K21.9 Gastro-esophageal reflux disease without esophagitis (principal); F10.20 Alcohol dependence, uncomplicated; E11.649 Type 2 diabetes mellitus with hypoglycemia without coma; R11.0 Nausea; E86.0 Dehydration; K29.70 Gastritis, unspecified, without bleeding; R42 Dizziness and giddiness; W19.XXXA Unspecified fall, initial encounter; B36.9 Superficial mycosis, unspecified
CPT/HCPCS: 83036; 99214